=== PATIENT | female | born 1990 | race Caucasian/White ===

== ENCOUNTER → 2016-11-14 | Outpatient (REF) | payer OTHER ==
[2016-11-14 13:16] LABS: BASO % 0.1 % (0.0-1.0); EOS # 0.1 K/mm3 (0.0-0.50); EOS % 1.3 % (0.0-3.0); LARGE UNSTAINED CELL # 0.1 K/mm3 (0.0-0.4); LARGE UNSTAINED CELL % 1.6 % (0.0-4.0); LYMPH # 1.8 K/mm3 (1.5-6.5); LYMPH % 22.4 % (24.0-44.0); MEAN CORPUSCULAR HEMOGLOBIN 28.7 pg (27.0-33.0); MEAN CORPUSCULAR HGB CONC 32.1 g/dl (32.0-36.5); MEAN CORPUSCULAR VOLUME 89.4 fl (80.0-96.0); MONO # 0.5 K/mm3 (0.0-0.8); MONO % 5.8 % (0.0-5.0); NEUTROPHILS # 5.6 K/mm3 (1.8-7.7); NEUTROPHILS % 68.8 % (36.0-66.0); PLATELET COUNT, AUTOMATED 274 k/mm3 (150-450); WHITE BLOOD COUNT 8.2 K/mm3 (4.0-10.0)
[2016-11-14 13:25] LABS: ALBUMIN 3.3 GM/DL (3.2-5.2); ALBUMIN/GLOBULIN RATIO 0.79 (1.00-1.93); BILIRUBIN,TOTAL 0.2 MG/DL (0.2-1.0); CREATININE FOR GFR 1.57 MG/DL (0.55-1.02); GLOMERULAR FILTRATION RATE 42.1 (>60); TOTAL PROTEIN 7.5 GM/DL (6.4-8.2)
[2016-11-14 13:26] LABS: POTASSIUM SERUM 5.5 MEQ/L (3.5-5.1)
== END ==
LOC: M SFHCADAM 09:10
PROVIDERS: ATTEND Family Medicine
DX: E11.9 Type 2 diabetes mellitus without complications (principal); Z86.79 Personal history of other diseases of the circulatory system

== ENCOUNTER → 2016-11-19 | Outpatient (CLI) | payer OTHER ==
--- NOTE | 2016-11-19 12:53 | REP ---
RENAL AND BLADDER ULTRASOUND: Real-time sonographic evaluation of the kidneys performed and demonstrates both kidneys to be normal in size and echotexture, right kidney measuring 11.3 x 4.5 x 4.0 cm and left kidney 11.1 x 3.3 x 4.3 cm. There is no renal mass, hydronephrosis, or nephrolithiasis. Urinary bladder measures 6.7 x 7.0 x 5.0 cm for a volume of 153 mL. No mass or calculus is seen. Left ureteral jet is seen with Doppler color evaluation. Right ureteral jet could not be visualized. IMPRESSION: Essentially negative renal and bladder ultrasound. Signed by Timi Ceballos MD 11/20/2016 09:45 A
== END ==
LOC: M RAD 11:54
PROVIDERS: ATTEND Family Medicine
DX: N18.9 Chronic kidney disease, unspecified (principal)

== ENCOUNTER → 2016-12-01 | Outpatient (REF) | payer OTHER | LOC: M LAB REF 20:13 → M SFHCADAM 20:13 | PROVIDERS: ATTEND Family Medicine | DX: E11.9 Type 2 diabetes mellitus without complications (principal) ==

== ENCOUNTER → 2016-12-02 | Outpatient (CLI) | payer OTHER ==
--- NOTE | 2016-12-02 19:39 | ECHO ---
DATE OF PROCEDURE: 12/02/2016 REFERRING PHYSICIAN: Janelle Hoover DO INDICATION: Coarctation of the aorta. HEIGHT: 150 cm WEIGHT: 43 kg. DIMENSIONS: IVS: 1.0 LV: 3.3 LVPW: 1.1 LA: 2.6 Aorta 2.6 FINDINGS: The study is of acceptable technical quality. Left ventricle is of normal size and systolic function with estimated ejection fraction (EF) around 60-65%. Right ventricle also appears normal. Both atria appear normal. All four cardiac valves appear normal. No pericardial effusion is noted. Aortic root is normal. Aortic arch appears normal. The segment of descending aorta where normally coarctation is present was poorly seen but there appears to be some narrowing of the aortic lumen. Abdominal aorta was not seen. Doppler interrogation reveals no significant aortic mitral tricuspid or pulmonic disease. Evaluation of diastolic function reveals probably normal diastolic function even though velocity of the septal tissue Doppler is reduced at 6.34 cm/sec but lateralized 16 cm/sec. There is gradient across segment of descending thoracic aorta that reaches approximately 25 mmHg which would correspond to very mild coarctation. CONCLUSIONS: 1. Study is of acceptable technical quality. 2. Normal left ventricle (LV) size with normal LV systolic function and probably normal diastolic function. 3. No significant valvular disease. 4. Normal aortic root. 5. Mild gradient across coarctation segment of descending thoracic aorta with gradient measured approximately 20-25 mmHg. COMMENTS: Subacute bacterial endocarditis (SBE) prophylaxis is not recommended. MTDD
== END ==
LOC: M CARPUL 10:39
PROVIDERS: ATTEND Family Medicine
DX: Q25.1 Coarctation of aorta (principal)

== ENCOUNTER → 2017-01-20 | Outpatient (REF) | payer OTHER ==
[2017-01-20 19:39] LABS: ALBUMIN 3.4 GM/DL (3.2-5.2); ALBUMIN/GLOBULIN RATIO 0.79 (1.00-1.93); BILIRUBIN,TOTAL 0.2 MG/DL (0.2-1.0); CALCIUM LEVEL 8.5 MG/DL (8.5-10.1); CREATININE FOR GFR 1.61 MG/DL (0.55-1.02); GLOMERULAR FILTRATION RATE 40.9 (>60); POTASSIUM SERUM 4.6 MEQ/L (3.5-5.1); TOTAL PROTEIN 7.7 GM/DL (6.4-8.2)
== END ==
LOC: M SFHCADAM 15:55
PROVIDERS: ATTEND Family Medicine
DX: Z01.810 Encounter for preprocedural cardiovascular examination (principal)

== ENCOUNTER → 2018-02-10 | Outpatient (REF) | payer OTHER, SELFPAY ==
[2018-02-10 19:12] LABS: ESTIMATED AVERAGE GLUCOSE 226 MG/DL (60-110); HEMOGLOBIN A1c 9.5 %
[2018-02-10 19:25] LABS: ALBUMIN 2.8 GM/DL (3.2-5.2); ALBUMIN/GLOBULIN RATIO 0.65 (1.00-1.93); ALKALINE PHOSPHATASE 94 U/L (45-117); ALT/SGPT 16 U/L (12-78); ANION GAP 6 MEQ/L (8-16); AST/SGOT 9 U/L (7-37); BILIRUBIN,TOTAL 0.2 MG/DL (0.2-1.0); BLOOD UREA NITROGEN 48 MG/DL (7-18); CALCIUM LEVEL 8.1 MG/DL (8.5-10.1); CARBON DIOXIDE LEVEL 26 MEQ/L (21-32); CHLORIDE LEVEL 109 MEQ/L (98-107); CREATININE FOR GFR 3.71 MG/DL (0.55-1.30); GLOMERULAR FILTRATION RATE 15.5 (>60); GLUCOSE, FASTING 169 MG/DL (70-100); SODIUM LEVEL 141 MEQ/L (136-145); TOTAL PROTEIN 7.1 GM/DL (6.4-8.2)
[2018-02-10 19:28] LABS: BASO % 0.1 % (0.0-1.0); EOS # 0.1 10^3/uL (0.0-0.50); EOS % 1.5 % (0.0-3.0); HEMATOCRIT 30.9 % (36.0-47.0); HEMOGLOBIN 10.4 g/dl (12.0-15.5); IMMATURE GRANULOCYTE % 0.2 % (0-3.0); LYMPH # 2.2 10^3/uL (1.5-6.5); LYMPH % 23.4 % (24.0-44.0); MEAN CORPUSCULAR HEMOGLOBIN 29.7 pg (27.0-33.0); MEAN CORPUSCULAR HGB CONC 33.7 g/dl (32.0-36.5); MEAN CORPUSCULAR VOLUME 88.3 fl (80.0-96.0); MONO # 0.7 10^3/uL (0.0-0.8); MONO % 6.9 % (0.0-5.0); NEUTROPHILS # 6.5 10^3/uL (1.8-7.7); NEUTROPHILS % 67.9 % (36.0-66.0); PLATELET COUNT, AUTOMATED 256 10^3/uL (150-450); WHITE BLOOD COUNT 9.6 10^3/uL (4.0-10.0)
[2018-02-10 19:29] LABS: POTASSIUM SERUM 5.5 MEQ/L (3.5-5.1)
[2018-02-10 19:59] LABS: CREATININE, URINE 57.9 MG/DL; MAU/CREAT RATIO 4922.2 MCG/MG (0.0-30.0)
== END ==
LOC: M SFHCADAM 16:40
DX: Z86.2 Personal history of diseases of the blood and blood-forming organs and certain disorders involving the immune mechanism (principal); E11.9 Type 2 diabetes mellitus without complications
CPT/HCPCS: 83036

== ENCOUNTER → 2018-07-15 | Outpatient (CLI) | payer OTHER ==
[2018-07-15 15:34] LABS: ESTIMATED AVERAGE GLUCOSE 212 MG/DL (60-110)
[2018-07-15 15:43] LABS: ALBUMIN/GLOBULIN RATIO 0.73 (1.00-1.93); ALKALINE PHOSPHATASE 83 U/L (45-117); ALT/SGPT 12 U/L (12-78); ANION GAP 11 MEQ/L (8-16); AST/SGOT 12 U/L (7-37); BASO % 0.3 % (0.0-1.0); BILIRUBIN,TOTAL 0.2 MG/DL (0.2-1.0); BLOOD UREA NITROGEN 58 MG/DL (7-18); CALCIUM LEVEL 8.4 MG/DL (8.5-10.1); CARBON DIOXIDE LEVEL 21 MEQ/L (21-32); CHLORIDE LEVEL 109 MEQ/L (98-107); CHOLESTEROL LEVEL 202 MG/DL (<200); CHOLESTEROL RISK RATIO 7.769 (<5); CREATININE FOR GFR 6.49 MG/DL (0.55-1.30); EOS # 0.2 10^3/uL (0.0-0.50); EOS % 1.8 % (0.0-3.0); GLOMERULAR FILTRATION RATE 8.1 (>60); GLUCOSE, FASTING 119 MG/DL (70-100); HDL CHOLESTEROL 26 MG/DL (>40); HEMATOCRIT 27.6 % (36.0-47.0); IMMATURE GRANULOCYTE % 0.3 % (0-3.0); LDL CHOLESTEROL 126 MG/DL (<100); LYMPH # 2.3 10^3/uL (1.5-6.5); MEAN CORPUSCULAR HEMOGLOBIN 29.6 pg (27.0-33.0); MEAN CORPUSCULAR HGB CONC 32.6 g/dl (32.0-36.5); MEAN CORPUSCULAR VOLUME 90.8 fl (80.0-96.0); MONO # 0.6 10^3/uL (0.0-0.8); MONO % 6.3 % (0.0-5.0); NEUTROPHILS # 6.2 10^3/uL (1.8-7.7); NEUTROPHILS % 66.3 % (36.0-66.0); NON-HDL-C 176 MG/DL; PLATELET COUNT, AUTOMATED 274 10^3/uL (150-450); POTASSIUM SERUM 5.1 MEQ/L (3.5-5.1); RED BLOOD COUNT 3.04 10^6/uL (4.00-5.40); RED CELL DISTRIBUTION WIDTH 12.5 % (11.5-14.5); SODIUM LEVEL 141 MEQ/L (136-145); TOTAL PROTEIN 7.1 GM/DL (6.4-8.2); TRIGLYCERIDES LEVEL 249 MG/DL (<150); WHITE BLOOD COUNT 9.4 10^3/uL (4.0-10.0)
== END ==
LOC: M LAB 13:43
DX: R53.83 Other fatigue (principal); I10 Essential (primary) hypertension; E78.2 Mixed hyperlipidemia
CPT/HCPCS: 84443

== ENCOUNTER 2018-07-16 18:54 | Inpatient (IN) | payer OTHER ==
[2018-07-16 19:57] LABS: BEDSIDE GLUCOSE 201 MG/DL (70-105)
[2018-07-16 20:02] LABS: VENOUS BASE EXCESS -4.9 (-2.0-2.0); VENOUS HCO3 20.3 MEQ/L (23.0-27.0); VENOUS O2 SATURATION 98.3 % (60.0-80.0); VENOUS PARTIAL PRESSURE CO2 38.4 mmHg (38.0-50.0); VENOUS PH 7.342 UNITS (7.330-7.430); VENOUS STANDARD HCO3 20.4 MEQ/L; VENOUS TOTAL CO2 21.5 MEQ/L (24.0-28.0)
[2018-07-16 20:16] LABS: BASO % 0.2 % (0.0-1.0); EOS # 0.2 10^3/uL (0.0-0.50); HEMATOCRIT 27.4 % (36.0-47.0); HEMOGLOBIN 9.1 g/dl (12.0-15.5); IMMATURE GRANULOCYTE % 0.3 % (0-3.0); LYMPH # 2.2 10^3/uL (1.5-6.5); MEAN CORPUSCULAR HEMOGLOBIN 29.8 pg (27.0-33.0); MEAN CORPUSCULAR HGB CONC 33.2 g/dl (32.0-36.5); MEAN CORPUSCULAR VOLUME 89.8 fl (80.0-96.0); MONO # 0.7 10^3/uL (0.0-0.8); MONO % 6.6 % (0.0-5.0); NEUTROPHILS % 68.9 % (36.0-66.0); PLATELET COUNT, AUTOMATED 269 10^3/uL (150-450); RED BLOOD COUNT 3.05 10^6/uL (4.00-5.40); RED CELL DISTRIBUTION WIDTH 12.4 % (11.5-14.5); WHITE BLOOD COUNT 10.1 10^3/uL (4.0-10.0)
[2018-07-16 20:18] LABS: ALBUMIN 2.9 GM/DL (3.2-5.2); ALBUMIN/GLOBULIN RATIO 0.69 (1.00-1.93); ALKALINE PHOSPHATASE 85 U/L (45-117); ALT/SGPT 17 U/L (12-78); ANION GAP 10 MEQ/L (8-16); AST/SGOT 9 U/L (7-37); BILIRUBIN,DIRECT < 0.1 MG/DL (0.0-0.2); BILIRUBIN,TOTAL 0.2 MG/DL (0.2-1.0); BLOOD UREA NITROGEN 65 MG/DL (7-18); CALCIUM LEVEL 8.1 MG/DL (8.5-10.1); CARBON DIOXIDE LEVEL 23 MEQ/L (21-32); CHLORIDE LEVEL 108 MEQ/L (98-107); CREATININE FOR GFR 6.38 MG/DL (0.55-1.30); GLOMERULAR FILTRATION RATE 8.2 (>60); GLUCOSE, FASTING 203 MG/DL (70-100); LIPASE 432 U/L (73-393); POTASSIUM SERUM 4.9 MEQ/L (3.5-5.1); SODIUM LEVEL 141 MEQ/L (136-145); TOTAL PROTEIN 7.1 GM/DL (6.4-8.2)
[2018-07-16 20:27] LABS: CONTROL LINE HCG INT CTR LINE PRESENT; HCG, SERUM QUALITATIVE NEGATIVE (NEGATIVE)
[2018-07-16] MEDS: HumaLOG INSULIN (NovoLOG) PER UNIT SC (21:00)
[2018-07-16] MEDS: NS 1,000 ML IV (21:15)
[2018-07-16] MEDS: hydrALAZINE INJ 20 MG/ML VIAL IV (22:13)
[2018-07-16] MEDS ORDERED: GLUCAGON FOR INJ 1 MG VIAL (J1610) SC (22:15)
[2018-07-16] MEDS ORDERED: DEXTROSE 50% 50 ML SYRINGE IV (22:15)
[2018-07-16] MEDS ORDERED: GLUCOSE 4 GM CHEW TABLET PO (22:15)
[2018-07-16] MEDS: amLODIPine 10 MG TAB PO (22:24)
[2018-07-16 23:18] LABS: BEDSIDE GLUCOSE 180 MG/DL (70-105)
[2018-07-16 23:36] LABS: BEDSIDE GLUCOSE 223 MG/DL (70-105)
[2018-07-17 00:59] LABS: APPEARANCE, URINE CLEAR (CLEAR); BACTERIA, URINE AUTO NEGATIVE (NEGATIVE); BILIRUBIN, URINE AUTO NEGATIVE (NEGATIVE); BLOOD, URINE BLOOD 1+ (NEGATIVE); COLOR, URINE STRAW (YELLOW); GLUCOSE, URINE (UA) AUTO 3+ mg/dL (NEGATIVE); KETONE, URINE AUTO NEGATIVE (NEGATIVE); LEUKOCYTE ESTERASE, URINE AUTO NEGATIVE (NEGATIVE); MUCUS, URINE SMALL (NEGATIVE); NITRITE, URINE AUTO NEGATIVE (NEGATIVE); PROTEIN, URINE AUTO 3+ mg/dL (NEGATIVE); RBC, URINE AUTO 15 /HPF (0-3); SPECIFIC GRAVITY URINE AUTO 1.007 (1.002-1.035); SQUAMOUS EPITHELIAL CELL UR AU 0 /HPF (0-6); UROBILINOGEN, URINE AUTO 0.2 mg/dL (0.0-2.0); WBC, URINE AUTO 1 /HPF (0-3)
[2018-07-17 01:14] LABS: CREATININE,RANDOM URINE 30.6 MG/DL
[2018-07-17] MEDS: METOPROLOL 5 MG/5 ML VIAL IV (01:39)
[2018-07-17 05:51] LABS: HEMATOCRIT 26.5 % (36.0-47.0); HEMOGLOBIN 8.7 g/dl (12.0-15.5); MEAN CORPUSCULAR HEMOGLOBIN 29.4 pg (27.0-33.0); MEAN CORPUSCULAR HGB CONC 32.8 g/dl (32.0-36.5); MEAN CORPUSCULAR VOLUME 89.5 fl (80.0-96.0); PLATELET COUNT, AUTOMATED 254 10^3/uL (150-450); RED BLOOD COUNT 2.96 10^6/uL (4.00-5.40); RED CELL DISTRIBUTION WIDTH 12.3 % (11.5-14.5); WHITE BLOOD COUNT 13.5 10^3/uL (4.0-10.0)
[2018-07-17 06:14] LABS: ANION GAP 10 MEQ/L (8-16); BLOOD UREA NITROGEN 63 MG/DL (7-18); CALCIUM LEVEL 7.8 MG/DL (8.5-10.1); CARBON DIOXIDE LEVEL 21 MEQ/L (21-32); CHLORIDE LEVEL 111 MEQ/L (98-107); CREATININE FOR GFR 6.34 MG/DL (0.55-1.30); GLOMERULAR FILTRATION RATE 8.3 (>60); GLUCOSE, FASTING 224 MG/DL (70-100); SODIUM LEVEL 142 MEQ/L (136-145)
[2018-07-17 06:27] LABS: PROTEIN, URINE AUTO 3+ mg/dL (NEGATIVE)
[2018-07-17 08:59] LABS: BEDSIDE GLUCOSE 166 MG/DL (70-105)
[2018-07-17] MEDS: amLODIPine 10 MG TAB PO (10:06)
[2018-07-17] MEDS: HumaLOG INSULIN (NovoLOG) PER UNIT SC ×4 (10:07→21:00)
[2018-07-17 11:31] LABS: ESTIMATED AVERAGE GLUCOSE 209 MG/DL (60-110); HEMOGLOBIN A1c 8.9 %
[2018-07-17 11:52] LABS: FERRITIN 109 NG/ML (8-252); IRON (FE) 58 UG/DL (50-170); PERCENT SATURATION 28.3 % (13.2-45.0); TOTAL IRON BINDING CAPACITY 205 UG/DL (250-450)
[2018-07-17 11:53] LABS: BEDSIDE GLUCOSE 272 MG/DL (70-105)
[2018-07-17] MEDS: CLOTRIMAZOLE 1% TOPICAL CREAM 30GM TOP ×2 (11:55→21:36)
[2018-07-17 13:53] LABS: BEDSIDE GLUCOSE 242 MG/DL (70-105)
[2018-07-17 17:41] LABS: BEDSIDE GLUCOSE 194 MG/DL (70-105)
[2018-07-17 21:39] LABS: BEDSIDE GLUCOSE 216 MG/DL (70-105)
[2018-07-17] MEDS: HEPARIN SOD (PORCINE) 5000 UNITS/ML VIAL SQ (23:19)
[2018-07-18 05:51] LABS: HEMATOCRIT 27.1 % (36.0-47.0); HEMOGLOBIN 8.9 g/dl (12.0-15.5); MEAN CORPUSCULAR HEMOGLOBIN 29.5 pg (27.0-33.0); MEAN CORPUSCULAR HGB CONC 32.8 g/dl (32.0-36.5); MEAN CORPUSCULAR VOLUME 89.7 fl (80.0-96.0); PLATELET COUNT, AUTOMATED 251 10^3/uL (150-450); RED BLOOD COUNT 3.02 10^6/uL (4.00-5.40); RED CELL DISTRIBUTION WIDTH 12.2 % (11.5-14.5); WHITE BLOOD COUNT 8.9 10^3/uL (4.0-10.0)
[2018-07-18] MEDS: HEPARIN SOD (PORCINE) 5000 UNITS/ML VIAL SQ ×2 (06:21→13:34)
[2018-07-18 06:31] LABS: ALBUMIN 2.7 GM/DL (3.2-5.2); ANION GAP 12 MEQ/L (8-16); BLOOD UREA NITROGEN 68 MG/DL (7-18); CALCIUM LEVEL 8.1 MG/DL (8.5-10.1); CARBON DIOXIDE LEVEL 19 MEQ/L (21-32); CHLORIDE LEVEL 110 MEQ/L (98-107); COMPLEMENT C3 105 MG/DL (90-180); CREATININE FOR GFR 6.44 MG/DL (0.55-1.30); GLOMERULAR FILTRATION RATE 8.1 (>60); GLUCOSE, FASTING 161 MG/DL (70-100); MAGNESIUM LEVEL 2.4 MG/DL (1.8-2.4); PHOSPHORUS LEVEL 6.7 MG/DL (2.5-4.9); POTASSIUM SERUM 4.4 MEQ/L (3.5-5.1); SODIUM LEVEL 141 MEQ/L (136-145)
[2018-07-18] MEDS: amLODIPine 10 MG TAB PO (08:48)
[2018-07-18 08:49] LABS: BEDSIDE GLUCOSE 172 MG/DL (70-105)
[2018-07-18] MEDS: LEVEMIR (INSULIN DETEMIR) 1 UNITS/0.01ML SC (08:49)
[2018-07-18] MEDS: HumaLOG INSULIN (NovoLOG) PER UNIT SC ×3 (08:49→17:30)
[2018-07-18] MEDS: CLOTRIMAZOLE 1% TOPICAL CREAM 30GM TOP (08:50)
[2018-07-18] MEDS: hydroCHLOROthiazide 12.5 MG CAPSULE PO (09:11)
[2018-07-18] MEDS: **hydrALAZINE** 10 MG TAB PO (11:55)
[2018-07-18 13:00] LABS: BEDSIDE GLUCOSE 252 MG/DL (70-105)
[2018-07-18] MEDS ORDERED: DARBEPOETIN 100 MCG/0.5 ML *DIALYSIS* SYRINGE (J0882) IV (14:00)
[2018-07-18 16:31] LABS: BEDSIDE GLUCOSE 147 MG/DL (70-105)
[2018-07-19 10:02] LABS: HEPATITIS B SURFACE ANTIBODY POSITIVE (POSITIVE)
[2018-07-19 10:13] LABS: HEPATITIS B SURFACE ANTIGEN NEGATIVE (NEGATIVE)
[2018-07-19 10:41] LABS: HEPATITIS C VIRUS ABY INDEX < 0.0 INDEX (<0.8)
[2018-07-19] MEDS ORDERED: DARBEPOETIN 40 MCG/0.4 ML *NON-DIALYSIS* SYRINGE (J0881) SQ (17:30)
== END 2018-07-18 19:15 | disposition left against medical advice (07) | DRG 460 ==
LOC: M ED 18:54 → M MSPAV 07-18 14:50 → M ED INP 21:58 → M PCU 23:15
DX: N17.9 Acute kidney failure, unspecified (principal); E11.22 Type 2 diabetes mellitus with diabetic chronic kidney disease; E11.319 Type 2 diabetes mellitus with unspecified diabetic retinopathy without macular edema; I12.0 Hypertensive chronic kidney disease with stage 5 chronic kidney disease or end stage renal disease; H54.7 Unspecified visual loss; I16.0 Hypertensive urgency; B35.4 Tinea corporis; E11.21 Type 2 diabetes mellitus with diabetic nephropathy; L21.9 Seborrheic dermatitis, unspecified; E11.65 Type 2 diabetes mellitus with hyperglycemia; N18.5 Chronic kidney disease, stage 5; N25.81 Secondary hyperparathyroidism of renal origin; Q96.8 Other variants of Turner's syndrome; D63.1 Anemia in chronic kidney disease; Z91.14 Patient's other noncompliance with medication regimen; Z91.120 Patient's intentional underdosing of medication regimen due to financial hardship

== ENCOUNTER 2018-08-11 14:01 | Inpatient (IN) | payer OTHER ==
[2018-08-11] MEDS: LABETALOL HCL 100 MG/20 ML VIAL IV (15:33)
[2018-08-11] MEDS: NS 1,000 ML IV (15:33)
[2018-08-11 15:41] LABS: BASO % 0.2 % (0.0-1.0); EOS # 0.1 10^3/uL (0.0-0.50); EOS % 1.3 % (0.0-3.0); HEMATOCRIT 27.9 % (36.0-47.0); HEMOGLOBIN 9.3 g/dl (12.0-15.5); IMMATURE GRANULOCYTE % 0.5 % (0-3.0); MEAN CORPUSCULAR HEMOGLOBIN 30.1 pg (27.0-33.0); MEAN CORPUSCULAR HGB CONC 33.3 g/dl (32.0-36.5); MEAN CORPUSCULAR VOLUME 90.3 fl (80.0-96.0); MONO # 0.6 10^3/uL (0.0-0.8); MONO % 5.6 % (0.0-5.0); NEUTROPHILS # 7.8 10^3/uL (1.8-7.7); NEUTROPHILS % 73.4 % (36.0-66.0); PLATELET COUNT, AUTOMATED 277 10^3/uL (150-450); RED BLOOD COUNT 3.09 10^6/uL (4.00-5.40); RED CELL DISTRIBUTION WIDTH 12.3 % (11.5-14.5); WHITE BLOOD COUNT 10.7 10^3/uL (4.0-10.0)
[2018-08-11 15:49] LABS: CONTROL LINE HCG INT CTR LINE PRESENT; HCG, SERUM QUALITATIVE NEGATIVE (NEGATIVE)
[2018-08-11 15:58] LABS: INR 0.96; PROTHROMBIN TIME 12.8 SECONDS (12.1-14.4)
[2018-08-11 15:59] LABS: ACETAMINOPHEN LEVEL < 2.0 UG/ML (10.0-30.0); ALBUMIN 2.9 GM/DL (3.2-5.2); ALBUMIN/GLOBULIN RATIO 0.63 (1.00-1.93); ALKALINE PHOSPHATASE 91 U/L (45-117); ALT/SGPT 12 U/L (12-78); ANION GAP 9 MEQ/L (8-16); AST/SGOT 10 U/L (7-37); BILIRUBIN,DIRECT < 0.1 MG/DL (0.0-0.2); BILIRUBIN,TOTAL 0.2 MG/DL (0.2-1.0); BLOOD UREA NITROGEN 50 MG/DL (7-18); CALCIUM LEVEL 8.8 MG/DL (8.5-10.1); CARBON DIOXIDE LEVEL 20 MEQ/L (21-32); CHLORIDE LEVEL 108 MEQ/L (98-107); CPK CREATINE PHOSPHOKINASE 39 U/L (26-192); CREATININE FOR GFR 6.29 MG/DL (0.55-1.30); GLOMERULAR FILTRATION RATE 8.4 (>60); GLUCOSE, FASTING 170 MG/DL (70-100); POTASSIUM SERUM 4.6 MEQ/L (3.5-5.1); SALICYLATE LEVEL < 1.7 MG/DL (5.0-30.0); SODIUM LEVEL 137 MEQ/L (136-145); TOTAL PROTEIN 7.5 GM/DL (6.4-8.2); TROPONIN I < 0.02 NG/ML (< 0.10)
[2018-08-11 16:46] LABS: ERYTHROCYTE SEDIMENTATION RATE 107 mm/hr (0-20)
[2018-08-12 03:45] LABS: REASON FOR REVIEW RBC MORPHOLOGY; SLIDE REVIEW Report; SOURCE PERIPHERAL SMEAR
[2018-08-12] MEDS: HEPARIN SOD (PORCINE) 5000 UNITS/ML VIAL SQ ×3 (06:47→21:42)
[2018-08-12] MEDS: ASPIRIN 81 MG CHEW TABLET PO (06:47)
[2018-08-12] MEDS: LABETALOL HCL 100 MG/20 ML VIAL IV (06:49)
[2018-08-12] MEDS: NS 1,000 ML IV (06:54)
[2018-08-12] MEDS: ATORVASTATIN 20 MG TAB PO (06:54)
[2018-08-12 08:39] LABS: BASO % 0.2 % (0.0-1.0); EOS # 0.1 10^3/uL (0.0-0.50); EOS % 1.6 % (0.0-3.0); HEMATOCRIT 24.3 % (36.0-47.0); HEMOGLOBIN 8.1 g/dl (12.0-15.5); IMMATURE GRANULOCYTE % 0.2 % (0-3.0); LYMPH # 1.8 10^3/uL (1.5-6.5); LYMPH % 20.4 % (24.0-44.0); MEAN CORPUSCULAR HEMOGLOBIN 30.1 pg (27.0-33.0); MEAN CORPUSCULAR HGB CONC 33.3 g/dl (32.0-36.5); MEAN CORPUSCULAR VOLUME 90.3 fl (80.0-96.0); MONO # 0.4 10^3/uL (0.0-0.8); MONO % 4.8 % (0.0-5.0); NEUTROPHILS # 6.5 10^3/uL (1.8-7.7); NEUTROPHILS % 72.8 % (36.0-66.0); PLATELET COUNT, AUTOMATED 243 10^3/uL (150-450); RED BLOOD COUNT 2.69 10^6/uL (4.00-5.40); RED CELL DISTRIBUTION WIDTH 12.5 % (11.5-14.5); WHITE BLOOD COUNT 8.9 10^3/uL (4.0-10.0)
[2018-08-12 08:51] LABS: ANION GAP 9 MEQ/L (8-16); BLOOD UREA NITROGEN 49 MG/DL (7-18); CALCIUM LEVEL 8.1 MG/DL (8.5-10.1); CARBON DIOXIDE LEVEL 19 MEQ/L (21-32); CHLORIDE LEVEL 112 MEQ/L (98-107); CREATININE FOR GFR 6.06 MG/DL (0.55-1.30); GLOMERULAR FILTRATION RATE 8.7 (>60); GLUCOSE, FASTING 129 MG/DL (70-100); SODIUM LEVEL 140 MEQ/L (136-145)
[2018-08-12] MEDS ORDERED: ENOXAPARIN 40 MG/0.4 ML SYRINGE (J1650) SC (09:00)
[2018-08-12] MEDS: KETOCONAZOLE 2% CREAM TOP ×2 (09:03→21:42)
[2018-08-12] MEDS: PANTOPRAZOLE 40MG TAB (PROTONIX) PO (09:03)
[2018-08-12 11:49] LABS: VITAMIN B12 LEVEL 439 PG/ML (247-911)
[2018-08-12] MEDS: amLODIPine 5 MG TAB PO (13:08)
[2018-08-12 14:55] LABS: C REACTIVE PROTEIN QUANTITATIV < 0.30 MG/DL (0.00-0.30)
[2018-08-12] MEDS: COAL TAR 1% SHAMPOO 180 ML BTL TOP (15:24)
[2018-08-12] MEDS: cloNIDine 0.1 MG TAB PO ×2 (16:00→21:00)
[2018-08-12 23:03] LABS: CONTROL LINE UCG INT CTR LINE PRESENT; URINE PREG TEST NEGATIVE (NEGATIVE)
[2018-08-12 23:12] LABS: KETONE, URINE AUTO RFX NEGATIVE (NEGATIVE); NITRITE, URINE AUTO RFX NEGATIVE (NEGATIVE); RBC, URINE AUTO RFX 23 /HPF (0-3); SPECIFIC GRAVITY UR AUTO RFX 1.006 (1.002-1.035); SQUAM EPITHELIAL CELL UR AURFX 1 /HPF (0-6); TRANSITIONAL EPITHELIAL AU RFX <1 /HPF
[2018-08-12 23:13] LABS: LEUKOCYTE ESTERASE UR AUTO RFX 2+ (NEGATIVE); WBC, URINE AUTO RFX 56 /HPF (0-3)
[2018-08-13] MEDS: HEPARIN SOD (PORCINE) 5000 UNITS/ML VIAL SQ ×3 (05:53→21:18)
[2018-08-13 06:50] LABS: BASO % 0.3 % (0.0-1.0); EOS # 0.2 10^3/uL (0.0-0.50); EOS % 2.4 % (0.0-3.0); HEMOGLOBIN 8.1 g/dl (12.0-15.5); IMMATURE GRANULOCYTE % 0.3 % (0-3.0); LYMPH % 25.4 % (24.0-44.0); MEAN CORPUSCULAR HEMOGLOBIN 30.1 pg (27.0-33.0); MEAN CORPUSCULAR HGB CONC 32.4 g/dl (32.0-36.5); MEAN CORPUSCULAR VOLUME 92.9 fl (80.0-96.0); MONO # 0.6 10^3/uL (0.0-0.8); MONO % 7.4 % (0.0-5.0); NEUTROPHILS # 5.1 10^3/uL (1.8-7.7); NEUTROPHILS % 64.2 % (36.0-66.0); PLATELET COUNT, AUTOMATED 230 10^3/uL (150-450); RED BLOOD COUNT 2.69 10^6/uL (4.00-5.40); RED CELL DISTRIBUTION WIDTH 12.5 % (11.5-14.5); WHITE BLOOD COUNT 7.9 10^3/uL (4.0-10.0)
[2018-08-13 07:01] LABS: ANION GAP 7 MEQ/L (8-16); BLOOD UREA NITROGEN 51 MG/DL (7-18); CALCIUM LEVEL 8.3 MG/DL (8.5-10.1); CARBON DIOXIDE LEVEL 19 MEQ/L (21-32); CHLORIDE LEVEL 114 MEQ/L (98-107); CREATININE FOR GFR 6.16 MG/DL (0.55-1.30); GLOMERULAR FILTRATION RATE 8.6 (>60); GLUCOSE, FASTING 180 MG/DL (70-100); LIPASE 330 U/L (73-393); POTASSIUM SERUM 5.1 MEQ/L (3.5-5.1); SODIUM LEVEL 140 MEQ/L (136-145)
[2018-08-13] MEDS: ATORVASTATIN 20 MG TAB PO (08:10)
[2018-08-13] MEDS: KETOCONAZOLE 2% CREAM TOP ×2 (08:10→21:23)
[2018-08-13] MEDS: COAL TAR 1% SHAMPOO 180 ML BTL TOP (08:10)
[2018-08-13] MEDS: PANTOPRAZOLE 40MG TAB (PROTONIX) PO (08:11)
[2018-08-13] MEDS: ASPIRIN 81 MG ENTERIC TAB PO (08:11)
[2018-08-13] MEDS: amLODIPine 5 MG TAB PO (08:15)
[2018-08-13] MEDS: cloNIDine 0.1 MG TAB PO ×3 (08:15→21:17)
[2018-08-13] MEDS ORDERED: SLF 3 ML SYR IV (16:30)
[2018-08-13] MEDS: SLF 3 ML SYR IV (21:25)
[2018-08-14 00:06] LABS: Lyme Disease IgG/IgM Antibodie <0.91 ISR (0.00-0.90); Lyme Disease IgM Ab Quantitati <0.80 index (0.00-0.79)
[2018-08-14 05:21] LABS: BASO % 0.1 % (0.0-1.0); EOS # 0.2 10^3/uL (0.0-0.50); EOS % 2.8 % (0.0-3.0); HEMATOCRIT 23.2 % (36.0-47.0); HEMOGLOBIN 7.4 g/dl (12.0-15.5); IMMATURE GRANULOCYTE % 0.4 % (0-3.0); LYMPH # 2.7 10^3/uL (1.5-6.5); LYMPH % 31.9 % (24.0-44.0); MEAN CORPUSCULAR HEMOGLOBIN 29.6 pg (27.0-33.0); MEAN CORPUSCULAR HGB CONC 31.9 g/dl (32.0-36.5); MEAN CORPUSCULAR VOLUME 92.8 fl (80.0-96.0); MONO # 0.6 10^3/uL (0.0-0.8); MONO % 6.6 % (0.0-5.0); NEUTROPHILS % 58.2 % (36.0-66.0); PLATELET COUNT, AUTOMATED 227 10^3/uL (150-450); RED CELL DISTRIBUTION WIDTH 12.5 % (11.5-14.5); WHITE BLOOD COUNT 8.5 10^3/uL (4.0-10.0)
[2018-08-14] MEDS: HEPARIN SOD (PORCINE) 5000 UNITS/ML VIAL SQ ×3 (05:23→22:12)
[2018-08-14] MEDS: SLF 3 ML SYR IV ×3 (05:24→22:14)
[2018-08-14 05:26] LABS: ANION GAP 7 MEQ/L (8-16); BLOOD UREA NITROGEN 50 MG/DL (7-18); CALCIUM LEVEL 8.3 MG/DL (8.5-10.1); CARBON DIOXIDE LEVEL 21 MEQ/L (21-32); CHLORIDE LEVEL 112 MEQ/L (98-107); GLOMERULAR FILTRATION RATE 8.3 (>60); GLUCOSE, FASTING 223 MG/DL (70-100); POTASSIUM SERUM 5.1 MEQ/L (3.5-5.1); SODIUM LEVEL 140 MEQ/L (136-145)
[2018-08-14 08:41] LABS: FERRITIN 85 NG/ML (8-252); IRON (FE) 41 UG/DL (50-170); PERCENT SATURATION 25.9 % (13.2-45.0); TOTAL IRON BINDING CAPACITY 158 UG/DL (250-450)
[2018-08-14] MEDS: COAL TAR 1% SHAMPOO 180 ML BTL TOP (09:00)
[2018-08-14] MEDS: cloNIDine 0.1 MG TAB PO ×3 (09:00→20:44)
[2018-08-14] MEDS: ATORVASTATIN 20 MG TAB PO (09:54)
[2018-08-14] MEDS: ASPIRIN 81 MG ENTERIC TAB PO (09:56)
[2018-08-14] MEDS: KETOCONAZOLE 2% CREAM TOP ×2 (09:56→22:14)
[2018-08-14] MEDS: PANTOPRAZOLE 40MG TAB (PROTONIX) PO (09:56)
[2018-08-14] MEDS: amLODIPine 5 MG TAB PO (09:57)
[2018-08-15 05:16] LABS: BASO % 0.1 % (0.0-1.0); EOS # 0.2 10^3/uL (0.0-0.50); EOS % 2.3 % (0.0-3.0); HEMATOCRIT 22.8 % (36.0-47.0); HEMOGLOBIN 7.4 g/dl (12.0-15.5); IMMATURE GRANULOCYTE % 0.4 % (0-3.0); LYMPH # 2.5 10^3/uL (1.5-6.5); LYMPH % 30.1 % (24.0-44.0); MEAN CORPUSCULAR HGB CONC 32.5 g/dl (32.0-36.5); MEAN CORPUSCULAR VOLUME 92.3 fl (80.0-96.0); MONO # 0.5 10^3/uL (0.0-0.8); MONO % 5.9 % (0.0-5.0); NEUTROPHILS # 5.1 10^3/uL (1.8-7.7); NEUTROPHILS % 61.2 % (36.0-66.0); PLATELET COUNT, AUTOMATED 233 10^3/uL (150-450); RED BLOOD COUNT 2.47 10^6/uL (4.00-5.40); RED CELL DISTRIBUTION WIDTH 12.5 % (11.5-14.5); WHITE BLOOD COUNT 8.4 10^3/uL (4.0-10.0)
[2018-08-15 05:37] LABS: ANION GAP 8 MEQ/L (8-16); BLOOD UREA NITROGEN 51 MG/DL (7-18); CALCIUM LEVEL 8.2 MG/DL (8.5-10.1); CARBON DIOXIDE LEVEL 20 MEQ/L (21-32); CHLORIDE LEVEL 110 MEQ/L (98-107); CREATININE FOR GFR 6.46 MG/DL (0.55-1.30); GLOMERULAR FILTRATION RATE 8.1 (>60); GLUCOSE, FASTING 254 MG/DL (70-100); POTASSIUM SERUM 5.6 MEQ/L (3.5-5.1); SODIUM LEVEL 138 MEQ/L (136-145)
[2018-08-15] MEDS: HEPARIN SOD (PORCINE) 5000 UNITS/ML VIAL SQ (05:47)
[2018-08-15] MEDS: SLF 3 ML SYR IV ×3 (05:48→21:19)
[2018-08-15] MEDS ORDERED: DEXTROSE 50% 50 ML SYRINGE IV (07:00)
[2018-08-15] MEDS ORDERED: GLUCAGON FOR INJ 1 MG VIAL (J1610) SC (07:00)
[2018-08-15] MEDS ORDERED: GLUCOSE 4 GM CHEW TABLET PO (07:00)
[2018-08-15 07:55] LABS: ESTIMATED AVERAGE GLUCOSE 194 MG/DL (60-110); HEMOGLOBIN A1c 8.4 %
[2018-08-15] MEDS: COAL TAR 1% SHAMPOO 180 ML BTL TOP (09:00)
[2018-08-15] MEDS: KETOCONAZOLE 2% CREAM TOP ×2 (09:00→21:15)
[2018-08-15] MEDS: ATORVASTATIN 20 MG TAB PO (09:01)
[2018-08-15 09:02] LABS: CHOLESTEROL LEVEL 174 MG/DL (<200); CHOLESTEROL RISK RATIO 6.692 (<5); HDL CHOLESTEROL 26 MG/DL (>40); LDL CHOLESTEROL 84 MG/DL (<100); NON-HDL-C 148 MG/DL; TRIGLYCERIDES LEVEL 318 MG/DL (<150)
[2018-08-15] MEDS: FUROSEMIDE 100 MG/10 ML VIAL (J1940) IV (09:02)
[2018-08-15] MEDS: PANTOPRAZOLE 40MG TAB (PROTONIX) PO (09:02)
[2018-08-15] MEDS: ASPIRIN 81 MG ENTERIC TAB PO (09:03)
[2018-08-15] MEDS: LEVEMIR (INSULIN DETEMIR) 1 UNITS/0.01ML SC (09:04)
[2018-08-15] MEDS: HumaLOG INSULIN (NovoLOG) PER UNIT SC ×4 (09:04→21:00)
[2018-08-15 11:06] LABS: PHOSPHORUS LEVEL 6.4 MG/DL (2.5-4.9)
[2018-08-15 11:30] LABS: BEDSIDE GLUCOSE 158 MG/DL (70-105)
[2018-08-15] MEDS: amLODIPine 5 MG TAB PO ×2 (12:52→21:13)
[2018-08-15 17:00] LABS: BEDSIDE GLUCOSE 70 MG/DL (70-105)
[2018-08-15 21:27] LABS: BEDSIDE GLUCOSE 191 MG/DL (70-105)
[2018-08-16] MEDS: HEPARIN SOD (PORCINE) 5000 UNITS/ML VIAL SQ ×2 (02:15→14:32)
[2018-08-16 05:50] LABS: IONIZED CALCIUM 4.4 MG/DL (4.5-5.3)
[2018-08-16 05:50] LABS: BASO % 0.2 % (0.0-1.0); EOS # 0.2 10^3/uL (0.0-0.50); EOS % 2.1 % (0.0-3.0); HEMATOCRIT 24.1 % (36.0-47.0); IMMATURE GRANULOCYTE % 0.2 % (0-3.0); LYMPH # 2.5 10^3/uL (1.5-6.5); LYMPH % 24.4 % (24.0-44.0); MEAN CORPUSCULAR HEMOGLOBIN 29.9 pg (27.0-33.0); MEAN CORPUSCULAR HGB CONC 33.2 g/dl (32.0-36.5); MEAN CORPUSCULAR VOLUME 89.9 fl (80.0-96.0); MONO # 0.6 10^3/uL (0.0-0.8); MONO % 6.1 % (0.0-5.0); PLATELET COUNT, AUTOMATED 280 10^3/uL (150-450); RED BLOOD COUNT 2.68 10^6/uL (4.00-5.40); RED CELL DISTRIBUTION WIDTH 12.4 % (11.5-14.5); WHITE BLOOD COUNT 10.4 10^3/uL (4.0-10.0)
[2018-08-16] MEDS: SLF 3 ML SYR IV ×3 (05:51→21:06)
[2018-08-16 06:25] LABS: ANION GAP 10 MEQ/L (8-16); BLOOD UREA NITROGEN 66 MG/DL (7-18); CALCIUM LEVEL 8.1 MG/DL (8.5-10.1); CARBON DIOXIDE LEVEL 19 MEQ/L (21-32); CHLORIDE LEVEL 110 MEQ/L (98-107); CREATININE FOR GFR 6.84 MG/DL (0.55-1.30); GLOMERULAR FILTRATION RATE 7.6 (>60); GLUCOSE, FASTING 132 MG/DL (70-100); POTASSIUM SERUM 5.8 MEQ/L (3.5-5.1); SODIUM LEVEL 139 MEQ/L (136-145)
[2018-08-16] MEDS ORDERED: ONDANSETRON 4 MG TAB (S0181) PO (07:15)
[2018-08-16] MEDS ORDERED: DARBEPOETIN 100 MCG/0.5 ML *DIALYSIS* SYRINGE (J0882) IV (08:00)
[2018-08-16] MEDS ORDERED: IRON SUCROSE 100MG 5ML VIAL (J1756 PER 1MG) IV (08:00)
[2018-08-16] MEDS: amLODIPine 5 MG TAB PO ×3 (09:00→21:04)
[2018-08-16] MEDS: COAL TAR 1% SHAMPOO 180 ML BTL TOP (09:00)
[2018-08-16] MEDS: LEVEMIR (INSULIN DETEMIR) 1 UNITS/0.01ML SC (09:27)
[2018-08-16] MEDS: PANTOPRAZOLE 40MG TAB (PROTONIX) PO (09:28)
[2018-08-16] MEDS: HumaLOG INSULIN (NovoLOG) PER UNIT SC ×4 (09:28→20:57)
[2018-08-16] MEDS: ASPIRIN 81 MG ENTERIC TAB PO (09:28)
[2018-08-16] MEDS: ATORVASTATIN 20 MG TAB PO (09:29)
[2018-08-16] MEDS: KETOCONAZOLE 2% CREAM TOP ×2 (09:32→21:05)
[2018-08-16 11:11] LABS: HEPATITIS B CORE ANTIBODY IGM NEGATIVE (NEGATIVE); HEPATITIS B SURFACE ANTIBODY POSITIVE (POSITIVE); HEPATITIS B SURFACE ANTIGEN NEGATIVE (NEGATIVE); HEPATITIS C VIRUS ABY INDEX 0.1 INDEX (<0.8); PTH INTACT 246.8 PG/ML (18.5-88.0)
[2018-08-16 11:53] LABS: BEDSIDE GLUCOSE 240 MG/DL (70-105)
[2018-08-16] MEDS: CALCIUM ACETATE 667 MG GELCAP PO ×2 (12:18→17:45)
[2018-08-16] MEDS: PATIROMER SORBITEX CALCIUM 8.4 GM POWDER PACKET (VELTASSA) PO (12:19)
[2018-08-16 14:30] LABS: TOTAL 25(OH) VITAMIN D 12.6 NG/ML (30.0-100.0)
[2018-08-16 17:26] LABS: BEDSIDE GLUCOSE 152 MG/DL (70-105)
[2018-08-16 20:38] LABS: BEDSIDE GLUCOSE 144 MG/DL (70-105)
[2018-08-17 00:10] LABS: Antimyeloperxidase(MPO) Abs <9.0 U/mL (0.0-9.0); Antiproteinase 3 (PR-3) Abs <3.5 U/mL (0.0-3.5); Cytoplasmic (C-ANCA) <1:20 titer (Neg:<1:20); Perinuclear (P-ANCA) <1:20 titer (Neg:<1:20)
[2018-08-17] MEDS: HEPARIN SOD (PORCINE) 5000 UNITS/ML VIAL SQ ×2 (01:59→14:56)
[2018-08-17] MEDS: SLF 3 ML SYR IV ×3 (05:34→22:04)
[2018-08-17 06:22] LABS: BASO % 0.2 % (0.0-1.0); EOS # 0.3 10^3/uL (0.0-0.50); EOS % 2.9 % (0.0-3.0); HEMATOCRIT 24.4 % (36.0-47.0); IMMATURE GRANULOCYTE % 0.4 % (0-3.0); LYMPH # 2.9 10^3/uL (1.5-6.5); MEAN CORPUSCULAR HEMOGLOBIN 29.6 pg (27.0-33.0); MEAN CORPUSCULAR HGB CONC 32.8 g/dl (32.0-36.5); MEAN CORPUSCULAR VOLUME 90.4 fl (80.0-96.0); MONO # 0.8 10^3/uL (0.0-0.8); MONO % 6.9 % (0.0-5.0); NEUTROPHILS # 6.8 10^3/uL (1.8-7.7); NEUTROPHILS % 62.6 % (36.0-66.0); PLATELET COUNT, AUTOMATED 291 10^3/uL (150-450); RED CELL DISTRIBUTION WIDTH 12.6 % (11.5-14.5); WHITE BLOOD COUNT 10.8 10^3/uL (4.0-10.0)
[2018-08-17 06:47] LABS: ANION GAP 11 MEQ/L (8-16); BLOOD UREA NITROGEN 66 MG/DL (7-18); CALCIUM LEVEL 8.6 MG/DL (8.5-10.1); CARBON DIOXIDE LEVEL 17 MEQ/L (21-32); CHLORIDE LEVEL 110 MEQ/L (98-107); CREATININE FOR GFR 7.25 MG/DL (0.55-1.30); GLOMERULAR FILTRATION RATE 7.1 (>60); GLUCOSE, FASTING 112 MG/DL (70-100); POTASSIUM SERUM 5.3 MEQ/L (3.5-5.1); SODIUM LEVEL 138 MEQ/L (136-145)
[2018-08-17] MEDS ORDERED: LIDOCAINE 2% MDV 20 ML VIAL As Ordered ×2 (07:28→08:15)
[2018-08-17] MEDS ORDERED: HEPARIN 1,000 UNITS/ML 10ML VIAL (FOR RADIOLOGY& DIALYSIS ONLY) As Ordered (07:28)
[2018-08-17] MEDS: HumaLOG INSULIN (NovoLOG) PER UNIT SC ×4 (07:30→21:00)
[2018-08-17] MEDS: CALCIUM ACETATE 667 MG GELCAP PO ×3 (08:00→16:41)
[2018-08-17 08:08] LABS: HEPATITIS B CORE ANTIBODY IGG Negative (Negative)
[2018-08-17] MEDS ORDERED: ONDANSETRON 4MG/2ML VIAL (J2405) As Ordered (08:12)
[2018-08-17] MEDS: ONDANSETRON 4MG/2ML VIAL (J2405) IV (08:15)
[2018-08-17 09:12] LABS: DRVV SCREEN 52.2 SEC
[2018-08-17 09:15] LABS: PTT LUPUS TYPE ANTICOAG SCREEN 1.3 (0-1.2)
[2018-08-17 09:23] LABS: DRVV CONFIRM 44.1 SEC; LUPUS CONFIRM RATIO 1.1
[2018-08-17 09:24] LABS: NORMALIZED RATIO 1.18 (0.00-1.20)
[2018-08-17] MEDS: HEPARIN 1,000 UNITS/ML 10ML VIAL (FOR RADIOLOGY& DIALYSIS ONLY) XX (11:00)
[2018-08-17] MEDS: HEPARIN 1,000 UNITS/ML 10ML VIAL (FOR RADIOLOGY& DIALYSIS ONLY) IV (11:00)
[2018-08-17] MEDS: LEVEMIR (INSULIN DETEMIR) 1 UNITS/0.01ML SC (11:03)
[2018-08-17] MEDS: ASPIRIN 81 MG ENTERIC TAB PO (11:04)
[2018-08-17] MEDS: PANTOPRAZOLE 40MG TAB (PROTONIX) PO (11:04)
[2018-08-17] MEDS: amLODIPine 5 MG TAB PO ×2 (11:04→22:03)
[2018-08-17] MEDS: ATORVASTATIN 20 MG TAB PO (11:05)
[2018-08-17 12:13] LABS: IMMEDIATE SPIN CROSSMATCH 1 1
[2018-08-17 13:17] LABS: VITAMIN B12 LEVEL 611 PG/ML (247-911)
[2018-08-17 14:47] LABS: BEDSIDE GLUCOSE 112 MG/DL (70-105)
[2018-08-17] MEDS: KETOCONAZOLE 2% CREAM TOP ×2 (14:56→22:03)
[2018-08-17] MEDS: COAL TAR 1% SHAMPOO 180 ML BTL TOP (14:57)
[2018-08-17 16:34] LABS: BEDSIDE GLUCOSE 182 MG/DL (70-105)
[2018-08-17] MEDS: **hydrALAZINE HCL** 25 MG TAB PO ×2 (16:40→22:03)
[2018-08-17 21:13] LABS: BEDSIDE GLUCOSE 192 MG/DL (70-105)
[2018-08-18 01:42] LABS: BEDSIDE GLUCOSE 144 MG/DL (70-105)
[2018-08-18] MEDS: HEPARIN SOD (PORCINE) 5000 UNITS/ML VIAL SQ ×2 (02:29→14:00)
[2018-08-18] MEDS: ACETAMINOPHEN TAB 650MG DOSE (2X325MG) PO (02:39)
[2018-08-18] MEDS: SLF 3 ML SYR IV ×3 (05:10→20:54)
[2018-08-18 05:43] LABS: BASO % 0.1 % (0.0-1.0); EOS # 0.1 10^3/uL (0.0-0.50); IMMATURE GRANULOCYTE % 0.4 % (0-3.0); LYMPH # 2.7 10^3/uL (1.5-6.5); LYMPH % 19.5 % (24.0-44.0); MEAN CORPUSCULAR HEMOGLOBIN 30.2 pg (27.0-33.0); MEAN CORPUSCULAR HGB CONC 33.5 g/dl (32.0-36.5); MEAN CORPUSCULAR VOLUME 90.1 fl (80.0-96.0); MONO % 7.4 % (0.0-5.0); NEUTROPHILS # 9.8 10^3/uL (1.8-7.7); NEUTROPHILS % 71.6 % (36.0-66.0); PLATELET COUNT, AUTOMATED 238 10^3/uL (150-450); RED BLOOD COUNT 3.44 10^6/uL (4.00-5.40); RED CELL DISTRIBUTION WIDTH 12.6 % (11.5-14.5); WHITE BLOOD COUNT 13.7 10^3/uL (4.0-10.0)
[2018-08-18 05:56] LABS: HEMOGLOBIN 10.4 g/dl (12.0-15.5)
[2018-08-18 06:05] LABS: ANION GAP 10 MEQ/L (8-16); BLOOD UREA NITROGEN 37 MG/DL (7-18); CALCIUM LEVEL 8.6 MG/DL (8.5-10.1); CARBON DIOXIDE LEVEL 24 MEQ/L (21-32); CHLORIDE LEVEL 103 MEQ/L (98-107); CREATININE FOR GFR 5.21 MG/DL (0.55-1.30); GLOMERULAR FILTRATION RATE 10.4 (>60); GLUCOSE, FASTING 159 MG/DL (70-100); POTASSIUM SERUM 4.3 MEQ/L (3.5-5.1); SODIUM LEVEL 137 MEQ/L (136-145)
[2018-08-18] MEDS: HumaLOG INSULIN (NovoLOG) PER UNIT SC ×4 (08:03→20:53)
[2018-08-18] MEDS: LEVEMIR (INSULIN DETEMIR) 1 UNITS/0.01ML SC (08:05)
[2018-08-18] MEDS: amLODIPine 5 MG TAB PO (08:05)
[2018-08-18] MEDS: PANTOPRAZOLE 40MG TAB (PROTONIX) PO (08:06)
[2018-08-18] MEDS: CALCIUM ACETATE 667 MG GELCAP PO ×3 (08:06→17:32)
[2018-08-18] MEDS: ASPIRIN 81 MG ENTERIC TAB PO (08:06)
[2018-08-18] MEDS: **hydrALAZINE HCL** 25 MG TAB PO (08:06)
[2018-08-18] MEDS: ATORVASTATIN 20 MG TAB PO (08:06)
[2018-08-18] MEDS: COAL TAR 1% SHAMPOO 180 ML BTL TOP (08:07)
[2018-08-18] MEDS: KETOCONAZOLE 2% CREAM TOP ×2 (08:07→20:54)
[2018-08-18] MEDS: HEPARIN 1,000 UNITS/ML 10ML VIAL (FOR RADIOLOGY& DIALYSIS ONLY) IV (11:00)
[2018-08-18] MEDS: HEPARIN 1,000 UNITS/ML 10ML VIAL (FOR RADIOLOGY& DIALYSIS ONLY) XX (11:00)
[2018-08-18 11:55] LABS: BEDSIDE GLUCOSE 298 MG/DL (70-105)
[2018-08-18 17:14] LABS: BEDSIDE GLUCOSE 87 MG/DL (70-105)
[2018-08-18 20:31] LABS: BEDSIDE GLUCOSE 220 MG/DL (70-105)
[2018-08-19] MEDS: HEPARIN SOD (PORCINE) 5000 UNITS/ML VIAL SQ ×2 (02:06→14:00)
[2018-08-19] MEDS: SLF 3 ML SYR IV ×3 (06:00→21:34)
[2018-08-19 07:17] LABS: BASO % 0.3 % (0.0-1.0); EOS # 0.2 10^3/uL (0.0-0.50); EOS % 1.9 % (0.0-3.0); HEMATOCRIT 32.6 % (36.0-47.0); HEMOGLOBIN 10.7 g/dl (12.0-15.5); IMMATURE GRANULOCYTE % 0.5 % (0-3.0); LYMPH % 19.4 % (24.0-44.0); MEAN CORPUSCULAR HEMOGLOBIN 30.5 pg (27.0-33.0); MEAN CORPUSCULAR HGB CONC 32.8 g/dl (32.0-36.5); MEAN CORPUSCULAR VOLUME 92.9 fl (80.0-96.0); MONO % 9.5 % (0.0-5.0); NEUTROPHILS # 7.1 10^3/uL (1.8-7.7); NEUTROPHILS % 68.4 % (36.0-66.0); PLATELET COUNT, AUTOMATED 236 10^3/uL (150-450); RED BLOOD COUNT 3.51 10^6/uL (4.00-5.40); RED CELL DISTRIBUTION WIDTH 12.9 % (11.5-14.5); WHITE BLOOD COUNT 10.4 10^3/uL (4.0-10.0)
[2018-08-19 09:20] LABS: ANION GAP 10 MEQ/L (8-16); BLOOD UREA NITROGEN 18 MG/DL (7-18); CALCIUM LEVEL 8.8 MG/DL (8.5-10.1); CARBON DIOXIDE LEVEL 26 MEQ/L (21-32); CHLORIDE LEVEL 99 MEQ/L (98-107); CREATININE FOR GFR 4.28 MG/DL (0.55-1.30); GLUCOSE, FASTING 304 MG/DL (70-100); SODIUM LEVEL 135 MEQ/L (136-145)
[2018-08-19] MEDS: HumaLOG INSULIN (NovoLOG) PER UNIT SC ×4 (10:24→21:00)
[2018-08-19] MEDS: LEVEMIR (INSULIN DETEMIR) 1 UNITS/0.01ML SC (10:25)
[2018-08-19] MEDS: ATORVASTATIN 20 MG TAB PO (10:26)
[2018-08-19] MEDS: PANTOPRAZOLE 40MG TAB (PROTONIX) PO (10:33)
[2018-08-19] MEDS: CALCIUM ACETATE 667 MG GELCAP PO ×3 (10:33→19:00)
[2018-08-19] MEDS: amLODIPine 5 MG TAB PO (10:34)
[2018-08-19] MEDS: ASPIRIN 81 MG ENTERIC TAB PO (10:35)
[2018-08-19] MEDS: KETOCONAZOLE 2% CREAM TOP ×2 (10:38→21:34)
[2018-08-19] MEDS: COAL TAR 1% SHAMPOO 180 ML BTL TOP (10:38)
[2018-08-19 12:18] LABS: BEDSIDE GLUCOSE 192 MG/DL (70-105)
[2018-08-19 16:54] LABS: BEDSIDE GLUCOSE 126 MG/DL (70-105)
[2018-08-19 21:33] LABS: BEDSIDE GLUCOSE 102 MG/DL (70-105)
[2018-08-20 00:56] LABS: ANTI THROMBIN 3 ANTIGEN IMMUNO 119 % (72-124); ANTI THROMBIN 3 FUNCT ACTIVITY 108 % (75-135); CARDIOLIPIN IGA ANTIBODY <9 APL U/mL (0-11); CARDIOLIPIN IGG ANTIBODY <9 GPL U/mL (0-14); CARDIOLIPIN IGM ANTIBODY <9 MPL U/mL (0-12); HOMOCYST(E)INE SERUM 13.1 umol/L (0.0-15.0); PROTEIN C ANTIGEN 108 % (60-150); PROTEIN S ANTIGEN FREE 102 % (57-157); PROTEIN S ANTIGEN TOTAL 90 % (60-150); SSA SJOGRENS A <0.2 AI (0.0-0.9); SSB SJOGRENS B 0.6 AI (0.0-0.9)
[2018-08-20] MEDS: HEPARIN SOD (PORCINE) 5000 UNITS/ML VIAL SQ ×3 (02:21→21:56)
[2018-08-20] MEDS: ASPIRIN 81 MG ENTERIC TAB PO (06:45)
[2018-08-20] MEDS: PANTOPRAZOLE 40MG TAB (PROTONIX) PO (06:45)
[2018-08-20] MEDS: CALCIUM ACETATE 667 MG GELCAP PO (06:46)
[2018-08-20] MEDS: SLF 3 ML SYR IV ×3 (06:46→21:58)
[2018-08-20] MEDS: amLODIPine 5 MG TAB PO (06:48)
[2018-08-20] MEDS: ATORVASTATIN 20 MG TAB PO (06:55)
[2018-08-20 07:06] LABS: BEDSIDE GLUCOSE 133 MG/DL (70-105)
[2018-08-20 08:19] LABS: BASO % 0.2 % (0.0-1.0); EOS # 0.3 10^3/uL (0.0-0.50); EOS % 2.1 % (0.0-3.0); HEMATOCRIT 35.7 % (36.0-47.0); HEMOGLOBIN 11.8 g/dl (12.0-15.5); IMMATURE GRANULOCYTE % 0.5 % (0-3.0); LYMPH % 23.1 % (24.0-44.0); MEAN CORPUSCULAR HEMOGLOBIN 30.3 pg (27.0-33.0); MEAN CORPUSCULAR HGB CONC 33.1 g/dl (32.0-36.5); MEAN CORPUSCULAR VOLUME 91.8 fl (80.0-96.0); MONO # 1.3 10^3/uL (0.0-0.8); NEUTROPHILS # 8.2 10^3/uL (1.8-7.7); NEUTROPHILS % 64.1 % (36.0-66.0); PLATELET COUNT, AUTOMATED 242 10^3/uL (150-450); RED BLOOD COUNT 3.89 10^6/uL (4.00-5.40); RED CELL DISTRIBUTION WIDTH 12.6 % (11.5-14.5); WHITE BLOOD COUNT 12.8 10^3/uL (4.0-10.0)
[2018-08-20 08:57] LABS: ANION GAP 9 MEQ/L (8-16); BLOOD UREA NITROGEN 30 MG/DL (7-18); CALCIUM LEVEL 9.3 MG/DL (8.5-10.1); CARBON DIOXIDE LEVEL 27 MEQ/L (21-32); CHLORIDE LEVEL 101 MEQ/L (98-107); CREATININE FOR GFR 5.38 MG/DL (0.55-1.30); GLUCOSE, FASTING 147 MG/DL (70-100); PHOSPHORUS LEVEL 3.4 MG/DL (2.5-4.9); POTASSIUM SERUM 4.1 MEQ/L (3.5-5.1); SODIUM LEVEL 137 MEQ/L (136-145)
[2018-08-20] MEDS: COAL TAR 1% SHAMPOO 180 ML BTL TOP (09:00)
[2018-08-20] MEDS: KETOCONAZOLE 2% CREAM TOP ×2 (09:00→21:56)
[2018-08-20] MEDS: LEVEMIR (INSULIN DETEMIR) 1 UNITS/0.01ML SC (09:40)
[2018-08-20] MEDS: HumaLOG INSULIN (NovoLOG) PER UNIT SC ×4 (09:40→21:00)
[2018-08-20 11:33] LABS: BEDSIDE GLUCOSE 256 MG/DL (70-105)
[2018-08-20 16:36] LABS: BEDSIDE GLUCOSE 125 MG/DL (70-105)
[2018-08-20 20:38] LABS: BEDSIDE GLUCOSE 99 MG/DL (70-105)
[2018-08-21 05:37] LABS: BEDSIDE GLUCOSE 151 MG/DL (70-105)
[2018-08-21] MEDS: ASPIRIN 81 MG ENTERIC TAB PO (06:23)
[2018-08-21] MEDS: SLF 3 ML SYR IV ×3 (06:23→21:49)
[2018-08-21] MEDS: ATORVASTATIN 20 MG TAB PO (06:24)
[2018-08-21] MEDS: amLODIPine 5 MG TAB PO (06:25)
[2018-08-21] MEDS: PANTOPRAZOLE 40MG TAB (PROTONIX) PO (06:26)
[2018-08-21] MEDS: COAL TAR 1% SHAMPOO 180 ML BTL TOP (09:00)
[2018-08-21] MEDS: KETOCONAZOLE 2% CREAM TOP ×2 (09:00→21:50)
[2018-08-21] MEDS: HEPARIN SOD (PORCINE) 5000 UNITS/ML VIAL SQ ×2 (09:13→21:49)
[2018-08-21] MEDS: HumaLOG INSULIN (NovoLOG) PER UNIT SC ×3 (09:13→19:00)
[2018-08-21] MEDS: LEVEMIR (INSULIN DETEMIR) 1 UNITS/0.01ML SC (09:14)
[2018-08-21 09:19] LABS: HEMATOCRIT 33.1 % (36.0-47.0); HEMOGLOBIN 10.9 g/dl (12.0-15.5); MEAN CORPUSCULAR HEMOGLOBIN 30.8 pg (27.0-33.0); MEAN CORPUSCULAR HGB CONC 32.9 g/dl (32.0-36.5); MEAN CORPUSCULAR VOLUME 93.5 fl (80.0-96.0); PLATELET COUNT, AUTOMATED 252 10^3/uL (150-450); RED BLOOD COUNT 3.54 10^6/uL (4.00-5.40); RED CELL DISTRIBUTION WIDTH 12.6 % (11.5-14.5); WHITE BLOOD COUNT 13.3 10^3/uL (4.0-10.0)
[2018-08-21 09:34] LABS: ANION GAP 13 MEQ/L (8-16); BLOOD UREA NITROGEN 42 MG/DL (7-18); CALCIUM LEVEL 8.5 MG/DL (8.5-10.1); CARBON DIOXIDE LEVEL 22 MEQ/L (21-32); CHLORIDE LEVEL 101 MEQ/L (98-107); CREATININE FOR GFR 6.39 MG/DL (0.55-1.30); GLOMERULAR FILTRATION RATE 8.2 (>60); GLUCOSE, FASTING 275 MG/DL (70-100); POTASSIUM SERUM 4.4 MEQ/L (3.5-5.1); SODIUM LEVEL 136 MEQ/L (136-145)
[2018-08-21 11:31] LABS: BEDSIDE GLUCOSE 259 MG/DL (70-105)
[2018-08-21] MEDS: HEPARIN 1,000 UNITS/ML 10ML VIAL (FOR RADIOLOGY& DIALYSIS ONLY) XX (12:30)
[2018-08-21] MEDS: HEPARIN 1,000 UNITS/ML 10ML VIAL (FOR RADIOLOGY& DIALYSIS ONLY) IV (12:30)
[2018-08-21 19:04] LABS: BEDSIDE GLUCOSE 125 MG/DL (70-105)
[2018-08-21 21:54] LABS: BEDSIDE GLUCOSE 319 MG/DL (70-105)
[2018-08-21 23:57] LABS: BEDSIDE GLUCOSE 300 MG/DL (70-105)
[2018-08-22 00:06] LABS: ALDOS/RENIN RATIO 9.5 (0.0-30.0); ALDOSTERONE 13.4 ng/dL (0.0-30.0); RENIN ACTIVITY 1.406 ng/mL/hr (0.167-5.380)
[2018-08-22] MEDS: HumaLOG INSULIN (NovoLOG) PER UNIT SC ×5 (00:16→21:00)
[2018-08-22 02:48] LABS: BEDSIDE GLUCOSE 174 MG/DL (70-105)
[2018-08-22 06:11] LABS: BEDSIDE GLUCOSE 117 MG/DL (70-105)
[2018-08-22] MEDS ORDERED: MIRALAX *UNIT DOSE* 17GM PACKET PO (08:30)
[2018-08-22] MEDS: KETOCONAZOLE 2% CREAM TOP ×2 (09:00→21:23)
[2018-08-22] MEDS: COAL TAR 1% SHAMPOO 180 ML BTL TOP (09:00)
[2018-08-22] MEDS: DOCUSATE SODIUM 100 MG CAP PO ×3 (09:31→21:22)
[2018-08-22] MEDS: HEPARIN SOD (PORCINE) 5000 UNITS/ML VIAL SQ ×2 (09:32→21:21)
[2018-08-22] MEDS: PANTOPRAZOLE 40MG TAB (PROTONIX) PO (09:32)
[2018-08-22] MEDS: ASPIRIN 81 MG ENTERIC TAB PO (09:32)
[2018-08-22] MEDS: amLODIPine 5 MG TAB PO (09:32)
[2018-08-22] MEDS: ATORVASTATIN 20 MG TAB PO (09:32)
[2018-08-22] MEDS: LEVEMIR (INSULIN DETEMIR) 1 UNITS/0.01ML SC (09:33)
[2018-08-22] MEDS: SLF 3 ML SYR IV ×3 (09:34→21:24)
[2018-08-22 09:36] LABS: HEMATOCRIT 33.8 % (36.0-47.0); HEMOGLOBIN 11.1 g/dl (12.0-15.5); MEAN CORPUSCULAR HEMOGLOBIN 30.7 pg (27.0-33.0); MEAN CORPUSCULAR HGB CONC 32.8 g/dl (32.0-36.5); MEAN CORPUSCULAR VOLUME 93.6 fl (80.0-96.0); PLATELET COUNT, AUTOMATED 217 10^3/uL (150-450); RED BLOOD COUNT 3.61 10^6/uL (4.00-5.40); RED CELL DISTRIBUTION WIDTH 12.6 % (11.5-14.5); WHITE BLOOD COUNT 11.2 10^3/uL (4.0-10.0)
[2018-08-22 10:05] LABS: ANION GAP 6 MEQ/L (8-16); BLOOD UREA NITROGEN 20 MG/DL (7-18); C REACTIVE PROTEIN QUANTITATIV < 0.30 MG/DL (0.00-0.30); CALCIUM LEVEL 8.8 MG/DL (8.5-10.1); CARBON DIOXIDE LEVEL 29 MEQ/L (21-32); CHLORIDE LEVEL 101 MEQ/L (98-107); CREATININE FOR GFR 4.33 MG/DL (0.55-1.30); GLOMERULAR FILTRATION RATE 12.9 (>60); GLUCOSE, FASTING 276 MG/DL (70-100); POTASSIUM SERUM 5.1 MEQ/L (3.5-5.1); SODIUM LEVEL 136 MEQ/L (136-145)
[2018-08-22 11:28] LABS: BEDSIDE GLUCOSE 220 MG/DL (70-105)
[2018-08-22 13:37] LABS: BEDSIDE GLUCOSE 264 MG/DL (70-105)
[2018-08-22 16:27] LABS: BEDSIDE GLUCOSE 203 MG/DL (70-105)
[2018-08-22 18:11] LABS: BEDSIDE GLUCOSE 143 MG/DL (70-105)
[2018-08-22] MEDS: CARVedilol 3.125 MG TAB PO (21:23)
[2018-08-22 22:44] LABS: BEDSIDE GLUCOSE 201 MG/DL (70-105)
[2018-08-23 06:40] LABS: HEMATOCRIT 32.6 % (36.0-47.0); HEMOGLOBIN 10.7 g/dl (12.0-15.5); MEAN CORPUSCULAR HEMOGLOBIN 31.1 pg (27.0-33.0); MEAN CORPUSCULAR HGB CONC 32.8 g/dl (32.0-36.5); MEAN CORPUSCULAR VOLUME 94.8 fl (80.0-96.0); PLATELET COUNT, AUTOMATED 217 10^3/uL (150-450); RED BLOOD COUNT 3.44 10^6/uL (4.00-5.40); RED CELL DISTRIBUTION WIDTH 13.3 % (11.5-14.5); WHITE BLOOD COUNT 11.7 10^3/uL (4.0-10.0)
[2018-08-23] MEDS: ATORVASTATIN 20 MG TAB PO (06:57)
[2018-08-23] MEDS: PANTOPRAZOLE 40MG TAB (PROTONIX) PO (06:57)
[2018-08-23] MEDS: ASPIRIN 81 MG ENTERIC TAB PO (06:57)
[2018-08-23] MEDS: SLF 3 ML SYR IV ×3 (06:59→22:21)
[2018-08-23 07:01] LABS: ANION GAP 9 MEQ/L (8-16); BLOOD UREA NITROGEN 33 MG/DL (7-18); CARBON DIOXIDE LEVEL 24 MEQ/L (21-32); CHLORIDE LEVEL 103 MEQ/L (98-107); CREATININE FOR GFR 5.45 MG/DL (0.55-1.30); GLOMERULAR FILTRATION RATE 9.9 (>60); GLUCOSE, FASTING 153 MG/DL (70-100); POTASSIUM SERUM 4.9 MEQ/L (3.5-5.1); SODIUM LEVEL 136 MEQ/L (136-145)
[2018-08-23] MEDS: DOCUSATE SODIUM 100 MG CAP PO ×2 (07:24→22:21)
[2018-08-23] MEDS: HumaLOG INSULIN (NovoLOG) PER UNIT SC ×4 (07:30→21:58)
[2018-08-23] MEDS: amLODIPine 5 MG TAB PO (08:45)
[2018-08-23] MEDS: CARVedilol 3.125 MG TAB PO ×2 (08:45→22:21)
[2018-08-23] MEDS: KETOCONAZOLE 2% CREAM TOP ×2 (08:52→23:00)
[2018-08-23] MEDS: LEVEMIR (INSULIN DETEMIR) 1 UNITS/0.01ML SC ×2 (08:52→12:00)
[2018-08-23] MEDS: COAL TAR 1% SHAMPOO 180 ML BTL TOP (08:52)
[2018-08-23] MEDS: HEPARIN SOD (PORCINE) 5000 UNITS/ML VIAL SQ ×2 (10:00→22:21)
[2018-08-23 11:44] LABS: BEDSIDE GLUCOSE 249 MG/DL (70-105)
[2018-08-23] MEDS: HEPARIN 1,000 UNITS/ML 10ML VIAL (FOR RADIOLOGY& DIALYSIS ONLY) IV (14:00)
[2018-08-23] MEDS: HEPARIN 1,000 UNITS/ML 10ML VIAL (FOR RADIOLOGY& DIALYSIS ONLY) XX (14:00)
[2018-08-23 20:57] LABS: BEDSIDE GLUCOSE 103 MG/DL (70-105)
[2018-08-24 06:09] LABS: HEMATOCRIT 30.9 % (36.0-47.0); HEMOGLOBIN 10.1 g/dl (12.0-15.5); MEAN CORPUSCULAR HEMOGLOBIN 30.8 pg (27.0-33.0); MEAN CORPUSCULAR HGB CONC 32.7 g/dl (32.0-36.5); MEAN CORPUSCULAR VOLUME 94.2 fl (80.0-96.0); PLATELET COUNT, AUTOMATED 220 10^3/uL (150-450); RED BLOOD COUNT 3.28 10^6/uL (4.00-5.40); RED CELL DISTRIBUTION WIDTH 13.3 % (11.5-14.5); WHITE BLOOD COUNT 11.1 10^3/uL (4.0-10.0)
[2018-08-24] MEDS: SLF 3 ML SYR IV ×3 (06:15→21:53)
[2018-08-24 06:27] LABS: ANION GAP 7 MEQ/L (8-16); BLOOD UREA NITROGEN 14 MG/DL (7-18); CALCIUM LEVEL 8.4 MG/DL (8.5-10.1); CARBON DIOXIDE LEVEL 28 MEQ/L (21-32); CHLORIDE LEVEL 102 MEQ/L (98-107); CREATININE FOR GFR 3.06 MG/DL (0.55-1.30); GLOMERULAR FILTRATION RATE 19.2 (>60); GLUCOSE, FASTING 250 MG/DL (70-100); POTASSIUM SERUM 3.9 MEQ/L (3.5-5.1); SODIUM LEVEL 137 MEQ/L (136-145)
[2018-08-24] MEDS: amLODIPine 5 MG TAB PO (08:19)
[2018-08-24] MEDS: PANTOPRAZOLE 40MG TAB (PROTONIX) PO (08:20)
[2018-08-24] MEDS: CARVedilol 3.125 MG TAB PO ×2 (08:20→21:53)
[2018-08-24] MEDS: ASPIRIN 81 MG ENTERIC TAB PO (08:20)
[2018-08-24] MEDS: ATORVASTATIN 20 MG TAB PO (08:21)
[2018-08-24] MEDS: HumaLOG INSULIN (NovoLOG) PER UNIT SC ×4 (08:22→21:45)
[2018-08-24] MEDS: LEVEMIR (INSULIN DETEMIR) 1 UNITS/0.01ML SC (08:22)
[2018-08-24] MEDS: KETOCONAZOLE 2% CREAM TOP ×2 (08:23→21:53)
[2018-08-24] MEDS: DOCUSATE SODIUM 100 MG CAP PO ×2 (08:25→21:47)
[2018-08-24] MEDS: COAL TAR 1% SHAMPOO 180 ML BTL TOP (09:00)
[2018-08-24] MEDS: HEPARIN SOD (PORCINE) 5000 UNITS/ML VIAL SQ ×2 (10:00→21:53)
[2018-08-24 11:28] LABS: BEDSIDE GLUCOSE 227 MG/DL (70-105)
[2018-08-24] MEDS: D5W/0.9% SODIUM CHLORIDE 1,000 ML IV (14:20)
[2018-08-24] MEDS ORDERED: PROPOFOL 200 MG/20 ML VIAL As Ordered (17:21)
[2018-08-24] MEDS ORDERED: fentaNYL 100 MCG/2 ML INJECTION (J3010) As Ordered (17:21)
[2018-08-24] MEDS ORDERED: MIDAZOLAM INJ 2 MG/2 ML VIAL (J2250) As Ordered (17:21)
[2018-08-24] MEDS: HEPARIN SOD (PORCINE) 5000 UNITS/ML VIAL As Ordered (17:40)
[2018-08-24] MEDS: LIDOCAINE 1% SDV INJ 30 ML VIAL As Ordered (18:10)
[2018-08-24] MEDS: BUPIVACAINE HCL 0.5% 30 ML VIAL As Ordered (18:11)
[2018-08-24] MEDS ORDERED: ONDANSETRON 4MG/2ML VIAL (J2405) IV (18:30)
[2018-08-24 18:31] LABS: BEDSIDE GLUCOSE 169 MG/DL (70-105)
[2018-08-24 20:23] LABS: BEDSIDE GLUCOSE 117 MG/DL (70-105)
[2018-08-25 06:13] LABS: HEMATOCRIT 31.4 % (36.0-47.0); HEMOGLOBIN 9.9 g/dl (12.0-15.5); MEAN CORPUSCULAR HEMOGLOBIN 30.3 pg (27.0-33.0); MEAN CORPUSCULAR HGB CONC 31.5 g/dl (32.0-36.5); PLATELET COUNT, AUTOMATED 218 10^3/uL (150-450); RED BLOOD COUNT 3.27 10^6/uL (4.00-5.40); WHITE BLOOD COUNT 9.8 10^3/uL (4.0-10.0)
[2018-08-25 06:45] LABS: ANION GAP 7 MEQ/L (8-16); BLOOD UREA NITROGEN 26 MG/DL (7-18); CALCIUM LEVEL 8.5 MG/DL (8.5-10.1); CARBON DIOXIDE LEVEL 24 MEQ/L (21-32); CHLORIDE LEVEL 108 MEQ/L (98-107); CREATININE FOR GFR 4.63 MG/DL (0.55-1.30); GLOMERULAR FILTRATION RATE 11.9 (>60); GLUCOSE, FASTING 151 MG/DL (70-100); POTASSIUM SERUM 4.3 MEQ/L (3.5-5.1); SODIUM LEVEL 139 MEQ/L (136-145)
[2018-08-25] MEDS: ATORVASTATIN 20 MG TAB PO (06:51)
[2018-08-25] MEDS: ASPIRIN 81 MG ENTERIC TAB PO (06:52)
[2018-08-25] MEDS: COAL TAR 1% SHAMPOO 180 ML BTL TOP (06:52)
[2018-08-25] MEDS: KETOCONAZOLE 2% CREAM TOP ×2 (06:52→21:40)
[2018-08-25] MEDS: PANTOPRAZOLE 40MG TAB (PROTONIX) PO (06:52)
[2018-08-25] MEDS: amLODIPine 5 MG TAB PO (06:53)
[2018-08-25] MEDS: CARVedilol 3.125 MG TAB PO ×2 (06:53→21:41)
[2018-08-25] MEDS: DOCUSATE SODIUM 100 MG CAP PO ×2 (06:53→21:36)
[2018-08-25] MEDS: SLF 3 ML SYR IV ×3 (06:54→21:41)
[2018-08-25] MEDS: ACETAMINOPHEN TAB 650MG DOSE (2X325MG) PO ×2 (06:55→17:52)
[2018-08-25] MEDS: HumaLOG INSULIN (NovoLOG) PER UNIT SC ×4 (07:42→21:40)
[2018-08-25] MEDS: HEPARIN SOD (PORCINE) 5000 UNITS/ML VIAL SQ ×2 (09:12→21:40)
[2018-08-25] MEDS: LEVEMIR (INSULIN DETEMIR) 1 UNITS/0.01ML SC (09:13)
[2018-08-25] MEDS: LIDOCAINE 1% SDV 5 ML VIAL SQ (11:45)
[2018-08-25] MEDS: HEPARIN 1,000 UNITS/ML 10ML VIAL (FOR RADIOLOGY& DIALYSIS ONLY) XX (11:45)
[2018-08-25] MEDS: HEPARIN 1,000 UNITS/ML 10ML VIAL (FOR RADIOLOGY& DIALYSIS ONLY) IV (11:45)
[2018-08-25 11:57] LABS: BEDSIDE GLUCOSE 335 MG/DL (70-105)
[2018-08-25 16:48] LABS: BEDSIDE GLUCOSE 63 MG/DL (70-105)
[2018-08-25 18:00] LABS: BEDSIDE GLUCOSE 185 MG/DL (70-105)
[2018-08-25 20:15] LABS: BEDSIDE GLUCOSE 267 MG/DL (70-105)
[2018-08-26] MEDS: SLF 3 ML SYR IV (05:57)
[2018-08-26 06:36] LABS: HEMATOCRIT 32.4 % (36.0-47.0); HEMOGLOBIN 10.2 g/dl (12.0-15.5); MEAN CORPUSCULAR HEMOGLOBIN 30.4 pg (27.0-33.0); MEAN CORPUSCULAR HGB CONC 31.5 g/dl (32.0-36.5); MEAN CORPUSCULAR VOLUME 96.7 fl (80.0-96.0); PLATELET COUNT, AUTOMATED 214 10^3/uL (150-450); RED BLOOD COUNT 3.35 10^6/uL (4.00-5.40); RED CELL DISTRIBUTION WIDTH 14.1 % (11.5-14.5); WHITE BLOOD COUNT 10.2 10^3/uL (4.0-10.0)
[2018-08-26 06:42] LABS: ANION GAP 7 MEQ/L (8-16); BLOOD UREA NITROGEN 16 MG/DL (7-18); CARBON DIOXIDE LEVEL 28 MEQ/L (21-32); CHLORIDE LEVEL 105 MEQ/L (98-107); CREATININE FOR GFR 3.28 MG/DL (0.55-1.30); GLOMERULAR FILTRATION RATE 17.7 (>60); GLUCOSE, FASTING 160 MG/DL (70-100); POTASSIUM SERUM 4.3 MEQ/L (3.5-5.1); SODIUM LEVEL 140 MEQ/L (136-145)
[2018-08-26] MEDS: COAL TAR 1% SHAMPOO 180 ML BTL TOP (09:00)
[2018-08-26] MEDS: HumaLOG INSULIN (NovoLOG) PER UNIT SC (09:07)
[2018-08-26] MEDS: ATORVASTATIN 20 MG TAB PO (09:08)
[2018-08-26] MEDS: DOCUSATE SODIUM 100 MG CAP PO (09:08)
[2018-08-26] MEDS: HEPARIN SOD (PORCINE) 5000 UNITS/ML VIAL SQ (09:08)
[2018-08-26] MEDS: LEVEMIR (INSULIN DETEMIR) 1 UNITS/0.01ML SC (09:08)
[2018-08-26] MEDS: PANTOPRAZOLE 40MG TAB (PROTONIX) PO (09:09)
[2018-08-26] MEDS: ASPIRIN 81 MG ENTERIC TAB PO (09:09)
[2018-08-26] MEDS: amLODIPine 5 MG TAB PO (09:09)
[2018-08-26] MEDS: CARVedilol 3.125 MG TAB PO (09:10)
[2018-08-26] MEDS: KETOCONAZOLE 2% CREAM TOP (09:10)
== END 2018-08-26 12:20 | disposition home or self-care (01) | DRG 951 ==
LOC: M ED INP 08-12 03:02 → M MS4PR 08-19 22:54 → M MSPAV 08-23 16:02 → M ED 14:01 → M PCU 08-12 06:07
PROC: 031C09F Bypass Left Radial Artery to Lower Arm Vein with Autologous Venous Tissue, Open Approach (ICD-10-PCS; 2018-08-24 14:45)
PROC: 02HV33Z Insertion of Infusion Device into Superior Vena Cava, Percutaneous Approach (ICD-10-PCS; principal; 2018-08-24 16:58)
PROC: 5A1D70Z Performance of Urinary Filtration, Intermittent, Less than 6 Hours Per Day (ICD-10-PCS; 2018-08-24 16:58)
PROC: 30233N1 Transfusion of Nonautologous Red Blood Cells into Peripheral Vein, Percutaneous Approach (ICD-10-PCS; 2018-08-24 16:58)
PROC: B5131ZA Fluoroscopy of Right Jugular Veins using Low Osmolar Contrast, Guidance (ICD-10-PCS; 2018-08-24 16:58)
PROC: B548ZZA Ultrasonography of Superior Vena Cava, Guidance (ICD-10-PCS; 2018-08-24 16:58)
DX: I63.59 Cerebral infarction due to unspecified occlusion or stenosis of other cerebral artery (principal); N18.6 End stage renal disease; E87.2 Acidosis; N25.81 Secondary hyperparathyroidism of renal origin; E10.21 Type 1 diabetes mellitus with diabetic nephropathy; G81.92 Hemiplegia, unspecified affecting left dominant side; E10.22 Type 1 diabetes mellitus with diabetic chronic kidney disease; E10.65 Type 1 diabetes mellitus with hyperglycemia; E10.319 Type 1 diabetes mellitus with unspecified diabetic retinopathy without macular edema; D63.1 Anemia in chronic kidney disease; E87.5 Hyperkalemia; E55.9 Vitamin D deficiency, unspecified; I15.0 Renovascular hypertension; K59.00 Constipation, unspecified; Q96.9 Turner's syndrome, unspecified; H54.8 Legal blindness, as defined in USA; Z79.4 Long term (current) use of insulin; Z79.899 Other long term (current) drug therapy; Z91.19 Patient's noncompliance with other medical treatment and regimen; Z99.2 Dependence on renal dialysis

== ENCOUNTER 2018-09-25 17:05 | Observation (INO) | payer OTHER ==
[2018-09-25] MEDS: CARVedilol 6.25 MG TAB PO (18:06)
[2018-09-25 18:42] LABS: BASO % 0.2 % (0.0-1.0); EOS # 0.3 10^3/uL (0.0-0.50); EOS % 2.5 % (0.0-3.0); HEMATOCRIT 35.4 % (36.0-47.0); IMMATURE GRANULOCYTE % 0.2 % (0-3.0); LYMPH # 2.4 10^3/uL (1.5-6.5); LYMPH % 24.5 % (24.0-44.0); MEAN CORPUSCULAR HEMOGLOBIN 31.6 pg (27.0-33.0); MEAN CORPUSCULAR HGB CONC 33.9 g/dl (32.0-36.5); MEAN CORPUSCULAR VOLUME 93.2 fl (80.0-96.0); MONO # 0.6 10^3/uL (0.0-0.8); MONO % 5.6 % (0.0-5.0); NEUTROPHILS # 6.6 10^3/uL (1.8-7.7); PLATELET COUNT, AUTOMATED 290 10^3/uL (150-450); RED CELL DISTRIBUTION WIDTH 14.1 % (11.5-14.5); WHITE BLOOD COUNT 9.9 10^3/uL (4.0-10.0)
[2018-09-25 18:51] LABS: INR 0.95; PROTHROMBIN TIME 12.8 SECONDS (12.1-14.4)
[2018-09-25 18:52] LABS: PARTIAL THROMBOPLASTIN TIME 29.4 SECONDS (25.4-37.6)
[2018-09-25 19:06] LABS: LACTIC ACID SEPSIS PROTOCOL 0.9 MMOL/L (0.4-2.0)
[2018-09-25 19:12] LABS: ALBUMIN 3.6 GM/DL (3.2-5.2); ALBUMIN/GLOBULIN RATIO 0.78 (1.00-1.93); ALKALINE PHOSPHATASE 111 U/L (45-117); ALT/SGPT 16 U/L (12-78); ANION GAP 13 MEQ/L (8-16); AST/SGOT 12 U/L (7-37); BILIRUBIN,DIRECT < 0.1 MG/DL (0.0-0.2); BILIRUBIN,TOTAL 0.3 MG/DL (0.2-1.0); BLOOD UREA NITROGEN 69 MG/DL (7-18); CALCIUM LEVEL 8.2 MG/DL (8.5-10.1); CARBON DIOXIDE LEVEL 20 MEQ/L (21-32); CHLORIDE LEVEL 105 MEQ/L (98-107); CPK CREATINE PHOSPHOKINASE 35 U/L (26-192); CREATININE FOR GFR 7.77 MG/DL (0.55-1.30); FREE T4 0.97 NG/DL (0.76-1.46); GLOMERULAR FILTRATION RATE 6.5 (>60); GLUCOSE, FASTING 263 MG/DL (70-100); LIPASE 555 U/L (73-393); MB/CK RELATIVE INDEX 3.43 (< OR =4); NT-PRO BNP 2717 PG/ML (<125); POTASSIUM SERUM 4.5 MEQ/L (3.5-5.1); SODIUM LEVEL 138 MEQ/L (136-145); TOTAL PROTEIN 8.2 GM/DL (6.4-8.2); TROPONIN I < 0.02 NG/ML (< 0.10)
[2018-09-25] MEDS ORDERED: GLUCAGON FOR INJ 1 MG VIAL (J1610) SC (20:00)
[2018-09-25] MEDS ORDERED: DEXTROSE 50% 50 ML SYRINGE IV (20:00)
[2018-09-25] MEDS ORDERED: BISACODYL 10 MG SUPP PR (20:00)
[2018-09-25] MEDS ORDERED: BISACODYL 5 MG TAB PO (20:00)
[2018-09-25] MEDS ORDERED: GLUCOSE 4 GM CHEW TABLET PO (20:00)
[2018-09-25] MEDS: LEVEMIR (INSULIN DETEMIR) 1 UNITS/0.01ML SC (20:18)
[2018-09-25 21:00] LABS: BEDSIDE GLUCOSE 185 MG/DL (70-105)
[2018-09-25] MEDS: HumaLOG INSULIN (NovoLOG) PER UNIT SC (21:00)
[2018-09-25] MEDS: HEPARIN SOD (PORCINE) 5000 UNITS/ML VIAL SC (22:00)
[2018-09-26 05:37] LABS: HEMATOCRIT 28.8 % (36.0-47.0); MEAN CORPUSCULAR HEMOGLOBIN 31.3 pg (27.0-33.0); MEAN CORPUSCULAR HGB CONC 33.3 g/dl (32.0-36.5); MEAN CORPUSCULAR VOLUME 93.8 fl (80.0-96.0); PLATELET COUNT, AUTOMATED 249 10^3/uL (150-450); RED BLOOD COUNT 3.07 10^6/uL (4.00-5.40); WHITE BLOOD COUNT 9.2 10^3/uL (4.0-10.0)
[2018-09-26 05:47] LABS: HEMOGLOBIN 9.6 g/dl (12.0-15.5)
[2018-09-26 06:04] LABS: ANION GAP 10 MEQ/L (8-16); BLOOD UREA NITROGEN 68 MG/DL (7-18); CALCIUM LEVEL 7.7 MG/DL (8.5-10.1); CARBON DIOXIDE LEVEL 21 MEQ/L (21-32); CHLORIDE LEVEL 110 MEQ/L (98-107); CREATININE FOR GFR 7.57 MG/DL (0.55-1.30); GLOMERULAR FILTRATION RATE 6.7 (>60); GLUCOSE, FASTING 208 MG/DL (70-100); POTASSIUM SERUM 4.3 MEQ/L (3.5-5.1); SODIUM LEVEL 141 MEQ/L (136-145)
[2018-09-26] MEDS: HEPARIN SOD (PORCINE) 5000 UNITS/ML VIAL SC ×3 (06:27→21:23)
[2018-09-26] MEDS: HumaLOG INSULIN (NovoLOG) PER UNIT SC ×4 (07:44→21:00)
[2018-09-26] MEDS: ASPIRIN 81 MG ENTERIC TAB PO (08:46)
[2018-09-26] MEDS: ATORVASTATIN 20 MG TAB PO (08:46)
[2018-09-26 08:50] LABS: BEDSIDE GLUCOSE 100 MG/DL (70-105)
[2018-09-26] MEDS ORDERED: DARBEPOETIN 100 MCG/0.5 ML *DIALYSIS* SYRINGE (J0882) IV (09:00)
[2018-09-26] MEDS: LEVEMIR (INSULIN DETEMIR) 1 UNITS/0.01ML SC (09:00)
[2018-09-26 09:26] LABS: FERRITIN 702 NG/ML (8-252); IRON (FE) 80 UG/DL (50-170); MAGNESIUM LEVEL 2.3 MG/DL (1.8-2.4); PERCENT SATURATION 42.3 % (13.2-45.0); PHOSPHORUS LEVEL 4.5 MG/DL (2.5-4.9); TOTAL IRON BINDING CAPACITY 189 UG/DL (250-450)
[2018-09-26] MEDS: hydrALAZINE INJ 20 MG/ML VIAL IV ×2 (12:47→13:35)
[2018-09-26] MEDS: ONDANSETRON 4MG/2ML VIAL (J2405) IV (12:47)
[2018-09-26] MEDS: ACETAMINOPHEN TAB 650MG DOSE (2X325MG) PO (12:55)
[2018-09-26 13:04] LABS: BEDSIDE GLUCOSE 82 MG/DL (70-105)
[2018-09-26 13:04] LABS: BEDSIDE GLUCOSE 57 MG/DL (70-105)
[2018-09-26 13:42] LABS: BEDSIDE GLUCOSE 74 MG/DL (70-105)
[2018-09-26] MEDS: HEPARIN 1,000 UNITS/ML 10ML VIAL (FOR RADIOLOGY& DIALYSIS ONLY) IV (14:00)
[2018-09-26 14:13] LABS: BEDSIDE GLUCOSE 96 MG/DL (70-105)
[2018-09-26] MEDS: amLODIPine 5 MG TAB PO (14:49)
[2018-09-26] MEDS: CARVedilol 6.25 MG TAB PO ×2 (14:49→21:22)
[2018-09-26 17:15] LABS: BEDSIDE GLUCOSE 294 MG/DL (70-105)
[2018-09-26 18:38] LABS: BEDSIDE GLUCOSE 286 MG/DL (70-105)
[2018-09-26 21:37] LABS: BEDSIDE GLUCOSE 248 MG/DL (70-105)
[2018-09-27] MEDS: HEPARIN SOD (PORCINE) 5000 UNITS/ML VIAL SC (05:04)
[2018-09-27 05:43] LABS: HEMATOCRIT 31.4 % (36.0-47.0); HEMOGLOBIN 10.4 g/dl (12.0-15.5); MEAN CORPUSCULAR HEMOGLOBIN 31.3 pg (27.0-33.0); MEAN CORPUSCULAR HGB CONC 33.1 g/dl (32.0-36.5); MEAN CORPUSCULAR VOLUME 94.6 fl (80.0-96.0); PLATELET COUNT, AUTOMATED 270 10^3/uL (150-450); RED BLOOD COUNT 3.32 10^6/uL (4.00-5.40); RED CELL DISTRIBUTION WIDTH 14.4 % (11.5-14.5); WHITE BLOOD COUNT 13.3 10^3/uL (4.0-10.0)
[2018-09-27 06:11] LABS: ANION GAP 9 MEQ/L (8-16); BLOOD UREA NITROGEN 28 MG/DL (7-18); CALCIUM LEVEL 8.5 MG/DL (8.5-10.1); CARBON DIOXIDE LEVEL 25 MEQ/L (21-32); CHLORIDE LEVEL 104 MEQ/L (98-107); CREATININE FOR GFR 4.71 MG/DL (0.55-1.30); GLOMERULAR FILTRATION RATE 11.7 (>60); GLUCOSE, FASTING 111 MG/DL (70-100); POTASSIUM SERUM 4.5 MEQ/L (3.5-5.1); SODIUM LEVEL 138 MEQ/L (136-145)
[2018-09-27] MEDS: HumaLOG INSULIN (NovoLOG) PER UNIT SC (07:30)
[2018-09-27] MEDS: CARVedilol 6.25 MG TAB PO (08:31)
[2018-09-27] MEDS: ATORVASTATIN 20 MG TAB PO (08:31)
[2018-09-27] MEDS: amLODIPine 5 MG TAB PO (08:32)
[2018-09-27] MEDS: ASPIRIN 81 MG ENTERIC TAB PO (08:32)
== END 2018-09-27 09:09 | disposition home or self-care (01) ==
LOC: M ED 17:05 → M ED INP 19:46 → M PCU 23:16
DX: I16.0 Hypertensive urgency (principal); N18.6 End stage renal disease; Z79.899 Other long term (current) drug therapy; Z91.19 Patient's noncompliance with other medical treatment and regimen; Z86.73 Personal history of transient ischemic attack (TIA), and cerebral infarction without residual deficits; Q96.9 Turner's syndrome, unspecified; E11.9 Type 2 diabetes mellitus without complications; Z79.82 Long term (current) use of aspirin; Z79.4 Long term (current) use of insulin; D63.1 Anemia in chronic kidney disease
CPT/HCPCS: J0882

== ENCOUNTER 2019-01-19 08:13 | Emergency (ER) | payer OTHER ==
[~2019-01-19] VITALS: Ht 144.8 cm; Wt 44.1 kg
[~2019-01-19 08:13] MED LIST changes: -LIDOCAINE 2% MDV 20 ML VIAL As Ordered ONE
[2019-01-19 09:01] LABS: BASO % 0.2 % (0.0-1.0); EOS # 0.2 10^3/uL (0.0-0.50); EOS % 1.6 % (0.0-3.0); HEMATOCRIT 25.3 % (36.0-47.0); HEMOGLOBIN 8.3 g/dl (12.0-15.5); LYMPH % 17.1 % (24.0-44.0); MEAN CORPUSCULAR HEMOGLOBIN 30.5 pg (27.0-33.0); MEAN CORPUSCULAR HGB CONC 32.8 g/dl (32.0-36.5); MONO # 0.7 10^3/uL (0.0-0.8); MONO % 6.2 % (0.0-5.0); NEUTROPHILS # 8.9 10^3/uL (1.8-7.7); NEUTROPHILS % 74.5 % (36.0-66.0); PLATELET COUNT, AUTOMATED 271 10^3/uL (150-450); RED BLOOD COUNT 2.72 10^6/uL (4.00-5.40); WHITE BLOOD COUNT 11.9 10^3/uL (4.0-10.0)
[2019-01-19] MEDS ORDERED: LABETALOL HCL 100 MG/20 ML VIAL IV STA (09:19)
[2019-01-19 09:56] LABS: CALCIUM LEVEL 7.4 MG/DL (8.5-10.1); CREATININE FOR GFR 12.6 MG/DL (0.55-1.30); GLOMERULAR FILTRATION RATE 3.7 (>60); POTASSIUM SERUM 4.8 MEQ/L (3.5-5.1)
[2019-01-19 11:54] VITALS: BP 174/105
== END 2019-01-19 12:28 | disposition left against medical advice (07) ==
LOC: M ED 08:13
DX: Z53.21 Procedure and treatment not carried out due to patient leaving prior to being seen by health care provider (principal); I10 Essential (primary) hypertension; N18.6 End stage renal disease; Q96.9 Turner's syndrome, unspecified; Z79.82 Long term (current) use of aspirin; Z79.4 Long term (current) use of insulin; Z79.899 Other long term (current) drug therapy

== ENCOUNTER → 2019-01-19 | Outpatient (CLI) | payer OTHER ==
[~2019-01-19] MED LIST: ALCOPAD17 TOP; AMLO10TA5 PO; AMLO5TAB6 PO; ASPI81TAEC PO; ATOR1TAB21 PO; BLOOKIT21 XX; CARV3.12 PO; CARV6.25 PO; GLUC1TES2 XX; HUMA50IN SQ; HYDR1CRE TOP; INSUDET SC; INSUHUMDS SC; LANC30MI XX; LIDOCAINE 2% MDV 20 ML VIAL As Ordered ONE; LIPI20TA PO; PANT40TA3 PO; [UNRECOGNIZED DRUG - CODE] SC
== END ==
LOC: M IRPRO 07:21
PROVIDERS: ATTEND Surgery Vascular Surgery
DX: N18.6 End stage renal disease (principal); Z53.8 Procedure and treatment not carried out for other reasons

== ENCOUNTER → 2019-01-25 | Outpatient (CLI) | payer OTHER ==
[~2019-01-25] MED LIST changes: +LIDOCAINE 2% MDV 20 ML VIAL As Ordered ONE
== END ==
LOC: M IRPRO 11:29
PROVIDERS: ATTEND Surgery Vascular Surgery
DX: N18.6 End stage renal disease (principal); Z53.9 Procedure and treatment not carried out, unspecified reason

== ENCOUNTER → 2019-02-14 | Outpatient (CLI) | payer OTHER ==
[~2019-02-14] MED LIST changes: -LIDOCAINE 2% MDV 20 ML VIAL As Ordered ONE
== END ==
LOC: M IRPRO 09:29
PROVIDERS: ATTEND Surgery Vascular Surgery
DX: N18.6 End stage renal disease (principal); Z53.8 Procedure and treatment not carried out for other reasons

== ENCOUNTER 2019-05-08 22:41 | Emergency (ER) | payer OTHER ==
[~2019-05-08] VITALS: Ht 144.8 cm; Wt 36.4 kg
[~2019-05-08 22:41] MED LIST changes: +[UNRECOGNIZED DRUG - CODE] SC; -[UNRECOGNIZED DRUG - CODE] SC
[2019-05-08 22:43] VITALS: BP 179/102
[2019-05-08] MEDS ORDERED: TGTSUS2 PO (22:51)
[2019-05-08] MEDS ORDERED: CLIN1SOL24 PO (23:46)
== END 2019-05-09 00:01 | disposition home or self-care (01) ==
LOC: M ED 22:41
DX: K04.7 Periapical abscess without sinus (principal); I12.9 Hypertensive chronic kidney disease with stage 1 through stage 4 chronic kidney disease, or unspecified chronic kidney disease; N18.4 Chronic kidney disease, stage 4 (severe); Q96.9 Turner's syndrome, unspecified; Z79.899 Other long term (current) drug therapy

== ENCOUNTER 2019-05-11 09:07 | Inpatient (IN) | payer OTHER ==
[~2019-05-11] VITALS: Ht 144.8 cm; Wt 32.9 kg
[~2019-05-11 09:07] MED LIST changes: +CLIN1SOL24 PO; +TGTSUS2 PO; +[UNRECOGNIZED DRUG - CODE] SC; -[UNRECOGNIZED DRUG - CODE] SC
[2019-05-11 13:33] LABS: LYMPH # 0.6 10^3/uL (1.5-4.5); LYMPH % 2.5 % (24.0-44.0); MEAN CORPUSCULAR HEMOGLOBIN 27.7 pg (27.0-33.0); MEAN CORPUSCULAR HGB CONC 31.7 g/dl (32.0-36.5); MEAN CORPUSCULAR VOLUME 87.4 fl (80.0-96.0); MONO # 1.2 10^3/uL (0.0-0.8); MONO % 5.1 % (0.0-5.0); NEUTROPHILS # 20.9 10^3/uL (1.8-7.7); NEUTROPHILS % 91.4 % (36.0-66.0); PLATELET COUNT, AUTOMATED 395 10^3/uL (150-450); RED BLOOD COUNT 2.06 10^6/uL (4.00-5.40); VENOUS BASE EXCESS -14.1 (-2.0-2.0); VENOUS HCO3 12.1 MEQ/L (23.0-27.0); VENOUS O2 SATURATION 97.6 % (60.0-80.0); VENOUS PARTIAL PRESSURE CO2 29.3 mmHg (38.0-50.0); VENOUS PARTIAL PRESSURE O2 116.3 mmHg (30.0-50.0); VENOUS PH 7.233 UNITS (7.330-7.430); VENOUS STANDARD HCO3 13.1 MEQ/L; WHITE BLOOD COUNT 22.9 10^3/uL (4.0-10.0)
[2019-05-11 13:40] LABS: HEMOGLOBIN 5.8 g/dl (12.0-15.5)
[2019-05-11 13:43] LABS: INR 1.45; PROTHROMBIN TIME 17.4 SECONDS (11.8-14.0)
[2019-05-11 13:44] LABS: PARTIAL THROMBOPLASTIN TIME 33.2 SECONDS (25.0-38.4)
[2019-05-11 14:02] LABS: CALCIUM LEVEL 8.4 MG/DL (8.5-10.1); GLOMERULAR FILTRATION RATE 2.2 (>60); POTASSIUM SERUM 5.2 MEQ/L (3.5-5.1)
[2019-05-11 14:04] LABS: CREATININE FOR GFR 20.2 MG/DL (0.55-1.30)
--- NOTE | 2019-05-11 15:02 | REP ---
REASON: Cough and renal disease. COMPARISON: Multiple, the latest 09/25/2018. There is a new opacity in the left lower lobe. This is seen on the limited fashion on this portable chest. The technique utilized in obtaining the radiograph has magnified the cardiac silhouette and accentuated the interstitial markings. There is cardiomegaly accentuated by technique. The right lung is clear and unchanged. Chronic change is seen involving the imaged osseous structures. IMPRESSION: New abnormal left lower lobe opacity. Pneumonia/atelectasis, loculated effusion. Correlate clinically. Electronically Signed by Paul Serrano DO 05/11/2019 05:15 P
[2019-05-11] MEDS ORDERED: cefTRIAXone SOD 1 GM in D5W MINI-BAG PLUS 50 ML IV ONE (16:30)
[2019-05-11] MEDS ORDERED: AZITHROMYCIN 250 MG TAB PO ONE (16:45)
--- NOTE | 2019-05-11 17:56 | REPVR ---
EXAM: CT Chest Without Contrast EXAM DATE/TIME: 05/11/2019 5:32 PM CLINICAL HISTORY: 29 years old, female; Chest pain; Additional info: Loculated effusion TECHNIQUE: Imaging protocol: Axial computed tomography images of the chest without intravenous contrast. Coronal and sagittal reformatted images were created and reviewed. 3D rendering: MIP reconstructed images were created and reviewed. Radiation optimization: All CT scans at this facility use at least one of these dose optimization techniques: automated exposure control; mA and/or kV adjustment per patient size (includes targeted exams where dose is matched to clinical indication); or iterative reconstruction. COMPARISON: CR Chest, 1 view 05/11/2019 1:26 PM FINDINGS: Lungs: Unremarkable. No consolidation. No masses. Pleural space: Small right pleural effusion. Small loculated left pleural effusion. Heart: Moderate pericardial effusion. Aorta: Mild dilatation of the ascending thoracic aorta and anterior aortic arch measuring up to 3.3 cm maximally. Great vessels off aortic arch: Air noted in the right axillary region adjacent to width of the subclavian vein and in the anterior aspect of the left upper arm which may be postprocedural. Clinical correlation to exclude infection suggested. Lymph nodes: Mediastinal lymphadenopathy measures up to 9 mm in the retrocaval pretracheal area, 9 mm in the left para-aortic region, 7 mm in the AP window, 10 mm in the right paratracheal region, and 12 mm in the subcarinal region. Findings likely postinflammatory/infectious. Bones/joints: Unremarkable. No acute fracture. Soft tissues: There is soft tissue edema demonstrated in the chest wall consistent with anasarca. Intraperitoneal space: There is a small amount of free intraperitoneal fluid present. IMPRESSION: 1. Small right pleural effusion. 2. Small loculated left pleural effusion. 3. Air noted in the right axillary region adjacent to width of the subclavian vein and in the anterior aspect of the left upper arm which may be postprocedural. Clinical correlation to exclude infection suggested. 4. Moderate pericardial effusion. 5. Small mediastinal lymph nodes likely postinflammatory or infectious. 6. Mild dilatation of the ascending thoracic aorta and anterior aortic arch measuring up to 3.3 cm maximally. 7. Anasarca. Electronically signed by: Gerardo Turner On 05/11/2019 17:56:31 PM
[2019-05-11] MEDS: **hydrALAZINE** 10 MG TAB PO SCH (18:00)
[2019-05-11] MEDS: METOPROLOL TART 25 MG TABLET PO SCH (18:00)
[2019-05-11 18:10] VITALS: BP 176/84
[2019-05-11] MEDS ORDERED: GLUCAGON FOR INJ 1 MG VIAL (J1610) SC PRN (19:15)
[2019-05-11] MEDS ORDERED: GLUCOSE 4 GM CHEW TABLET PO PRN (19:15)
[2019-05-11 19:38] LABS: PERCENT SATURATION 21.2 % (13.2-45.0)
[2019-05-11] MEDS ORDERED: IRON SUCROSE 100MG 5ML VIAL (J1756 PER 1MG) IV SCH (20:15)
[2019-05-11] MEDS ORDERED: DARBEPOETIN 100 MCG/0.5 ML *DIALYSIS* SYRINGE (J0882) IV SCH (20:15)
[2019-05-11 20:45] LABS: PHOSPHORUS LEVEL 11.8 MG/DL (2.5-4.9)
--- NOTE | 2019-05-11 20:50 | HPE ---
DATE OF ADMISSION: 05/11/2019 PRIMARY CARE PROVIDER: None The patient has been fired from many primary care doctors and [facility] due to noncompliance and refusal to do outpt dialysis. Previous PCP: Dr. Janelle Hovoer plans to see Destini Alexander at [facility], but no appt yet. CHIEF COMPLAINT: Shortness of breath and congestion. 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 She has had a turbulent relationship with many nephrologists due to medical noncompliance and refusing dialysis and was previously evaluated by psychiatrist for mental capacity and was found to be competent to make medical decisions for herself. She has therefore not followed with a medical transcription supervisor since 2017. She now presents with congestion and shortness of breath at rest and with exertion that started about 2 months ago, which was first noticed when she was being helped by the mother to get into the car. The mother felt that she heard a crack and thought that it was a rib fracture. Since then the patient has had on and off cough, heaviness in the chest. Mother has been putting Vicks on her chest. She has had worsening distress and presented to the emergency room on Thursday because she thought that she may have had pneumonia. At that time, she was unable to urinate and has noticed increasing suprapubic pain without any hematuria, dysuria or urgency. She was found to have uncontrolled hypertension last Thursday but left against medical advice. She then returned today due to progressive pain and inability to urinate at home. In the emergency room, she was found to have a blood pressure of 180/126. The patient did not want to receive dialysis chronically and had not followed with anyone. In the emergency room, she was found to have a left basilar opacity, which is new. She had a white count of 22,000, but was afebrile with a temperature of 98.3. Creatinine was found to be 20 with bicarbonate of 13. CT of the chest shows a small loculated left pleural effusion, air noted in the subclavian, which may be postprocedural, and moderate pericardial effusion and anasarca. The patient was admitted for pneumonia, significant uremia due to medical noncompliance with hemodialysis, metabolic acidosis, hyperkalemia, sepsis, severe anemia most likely due to chronic renal failure and an incidental finding of a moderate pericardial effusion, looks like uremic. According to the patient, she has had some tooth pain in the right mandible. She was seen in the emergency room and was started on clindamycin, which she completed. No fever or chills at home. She has been having difficulty eating, but denied taking any nonsteroidal antiinflammatory medications, ibuprofen, Aleve or Naprosyn. She has been taking liquid Tylenol due to difficulty eating. PAST MEDICAL HISTORY: 1. End stage renal disease requiring hemodialysis, noncompliance. 2. Hypertension. 3. 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 4. Bilateral blindness. 5. Mason's syndrome. 6. Significant anemia of chronic disease. PAST SURGICAL HISTORY: 1. Left AV fistula in August 2018, which had not matured. 2. Coarctation of the aorta, status post repair. ALLERGIES: No known drug allergies. SOCIAL HISTORY: The patient denies any tobacco, alcohol or recreational drug use. The patient is disabled and on chronic disability. She lives with her mother, who is her primary caregiver. FAMILY HISTORY: Mother age 48, no medical problems. Father with hypertension, age 52. One brother and one sister, both are in their 20s, alive and well with no medical problems. Maternal uncle was on dialysis. HOME MEDICATIONS: None. REVIEW OF SYSTEMS: As per history of present illness. 12-point system otherwise negative. PHYSICAL EXAMINATION: VITAL SIGNS: Temperature is 98.3, pulse 99, respiratory rate 18, blood pressure on admission was 180/126, 100% on room air. GENERAL: The patient is cachectic, disheveled, smells of urine. She has opacification of her bilateral sclerae, legally blind. She has multiple excoriations on bilateral upper and lower extremities. Very dry mucous membranes. Poor dentition with missing teeth. Some erythema along the gingiva on the right mandible. Positive lymphadenopathy. She follows commands. She has involuntary movements of her arms and body with akathisia. She is awake, alert, and oriented to her name. She is following commands. Her speech is fluent. She has mild respiratory distress but not conversational dyspnea or use of respiratory accessory muscles or tracheal deviation. LUNGS: Diminished with fine crackles at the right base. HEART: Distant heart sounds. Sinus rhythm. ABDOMEN: Soft, positive bowel sounds, scaphoid. No rebound or guarding. No hepatosplenomegaly. EXTREMITIES: No pitting edema. LABORATORY DATA: White count 22.9, hemoglobin 5.8, hematocrit 18, platelet count of 395. Sodium 133, potassium 5.2, chloride 99, bicarbonate 13, BUN 148, creatinine 20, glucose of 118. Microbiology: Two sets of blood cultures are negative. Chest CT on 05/11/2019 showed small right pleural effusion, small loculated left pleural effusion, air noted in the right axillary region adjacent to the width of the subclavian vein in the anterior aspect of the left upper arm, which may be postprocedural. Moderate pericardial effusion. Small lymph nodes in the mediastinum. Mild dilatation of the ascending thoracic aorta and anterior aortic arch measuring up to 3.3 cm maximally, anasarca. ASSESSMENT AND PLAN: This is a 29-year-old female being admitted for end stage renal disease requiring emergent hemodialysis due to metabolic acidosis, hyperkalemia, hyponatremia, community-acquired pneumonia, severe anemia requiring blood transfusion, most likely secondary to chronic renal failure, found to have an incidental moderate pericardial effusion, most likely secondary to uremia. 1. End stage renal disease requiring hemodialysis. The patient has been noncompliant with hemodialysis and has previously been evaluated by psychiatrist for mental competency. She was found to be mentally competent to refuse dialysis despite it being lifesaving for her. The patient has signed out against medical advice during dialysis sessions, refuses to followup with a medical transcription supervisor, and has not seen a medical transcription supervisor in over 8 months. She currently has severe metabolic acidosis, hyperkalemia, a bit of a fluid overload with bilateral pleural effusions, moderate pericardial effusion to be evaluated with an echo to rule out pericardial tamponade. She complains of some cough and congestion at home and currently being treated for pneumonia as well. We have consulted medical transcription supervisor, Dr. Zavala, who will assist in emergency dialysis. The patient is adamant that she will not follow with nephrology after this session. She has told her mother that dialysis makes her feel bad and therefore she does not care to follow a medical transcription supervisor after she is released from the hospital. 2. Community-acquired pneumonia. She has been given ceftriaxone, azithromycin, sputum culture, urine Legionella, urine Streptococcal antigen, respiratory panel, methicillin resistant Staphylococcus aureus (MRSA) screen have all been sent. 3. Small left loculated pleural effusion. We will continue to monitor clinically and repeat imaging studies as needed. May need to have this drained with a chest tube should it increase in size. 4. Moderate pericardial effusion, without cardiac tamponade .Thoracic Surgery Dr. Guzman -no window indicated. 5. Ascending aorta dilation of 3.3 cm. The patient does have a history of coarctation of the aorta with repair as a child. 6. Diabetic retinopathy and nephropathy. The patient is legally blind in bilateral eyes. She is continued on consistent carbohydrate diet. We will check A1/c. Insulin sliding scale with coverage. Once she is restored on a regular diet, we will titrate the insulin accordingly. 7. Uncontrolled hypertension due to noncompliance with medications, medical doctor appointments, and renal failure. The patient will be given labetalol and hydralazine. We will avoid ARBs and SIOBHAN inhibitors for now. 8. Anemia requiring blood transfusion secondary to chronic renal disease. We will check stool for hemoccult blood, iron studies, transfuse and monitor hemoglobin and hematocrit. 9. Secondary hyperparathyroidism due to chronic kidney disease. We will check PTH level. May need calcitriol. The patient is noncompliant with her dialysis, medical appointments, and nephrology followup despite being encouraged to do so. 10. Proteinuria due to diabetic nephropathy. Had been previously been worked up by nephrology. 11. Deep vein thrombosis (DVT) prophylaxis with compression stockings. 12. Medical Noncompliance with dialysis, medications, and physician visits. patient was previously evaluated by psych and found to be medically competent. psych dr. alvarado reconsulted. 13. Hyperkalemia and metabolic acidosis secondary to renal failure and noncompliance with dialysis. We will correct with dialysis. Nephrology has been consulted. 14. Hyponatremia secondary to end stage renal disease. 15. Protein Calorie Malnutrition complicating care. [facility]
[2019-05-11] MEDS: HumaLOG INSULIN (NovoLOG) PER UNIT SC SCH (21:00)
[2019-05-11 22:53] VITALS: BP 180/90
[2019-05-12] VITALS (8 sets, daily range): BP systolic 120–210; BP diastolic 64–100
[2019-05-12] MEDS: METOPROLOL TART 25 MG TABLET PO SCH ×2 (03:18→06:00)
[2019-05-12 03:28] LABS: HEMATOCRIT 22.3 % (36.0-47.0)
[2019-05-12 03:48] LABS: CHOLESTEROL RISK RATIO 5.857 (<5)
[2019-05-12] MEDS: **hydrALAZINE** 10 MG TAB PO SCH ×2 (06:00)
[2019-05-12] MEDS: HumaLOG INSULIN (NovoLOG) PER UNIT SC SCH ×4 (07:30→20:56)
--- NOTE | 2019-05-12 07:57 | ECHO ---
DATE OF STUDY: 05/11/2019 DATE OF : 1990 AGE: 29 REFERRING PROVIDER: Dr. Pema Oconnor PATIENT LOCATION: Room 4213 REASON FOR THE STUDY: Pericardial effusion. 2-D MEASUREMENTS: IVS: 1.0 cm LV: 3.4 cm LVPW: 1.2 cm LA: 2.5 cm Aorta: 2.3 cm IVS: 1.7 cm DOPPLER MEASUREMENTS: Peak velocity across the aortic valve: 2.0 m/s Peak velocity across the LVOT: 1.4 m/s Peak gradient across the aortic valve: 16 mmHg Mean gradient across the aortic valve: 8 mmHg Mitral E: 1.4 Mitral A: 1.5 Ratio: 0.9 Peak velocity across the coarctation: 2.7 m/s 2-D COMMENTS: 1. Normal left ventricular size, wall thickness, and normal global left ventricular systolic function with an estimated global left ventricular systolic ejection fraction of 70-75%. 2. Normal left atrium. Normal right atrium and right ventricle. 3. The atrial septum appeared to be normal without evidence of defect or shunt. 4. Normal aortic root. 5. Moderate to large pericardial effusion noted, but no evidence of cardiac tamponade. 6. Mildly calcified aortic valve, leaflet excursion appeared to be normal. Normal mitral valve, tricuspid valve and pulmonic valve. The proximal pulmonary artery branches were not well visualized. 7. The inferior vena cava was normal in size, central venous pressure is probably normal. DOPPLER: No significant valvular abnormalities detected. Abnormal relaxation pattern was noted across the mitral valve leaflets as well as mitral valve annulus consistent with delayed relaxation. IMPRESSION: 1. Normal global left ventricular systolic function with a hyperdynamic left ventricle. There are some features of left ventricular diastolic dysfunction manifested by abnormal relaxation. 2. Possible trivial to mild aortic stenosis. No mitral regurgitation. 3. Moderate to large pericardial effusion, no evidence of cardiac tamponade. 4. There was a velocity of 2.7 m/s in the aorta across the coarctation. The patient had prior surgery for her coarctation of the aorta. 5. Mild tachycardia was noted during the test with a heart rate that varied at that time between 100 and 110 beats per minute. 6. The case was discussed with the nursing hotel or motel room service supervisor as well as the hospitalist covering. I do not see any need to do an urgent pericardiocentesis tonight, but the patient might benefit during this hospitalization. Upon reviewing her echocardiogram done on 08/22/2018, only trace pericardial effusion was noted. I have discussed with the nursing hotel or motel room service supervisor, the patient is on dialysis and has been refusing hemodialysis. She might benefit from pericardial window. [place]
[2019-05-12] MEDS: AZITHROMYCIN 250 MG TAB PO SCH (08:57)
[2019-05-12] MEDS: cefTRIAXone SOD 2 GM in D5W MINI-BAG PLUS 50 ML IV SCH (08:57)
[2019-05-12] MEDS ORDERED: LIDOCAINE 2% MDV 20 ML VIAL As Ordered ONE (09:28)
[2019-05-12] MEDS ORDERED: BUPIVACAINE HCL 0.5% 10 ML VIAL As Ordered ONE (09:28)
[2019-05-12] MEDS ORDERED: HEPARIN 1,000 UNITS/ML 10ML VIAL (FOR RADIOLOGY& DIALYSIS ONLY) As Ordered ONE (09:29)
[2019-05-12 11:23] LABS: EOS % 0.1 % (0.0-3.0); HEMATOCRIT 15.4 % (36.0-47.0); LYMPH # 0.5 10^3/uL (1.5-4.5); LYMPH % 3.7 % (24.0-44.0); MEAN CORPUSCULAR HEMOGLOBIN 27.9 pg (27.0-33.0); MEAN CORPUSCULAR HGB CONC 32.5 g/dl (32.0-36.5); MONO # 0.5 10^3/uL (0.0-0.8); MONO % 4.3 % (0.0-5.0); NEUTROPHILS # 11.2 10^3/uL (1.8-7.7); PLATELET COUNT, AUTOMATED 304 10^3/uL (150-450); RED BLOOD COUNT 1.79 10^6/uL (4.00-5.40); WHITE BLOOD COUNT 12.3 10^3/uL (4.0-10.0)
--- NOTE | 2019-05-12 11:30 | CR.PDOC ---
General Date of Consultation: May 12, [address] Sauer HPI: 29year oldF with with fluid overload, SOB, congestion and plan for HD. Nephrology consulting vascular surgery for Permcath placement. PAST MEDICAL HISTORY: Chronic kidney disease stage IV, h/o noncompliance with dialysis hypertension, diabetic retinopathy with complete blindness of the left eye and partial in the right. A nucleated left eye. Mason syndrome. PAST SURGICAL HISTORY: Coarctation of aorta and status post repair. Status post left chest hemodialysis catheter, left wrist vascular surgery for fistula formation permcath removal 03/23 SOCHX: Tobacco use: denies ETOH: denies Illicit Drugs: Denies FAMHX: non contributory ROS: As noted in HPI, otherwise 11pt ROS of systems reviewed and unremarkable PE: GEN: 29yoF, appears older than stated age. HEENT: Normocephalic, atraumatic. Moist mucous membranes. SKIN: [place], dry, warm. Capillary refill <2sec. No rashes. NEURO: Alert and oriented x 3. No focal deficits appreciated. A&P: 1. ESRD. Permcath placement as per Dr Sauer 05/12/19. Will need AVF creation. Will request vein mapping. Vital Signs/I&O Vital Signs Date Time Temp Pulse Resp B/P (MAP) Pulse Ox O2 Delivery O2 Flow Rate FiO2 05/12/19 09:40 72 16 100 2 05/12/19 09:21 98.1 05/12/19 08:00 123/82 (96) 05/11/19 15:47 Room Air I&O- Last 24 Hours up to 6 AM 05/12/19 06:00 Intake Total 50 ml Output Total 400 ml Balance -350 ml Laboratory Data Labs 24H Laboratory Tests 2 05/11/19 11:38: POC Glucose (Misc Panel) 120H, POC Sodium (Misc Panel) 130L, POC Potassium (Misc Panel) 4.9, POC Chloride (Misc Panel) 102, POC Total CO2 (Misc Panel) 13.0L, POC Blood Urea Nitrogen (Misc Panel > 140H, POC Ionized Calcium (Misc Panel) 3.9L, POC Creatinine (Misc Panel) > 20.0H, POC Hematocrit (Misc Panel) 19.0L 05/11/19 13:07: Immature Granulocyte % (Auto) 1.0, White Blood Count 22.9H, Red Blood Count 2.06L, Hemoglobin 5.8*L, Hematocrit 18.0L, Mean Corpuscular Volume 87.4, Mean Corpuscular Hemoglobin 27.7, Mean Corpuscular Hemoglobin Concent 31.7L, Red Cell Distribution Width 14.2, Platelet Count 395, Neutrophils (%) (Auto) 91.4H, Lymphocytes (%) (Auto) 2.5L, Monocytes (%) (Auto) 5.1H, Eosinophils (%) (Auto) 0.0, Basophils (%) (Auto) 0.0, Neutrophils # (Auto) 20.9H, Lymphocytes # (Auto) 0.6L, Monocytes # (Auto) 1.2H, Eosinophils # (Auto) 0.0, Basophils # (Auto) 0.0, Nucleated Red Blood Cells % (auto) 0.2H, Prothrombin Time 17.4H, Prothromb Time International Ratio 1.45, Activated Partial Thromboplast Time 33.2, Blood Gas Bicarbonate Standard 13.1, Venous Blood pH 7.233L, Venous Blood Partial Pressure CO2 29.3L, Venous Blood Partial Pressure O2 116.3H, Venous Blood Total Carbon Dioxide 13.0L, Venous Blood HCO3 12.1L, Venous Blood Oxygen Saturation 97.6H, Venous Blood Base Excess -14.1L, Anion Gap 21H, Glomerular Filtration Rate 2.2L, Blood Urea Nitrogen 148H, Creatinine 20.20*H, Sodium Level 133L, Potassium Level 5.2H, Chloride Level 99, Carbon Dioxide Level 13L, Calcium Level 8.4L, Phosphorus Level 11.8H, Iron Level 21L, Total Iron Binding Capacity 99L, Transferrin % Saturation 21.2, Ferritin 1031H, Parathyroid Hormone (Intact) 404.0H 05/11/19 19:01: 05/11/19 22:05: Bedside Glucose (Misc Panel) 179H 05/12/19 03:19: Triglycerides Level 171H, LDL Cholesterol 68, Total Cholesterol 123, Non-HDL Cholesterol (LDL + VLDL) 102, Total HDL Cholesterol 21L, Cholesterol/HDL Ratio 5.857H 05/12/19 08:08: Bedside Glucose (Misc Panel) 148H CBC/BMP Laboratory Tests 05/11/19 13:07 Red Blood Count 2.06 L, Mean Corpuscular Volume 87.4, Mean Corpuscular Hemoglobin 27.7, Mean Corpuscular Hemoglobin Concent 31.7 L, Red Cell Distribu tion Width 14.2, Neutrophils (%) (Auto) 91.4 H, Lymphocytes (%) (Auto) 2.5 L, Monocytes (%) (Auto) 5.1 H, Eosinophils (%) (Auto) 0.0, Basophils (%) (Auto) 0.0, Neutrophils # (Auto) 20.9 H, Lymphocytes # (Auto) 0.6 L, Monocytes # (Auto) 1.2 H, Eosinophils # (Auto) 0.0, Basophils # (Auto) 0.0, Calcium Level 8.4 L 05/12/19 03:19 Microbiology Microbiology 05/11/19 Blood Culture, Received Pending 05/11/19 Blood Culture, Received Pending Allergies Coded Allergies: No Known Allergies (Unverified , 01/19/19) Home Medications No Active Prescriptions or Reported Meds Patty Leal May 12, 2019 09:52
[2019-05-12 11:58] LABS: ALBUMIN 1.9 GM/DL (3.2-5.2); BILIRUBIN,TOTAL 0.2 MG/DL (0.2-1.0); CALCIUM LEVEL 7.8 MG/DL (8.5-10.1); CREATININE FOR GFR 14.1 MG/DL (0.55-1.30); GLOMERULAR FILTRATION RATE 3.3 (>60); POTASSIUM SERUM 3.9 MEQ/L (3.5-5.1); TOTAL PROTEIN 5.2 GM/DL (6.4-8.2)
[2019-05-12] MEDS ORDERED: HEPARIN 1,000 UNITS/ML 10ML VIAL (FOR RADIOLOGY& DIALYSIS ONLY) XX ONE (12:00)
[2019-05-12] MEDS: LANTHANUM CARBONATE 500 MG CHEW TABLET PO SCH ×2 (14:00→17:46)
[2019-05-12 15:13] LABS: HEMATOCRIT 31.4 % (36.0-47.0); HEMOGLOBIN 10.2 g/dl (12.0-15.5)
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
[2019-05-12] MEDS ORDERED: amLODIPine 5 MG TAB PO ONE (21:00)
[2019-05-12] MEDS ORDERED: CARVedilol 6.25 MG TAB PO ONE (23:00)
[2019-05-12] MEDS: ONDANSETRON 4MG/2ML VIAL (J2405) IV PRN (23:28)
[2019-05-13] VITALS (10 sets, daily range): BP systolic 106–188; BP diastolic 60–97
[2019-05-13 00:43] LABS: HEMATOCRIT 28.3 % (36.0-47.0); HEMOGLOBIN 9.5 g/dl (12.0-15.5)
[2019-05-13] MEDS ORDERED: METOPROLOL 5 MG/5 ML VIAL IV PRN (00:45)
--- NOTE | 2019-05-13 01:06 | CR ---
DATE OF CONSULTATION: 05/12/2019 REQUESTING PHYSICIAN: Dr. Pema Oconnor CONSULTING PHYSICIAN: Dr. Zavala REASON FOR CONSULTATION: Management of end-stage renal disease, uremia and associated complications with renal failure. CHIEF COMPLAINT: Weakness, shortness of breath and difficulty to breathe. HISTORY OF PRESENT ILLNESS: Ihsan Adamson is a 29-year-old female with a past medical history of end-stage renal disease requiring hemodialysis, hypertension secondary to end-stage renal disease, diabetes mellitus type 2 with associated complications including diabetic retinopathy and diabetic nephropathy, legally blind, history of Mason syndrome, well known to nephrology service from previous hospitalizations and from outpatient hemodialysis center. She was on dialysis, but she herself along with her mother were very noncompliant. Despite multiple attempts, they never showed up in the nephrology clinic as outpatient for followup. The patient only came for dialysis a few times a week initially and then a few times a month, and later on they refused to come and they did not pay attention to any medical advice from [facility]. Finally, the patient, along with her mother, decided to stop hemodialysis themselves. They went to vascular surgery and requested multiple times to have the tunneled dialysis catheter removed. She refused to have the arteriovenous (AV) fistula placed. Unfortunately, the patient is legally blind and she is influenced by her mother who takes care of her, which she is dependent on the mother to make all the decisions, even though psychiatry previously has deemed the patient to be competent to make her own decisions. The patient had a catheter removed as outpatient by vascular surgery. She has not been dialyzed in many months. She presented to the hospital yesterday with shortness of breath and weakness and congestion. Her mother repeatedly requested the emergency room physician to put a Regalado catheter in, thinking that placement of Regalado catheter would improve her shortness of breath and renal function. However, further evaluation in the emergency room showed that the patient was uremic with a BUN of 148, with hyperkalemia, potassium of 5.2, metabolic acidosis with a bicarbonate of 13. She was severely anemic with a hemoglobin of 5.8. Multiple physicians were involved, including the emergency room (ER) physician, hospital administration and hospitalist, and they advised the patient and her mother to get admitted for further care of her renal failure. Nephrology service was consulted yesterday. Since the patient and her mother had already fired [facility], and they refused to have further care, and they did not listen to the medical advice of the cellophane casting machine repairer, we had signed off from the case. The patient has never followed up with us in the nephrology clinic. However, nephrology service was requested to see the patient on a humanitarian basis because of urgent nature of her disease. The patient was admitted under the hospitalist service yesterday. Nephrology service saw the patient in the morning. I had already requested vascular surgery to place a tunneled dialysis catheter. The patient was seen and examined at the bedside in the morning and dialysis through the right internal jugular (IJ) tunneled hemodialysis catheter was initiated. PAST MEDICAL HISTORY: 1. End-stage renal disease requiring hemodialysis but noncompliant with dialysis, and she stopped dialysis herself after listening to her mother's advice. 2. Hypertension with a history of hypertensive emergency in the past. 3. History of CVA in the past. 4. Diabetes mellitus, type 2 with diabetic retinopathy and nephropathy, noncompliant with insulin therapy. 5. Bilateral legal blindness. 6. History of Mason's syndrome 7. Anemia of chronic kidney disease. PAST SURGICAL HISTORY: 1. Status post AV fistula in August 2018, which clotted. The patient never followed up with vascular surgery again. 2. History of coarctation of aorta surgery many years ago. 3. status post right IJ tunneled hemodialysis catheter placement in the past, which was subsequently removed by vascular surgery on request of the patient. ALLERGIES: No known drug allergies. FAMILY HISTORY: No history of end-stage renal disease requiring hemodialysis in the immediate relatives. Her maternal uncle was a dialysis patient in [facility] [place]. SOCIAL HISTORY: There is no history of smoking, illicit drug abuse or alcohol abuse. Patient is legally blind. She lives with her mother in a trailer home where there is no restroom, and there is no running water at home. REVIEW OF SYSTEMS: Constitutional: Patient reports feeling very weak and tired. Eyes: She reports bilateral legal blindness. Ears, Nose and Throat (ENT): She denies any dysphagia or odynophagia. Cardiovascular: She reports chest pain and shortness of breath. Respiratory: She reports shortness of breath on moderate exertion. She denies any cough. Gastrointestinal (GI): She reports decreased appetite and nausea. Genitourinary: She reports decreased urine output. Musculoskeletal: She reports muscle weakness. Skin: She denies any rashes or ulcers. Central nervous system (FIRE INVESTIGATION MANAGER): She reports history of stroke, and she reports legal blindness. Hematology/Oncology: She denies any easy bleeding or bruising. Endocrine: She reports a history of diabetes mellitus, type 2, insulin dependent. All other review of systems is negative. PHYSICAL EXAMINATION: General: The patient is awake, alert, oriented times three, laying in bed getting hemodialysis done. Vital signs: Temperature is 97.9 degrees Fahrenheit, blood pressure 180/70, pulse is 91, respiratory rate of 20, saturating 97% on room air. Head and neck exam: The patient has bilateral legal blindness. Mucous membranes are moist. The patient has very poor dentition. Neck is supple. Mildly elevated jugular venous distention (JVD). She has a right IJ tunneled hemodialysis catheter. Cardiovascular: S1, S2, very loud pericardial friction rub is noted. Trace edema of the bilateral lower extremities. Respiratory: Decreased breath sounds at the bases, otherwise no active rales or rhonchi. Abdomen: Soft. Positive bowel sounds. Nontender. No organomegaly. Musculoskeletal: No clubbing or cyanosis. Pulses are 2+. FIRE INVESTIGATION MANAGER: The patient has legal blindness, otherwise she moves extremities and follows commands. Skin: No active rashes were noted site. Psychiatric: The patient has a depressed mood. LAB REVIEW: CBC showed a WBC of 22.9, hemoglobin 5.8, platelets 395. INR was 1.45. VBG showed a pH of 7.23. BMP on arrival showed sodium 133, potassium 5.2, chloride 99, bicarbonate 13, BUN 148, creatinine of 20.2 and glucose 118, calcium 8.4, phosphorus 11.8, iron 21, TIBC is 99, transferrin saturation 21, ferritin 1031, albumin 1.9, PTH 404. Microbiology: Blood cultures are pending so far. IMAGING STUDIES: A CT scan of the chest was done yesterday, which showed that the patient has small right pleural effusion, small loculated left pleural effusion, moderate pericardial effusion. Mild dilatation of the ascending aorta and anterior aortic arch. There was anasarca 2D echocardiogram was done yesterday emergently, which showed normal global left ventricular systolic function with a hyperdynamic left ventricle. There were features of left ventricular diastolic dysfunction, moderate to large pericardial effusion with no evidence of cardiac tamponade, mild tachycardia. Pericardial window was recommended by cardiology. HOME MEDICATIONS: The patient is not taking any home medications. CURRENT INPATIENT MEDICATIONS: The patient has been started on ceftriaxone 2 grams IV daily, amlodipine 5 mg by mouth one dose. She is on azithromycin 250 mg by mouth daily. She has been started on Aranesp 100 mcg IV with dialysis once a week. She is on insulin sliding scale. She has been started on Venofer 100 mg IV with dialysis. She has been started on Fosrenol 500 mg by mouth with meals. She was on metoprolol 25 mg by mouth every 6 hours, which has been stopped now. ASSESSMENT/PLAN: 1. End-stage renal disease. The patient is noncompliant with hemodialysis, primarily because of her mother's influence. They do not listen to recommendations by cellophane casting machine repairer. They have fired us as their cellophane casting machine repairer. Because of the emergency situation, the patient is being seen by us. She got the tunneled dialysis catheter placed. She is being emergently dialyzed. She will need another dialysis tomorrow. 2 Hyperkalemia. It is secondary to renal failure and noncompliance with dialysis. The patient is being dialyzed with a 2K bath. Potassium is expected to improve after that. 3. High anion gap metabolic acidosis. It is secondary to end-stage renal disease. The patient's metabolic acidosis will be optimized with dialysis. No need of oral bicarbonate administration. 4. Uremic pericardial effusion. The patient is being dialyzed today without heparin for 3 hours. She will need [id number] hemodialysis at least for 1 week, and if needed if her pericardial effusion does not improve, she might need pericardial window. I am not sure whether the patient or her mother would agree for a pericardial window procedure. 5. Chronic kidney disease mineral bone disease. The patient has hyperphosphatemia with the phosphorus level of 11.8. I have started the patient on lanthanum 500 mg by mouth three times a day 6. Secondary hyperparathyroidism. It is secondary to high phosphorus levels. I would avoid using the calcitriol at this time until the phosphorus level gets better. 7. Severe anemia secondary to end-stage renal disease. The patient was given 2 units of packed red blood cell (PRBC) transfusion with dialysis today. I have also started her on Aranesp 100 mcg IV with dialysis and Venofer 100 mg IV with each dialysis for a total of five doses. 8. Hypertension with hypertensive heart disease and end-stage renal disease. I have started the patient on amlodipine 5 mg by mouth daily and Coreg 6.25 mg by mouth twice a day. The patient is noncompliant with medications as outpatient. 9. Bilateral pleural effusions. The patient most likely has uremic pleural effusions. She has been empirically started on IV antibiotics by the primary team. Okay to continue antibiotics at this time. Cultures are still pending. However, I believe that the effusions are secondary to noncompliance with dialysis and uremia. 10. Insulin dependent diabetes. The patient is noncompliant with insulin regimen as outpatient. Glucose level is 121, which is acceptable for now. Sugar levels are optimal because of renal failure. 11. Disposition. The patient had fired [facility]; she had refused to do dialysis. She did not listen to our advice. She had the dialysis catheter removed. She came emergently; I saw the patient on humanitarian grounds to save her life in the urgent and emergent situation because of severe uremia and pericardial effusion along with metabolic abnormalities associated with renal failure. I would see the patient on dialysis days only. This was a courtesy visit. The patient will not be charged for this visit. Once the patient is medically stable, she needs to be transferred out of [place] into a dialysis center which is ready to accept the patient. [facility] will not accept the patient as outpatient as their dialysis patient. Total critical care time spent in the management of this patient today, morning, at the bedside in dialysis center was 1 hour excluding all the procedures.
[2019-05-13] MEDS ORDERED: LIDOCAINE 5% (LIDODERM) PATCH TD ONE (04:00)
[2019-05-13] MEDS ORDERED: METOCLOPRAMIDE INJ 10MG/2ML VIAL (J2765) IV PRN (04:00)
[2019-05-13] MEDS ORDERED: METOCLOPRAMIDE INJ 10MG/2ML VIAL (J2765) IV SCH (04:00)
[2019-05-13] MEDS: HumaLOG INSULIN (NovoLOG) PER UNIT SC SCH ×4 (07:30→21:00)
[2019-05-13] MEDS: LANTHANUM CARBONATE 500 MG CHEW TABLET PO SCH ×3 (08:00→17:20)
[2019-05-13] MEDS ORDERED: LIDOCAINE 5% (LIDODERM) PATCH TD SCH (09:00)
[2019-05-13 10:22] LABS: BASO % 0.1 % (0.0-1.0); HEMATOCRIT 25.6 % (36.0-47.0); HEMOGLOBIN 8.5 g/dl (12.0-15.5); LYMPH # 0.7 10^3/uL (1.5-4.5); LYMPH % 3.9 % (24.0-44.0); MEAN CORPUSCULAR HEMOGLOBIN 28.3 pg (27.0-33.0); MEAN CORPUSCULAR HGB CONC 33.2 g/dl (32.0-36.5); MEAN CORPUSCULAR VOLUME 85.3 fl (80.0-96.0); MONO # 1.4 10^3/uL (0.0-0.8); NEUTROPHILS # 14.9 10^3/uL (1.8-7.7); NEUTROPHILS % 87.3 % (36.0-66.0); PLATELET COUNT, AUTOMATED 265 10^3/uL (150-450)
--- NOTE | 2019-05-13 10:46 | MHCR ---
DATE OF CONSULTATION: 05/13/2019 HISTORY OF PRESENT ILLNESS: This is a 29 year old patient with end stage renal disease stage V, requiring hemodialysis, diabetes retinopathy with legal blindness, Turners syndrome, who has been non compliant with dialysis for 8 months now. She was admitted with a number of medical problems to include pneumonia, pleural effusion, some pericardial effusion, uncontrolled hypertension and anemia requiring blood transfusion secondary to her chronic renal disease. She was also in need of emergency dialysis due to hyperkalemia and metabolic acidosis due to her renal failure and noncompliance with dialysis. I was consulted to see this patient to see if she has the capacity to refuse dialysis. According to Dr. Oconnor who consulted me, the patient apparently told her that she did want dialysis and that she does want to live, but then she was told by her mom statements like that she should remember what they have discussed previously. When I went to see the patient today, she was sleeping and with much encouragement we actually lifted the head of the bed to help her become more alert and finally she did start talking to me. She told me that she did go to have her hemodialysis fistular set up today and that she was supposed to be going to dialysis tomorrow and that she did plan to go on dialysis. She was able to tell me that she knew what would happen if she refused dialysis. She told me that she knew that she could and that toxins would accumulate in her body. I also asked her what was her understanding of and she said, "You just stop existing". Again, the patient stated that she had plans on going to dialysis, however, I then asked her about her intentions to pursue dialysis upon discharge and at that point she became very vague. She told me that she stopped going to dialysis because she was having fainting spells at the dialysis unit. One of the concerns with this patient is that because of her multiple disabilities and being legally blind she has been always completely dependent on her mother. Apparently, adult protective services have been involved in the past, as they have ended up homeless and even have lived in the car in the winter at some point. Of note is that I asked mom to please be quiet during my evaluation of the patient and multiple times mom tried to answer for the patient and I had to advise her or remind her that I had asked her to please not be part of my interviewing of her daughter because I needed to evaluate her since she is an adult. The mother did volunteer the following information. She said that, "We decided that she didn't need dialysis. We decided that we would pursue alternative treatments". She is referring to the eight months that the patient was not compliant with outpatient dialysis. She states that during this time the patient was using alternative methods such as drinking sutton soda with water three times a day and sometimes it was lemon water or some teas made out of roots. I then asked mom if these treatments were working why did the patient ended up needing emergency dialysis. Mom advised me that the patient did not need dialysis, but instead she needed treatment for her pneumonia and that they would not treat the patient's pneumonia if the patient did not agree to have emergency dialysis too. Clearly, the patient's mother has no understanding of the seriousness of her daughter's end stage renal disease and the fact that continued refusal of doing her outpatient dialysis in addition to any future possible refusal of inpatient dialysis during this hospital, that these refusals could cost the patient her life. The patient is completely dependent on mom taking her to her dialysis and my concern is that mom has no understanding of the seriousness of the patient's condition and that she tries to influence the patient by telling her that she does not need treatment such as she told me today that the patient did not really need emergency dialysis upon admission, but they had to agree to it, otherwise the patient would not have had treatment for her pneumonia. PAST PSYCHIATRIC HISTORY: The patient has never actually had any prior psychiatric history. SUBSTANCE ABUSE HISTORY: There is no history of any substance abuse. MEDICAL HISTORY: This is as noted above. FAMILY HISTORY: There is no history of psychiatric illness in the family. ABUSE HISTORY: There is no history of any physical or sexual abuse. SOCIAL HISTORY: The patient has been home schooled all of her life. The patient's mother does not have actual custody of the patient and the mother in the past has stated that the patient is able to make her own decisions. MENTAL STATUS EXAMINATION: The patient was alert and oriented times three. As I said at first she was resistive, but then she did become alert and she did cooperate with the evaluation. There was a lot of paucity of thought however and she answered questions very briefly, although the answers did appear to be appropriate. There is no formal thought disorder noted. She says her mood is okay, affect is flat. She is not psychotic, suicidal or homicidal. Concentration is fair. Memory is grossly intact. Insight and judgment is poor. DIAGNOSIS: Noncompliance with medical treatment. TREATMENT PLAN: At this point, the patient has stated that she is willing to have dialysis tomorrow and she is able to say she does not want to and she seems to understand the consequences of refusing dialysis. She is able to tell me that she is going to if she does not do the dialysis. I do have concerns about this patient's prognosis because when I asked her about why she did not continue her dialysis as for the past 8 months, she basically says that she did not like the dialysis because she says she was fainting and she was feeling worse during it but is not able to verbalize that she was at risk of because she stopped her dialysis. My concern is that it is her mother that is negatively influencing her by telling her she does not need dialysis. The patient's mother has clarified that neither one of them believed that she really needed to continue the dialysis and that it was the patient who started to look on line for alternative treatments for renal failure. As I stated earlier, I am very concerned about how much influence the patient's mother who is the sole bottle packer 27/04 of this patient has and how much she can influence the patient's decisions since clearly the patient's mother does not seem to understand the seriousness of the patient's end stage renal disease and the consequences of if she does not continue the dialysis and actually the great risk that the patient will end up if she continues not to have dialysis. [place]
[2019-05-13 10:55] LABS: ALBUMIN 1.9 GM/DL (3.2-5.2); CALCIUM LEVEL 8.1 MG/DL (8.5-10.1); CREATININE FOR GFR 9.32 MG/DL (0.55-1.30); GLOMERULAR FILTRATION RATE 5.3 (>60); POTASSIUM SERUM 3.5 MEQ/L (3.5-5.1)
[2019-05-13] MEDS ORDERED: HEPARIN 1,000 UNITS/ML 10ML VIAL (FOR RADIOLOGY& DIALYSIS ONLY) XX ONE (11:30)
[2019-05-13] MEDS: cefTRIAXone SOD 2 GM in D5W MINI-BAG PLUS 50 ML IV SCH (12:48)
[2019-05-13] MEDS: AZITHROMYCIN 250 MG TAB PO SCH (12:48)
[2019-05-13] MEDS: amLODIPine 5 MG TAB PO SCH (12:50)
[2019-05-13] MEDS: CARVedilol 6.25 MG TAB PO SCH ×2 (12:50→21:00)
[2019-05-13 12:59] LABS: HEPATITIS B CORE ANTIBODY IGM NEGATIVE (NEGATIVE); HEPATITIS B SURFACE ANTIBODY POSITIVE (POSITIVE); HEPATITIS B SURFACE ANTIGEN NEGATIVE (NEGATIVE); HEPATITIS C VIRUS ABY INDEX 0.1 INDEX (<0.8)
[2019-05-13] MEDS: ONDANSETRON 4MG/2ML VIAL (J2405) IV PRN (15:34)
[2019-05-13] MEDS ORDERED: **NOTE PATIENT COMMENT** MISC XX ONE (16:00)
[2019-05-13] MEDS: DEXTROSE 50% 50 ML SYRINGE IV PRN (21:37)
[2019-05-14] MEDS ORDERED: ACETAMINOPHEN 500 MG TAB PO ONE (02:30)
[2019-05-14 04:00] VITALS: BP 163/79
[2019-05-14 08:00] VITALS: BP 140/67
[2019-05-14] MEDS: ANALGESIC BALM CRM 120 GM TOP SCH ×2 (08:00→21:31)
[2019-05-14] MEDS: AZITHROMYCIN 250 MG TAB PO SCH (08:31)
[2019-05-14] MEDS: CARVedilol 6.25 MG TAB PO SCH ×4 (08:31→21:30)
[2019-05-14] MEDS: LANTHANUM CARBONATE 500 MG CHEW TABLET PO SCH ×4 (08:31→17:58)
[2019-05-14] MEDS: HumaLOG INSULIN (NovoLOG) PER UNIT SC SCH ×4 (08:31→21:00)
[2019-05-14] MEDS: amLODIPine 5 MG TAB PO SCH ×3 (08:31→13:03)
[2019-05-14] MEDS: LIDOCAINE 5% OINT 30 GM TOP SCH (10:36)
[2019-05-14 11:39] LABS: HEMATOCRIT 27.5 % (36.0-47.0); HEMOGLOBIN 8.8 g/dl (12.0-15.5); MEAN CORPUSCULAR HEMOGLOBIN 28.1 pg (27.0-33.0); MEAN CORPUSCULAR VOLUME 87.9 fl (80.0-96.0); PLATELET COUNT, AUTOMATED 246 10^3/uL (150-450); RED BLOOD COUNT 3.13 10^6/uL (4.00-5.40); WHITE BLOOD COUNT 14.6 10^3/uL (4.0-10.0)
[2019-05-14 11:49] LABS: ALBUMIN 1.9 GM/DL (3.2-5.2); CALCIUM LEVEL 8.1 MG/DL (8.5-10.1); CREATININE FOR GFR 5.19 MG/DL (0.55-1.30); GLOMERULAR FILTRATION RATE 10.4 (>60); PHOSPHORUS LEVEL 2.5 MG/DL (2.5-4.9)
--- NOTE | 2019-05-14 11:59 | IPN ---
DATE: 05/13/2019 The patient is seen and examined at the bedside. Chart has been reviewed. The patient is status post hemodialysis with stabilization of her acid base and balance with bicarbonate improving from 13 to 18. Electrolyte osmolalities are improved from potassium of 5.2 to 3.5. The patient continues to feel generalized weakness and pain everywhere but improved with her breathing. Her cough is diminished. Temperature is 96.6, pulse 75, respiratory rate 18, blood pressure is 106/64, 96% on room air. In general, the patient is disheveled. She is awake, alert, oriented to person, place. She is irritable and moans at the bedside. She appears much younger than her stated age. Cachectic appearing with body mass index (BMI) of 18 and muscle atrophy. The patient is legally blind with opacification of her sclera. No jugular venous distention. No thyromegaly. Poor dentition with missing teeth and dental caries. Dry mucous membranes. She has several skin excoriations and scabs throughout her upper and lower extremities, chest and back. Chapped lips. Lungs are diminished with fine crackles at the bases. Heart: S1, S2 with distant heart sounds, regular rate and rhythm. Abdomen is tender. No rebound, guarding, or hepatosplenomegaly. Extremities of cyanosis, clubbing. She has healed scabs and excoriations, which are well healed. Laboratory data, microbiology, and imaging studies have been reviewed. ASSESSMENT AND PLAN: 29-year-old, legally blind female due to diabetic retinopathy, nephropathy with end-stage renal disease requiring hemodialysis, neuropathy secondary to diabetes, noncompliance with dialysis, physician visits and has not had dialysis for several months. Known history of hypertension, Mason syndrome, anemia, and left arm fistula which did not mature. Lives with her mother. Monitored by adult protective services. Was previously admitted but signed out against medical advice (AMA). Refused dialysis in the past. Patient presents complaints of congestion, feeling like she has "pneumonia" and wanted to continue with medical treatment. She was found to end-stage renal disease requiring emergent dialysis due to hyperkalemia, metabolic acidosis, hyponatremia, and found also to have severe anemia with hemoglobin of 5.8 most likely chronic related to chronic renal disease requiring emergent 2 units of red blood cell transfusion. Chest x-ray shows possible community-acquired pneumonia and incidental finding of a moderate pericardial effusion and loculated effusion on CT. Echo was showing negative tamponade. Active issues are as follows: 1. End-stage renal disease requiring hemodialysis. The patient has been noncompliant with her dialysis in the past and has refused to followup with airport representative and refused hemodialysis many times in the past despite being life-saving. Patient is currently admitted and requiring emergency dialysis managed by [facility]. Patient has indicated that she would not dialysis in the future. Psychiatrist has evaluated her and found her mentally incapacitated to make these life-saving decisions. 2. Community-acquired pneumonia with small loculated effusion. The patient is given ceftriaxone/azithromycin. Slight increase in the white count with no fevers overnight. Blood cultures are negative. Will continue present antibiotics for now. 3. Moderate pericardial effusion with no signs of cardiac tamponade ready by Dr. Torsten Jovel on the echocardiogram. No need to do any urgent pericardial window or pericardiocentesis. Will need to repeat echocardiogram at a later time. 4. Type 2 diabetes with diabetic retinopathy, nephropathy, and nephropathy. Currently on consistent carbohydrate diet. [facility] has been consulted for severe protein calorie protein calorie malnutrition with body mass index (BMI) of 18.7 and albumin of 1.9. 5. Metabolic acidosis due to renal failure. This has resolved with hemodialysis. 6. Hyperkalemia. Resolved with hemodialysis. 7. Severe anemia due to chronic renal failure. Received 2 units of red blood cell (RBC) transfusion during hemodialysis with improvement of 10.2. 8. Medical noncompliance with life-saving medical therapy. Psychiatrist has found the patient to be mentally incapacitated to make life-saving decisions and refusing hemodialysis. Mother is the primary caregiver as the patient is legally blind and has been making decisions for her which are inappropriate and refusing dialysis and refusing blood transfusion despite the patient wanting to have these interventions. 9. Deep venous thrombosis (DVT) prophylaxis. On compression stockings. 10. Hyponatremia. Resolved with end-stage renal disease.
[2019-05-14] MEDS ORDERED: HEPARIN 1,000 UNITS/ML 10ML VIAL (FOR RADIOLOGY& DIALYSIS ONLY) XX ONE (12:15)
[2019-05-14] MEDS ORDERED: POTASSIUM CHLORIDE 10 MEQ SR TABLET PO ONE (13:00)
[2019-05-14] MEDS: POTASSIUM CHLORIDE 10% LIQ 20 MEQ/15 ML UDC PO ONE ×2 (13:02→13:24)
[2019-05-14] MEDS: BACITRACIN OINT 30GM TOP SCH ×2 (13:03→21:31)
[2019-05-14] MEDS: cefTRIAXone SOD 2 GM in D5W MINI-BAG PLUS 50 ML IV SCH (13:04)
[2019-05-14 13:35] VITALS: BP 170/77
--- NOTE | 2019-05-14 13:59 | IPN ---
DATE OF SERVICE: 05/13/2019 SUBJECTIVE: Patient was seen and examined at the bedside today morning during hemodialysis procedure. She is tolerating the hemodialysis procedure well. She was dialyzed yesterday as well as 2 units of packed red blood cells (PRBC) transfusion was given during dialysis. Patient is getting daily dialysis because of chronic noncompliance with dialysis and uremic pericardial effusion. OBJECTIVE: Vital signs: Temperature is 96.6 degrees Fahrenheit, blood pressure 106/64, pulse is 75, respiratory rate of 18, saturating 96% on room air. Intake and output: There is no urine output recorded today. Weight in the bed scale is 38.7 kg. PHYSICAL EXAM: General: Patient is awake and alert, laying in bed, getting hemodialysis done. Head and neck exam: Patient is legally blind in both eyes. Mucous membranes are moist. She has very poor oral hygiene. Neck is supple. She has a right internal jugular (IJ) tunneled hemodialysis catheter. Cardiovascular: S1, S2, regular rate. Trace edema of the bilateral lower extremities. She has grade 2/6 pericardial rub noted. Respiratory: Mildly decreased breath sounds at the bases. Otherwise, no active rales or rhonchi. Abdomen is soft. Positive bowel sounds. Nontender. No organomegaly. Musculoskeletal: No clubbing or cyanosis. Pulses are 2+. Central nervous system (MENTAL HYGIENIST): Patient follows commands and moves all extremities. LAB REVIEW: CBC showed WBC of 17, hemoglobin 8.5, platelets of 265. BMP showed sodium 140, potassium 3.5, chloride 110, bicarbonate 18, BUN 57, creatinine is 9.3, calcium is 8.1. Phosphorus is 6, albumin 1.9. CURRENT INPATIENT MEDICATIONS: Patient's medications were all reviewed by me. She continues to be on IV Rocephin and azithromycin. She was started on Coreg and amlodipine today morning. No other change in the medications today as compared with yesterday. ASSESSMENT AND PLAN: 1. End-stage renal disease. Patient was restarted on dialysis yesterday after a long noncompliance for many months. She is being dialyzed again. She will need every day dialysis for at least 1 week because of uremia and uremic pericardial effusion. 2. Hyperkalemia. Potassium has improved after dialysis. Today, she is being dialyzed with 3 K bath. 3. High anion gap metabolic acidosis. It is secondary to renal failure. Anion gap is normalized. Metabolic acidosis is improving. Bicarb level will be within the normal range by tomorrow. 4. Uremic pericardial effusion. Continue daily dialysis without heparin for 1 week. Repeat echocardiogram after the weekend. 5. Chronic kidney disease, mineral bone disease. Hyperphosphatemia is improving. Continue lanthanum with meals. 6. Secondary hyperparathyroidism. No need of calcitriol at this time. Monitor and stabilize the phosphorus level. PTH level is within the acceptable range for renal failure. 7. Severe anemia secondary to end-stage renal disease. Patient was given 2 units of PRBC transfusion yesterday. She has also been started on Aranesp and IV Venofer with dialysis. 8. Hypertension with hypertensive heart disease in end-stage renal disease. Continue Coreg and amlodipine with holding parameters. Blood pressure level is improving with improvement in the volume status. DISPOSITION: Continue current hemodialysis every day. Patient is pending placement as outpatient for dialysis outside of [facility]. Patient will not be charged for today's visit. I will not accept the patient as outpatient for dialysis.
[2019-05-14 16:00] VITALS: BP 153/90
[2019-05-14] MEDS ORDERED: SLF 3 ML SYR IV PRN (17:00)
[2019-05-14] MEDS: ACETAMINOPHEN TAB 650MG DOSE (2X325MG) PO SCH ×2 (18:00→23:46)
[2019-05-14 20:00] VITALS: BP 161/84
[2019-05-14] MEDS: SLF 3 ML SYR IV SCH (21:37)
[2019-05-14 23:59] VITALS: BP 135/75
[2019-05-15] VITALS (8 sets, daily range): BP systolic 120–177; BP diastolic 62–114
[2019-05-15 02:18] LABS: BLOOD UREA NITROGEN 9 MG/DL (7-18); CALCIUM LEVEL 8.2 MG/DL (8.5-10.1); CARBON DIOXIDE LEVEL 31 MEQ/L (21-32); CHLORIDE LEVEL 105 MEQ/L (98-107); CREATININE FOR GFR 3.18 MG/DL (0.55-1.30); GLOMERULAR FILTRATION RATE 18.2 (>60); GLUCOSE, FASTING 205 MG/DL (70-100); POTASSIUM SERUM 3.3 MEQ/L (3.5-5.1); SODIUM LEVEL 141 MEQ/L (136-145); TROPONIN I < 0.02 NG/ML (< 0.10)
[2019-05-15] MEDS ORDERED: POTASSIUM CHLORIDE 10% LIQ 20 MEQ/15 ML UDC PO ONE (02:30)
[2019-05-15] MEDS: SLF 3 ML SYR IV SCH ×3 (05:50→21:20)
[2019-05-15] MEDS: ACETAMINOPHEN TAB 650MG DOSE (2X325MG) PO SCH ×3 (05:50→18:00)
[2019-05-15 07:02] LABS: BASO % 0.1 % (0.0-1.0); EOS # 0.1 10^3/uL (0.0-0.50); EOS % 0.5 % (0.0-3.0); HEMATOCRIT 29.6 % (36.0-47.0); HEMOGLOBIN 9.2 g/dl (12.0-15.5); LYMPH # 1.1 10^3/uL (1.5-4.5); LYMPH % 7.7 % (24.0-44.0); MEAN CORPUSCULAR HEMOGLOBIN 28.1 pg (27.0-33.0); MEAN CORPUSCULAR HGB CONC 31.1 g/dl (32.0-36.5); MEAN CORPUSCULAR VOLUME 90.5 fl (80.0-96.0); MONO # 1.1 10^3/uL (0.0-0.8); MONO % 7.5 % (0.0-5.0); NEUTROPHILS % 83.8 % (36.0-66.0); PLATELET COUNT, AUTOMATED 234 10^3/uL (150-450); RED BLOOD COUNT 3.27 10^6/uL (4.00-5.40); WHITE BLOOD COUNT 14.3 10^3/uL (4.0-10.0)
[2019-05-15 07:19] LABS: CREATININE FOR GFR 3.41 MG/DL (0.55-1.30); GLOMERULAR FILTRATION RATE 16.8 (>60); POTASSIUM SERUM 3.8 MEQ/L (3.5-5.1)
[2019-05-15] MEDS: HumaLOG INSULIN (NovoLOG) PER UNIT SC SCH ×4 (07:30→20:49)
[2019-05-15] MEDS: LANTHANUM CARBONATE 500 MG CHEW TABLET PO SCH ×3 (08:00→18:00)
--- NOTE | 2019-05-15 08:34 | ECGEPIP ---
[facility] Test Date: 2019-05-15 Pat Name: FLAVIA MERRILL Department: Room: [place] [address] Gender: Female Reading Coach: KRISTEN : 1990 Requested By: RAFITA SANCHEZ Order Number: [id number] Reading MD: Scottie Walters Measurements Intervals [place] Rate: 84 P: 29 SC: 106 QRS: 26 QRSD: 92 T: 30 QT: 378 QTc: 447 Interpretive Statements Normal sinus rhythm Short SC interval Nonspecific ST-T wave abnormality, increased in lead V2 since prior tracing of 1 09/25/2018 Electronically Signed on 05-15-2019 8:34:20 EDT by Scottie Walters
--- NOTE | 2019-05-15 08:40 | REP ---
REASON: Dyspnea and chest pain. COMPARISON: 05/11/2019. Subclavian right sided double lumen central venous catheter has been placed since the last exam. The tip of which is in the right atrial/inferior vena cava junction. The left sided opacity is unchanged. The right lung is clear and stable. There are no new abnormal opacities. There is no pneumothorax. The osseous structures are stable and intact. The technique utilized in obtaining the radiograph has magnified the cardiac silhouette and accentuated the interstitial markings. IMPRESSION: Status post central venous catheter placement as described above. Electronically Signed by Paul Serrano DO 05/15/2019 10:02 A
[2019-05-15] MEDS: amLODIPine 5 MG TAB PO SCH (09:34)
[2019-05-15] MEDS: CARVedilol 6.25 MG TAB PO SCH ×2 (09:34→21:23)
[2019-05-15] MEDS: AZITHROMYCIN 250 MG TAB PO SCH (09:35)
[2019-05-15] MEDS: ANALGESIC BALM CRM 120 GM TOP SCH ×2 (09:35→21:17)
[2019-05-15] MEDS: cefTRIAXone SOD 2 GM in D5W MINI-BAG PLUS 50 ML IV SCH (09:35)
[2019-05-15] MEDS: BACITRACIN OINT 30GM TOP SCH ×2 (09:35→21:18)
[2019-05-15] MEDS: LIDOCAINE 5% OINT 30 GM TOP SCH ×3 (09:36→21:19)
--- NOTE | 2019-05-15 10:08 | IPN ---
DATE OF SERVICE: 05/14/2019 Patient has been dialyzed with improvement in her metabolic acidosis, hyperkalemia, which have resolved, and hyponatremia. Patient at bedside complains of pain in her bilateral lower extremities due to cramping. She is also requesting ice cream with every meal. Nutrition has seen her. Recommended a regular diet due to albumin of 1.9 and body mass index (BMI) of 15. Patient otherwise denies any chest pain, pressure, or tightness. She still has occasional cough productive of white sputum. No fever or chills overnight. Temperature 97.9, pulse 78, respiratory 14, blood pressure 140/67, 97% on room air. Generally, patient is disheveled appearing with matted hair, multiple scabs on bilateral upper and lower extremities, chest, back, and abdomen. She appears cachectic with some muscle wasting. Very poor dentition with missing teeth, dental caries, mal odorous halitosis. She has opacification of her eyes with legal blindness. Skin excoriations and scabs throughout her upper and lower extremities. Very dry mucous membranes. Chapped lips. Child-like appearing despite being the age of 29, younger than her stated age. HEENT: Neck is supple. No cervical lymphadenopathy. No thyromegaly. No jugular venous distention. Lungs are clear with fine crackles at the bases. Heart: S1, S2 with distant heart sounds. Abdomen is soft, nontender, nondistended. Positive bowel sounds. No hepatosplenomegaly, rebound, or guarding. Extremities: There is no pitting edema. Multiple excoriations and healed scabs. No cyanosis or clubbing. Laboratory data, microbiology, and imaging studies have been reviewed. ASSESSMENT AND PLAN: 29-year-old, blind female due to diabetic retinopathy, diabetic nephropathy, end-stage renal disease requiring hemodialysis with noncompliance and has not had dialysis for several months, Mason syndrome, anemia of chronic disease requiring blood transfusion, hypertension, and left arm fistula. Patient lives with her mother with adult protective services monitoring their progress. Patient does not follow with her medical physicians, senior product designer and has refused life-saving treatments before most often encouraged by her mother to not receive medical therapy. She presented to the emergency room (ER) with complaints of congestion, feeling like she had "pneumonia" and was found to have end-stage renal disease requiring emergent dialysis due to metabolic acidosis, hyperkalemia, hyponatremia, and also severe anemia from end-stage renal disease requiring blood transfusion. Chest x-ray showed pneumonia, was treated for antibiotics. incidental finding on CT chest showed moderate pericardial effusion most likely secondary to uremia requiring hemodialysis. Echocardiogram showed negative tamponade. ACTIVE ISSUES: 1. End-stage renal disease requiring hemodialysis. Patient had been noncompliant with physician visits, nephrology followup and hemodialysis for several months. This was often encouraged by her mother to not follow through with medical treatment. She has been receiving hemodialysis in the hospital with improvement of her metabolic acidosis, hyperkalemia, hyponatremia, and azotemia. 2. Community-acquired pneumonia with small loculated effusion. Patient is on ceftriaxone/azithromycin. Negative blood cultures. Will complete a 7 day course of ceftriaxone and 5 days of azithromycin. 3. Moderate pericardial effusion most likely secondary to uremia. Echocardiogram read by Dr. Torsten Jovel showed no cardiac tamponade. Dr. Guzman did not feel any urgent need for pericardial window or pericardiocentesis. Repeat echocardiogram in a few days. 4. Type 2 diabetes with diabetic retinopathy and nephropathy due to severe protein malnutrition. Patient is kept on a regular diet for now. 5. Protein calorie malnutrition. Body mass index of 15.7 with severe hypoalbuminemia. Per shared services representative, allow regular diet. 6. Metabolic acidosis secondary to renal failure. 7. Hyperkalemia due to renal failure, resolved. 8. Hyponatremia secondary to renal failure, resolved after dialysis. 9. Medically mentally incapacitated. Patient has refused life-saving treatment before and often encouraged by her mother to resist the recommendations and refuse dialysis from physicians. Mother is the primary caregiver and patient is legally blind in both eyes and entirely dependent on her mother who on interview for blood transfusion was contradicting the patient's wishes and encouraging the patient not to receive blood transfusion. She continued to interrupt the interview and kept on telling Ihsan "remember last time you did not want any blood transfusion." Due to this disturbing conversation, we had asked the psychiatrist to evaluate Ihsan. Both the mother and the patient have no understanding of the need for emergent hemodialysis as life-saving treatment. 10. Deep venous thrombosis (DVT) prophylaxis with compression stockings. [facility]
--- NOTE | 2019-05-15 11:54 | IPN ---
DATE OF VISIT: 05/14/2019 Ihsan is a 29-year-old, very unfortunate girl who has been mistreated by her mother all life. She has type 1 diabetes complicated with end-stage renal disease and started dialysis several months ago. However, her mother had a thinking that she does not need dialysis and doctors are putting her through unnecessary dialysis. She called police in the hospital once and wanted her daughter to be taken off dialysis. She was counseled multiple times and advised to continue with dialysis as patient had proven end-stage renal disease and she did go to outpatient dialysis clinic a few times. However, then she stopped bringing her. She was called multiple times and she did not answer phones or refused to follow instructions. She was now brought to the emergency room in terrible condition, and her hemoglobin was 8.0 on 05/12/2019. Her BUN was 148 and creatinine 20.20 on 05/11/2019. Her CO2 was 13, phosphorus 11.8, and calcium 8.4. She was once again advised about dialysis. Patient was deemed competent for making her own decisions and she expressed her wish that she does not wish to and she would want to have dialysis. However, her mother was still refusing. In any event, patient was admitted and had a new catheter placed while her mother had got her previous catheter removed. She is on dialysis now for last few days and has received two dialysis treatments so far. She is noticed to have a pericardial effusion and bilateral pleural effusions. She is being dialyzed again today without any heparin due to her pericardial effusion. Patient reports feeling better and denies any nausea, vomiting, dyspnea, or chest pain. She did eat her breakfast this morning. She has no fever or chills. She is being treated with antibiotics by hospitalist service for possible pneumonia as she did have leukocytosis. Currently she is afebrile. Her temperature is 97.6 degrees Fahrenheit, heart rate 80 per minute, and respiratory rate 18 per minute. Blood pressure is 140/67 mmHg and oxygen saturation 97% on room air. Her left eye is blind. Her head is atraumatic. Neck is supple and jugular venous distention (JVD) is not elevated. Dialysis catheter is intact without any signs of infection or bleeding. Heart sounds are regular and there is no pericardial friction rub audible. Lungs have no wheezing or rales. Abdomen soft and nontender, and bowel sounds are present. Extremities have no cyanosis or clubbing. Neurologically, she is awake and able to answer questions. She is moving constantly in the bed. Today's labs show sodium level 142, potassium 3.0, chloride 106, CO2 28, BUN 20, and creatinine 5.19. Calcium level 8.1 and phosphorus 2.5. Albumin is 1.9. WBC count 14.6, hemoglobin 8.8, and hematocrit 27.5. Platelets 246. PROBLEMS: 1. End-stage renal disease. Patient has started dialysis once again. It remains to be seen if she will continue. At present in the hospital, she is by being dialyzed on daily basis due to pericardial effusion. No heparin is being used. 2. Anemia. She did have 2 units of packed red blood cells (RBC) transfused and anemia has improved. Her hemoglobin was 5 on admission. Today, her hemoglobin is 8.8. She is being given intravenous iron and Aranesp during dialysis. 3. Pericardial effusion related to chronic uremia and lack of dialysis. Patient will be dialyzed frequently and it is likely to resolve her pericardial effusion over period of time. I do not feel that a surgical intervention is indicated. 4. Hypokalemia. Her potassium level is 3.0, related to last two dialysis treatments and poor oral intake. We will give her a dose of potassium supplement today with 20 mEq potassium chloride by mouth. She is being dialyzed with 3.0 mEq potassium bath. Her electrolytes should be checked again a couple of days. She is eating well now and it is likely to improve her hypokalemia. 5. Hypertension. Blood pressure seems much better controlled on current medications. I do not feel that patient was getting any medications at home as she was not receiving any medical care through any doctor's office. I strongly feel that her mother should be excluded from her decision-making and care. She has unfortunately caused so much harm to her daughter.
[2019-05-15] MEDS: DEXTROSE 50% 50 ML SYRINGE IV PRN (12:31)
[2019-05-16] MEDS: ACETAMINOPHEN TAB 650MG DOSE (2X325MG) PO SCH ×4 (05:04→17:38)
[2019-05-16] MEDS: SLF 3 ML SYR IV SCH ×3 (05:04→22:03)
[2019-05-16 06:00] VITALS: BP 130/79
[2019-05-16 06:36] LABS: BASO % 0.1 % (0.0-1.0); EOS # 0.1 10^3/uL (0.0-0.50); EOS % 0.6 % (0.0-3.0); HEMATOCRIT 27.4 % (36.0-47.0); HEMOGLOBIN 8.3 g/dl (12.0-15.5); LYMPH # 1.4 10^3/uL (1.5-4.5); MEAN CORPUSCULAR HEMOGLOBIN 27.6 pg (27.0-33.0); MEAN CORPUSCULAR HGB CONC 30.3 g/dl (32.0-36.5); NEUTROPHILS # 11.5 10^3/uL (1.8-7.7); NEUTROPHILS % 81.6 % (36.0-66.0); PLATELET COUNT, AUTOMATED 203 10^3/uL (150-450); RED BLOOD COUNT 3.01 10^6/uL (4.00-5.40); WHITE BLOOD COUNT 14.1 10^3/uL (4.0-10.0)
--- NOTE | 2019-05-16 06:55 | ECHO ---
DATE OF STUDY: 05/15/2019 DATE OF : 1990 AGE: 29 GENDER: Female. HEIGHT: 57 inches WEIGHT: 72 pounds BODY SURFACE AREA: 1.17 meters squared INPATIENT: PCU - Room 3224 REFERRING PHYSICIAN: Dr. Pema Oconnor INDICATION: Pericardial effusion (followup study from 05/11/2019, reported moderate to large pericardial effusion). COMMENTS: Normal sinus rhythm at 75 beats per minute (BPM). No intraventricular conduction disturbance. M-mode and two-dimensional echocardiography was performed with selective pulsed and continuous wave examination. Normal cardiac chamber sizes and wall thickness with hyperkinetic left ventricular wall motion. Slightly thickened mitral annulus, but normal leaflet motion without mitral insufficiency. Normal-appearing aortic valve and function. Normal aortic root size. Normal Doppler assessment of left ventricle (LV) inflow and LV diastolic function. Elevated LV outflow tract and aortic valve velocities related to hyperkinetic wall motion. Estimated pulmonary arterial pressure upper limits of normal. Normal inferior vena cava (IVC) size against an elevated central venous pressure. Small pericardial effusion measuring 0.4 mm posteriorly and 0.4 mm anteriorly. No sign of cardiac chamber compression or respiratory variation to Doppler flow signals. Features against cardiac tamponade.
[2019-05-16 07:12] LABS: CALCIUM LEVEL 7.6 MG/DL (8.5-10.1); CREATININE FOR GFR 4.62 MG/DL (0.55-1.30); GLOMERULAR FILTRATION RATE 11.9 (>60); POTASSIUM SERUM 3.7 MEQ/L (3.5-5.1)
[2019-05-16] MEDS: HumaLOG INSULIN (NovoLOG) PER UNIT SC SCH ×4 (07:30→20:22)
[2019-05-16] MEDS: CARVedilol 6.25 MG TAB PO SCH ×3 (09:00→20:25)
[2019-05-16] MEDS: amLODIPine 5 MG TAB PO SCH ×2 (09:00→09:35)
[2019-05-16] MEDS: LANTHANUM CARBONATE 500 MG CHEW TABLET PO SCH ×3 (09:34→17:38)
[2019-05-16] MEDS: cefTRIAXone SOD 2 GM in D5W MINI-BAG PLUS 50 ML IV SCH (09:35)
[2019-05-16] MEDS: LIDOCAINE 5% OINT 30 GM TOP SCH ×3 (09:35→20:40)
[2019-05-16] MEDS: ANALGESIC BALM CRM 120 GM TOP SCH ×2 (09:35→20:26)
[2019-05-16] MEDS: BACITRACIN OINT 30GM TOP SCH ×2 (09:36→20:27)
[2019-05-16 11:45] LABS: HEMOGLOBIN A1c 5.7 %
--- NOTE | 2019-05-16 11:56 | REP ---
REASON: Followup pleural effusion. COMPARISON: 05/11/2019 which showed bilateral pleural effusions both small, but loculated on the left. A moderate pericardial effusion was also noted on that prior exam. Today's examination shows the size of the pericardial effusion to have decreased. The bilateral pleural effusions appear unchanged. There are bilateral hilar lymph nodes and mediastinal lymph nodes status quo and somewhat difficult to evaluate without intravenous contrast administration. There is no change in the imaged upper abdomen or imaged osseous structures. Evaluation of the lung arredondo again show a wedge shaped area of consolidation in the left lower lobe with a few air bronchograms essentially unchanged to possibly slightly smaller. No new abnormal lung opacities have developed. IMPRESSION: 1. Improved pericardial effusion. 2. Unchanged bilateral pleural effusions. 3. Slightly improved appearing wedge shaped left lower lobe opacity likely subsegmental atelectasis, however, pneumonia cannot be ruled out. 4. Other findings and limitations as described above. Electronically Signed by Paul Serrano DO 05/16/2019 12:48 P
[2019-05-16] MEDS ORDERED: HEPARIN 1,000 UNITS/ML 10ML VIAL (FOR RADIOLOGY& DIALYSIS ONLY) XX ONE (12:45)
[2019-05-16 15:31] VITALS: BP 162/91
--- NOTE | 2019-05-16 18:55 | IPN ---
DATE: 05/15/2019 Patient is seen and examined at the bedside. Chart has been reviewed. She complains of cramping in bilateral lower extremities, chest pain yesterday prompting telemetry monitoring. Blood pressure was 177/86 and given her home dose of carvedilol and 5 mg IV metoprolol with improvement. Repeat echocardiogram showed improvement in the pericardial effusion with no tamponade, very small amount of fluid. She does not complain of any shortness of breath this morning. No chest pain or hemoptysis. No fever or chills. Temperature 97.4, pulse 84, respiratory rate 18, blood pressure 177/86, 96% on room air. GENERAL: Patient is awake, alert and oriented to herself, answers questions appropriately. She appears disheveled with matted hair. Irritable, cachectic appearing, muscle atrophy. Both eyes are legally blind, left eye ptosis. No jugular venous distention (JVD) or thyromegaly. Poor dentition, missing teeth and dental caries. Very dry mucous membranes with chapped lips. No cervical lymphadenopathy. LUNGS: Diminished with right basilar crackles. HEART: S1, S2, sinus rhythm. No murmurs, rubs, or gallops. ABDOMEN: Soft, nontender, nondistended. Positive bowel sounds. No hepatosplenomegaly. EXTREMITIES: No clubbing, cyanosis, or any pitting edema. Multiple healed scabs and excoriations. Laboratory data, microbiology, and imaging studies have been reviewed. ASSESSMENT AND PLAN: A 29-year-old legally blind female due to diabetic retinopathy, nephropathy with end-stage renal disease requiring hemodialysis, peripheral neuropathy, noncompliant with her dialysis, physician visits, did not have dialysis for several months, presents to the emergency room with pulmonary congestion, feeling like "I have pneumonia," and wanted to pursue hemodialysis. She was found to be anemic and did receive red blood cell (RBC) transfusion. ACUTE ISSUES: 1. End-stage renal disease, requiring hemodialysis. Patient had been noncompliant with dialysis in the past, refused to followup with jet blade polisher, refused lifesaving treatment. She is admitted and managed by [facility] for emergent dialysis but will need a jet blade polisher either in [place] or [place] to pursue outpatient needs. Psychiatrist has evaluated her and found her to be mentally incapacitated to make lifesaving decisions. 2. Community-acquired pneumonia with small loculated pleural effusion. Currently on ceftriaxone and azithromycin with decreasing white count and no fevers. Blood cultures are negative. Due to complaints of chest pain and shortness of breath, we will obtain repeat chest x-ray. 3. Anemia, secondary to renal failure, status post two units red blood cell transfusion during hemodialysis with significant improvement from admission of 5.8 to 10.2. 4. Medical noncompliance with lifesaving medical therapy. Psychiatrist has found the patient to be mentally incapacitated to make lifesaving decisions. Refusing dialysis. Mother is the primary caregiver as the patient is legally blind. Mother has been making decisions for her which are inappropriate such as encouraging her to refuse blood transfusion despite the patient wanting to have these interventions. 5. Deep vein thrombosis (DVT) prophylaxis, on compression stockings. DISPOSITION: Patient might be transferred to medical/surgical floor. Telemetry has been discontinued. MTDD
--- NOTE | 2019-05-16 20:27 | IPN ---
DATE: 05/15/2019 Ms. Adamson is seen this morning on her bedside. She is sitting in the chair at the time of my visit. She reports frequent leg cramps through the night. She has no dyspnea, chest pain, nausea or vomiting. She was admitted with advanced uremia due to noncompliance with dialysis over last several months. Unfortunately her mother had thinking that she does not need dialysis and had refused despite multiple phone calls and reminders. In any event, she is very frail and weak. She has been uremic for months and has developed uremic pericardial effusion and pleural effusions. She has received dialysis every day for the last 3 days. PHYSICAL EXAMINATION: Temperature 96.7 degrees Fahrenheit, heart rate 80 per minute and respiratory rate 18 per minute. Blood pressure 140/62 mmHg and oxygen saturation 99% on room air. She is blind due to diabetic retinopathy. Her left eye bulb is missing. She has a dialysis catheter present on upper chest, right side without any signs of infection. Heart sounds are regular and there is no pericardial friction rub. Lungs with diminished breath sounds at bases. Abdomen soft and nontender. Bowel sounds are present. Extremities have no cyanosis or clubbing. She has no peripheral edema. Neurologically she is awake and without focal deficit. Today's labs show WBC count 14.3, hemoglobin 9.2 and hematocrit 29.6. Platelets 234. Sodium 141, potassium 3.8, CO2 29, BUN 10 and creatinine 3.41. Calcium level is 8.0. PROBLEMS: 1. End-stage renal disease with advanced uremia. The patient has been kept at home by her mother without dialysis for months and has been uremic for a long time. She has been dialyzed 3 days in a row and we will plan to give her a day off today. We will plan on dialyzing her again tomorrow. Her volume status is very well compensated and electrolytes are within normal range. 2. Uremic pericarditis. The patient denies any chest pain and does have pericardial effusion which will likely resolve over next few weeks of frequent dialysis. No heparin has been used during dialysis treatments so far 3. Hypokalemia. Nutritional and has improved with potassium supplement. At this point she is being allowed to eat regular diet. 4. Protein calorie malnutrition. Unfortunately this poor girl has been poorly treated by her mother over her life span. She has developed blindness with diabetic retinopathy and has end-stage renal disease without any dialysis for months. Her mother had refused to bring her to dialysis. The patient now begged to have dialysis and she does not wish to . Her nutrition will improve over several weeks. 5. Anemia. Anemia is gradually improving. On admission her hemoglobin was only 5.8 and required transfusions. Now we are treating her with Aranesp and we will continue to monitor. She will still need to continue with iron. 6. Hypertension. Blood pressure control is much better now and we will continue to monitor and make adjustments in her antihypertensives.
[2019-05-16] MEDS ORDERED: ACETAMINOPHEN TAB 650MG DOSE (2X325MG) PO ONE (21:00)
--- NOTE | 2019-05-16 21:16 | IPN ---
DATE: 05/16/2019 Patient continues to complain of lower extremity pain. She has been given lidocaine ointment with some improvement. She is requesting ice cream to eat and sherbet. Her diet has been adjusted due to severe protein calorie malnutrition. She says that she feels well but she still complains of pain everywhere. Repeat echocardiogram done yesterday showed improvement in the pericardial effusion and resolution without any evidence of tamponade. There is a persistent left loculated pleural effusion and leukocytosis but has remained afebrile. She denies any cough. Congestion is still present. VITAL SIGNS: Temperature 97.8, pulse 74, respiratory rate 16, blood pressure 130/79, 96% on room air. GENERALLY: Patient is disheveled, left eye ptsosis, blind. NECK: No jugular venous distention, supple, no cervical lymphadenopathy or thyromegaly. LUNGS: Clear to auscultation. No wheezing, rales, or rhonchi. HEART: S1, S2, sinus rhythm. ABDOMEN: Soft, nontender, nondistended. Positive bowel sounds. EXTREMITIES: No cyanosis, clubbing, or pitting edema. SKIN: Multiple excoriations, healed scabs bilateral upper and lower extremities. Laboratory data, microbiology, and imaging studies have been reviewed. ASSESSMENT AND PLAN: 29-year-old, blind female due to diabetic retinopathy, nephropathy, end-stage renal disease requiring hemodialysis with noncompliance and has not had dialysis for several months, Mason's syndrome, anemia of chronic disease requiring blood transfusion, hypertension, left against medical advice during dialysis sessions and has not followed up with a physician in several months. She lives with her mother with adult [facility] monitoring their progress. Patient does not followup with her physician appointments, does not follow her medical physicians, electrical troubleshooter, and has refused lifesaving treatment such as hemodialysis before, most often encouraged by her mother to not receive medical therapy. She presented to the emergency room with complaints of chest congestion, feeling like she had "pneumonia," was found to have end-stage renal disease requiring emergent dialysis due to metabolic acidosis, hyperkalemia, hyponatremia, severe anemia, and pericardial effusion not requiring a pericardial window as there were no signs of tamponade. Chest x-ray showed loculated left-sided pleural effusion, was treated with antibiotics. Patient has been deemed mentally incapacitated. ACTIVE ISSUES: 1. End-stage renal disease requiring hemodialysis. Patient has been noncompliant with physicians, nephrology followup, and hemodialysis for several months. The patient's mother has been supportive of the patient's decision not to undergo hemodialysis despite this being life threatening to the patient. Both the patient and the mother do not seem to understand that dialysis is not an option, it is a need and without it she can . Patient has been deemed incapacitated by psychiatrist. She is currently under the care of electrical troubleshooter while she is an inpatient but will need a new electrical troubleshooter and outpatient dialysis center at hospital discharge either in [place] or [place]. Dr. Vázquez has been consulted for inpatient dialysis needs. 2. Loculated left pleural effusion currently being treated for presumed community-acquired pneumonia with ceftriaxone and azithromycin. Negative blood cultures. Will repeat CT chest today to see if we need to do a thoracentesis to obtain fluid from this loculated effusion to rule out empyema or lung abscess. At this time, patient has remained afebrile but white count remains elevated at 14. She is currently on room air and not clinically decompensating. 3. Pericardial effusion secondary to uremia and refusal to undergo hemodialysis prior to hospital admission. Patient did receive dialysis with complete resolution of the pericardial effusion. No signs of tamponade. No further monitoring is required so long as the patient continues with hemodialysis. 4. 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 Due to severe protein calorie malnutrition patient is kept on a regular diet for now. Organic Chemistry Professor has been consulted. 5. Protein calorie malnutrition with body mass index (BMI) of 15.7 with severe hypoalbuminemia. Per program consultant, allow regular diet. 6. Metabolic acidosis secondary to renal failure with refusal to do outpatient hemodialysis. Resolved with inpatient dialysis. 7. Hyperkalemia due to medical noncompliance with hemodialysis secondary to end-stage renal disease. Resolved with hemodialysis. 8. Hyponatremia secondary to refusal to do outpatient hemodialysis. Resolved with inpatient dialysis. 9. Anemia secondary to end-stage renal disease status post 2 units red blood cell (RBC) transfusion. Currently at goal. 10. Medically mentally incapacitated. Patient has refused lifesaving treatment with dialysis in the past, often encouraged by her mother. Even during this admission while obtaining a blood transfusion the patient changed her mind and wanted to "feel better" and agreed to both blood transfusion and hemodialysis. Mother is the primary caregiver and patient is legally blind in both eyes, entirely dependent on her mother who intervened during that consent interview to tell the patient "remember last time you didn't want any blood transfusion." Upon further inquiry, the mother told me that "the doctors killed my mother and my brother and I don't want anything to happen to Ihsan." After reassuring her that Ihsan will be treated for her medical illness and she is expected to improve and recover, the patient's mother was then instructed to allow the patient to receive treatment. At that point, Ihsan said she wanted to have a blood transfusion and we instructed the mother that she needed to sign for her as she is blind. Psychiatrist has been consulted. 11. Deep venous thrombosis (DVT) prophylaxis with compression stockings. MTDD
[2019-05-16 22:00] VITALS: BP 119/65
--- NOTE | 2019-05-16 22:57 | IPN ---
DATE: 05/16/2019 Ms. Adamson is seen this morning on her bedside. She reports swelling on her legs and difficulty walking. She also had muscle cramps for the last couple of days. She was last dialyzed on Thursday and did not have dialysis yesterday. The patient denies any nausea or vomiting. She has no dyspnea or chest pain. She had a large pericardial effusion without any tamponade on admission and has been dialyzed frequently. Unfortunately, she had advanced uremia for several months as her mother had declined to bring her for dialysis. PHYSICAL EXAMINATION: Temperature 97.8 degrees Fahrenheit, heart rate 74 per minute and respiratory rate 16 per minute. The patient is blind with loss of left eye. She has a dialysis catheter on right upper chest. Her heart sounds are regular, and there is no pericardial friction rub audible. Lungs have diminished breath sounds at bases. Abdomen: Soft and nontender and bowel sounds are normal. Extremities have no cyanosis or clubbing. She has 2+ edema on both legs. Neurologically she is awake and able to answer questions. Today's labs show WBC count 14.1, hemoglobin 8.3 and hematocrit 27.4. Platelets are 203. Sodium 140, potassium 3.7, CO2 of 28, BUN 17 and creatinine 4.62. Glucose 142 and calcium 7.6. PROBLEM #1: Uremia with end-stage renal disease. Unfortunately, the patient has been uremic for several months and mother had declined to bring her to dialysis. She was not even answering phone calls. The patient has been poorly managed by her mother who has been making her decisions. The patient has been deemed competent for making decisions and she requested dialysis. She will be dialyzed again today. We have not used heparin because of pericarditis and no heparin will be used again today. PROBLEM #2: Hypertension. Blood pressure has been very well controlled, but it was very high on admission. Mother has not been giving her medications appropriately or maybe even at all. In any event, her blood pressure is much better controlled now, and we will continue to monitor and adjust her medications. PROBLEM #3: Leg edema. This is new and developed over the last couple of days. She was having leg cramps end of last week due to which no fluid was removed on Thursday. Today we will try to remove 1 liter of fluid. I will even consider to stop her amlodipine, which may be contributing to her leg edema. Will consider other antihypertensive medications if needed, and at present, she will continue with carvedilol 6.25 mg twice a day. PROBLEM #4: Anemia. Her anemia is gradually improving and stable. She will continue with Aranesp once a week and Venofer with every dialysis. PROBLEM #5: Hypokalemia. Her potassium level improved. However, she remains at risk for recurrent hypokalemia due to decreased oral intake. She will be given one dose of potassium chloride 20 mEq today. PROBLEM #6: Disposition. The patient and her mother have requested me to accept her for long-term care in outpatient dialysis clinic. I have told her that we she will be accepted with conditions as her mother has been the biggest emperatriz in her care. Her mother has previously prevented her from getting care, and I am concerned about her involvement once again. We will be willing to provide care to Ihsan if her mother does not get involved in the decision making as unfortunately her thought process goes always against the medical advice. I have also discussed with patient and family services and have requested to get adult protective services involved and make sure that the patient arrives to dialysis clinic in clean and hygienic condition. Her mother will not be allowed to come into dialysis unit due to her personal hygiene issues.
[2019-05-17] MEDS: ACETAMINOPHEN TAB 650MG DOSE (2X325MG) PO SCH ×5 (01:27→18:11)
[2019-05-17] MEDS: SLF 3 ML SYR IV SCH ×3 (05:49→22:25)
[2019-05-17 06:00] VITALS: BP 155/86
[2019-05-17 08:04] LABS: BASO % 0.1 % (0.0-1.0); EOS # 0.1 10^3/uL (0.0-0.50); EOS % 0.6 % (0.0-3.0); HEMATOCRIT 29.8 % (36.0-47.0); HEMOGLOBIN 9.1 g/dl (12.0-15.5); LYMPH # 1.5 10^3/uL (1.5-4.5); LYMPH % 8.5 % (24.0-44.0); MEAN CORPUSCULAR HEMOGLOBIN 27.4 pg (27.0-33.0); MEAN CORPUSCULAR HGB CONC 30.5 g/dl (32.0-36.5); MEAN CORPUSCULAR VOLUME 89.8 fl (80.0-96.0); MONO # 0.9 10^3/uL (0.0-0.8); MONO % 5.3 % (0.0-5.0); NEUTROPHILS # 14.6 10^3/uL (1.8-7.7); PLATELET COUNT, AUTOMATED 210 10^3/uL (150-450); RED BLOOD COUNT 3.32 10^6/uL (4.00-5.40); WHITE BLOOD COUNT 17.2 10^3/uL (4.0-10.0)
[2019-05-17 08:34] LABS: CALCIUM LEVEL 7.6 MG/DL (8.5-10.1); CREATININE FOR GFR 3.56 MG/DL (0.55-1.30); POTASSIUM SERUM 3.7 MEQ/L (3.5-5.1)
[2019-05-17] MEDS: HumaLOG INSULIN (NovoLOG) PER UNIT SC SCH ×4 (09:08→21:00)
[2019-05-17] MEDS: cefTRIAXone SOD 2 GM in D5W MINI-BAG PLUS 50 ML IV SCH (09:09)
[2019-05-17] MEDS: LANTHANUM CARBONATE 500 MG CHEW TABLET PO SCH ×3 (09:09→18:11)
[2019-05-17] MEDS: CARVedilol 6.25 MG TAB PO SCH ×2 (09:09→21:52)
[2019-05-17] MEDS: ANALGESIC BALM CRM 120 GM TOP SCH ×2 (09:10→21:55)
[2019-05-17] MEDS: BACITRACIN OINT 30GM TOP SCH ×2 (09:10→21:56)
[2019-05-17] MEDS: LIDOCAINE 5% OINT 30 GM TOP SCH ×3 (09:10→21:55)
[2019-05-17] MEDS ORDERED: HEPARIN 1,000 UNITS/ML 10ML VIAL (FOR RADIOLOGY& DIALYSIS ONLY) XX ONE (11:45)
--- NOTE | 2019-05-17 16:05 | IPNPDOC ---
Subjective Date Seen The patient was seen on 05/17/19. Subjective Chief Complaint/HPI does not offer any complaints today. Seen at HD. Comfortable. legally blind. No fever or chills, no chest pain or sob , no abdominal pain , nausea or vomiting or diarrhea. Objective Physical Examination General Exam: Positive: Alert, Cooperative, No Acute Distress Eye Exam: Positive: Ptosis, Other Eye Symptoms (legally blind) ENT Exam: Positive: Atraumatic, Mucous membr. 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 She lives with her mother with adult protect services monitoring their progress. 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 She presented to the emergency room with complaints of chest congestion, feeling like she had "pneumonia," was found to have end-stage renal disease requiring emergent dialysis due to metabolic acidosis, hyperkalemia, hyponatremia, severe anemia, and pericardial effusion not requiring a pericardial window as there were no signs of tamponade. Chest x-ray showed loculated left-sided pleural effusion, was treated with antibiotics. Patient has been deemed mentally incapacitated. End-stage renal disease requiring hemodialysis. Non complaint with treatments Patient has been deemed incapacitated in making medical decisions by psychiatrist. Bilateral pleural effusion with left loculated effusion treated for presumed community-acquired pneumonia with ceftriaxone and azithromy judah. Negative blood cultures. repeat CT chest on 05/16 unchanged effusions due to anasarca from maln utrition, fluid overload from HD non compliance. 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 regular diet due to malnutrition as per dietary Severe protein calorie malnutrition with BMI of 15.7 and bitemporal wasting. and hypoalbuminemia. Metabolic acidosis secondary to renal failure with refusal to do outpatient hemodialysis. Resolved with HD> Hyperkalemia due to medical noncompliance with hemodialysis secondary to end-stage renal disease. Resolved with hemodialysis. Hyponatremia secondary to refusal to do outpatient hemodialysis. Resolved with inpatient dialysis. Anemia secondary to end-stage renal disease status post 2 units red blood cell (RBC) transfusion. Currently at goal. Medically mentally incapacitated. As per psychiatry. Adult protective services involved. Plan/VTE VTE Prophylaxis Ordered?: Yes VS, I&O, 24H, Fishbone Vital Signs/I&O Vital Signs Date Time Temp Pulse Resp B/P (MAP) Pulse Ox O2 Delivery O2 Flow Rate FiO2 05/17/19 09:09 79 155/86 05/17/19 06:00 98.8 20 94 05/12/19 10:15 2 05/11/19 15:47 Room Air I&O- Last 24 Hours up to 6 AM 05/17/19 05:59 Intake Total 1080 ml Output Total 1000 ml Balance 80 ml Laboratory Data 24H LABS Laboratory Tests 2 05/16/19 20:20: Bedside Glucose (Misc Panel) 99 05/17/19 07:52: Immature Granulocyte % (Auto) 0.5, White Blood Count 17.2H, Red Blood Count 3.32L, Hemoglobin 9.1L, Hematocrit 29.8L, Mean Corpuscular Volume 89.8, Mean Corpuscular Hemoglobin 27.4, Mean Corpuscular Hemoglobin Concent 30.5L, Red Cell Distribution Width 15.4H, Platelet Count 210, Neutrophils (%) (Auto) 85.0H, Lymphocytes (%) (Auto) 8.5L, Monocytes (%) (Auto) 5.3H, Eosinophils (%) (Auto) 0.6, Basophils (%) (Auto) 0.1, Neutrophils # (Auto) 14.6H, Lymphocytes # (Auto) 1.5, Monocytes # (Auto) 0.9H, Eosinophils # (Auto) 0.1, Basophils # (Auto) 0.0, Nucleated Red Blood Cells % (auto) 0.9H, Anion Gap 7L, Glomerular Filtration Rate 16.0L, Blood Urea Nitrogen 11, Creatinine 3.56H, Sodium Level 140, Potassium Level 3.7, Chloride Level 104, Carbon Dioxide Level 29, Calcium Level 7.6L 05/17/19 12:06: Bedside Glucose (Misc Panel) 52L 05/17/19 12:53: Bedside Glucose (Misc Panel) 66L 05/17/19 13:12: Bedside Glucose (Misc Panel) 88 CBC/BMP Laboratory Tests 05/17/19 07:52 Red Blood Count 3.32 L, Mean Corpuscular Volume 89.8, Mean Corpuscular Hemoglobin 27.4, Mean Corpuscular Hemoglobin Concent 30.5 L, Red Cell Distribution Width 15.4 H, Neutrophils (%) (Auto) 85.0 H, Lymphocytes (%) (Auto) 8.5 L, Monocytes (%) (Auto) 5.3 H, Eosinophils (%) (Auto) 0.6, Basophils (%) (Auto) 0.1, Neutrophils # (Auto) 14.6 H, Lymphocytes # (Auto) 1.5, Monocytes # (Auto) 0.9 H, Eosinophils # (Auto) 0.1, Basophils # (Auto) 0.0, Calcium Level 7.6 L Microbiology Microbiology 05/11/19 Blood Culture - Final, Complete NO GROWTH AFTER 5 DAYS 05/11/19 Blood Culture - Final, Complete NO GROWTH AFTER 5 DAYS 05/13/19 Stool Occult Blood ([facility]) - Final, Complete 05/14/19 Urine Culture - Final, Complete CORRY BULLOCK MD May 17, 2019 16:05
--- NOTE | 2019-05-17 18:06 | IPN ---
DATE: 05/17/2019 Ms. Adamson is seen this morning on her bedside. She is laying in the bed with feet elevated because of swelling on her feet and legs. She has complained of leg cramps. She denies any nausea or vomiting. She has no dyspnea or chest pain. She was dialyzed yesterday and one liter if fluid was removed. Her amlodipine has already been stopped because of leg edema. She had a repeat echocardiogram done on 05/15/2019 which showed improved pericardial effusion which is now down to only 4 mm. There was no evidence of cardiac tamponade. PHYSICAL EXAMINATION: Temperature 98.8 degrees Fahrenheit, heart rate 79 per minute and respiratory rate 20 per minute. Blood pressure 155/86 mmHg and oxygen saturation 94% on room air. She is blind from both eyes. Head is atraumatic. Neck is supple and dialysis catheter is present in right internal jugular vein. She has no jugular venous distention (JVD). Heart sounds are regular and there is no pericardial friction rub. Lungs sound clear to auscultation. Abdomen is soft and nontender. Bowel sounds are normal. Extremities are without any cyanosis or clubbing. Lower extremity edema is 1+. LABORATORY DATA: Today's laboratories show WBC count 17.2, hemoglobin 9.1 and hematocrit 29.8. Platelets 210. Sodium 140, potassium 3.7, CO2 29, BUN 11 and creatinine 3.56. Glucose 138 and calcium 7.6. Urinalysis showed too numerous to count WBCs and 14 RBCs with 3+ leukocyte esterase on 05/14/2019. Urine culture showed no growth. PROBLEMS: 1. End-stage renal disease. The patient has been on maintenance hemodialysis and she has been dialyzed frequently due to pericardial effusion. No heparin is being used. Her pericardial effusion has improved significantly since admission. We will dialyze her once again today and then she will go to three times a week dialysis. 2. Leg edema. This is probably multifactorial. She was on amlodipine which was stopped yesterday. She is also with end-stage renal disease and we are trying to now remove fluid gradually. We will remove another liter of fluid today as tolerated. 3. Hypokalemia. Her potassium level has improved with supplement and she will be dialyzed with 4.0 mEq potassium bath today. 4. Anemia. Her anemia is gradually improving and stable. She is receiving Venofer and Aranesp during dialysis. 5. Leukocytosis, probably related to infection. Her mother reports that she has teeth infections and also had a urinary tract infection (UTI). The urine culture did not grow anything. She is currently afebrile and antibiotic being managed by the hospitalist service. 6. Hypertension. Blood pressure is reasonable and I stopped her amlodipine yesterday because of leg edema. If needed, we can increase her Carvedilol dose. She can also be put on low-dose angiotensin receptor desi if needed.
[2019-05-18 05:58] LABS: BASO % 0.1 % (0.0-1.0); EOS # 0.1 10^3/uL (0.0-0.50); EOS % 0.7 % (0.0-3.0); HEMATOCRIT 27.3 % (36.0-47.0); HEMOGLOBIN 8.3 g/dl (12.0-15.5); LYMPH # 1.9 10^3/uL (1.5-4.5); LYMPH % 12.2 % (24.0-44.0); MEAN CORPUSCULAR HGB CONC 30.4 g/dl (32.0-36.5); MEAN CORPUSCULAR VOLUME 92.2 fl (80.0-96.0); MONO # 1.2 10^3/uL (0.0-0.8); MONO % 8.1 % (0.0-5.0); NEUTROPHILS % 78.3 % (36.0-66.0); PLATELET COUNT, AUTOMATED 152 10^3/uL (150-450); RED BLOOD COUNT 2.96 10^6/uL (4.00-5.40); WHITE BLOOD COUNT 15.3 10^3/uL (4.0-10.0)
[2019-05-18 06:00] VITALS: BP 151/80
[2019-05-18] MEDS: SLF 3 ML SYR IV SCH ×3 (06:00→22:56)
[2019-05-18] MEDS: ACETAMINOPHEN TAB 650MG DOSE (2X325MG) PO SCH ×4 (06:00→17:27)
[2019-05-18 06:13] LABS: CALCIUM LEVEL 7.6 MG/DL (8.5-10.1); CREATININE FOR GFR 2.71 MG/DL (0.55-1.30); GLOMERULAR FILTRATION RATE 21.9 (>60); POTASSIUM SERUM 4.3 MEQ/L (3.5-5.1)
[2019-05-18] MEDS: HumaLOG INSULIN (NovoLOG) PER UNIT SC SCH ×5 (07:30→21:00)
[2019-05-18] MEDS: BACITRACIN OINT 30GM TOP SCH ×2 (09:00→21:00)
[2019-05-18] MEDS: ANALGESIC BALM CRM 120 GM TOP SCH ×2 (09:00→21:00)
[2019-05-18] MEDS: CARVedilol 6.25 MG TAB PO SCH ×2 (09:13→22:55)
[2019-05-18] MEDS: LANTHANUM CARBONATE 500 MG CHEW TABLET PO SCH ×3 (09:13→17:27)
[2019-05-18] MEDS: LIDOCAINE 5% OINT 30 GM TOP SCH ×3 (09:13→21:00)
--- NOTE | 2019-05-18 09:31 | IPNPDOC ---
Subjective Date Seen The patient was seen on 05/18/19. Subjective Chief Complaint/HPI Complains of leg cramps otherwise says that she is ok. No fever or chills, no dysuria, says not making any more urine at present. No chest pain or SOB , no abdominal pain, nausea or vomiting. Objective Physical Examination General Exam: Positive: Alert, Cooperative, No Acute Distress Eye Exam: Positive: Ptosis, Other Eye Symptoms (legally blind) ENT Exam: Positive: Atraumatic, Mucous membr. 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 She lives with her mother with adult protect services monitoring their progress. 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 She presented to the emergency room with complaints of chest congestion, feeling like she had "pneumonia," was found to have end-stage renal disease requiring emergent dialysis due to metabolic acidosis, hyperkalemia, hyponatremia, severe anemia, and pericardial effusion not requiring a pericardial window as there were no signs of tamponade. Chest x-ray showed loculated left-sided pleural effusion, was treated with antibiotics. Patient has been deemed mentally incapacitated. End-stage renal disease requiring hemodialysis. Non complaint with treatments Patient has been deemed incapacitated in making medical decisions by psychiatrist. Bilateral pleural effusion with left loculated effusion treated for presumed community-acquired pneumonia with ceftriaxone and azithromycin. Negative blood cultures. repeat CT chest on 05/16 unchanged effusions due to anasarca from malnutrition, fluid overload from HD non compliance. 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 regular diet due to malnutrition as per dietary Severe protein calorie malnutrition with BMI of 15.7 and bitemporal wasting. and hypoalbuminemia. Metabolic acidosis secondary to renal failure with refusal to do outpatient hemodialysis. Resolved with HD> Hyperkalemia due to medical noncompliance with hemodialysis secondary to end-stage renal disease. Resolved with hemodialysis. Hyponatremia secondary to refusal to do outpatient hemodialysis. Resolved with inpatient dialysis. Anemia secondary to end-stage renal disease status post 2 units red blood cell (RBC) transfusion. Currently at goal. Medically mentally incapacitated. As per psychiatry. Adult protective services involved. Disposition: Home when cleared by PT an OT and PFS Plan/VTE VTE Prophylaxis Ordered?: Yes VS, I&O, 24H, Fishbone Vital Signs/I&O Vital Signs Date Time Temp Pulse Resp B/P (MAP) Pulse Ox O2 Delivery O2 Flow Rate FiO2 05/18/19 09:13 75 151/80 05/18/19 06:00 99.1 18 96 05/12/19 10:15 2 I&O- Last 24 Hours up to 6 AM 05/18/19 05:59 Intake Total 240 ml Output Total 1000 ml Balance -760 ml Laboratory Data 24H LABS Laboratory Tests 2 05/17/19 12:06: Bedside Glucose (Misc Panel) 52L 05/17/19 12:53: Bedside Glucose (Misc Panel) 66L 05/17/19 13:12: Bedside Glucose (Misc Panel) 88 05/17/19 21:43: Bedside Glucose (Misc Panel) 151H 05/18/19 05:36: Immature Granulocyte % (Auto) 0.6, White Blood Count 15.3H, Red Blood Count 2.96L, Hemoglobin 8.3L, Hematocrit 27.3L, Mean Corpuscular Volume 92.2, Mean Corpuscular Hemoglobin 28.0, Mean Corpuscular Hemoglobin Concent 30.4L, Red Cell Distribution Width 15.7H, Platelet Count 152, Neutrophils (%) (Auto) 78.3H, Lymphocytes (%) (Auto) 12.2L, Monocytes (%) (Auto) 8.1H, Eosinophils (%) (Auto) 0.7, Basophils (%) (Auto) 0.1, Neutrophils # (Auto) 12.0H, Lymphocytes # (Auto) 1.9, Monocytes # (Auto) 1.2H, Eosinophils # (Auto) 0.1, Basophils # (Auto) 0.0, Nucleated Red Blood Cells % (auto) 0.5H, Anion Gap 5L, Glomerular Filtration Rate 21.9L, Blood Urea Nitrogen 10, Creatinine 2.71H, Sodium Level 139, Potassium Level 4.3, Chloride Level 105, Carbon Dioxide Level 29, Calcium Level 7.6L CBC/BMP Laboratory Tests 05/18/19 05:36 Red Blood Count 2.96 L, Mean Corpuscular Volume 92.2, Mean Corpuscular Hemoglobin 28.0, Mean Corpuscular Hemoglobin Concent 30.4 L, Red Cell Distribution Width 15.7 H, Neutrophils (%) (Auto) 78.3 H, Lymphocytes (%) (Auto) 12.2 L, Monocytes (%) (Auto) 8.1 H, Eosinophils (%) (Auto) 0.7, Basophils (%) (Auto) 0.1, Neutrophils # (Auto) 12.0 H, Lymphocytes # (Auto) 1.9, Monocytes # (Auto) 1.2 H, Eosinophils # (Auto) 0.1, Basophils # (Auto) 0.0, Calcium Level 7.6 L Microbiology Microbiology 05/11/19 Blood Culture - Final, Complete NO GROWTH AFTER 5 DAYS 05/11/19 Blood Culture - Final, Complete NO GROWTH AFTER 5 DAYS 05/13/19 Stool Occult Blood ([facility]) - Final, Complete 05/14/19 Urine Culture - Final, Complete CORRY BULLOCK MD May 18, 2019 09:31
[2019-05-18 10:18] VITALS: BP 175/94
[2019-05-18 22:00] VITALS: BP 158/78
[2019-05-19 06:00] VITALS: BP 156/80
[2019-05-19] MEDS: ACETAMINOPHEN TAB 650MG DOSE (2X325MG) PO SCH ×4 (06:13→18:27)
[2019-05-19] MEDS: SLF 3 ML SYR IV SCH ×3 (06:13→21:25)
[2019-05-19] MEDS: HumaLOG INSULIN (NovoLOG) PER UNIT SC SCH ×4 (07:30→21:00)
[2019-05-19 07:58] LABS: CALCIUM LEVEL 7.3 MG/DL (8.5-10.1); CREATININE FOR GFR 4.45 MG/DL (0.55-1.30); GLOMERULAR FILTRATION RATE 12.4 (>60); POTASSIUM SERUM 4.2 MEQ/L (3.5-5.1)
[2019-05-19] MEDS: LANTHANUM CARBONATE 500 MG CHEW TABLET PO SCH ×3 (08:00→18:26)
[2019-05-19 08:12] LABS: BASO % 0.1 % (0.0-1.0); EOS # 0.1 10^3/uL (0.0-0.50); EOS % 0.9 % (0.0-3.0); HEMOGLOBIN 7.7 g/dl (12.0-15.5); LYMPH % 13.3 % (24.0-44.0); MEAN CORPUSCULAR HEMOGLOBIN 28.9 pg (27.0-33.0); MEAN CORPUSCULAR HGB CONC 30.8 g/dl (32.0-36.5); MONO # 1.3 10^3/uL (0.0-0.8); MONO % 8.8 % (0.0-5.0); NEUTROPHILS # 11.4 10^3/uL (1.8-7.7); NEUTROPHILS % 76.2 % (36.0-66.0); PLATELET COUNT, AUTOMATED 188 10^3/uL (150-450); RED BLOOD COUNT 2.66 10^6/uL (4.00-5.40)
--- NOTE | 2019-05-19 08:16 | IPNPDOC ---
Subjective Date Seen The patient was seen on 05/19/19. Subjective Chief Complaint/HPI Does not offer any complaints today . For HD today, no fever or chills, no chest pain or sob , has intermittent leg cramps Objective Physical Examination General Exam: Positive: Alert, Cooperative, No Acute Distress Eye Exam: Positive: Ptosis, Other Eye Symptoms (legally blind) ENT Exam: Positive: Atraumatic, Mucous membr. 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 She lives with her mother with adult protect services monitoring their progress. 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 She presented to the emergency room with complaints of chest congestion, feeling like she had "pneumonia," was found to have end-stage renal disease requiring emergent dialysis due to metabolic acidosis, hyperkalemia, hyponatremia, severe anemia, and pericardial effusion not requiring a pericardial window as there were no signs of tamponade. Chest x-ray showed loculated left-sided pleural effusion, was treated with antibiotics. Patient has been deemed mentally incapacitated. End-stage renal disease requiring hemodialysis. Non complaint with treatments Patient has been deemed incapacitated in making medical decisions by psychiatrist. Bilateral pleural effusion with left loculated effusion treated for presumed community-acquired pneumonia with ceftriaxone and azithromycin. Negative blood cultures. repeat CT chest on 05/16 unchanged effusions due to anasarca from malnutrition, fluid overload from HD non compliance. 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 regular diet due to malnutrition as per dietary Severe protein calorie malnutrition with BMI of 15.7 and bitemporal wasting. and hypoalbuminemia. Metabolic acidosis secondary to renal failure with refusal to do outpatient hemodialysis. Resolved with HD> Hyperkalemia due to medical noncompliance with hemodialysis secondary to end-stage renal disease. Resolved with hemodialysis. Hyponatremia secondary to refusal to do outpatient hemodialysis. Resolved with inpatient dialysis. Anemia secondary to end-stage renal disease status post 2 units red blood cell (RBC) transfusion. Currently at goal. Medically mentally incapacitated. Patient is legally blind and mother is the primary caregiver and it is felt that she does not always take decisions that are not always in the best interest of the patient. She is often disruptive during rounds and discussions with the patient regarding treatment. Mother had refused HD which is life saving for the patient in the last few months and had in fact had gotten her perm cath removed as an outpatient against the advice of the commissioning manager and stopped her dialysis treatments as an outpateint. The patient is influenced by mothers counselling and instructions. On 05/12/19 patient had refused blood transfusion at the insistence of her mother which was needed as a life saving treatment and psychiatrist was consulted and it was deemed that patient was not medically incompetent to taking medical decisions and the mother was not felt to be acting in her best interest. Later on she agreed to blood transfusion and she agreed to restart dialysis Adult protective services are involved. At present outpatient HD unit will not accept the patient unless patient and mother sign an agreement stating that the mother will not be in the dialysis unit during her dialysis sessions and she wont be on the fascility premises during her treatment. Pateint's mother is very disruptive to her treatment sessions and to the other patient's int eh HD unit. Adult protective services involved. Disposition: Home when cleared by PT an OT and PFS Plan/VTE VTE Prophylaxis Ordered?: Yes VS, I&O, 24H, Fishbone Vital Signs/I&O Vital Signs Date Time Temp Pulse Resp B/P (MAP) Pulse Ox O2 Delivery O2 Flow Rate FiO2 05/19/19 06:00 100.0 78 16 98 05/19/19 06:00 156/80 (105) I&O- Last 24 Hours up to 6 AM 05/19/19 06:00 Intake Total 300 ml Balance 300 ml Laboratory Data 24H LABS Laboratory Tests 2 05/18/19 10:16: Bedside Glucose (Misc Panel) 112H 05/18/19 12:09: Bedside Glucose (Misc Panel) 121H 05/18/19 14:20: Bedside Glucose (Misc Panel) 126H 05/18/19 17:54: Bedside Glucose (Misc Panel) 121H 05/18/19 22:40: Bedside Glucose (Misc Panel) 129H 05/19/19 06:05: Bedside Glucose (Misc Panel) 84 CBC/BMP Microbiology Microbiology 05/11/19 Blood Culture - Final, Complete NO GROWTH AFTER 5 DAYS 05/11/19 Blood Culture - Final, Complete NO GROWTH AFTER 5 DAYS 05/13/19 Stool Occult Blood ([facility]) - Final, Complete 05/14/19 Urine Culture - Final, Complete CORRY BULLOCK MD May 19, 2019 08:16
[2019-05-19] MEDS: ANALGESIC BALM CRM 120 GM TOP SCH ×2 (09:00→21:24)
[2019-05-19] MEDS: BACITRACIN OINT 30GM TOP SCH ×2 (09:00→21:22)
[2019-05-19 09:44] LABS: HEMATOCRIT 24.8 % (36.0-47.0); HEMOGLOBIN 7.6 g/dl (12.0-15.5)
[2019-05-19] MEDS ORDERED: PANTOPRAZOLE 40MG TAB (PROTONIX) PO ONE (10:30)
[2019-05-19] MEDS: CARVedilol 6.25 MG TAB PO SCH ×2 (12:00→21:18)
[2019-05-19] MEDS: LIDOCAINE 5% OINT 30 GM TOP SCH ×3 (12:00→21:00)
[2019-05-19] MEDS: ONDANSETRON 4MG/2ML VIAL (J2405) IV PRN (13:12)
[2019-05-19 13:51] VITALS: BP 175/98
[2019-05-19 15:14] LABS: CLOSTRIDIUM DIFFICILE PCR NEGATIVE (NEGATIVE)
[2019-05-19] MEDS ORDERED: amLODIPine 5 MG TAB PO ONE (18:45)
--- NOTE | 2019-05-19 20:58 | IPN ---
DATE: 05/19/2019 Ms. Adamson is seen this morning during dialysis on her bedside. She is feeling better today but her mother reports that she had several bowel movements through the night. It was not watery, but semisolid. The patient denies any nausea or vomiting. She has no dyspnea or chest pain. She does have discomfort in her legs, but leg edema has improved. PHYSICAL EXAMINATION: Temperature 100 degrees Fahrenheit, heart rate 78 per minute and respiratory rate 16 per minute. Blood pressure earlier 156/80 mmHg and now during dialysis is almost 200/110 mmHg. Oxygen saturation is 98% on room air. Head is atraumatic. She is blind from both eyes. Dialysis catheter in right internal jugular vein is intact and currently being used for dialysis. Heart sounds are regular and lungs clear to auscultation. Abdomen soft and nontender and bowel sounds are present. Extremities without any cyanosis or clubbing. Lower extremity edema is almost completely resolved. Neurologically, she is at her baseline mentation. Today's labs show white blood count (WBC) 15.0, hemoglobin 7.7 and hematocrit 25.0. We repeated her hemoglobin and hematocrit and they are 7.6 and 24.8. Her sodium is 142, potassium 4.2, CO2 26, BUN 21 and creatinine 4.45. Glucose 95 and calcium 7.3. PROBLEMS: 1. End-stage renal disease. The patient is being dialyzed and she is tolerating her dialysis reasonably well. We do not use heparin for her dialysis. 2. Anemia. She has worsening anemia with probably gastrointestinal (GI) bleed as there is no other obvious source of blood loss. Stool for occult blood is being ordered and 2 units of packed red blood cells are being ordered to be transfused today. This can be done during or after dialysis. Her volume status is very well compensated so given her blood even after dialysis will have no problem. 3. Hypertension. Blood pressure is unusually high during dialysis today while it was much better earlier. We will watch her and continue with current antihypertensive meds for now. 4. Hypervolemia and leg edema. Her volume status is not very well compensated and 1 liter of fluid is being removed during dialysis today. 5. Leukocytosis and fever. She has low grade fever again and white cell count is still elevated. She did have some infected teeth for which she has received antibiotic. Currently, she is not on any antibiotic. 6. Loose stools. The patient does not have diarrhea, but mother reports that she did have some loose stools. She also has drop in her hemoglobin and hematocrit. I am going to start her on Protonix 40 mg daily with first dose today due to possibility of gastritis. Her stool will be tested for occult blood. I will defer to hospitalist service if they wish to consider a gastrointestinal (GI) panel.
[2019-05-19 22:00] VITALS: BP 156/91
[2019-05-20] MEDS: ACETAMINOPHEN TAB 650MG DOSE (2X325MG) PO SCH ×3 (06:22→12:00)
[2019-05-20] MEDS: SLF 3 ML SYR IV SCH ×2 (06:22→14:00)
[2019-05-20 07:04] VITALS: BP 174/104
[2019-05-20 07:15] VITALS: BP 165/90
[2019-05-20] MEDS: HumaLOG INSULIN (NovoLOG) PER UNIT SC SCH ×2 (07:30→12:00)
[2019-05-20] MEDS: LANTHANUM CARBONATE 500 MG CHEW TABLET PO SCH ×2 (08:28→12:30)
[2019-05-20 08:29] VITALS: BP 156/91
[2019-05-20] MEDS: CARVedilol 6.25 MG TAB PO SCH (08:29)
[2019-05-20 08:30] LABS: ALBUMIN 2.3 GM/DL (3.2-5.2); BILIRUBIN,DIRECT 0.1 MG/DL (0.0-0.2); BILIRUBIN,TOTAL 0.3 MG/DL (0.2-1.0); CALCIUM LEVEL 7.5 MG/DL (8.5-10.1); CREATININE FOR GFR 3.48 MG/DL (0.55-1.30); GLOMERULAR FILTRATION RATE 16.4 (>60); PHOSPHORUS LEVEL 1.5 MG/DL (2.5-4.9); POTASSIUM SERUM 4.6 MEQ/L (3.5-5.1)
[2019-05-20 08:42] LABS: HEMATOCRIT 41.3 % (36.0-47.0); MEAN CORPUSCULAR HEMOGLOBIN 28.8 pg (27.0-33.0); MEAN CORPUSCULAR VOLUME 90.2 fl (80.0-96.0); PLATELET COUNT, AUTOMATED 178 10^3/uL (150-450); RED BLOOD COUNT 4.58 10^6/uL (4.00-5.40); WHITE BLOOD COUNT 14.2 10^3/uL (4.0-10.0)
[2019-05-20 08:47] LABS: HEMOGLOBIN 13.2 g/dl (12.0-15.5)
[2019-05-20] MEDS: ANALGESIC BALM CRM 120 GM TOP SCH (09:00)
[2019-05-20] MEDS: BACITRACIN OINT 30GM TOP SCH (09:00)
[2019-05-20] MEDS: LIDOCAINE 5% OINT 30 GM TOP SCH ×2 (09:00→16:00)
[2019-05-20] MEDS ORDERED: PANTOPRAZOLE 40MG TAB (PROTONIX) PO SCH (09:00)
--- NOTE | 2019-05-20 10:51 | IPNPDOC ---
Subjective Date Seen The patient was seen on 05/20/19. Subjective Chief Complaint/HPI No complaints this morning. slept well. has been cleared by PT and OT. No fevr or chills, no chest pain or sob , no abdominal pain , nausea or vomiting or diarrhea. Objective Physical Examination General Exam: Positive: Alert, Cooperative, No Acute Distress Eye Exam: Positive: Ptosis, Other Eye Symptoms (legally blind) ENT Exam: Positive: Atraumatic, Mucous membr. 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 She lives with her mother with adult protect services monitoring their progress. 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 She presented to the emergency room with complaints of chest congestion, feeling like she had "pneumonia," was found to have end-stage renal disease requiring emergent dialysis due to metabolic acidosis, hyperkalemia, hyponatremia, severe anemia, and pericardial effusion not requiring a pericardial window as there were no signs of tamponade. Chest x-ray showed loculated left-sided pleural effusion, was treated with antibiotics. Patient has been deemed mentally incapacitated. End-stage renal disease requiring hemodialysis. Non complaint with treatments Patient has been deemed incapacitated in making medical decisions by psychiatrist. Bilateral pleural effusion with left loculated effusion treated for presumed community-acquired pneumonia with ceftriaxone and azithromycin. Negative blood cultures. repeat CT chest on 05/16 unchanged effusions due to anasarca from malnutrition, fluid overload from HD non compliance. Pericardial effusion secondary to uremia improved as seen in CT chest from 05/16 and repeat ECHO on 05/15/19 Anemia No hemolysis. received 4 units of prbc this admission stool occult blood negative x 2 Now HH above goal. Anemia is secondary to end-stage renal disease status No iron deficiency. 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 regular diet due to malnutrition as per dietary Severe protein calorie malnutrition with BMI of 15.7 and bitemporal wasting. and hypoalbuminemia. Metabolic acidosis secondary to renal failure with refusal to do outpatient hemodialysis. Resolved with HD> Hyperkalemia due to medical noncompliance with hemodialysis secondary to end-stage renal disease. Resolved with hemodialysis. Hyponatremia secondary to refusal to do outpatient hemodialysis. Resolved with inpatient dialysis. Medically mentally incapacitated. Patient is legally blind and mother is the primary caregiver and it is felt that she does not always take decisions that are in the best interest of the patient. Adult protective services involved. please see my previous documentation for further details and also by colleague Dr Marion's documentation Disposition: Home when cleared by PT an OT and PFS Plan/VTE VTE Prophylaxis Ordered?: Yes VS, I&O, 24H, Fishbone Vital Signs/I&O Vital Signs Date Time Temp Pulse Resp B/P (MAP) Pulse Ox O2 Delivery O2 Flow Rate FiO2 05/20/19 08:29 101 156/91 05/20/19 07:04 98.5 18 96 I&O- Last 24 Hours up to 6 AM 05/20/19 06:00 Intake Total 720 ml Output Total 1030 ml Balance -310 ml Laboratory Data 24H LABS Laboratory Tests 2 05/19/19 11:34: Bedside Glucose (Misc Panel) 94 05/19/19 12:48: Bedside Glucose (Misc Panel) 109H 05/19/19 13:49: Clostridium difficile [id number] PRESUMPTIVE NEGATIVE, Clostridium difficile Toxin (PCR) NEGATIVE 05/19/19 16:36: Bedside Glucose (Misc Panel) 146H 05/19/19 21:05: Bedside Glucose (Misc Panel) 141H 05/20/19 07:02: Bedside Glucose (Misc Panel) 85 05/20/19 07:54: Reticulocyte # (auto) 117.9H, Nucleated Red Blood Cells % (auto) 0.2H, Percent Reticulocyte Count 2.6H, Reticulocyte Hemoglobin Equivalent 32.6, Blood Urea Nitrogen 17, Creatinine 3.48H, Sodium Level 141, Potassium Level 4.6, Chloride Level 107, Carbon Dioxide Level 28, Anion Gap 6L, Glomerular Filtration Rate 16.4L, Calcium Level 7.5L, Phosphorus Level 1.5L, Total Bilirubin 0.3, Direct Bilirubin 0.1, Lactate Dehydrogenase 138, Albumin 2.3L CBC/BMP Laboratory Tests 05/20/19 07:54 Red Blood Count 4.58, Mean Corpuscular Volume 90.2, Mean Corpuscular Hemoglobin 28.8, Mean Corpuscular Hemoglobin Concent 32.0, Red Cell Distribution Width 17.8 H, Anion Gap 6 L Microbiology Microbiology 05/11/19 Blood Culture - Final, Complete NO GROWTH AFTER 5 DAYS 05/11/19 Blood Culture - Final, Complete NO GROWTH AFTER 5 DAYS 05/19/19 Stool Occult Blood ([facility]) - Final, Complete 05/13/19 Stool Occult Blood ([facility]) - Final, Complete 05/14/19 Urine Culture - Final, Complete CORRY BULLOCK MD May 20, 2019 10:49
[2019-05-20] MEDS ORDERED: MUSCCRE9 TOP (12:39)
[2019-05-20] MEDS ORDERED: CARV6.25 PO (12:39)
[2019-05-20] MEDS ORDERED: BACI50OI TOP (12:39)
[2019-05-20] MEDS ORDERED: LIDO5OIN19 TOP (12:39)
[2019-05-20] MEDS ORDERED: FOSR500C2 PO (12:39)
[2019-05-20] MEDS ORDERED: ACET1TAB55 PO (12:39)
[2019-05-20] MEDS ORDERED: ONDA4TAB6 SL (12:39)
[2019-05-20] MEDS ORDERED: PANT40TA3 PO (12:39)
--- NOTE | 2019-05-20 17:16 | DS.PDOC ---
Discharge Summary General Date of Admission May 11, 2019 at 16:36 Date of Discharge 05/20/19 Discharge Summary PROCEDURES PERFORMED DURING STAY: Per cath insertion DISCHARGE DIAGNOSES: ESRD with non complainant with HD Diabetes with retinopathy, nephropathy and neuropathy Anemia of Chronic disease Mason's syndrome Coarctation of aorta and status post repair. Hypertension Uremic pericardial effusion resolved Severe protein calorie malnutrition Severe metabolic acidosis on admission with hyperkalemia and hyponatremia resolved with reinitiation of HD. COMPLICATIONS/CHIEF COMPLAINT: ESRD. 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 She lives with her mother with adult [facility] services monitoring their progress. 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 She presented to the emergency room with complaints of chest congestion, feeling like she had "pneumonia," was found to have end-stage renal disease requiring emergent dialysis due to metabolic acidosis, hyperkalemia, hy ponatremia, severe anemia, and pericardial effusion not requiring a pericardial window as there were no signs of tamponade. Chest x-ray showed loculated left- sided pleural effusion, was treated with antibiotics. Patient has been deemed mentally incapacitated. End-stage renal disease requiring hemodialysis. Non complaint with treatments Patient has been deemed incapacitated in making medical decisions by psychiatrist. Bilateral pleural effusion with left loculated effusion treated for presumed community-acquired pneumonia with ceftriaxone and azithromycin. Negative blood cultures. repeat CT chest on 05/16 unchanged effusions due to anasarca from malnutrition, fluid overload from HD non compliance. Pericardial effusion secondary to uremia improved as seen in CT chest from 05/16 and repeat ECHO on 05/15/19 Anemia No hemolysis. received 4 units of prbc this admission stool occult blood negative x 2 Now HH above goal. Anemia is secondary to end-stage renal disease status No iron deficiency. 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 regular diet due to malnutrition as per dietary Severe protein calorie malnutrition with BMI of 15.7 and bitemporal wasting. and hypoalbuminemia. Metabolic acidosis secondary to renal failure with refusal to do outpatient hemodialysis. Resolved with HD Hyperkalemia due to medical noncompliance with hemodialysis secondary to end-stage renal disease. Resolved with hemodialysis. Hyponatremia secondary to refusal to do outpatient hemodialysis. Resolved with inpatient dialysis. Medically mentally incapacitated. Patient is legally blind and mother is the primary caregiver and it is felt that she does not always take decisions that are in the best interest of the patient. Adult protective services involved. please see my previous documentation for further details and also by colleague Dr Marion's documentation Disposition: Home when cleared by PT an OT and PFS DISCHARGE MEDICATIONS: Please see below. ALLERGIES: Please see below. PHYSICAL EXAMINATION ON DISCHARGE: VITAL SIGNS: Please see below. General Exam: Positive: Alert, Cooperative, No Acute Distress Eye Exam: Positive: Ptosis, Other Eye Symptoms (legally blind) ENT Exam: Positive: Atraumatic, Mucous membr. moist/pink, Pharynx Normal Neck Exam: Positive: Supple; Negative: JVD, thyromegaly Chest Exam: Positive: Clear to auscultation, Normal air movement Heart Exam: Positive: Rate Normal, Regular Rhythm, Normal S1, Normal S2; Negative: Murmurs, Rubs Abdomen Exam: Positive: Normal bowel sounds, Soft; Negative: Tenderness, Hepatosplenomegaly Extremity Exam: Negative: Clubbing, Cyanosis, Edema Skin Exam: Positive: Lesion ( Multiple excoriations, healed scabs bilateral upper and lower) LABORATORY DATA: Please see below. ACTIVITY: [As tolerated]. DIET: Regular DISPOSITION: 01 Home, Self-Care. DISCHARGE INSTRUCTIONS: Follow up in HD unit on 05/23/19 Follow up new PMD in 1 week DISCHARGE CONDITION: [Stable]. TIME SPENT ON DISCHARGE: 35 minutes. Vital Signs/I&Os Vital Signs Date Time Temp Pulse Resp B/P (MAP) Pulse Ox O2 Delivery O2 Flow Rate FiO2 05/20/19 08:29 101 156/91 05/20/19 07:04 98.5 18 96 I&O- Last 24 Hours up to 6 AM 05/20/19 06:00 Intake Total 720 ml Output Total 1030 ml Balance -310 ml Laboratory Data Labs 24H Laboratory Tests 2 05/19/19 21:05: Bedside Glucose (Misc Panel) 141H 05/20/19 07:02: Bedside Glucose (Misc Panel) 85 05/20/19 07:54: Reticulocyte # (auto) 117.9H, Nucleated Red Blood Cells % (auto) 0.2H, Percent Reticulocyte Count 2.6H, Reticulocyte Hemoglobin Equivalent 32.6, Blood Urea Nitrogen 17, Creatinine 3.48H, Sodium Level 141, Potassium Level 4.6, Chloride Level 107, Carbon Dioxide Level 28, Anion Gap 6L, Glomerular Filtration Rate 16.4L, Calcium Level 7.5L, Phosphorus Level 1.5L, Total Bilirubin 0.3, Direct Bilirubin 0.1, Lactate Dehydrogenase 138, Albumin 2.3L 05/20/19 11:43: Bedside Glucose (Misc Panel) 137H CBC/BMP Laboratory Tests 05/20/19 07:54 Red Blood Count 4.58, Mean Corpuscular Volume 90.2, Mean Corpuscular Hemoglobin 28.8, Mean Corpuscular Hemoglobin Concent 32.0, Red Cell Distribution Width 17.8 H, Anion Gap 6 L FSBS Laboratory Tests Test 05/19/19 21:05 05/20/19 07:02 05/20/19 11:43 Range/Units Bedside Glucose (Misc Panel) 141 85 137 70-105 MG/DL Microbiology Microbiology 05/11/19 Blood Culture - Final, Complete NO GROWTH AFTER 5 DAYS 05/11/19 Blood Culture - Final, Complete NO GROWTH AFTER 5 DAYS 05/19/19 Stool Occult Blood ([facility]NA[facility]) - Final, Complete 05/13/19 Stool Occult Blood ([facility]) - Final, Complete 05/14/19 Urine Culture - Final, Complete Discharge Medications Scheduled Acetaminophen (Acetaminophen) 325 Mg Tablet, 650 MG PO Q6H Bacitracin (Bacitracin) 28.4 Gm Oint...g., 1 DOSE TOP BID Carvedilol (Carvedilol) 6.25 Mg Tablet, 12.5 MG PO BID Lanthanum Carbonate (Fosrenol) 500 Mg Tab.chew, 500 MG PO WM Lidocaine (Lidocaine) 120 Gm Oint...g., 1 DOSE TOP TID Methyl Salicylate/Menthol (Muscle Rub Cream) 85 Gm Cream..g., 1 DOSE TOP BID Pantoprazole Sodium (Pantoprazole Sodium) 40 Mg Tablet.dr, 40 MG PO DAILY Scheduled PRN Ondansetron (Ondansetron Odt) 4 Mg Tab.rapdis, 4 MG SL Q6H PRN for NAUSEA OR VOMITING Allergies Coded Allergies: No Known Allergies (Unverified , 01/19/19) CORRY BULLOCK MD May 20, 2019 16:39
[2019-05-20] MEDS ORDERED: CARVedilol 6.25 MG TAB PO SCH (21:00)
--- NOTE | 2019-05-20 23:19 | IPN ---
DATE: 05/20/2019 Ms Adamson is seen this morning on her bedside. She is lying in the bed without any acute distress. She was dialyzed yesterday. She denies any nausea, vomiting, fever or chills. The patient was transfused 2 units of blood yesterday due to drop in her hemoglobin and hematocrit. Her stool has been tested negative for occult blood. PHYSICAL EXAMINATION Temperature 98.5 degrees Fahrenheit, heart rate 100 per minute and respiratory rate 18 per minute. Blood pressure 156/90 mmHg and oxygen saturation 96%. She is blind from both eyes. Head is atraumatic. Neck is supple and without JVD. Perma-Cath in right internal jugular vein is present. Heart: Sounds are tachycardiac but without a pericardial friction rub. Lungs: Clear to auscultation. Abdomen: Soft and nontender. Bowel sounds normal. Extremities: Without any cyanosis or clubbing. Her peripheral edema has improved. Neurologically she is at her baseline mentation. Today's labs show WBC count 14.2, hemoglobin 13.2 and hematocrit 41. Sodium 141, potassium 4.6, CO2 28, BUN 17 and creatinine 3.48. Glucose 144 and calcium 7.5. Phosphorus is 1.5. PROBLEMS: 1. End-stage renal disease. The patient has been dialyzed and her last dialysis was yesterday. As an outpatient, she will be dialyzed on Thursday, Thursday and Thursday schedule. She is scheduled for next dialysis on Thursday as outpatient. There is no emergent need for dialysis today. 2. Anemia related to end-stage renal disease. Her stool has tested negative. She was transfused 2 units of packed RBCs and her anemia has improved. We will monitor it as an outpatient. 3. Hypertension. Blood pressure is slightly high and we will adjust her medications in the outpatient clinic. She is currently on low-dose Carvedilol of 6.25 mg twice a day. I am going to change it to 12.5 mg twice a day and she will continue with amlodipine once a day. 4. Leg edema and hypervolemia. Her volume is well-compensated and leg edema has completely resolved. 5. Pericardial effusion. Her pericardial effusion has also improved significantly on the repeat echocardiogram. She will continue with maintenance hemodialysis. No other intervention is indicated. 6. DISPOSITION: The patient is likely to be discharged today. The patient and her mother understands clearly that she will need to be compliant with medications and dialysis treatment. Her mother will not be allowed to come and sit with the patient in dialysis unit due to her personal hygiene condition. I have discussed with the patient's mother at length that she needs to have clean clothes and take a bath. Unfortunately, her hygienic condition has been very poor. The patient has signed the contract for good behavior and compliance.
--- NOTE | 2019-06-10 16:27 | REPIR ---
DATE OF PROCEDURE: 05/12/2019 ATTENDING SURGEON: Dr. Aimee Sauer CIVIL RIGHTS REPRESENTATIVE: Shannan Nicole and Bong Pratt PREOPERATIVE DIAGNOSIS: End-stage renal disease requiring access for renal replacement therapy and hemodialysis. POSTOPERATIVE DIAGNOSIS: End-stage renal disease requiring access for renal replacement therapy and hemodialysis. PROCEDURE: Ultrasound and fluoroscopic guided right internal jugular vein 19-cm tipped cuff tunneled central venous catheter placement with an [place] catheter. INDICATION: The patient is a 29-year-old female with end-stage renal disease and acute renal failure that requires dialysis. The patient will undergo placement of a tunneled central venous catheter for access. ANESTHESIA: Local with 20 mL of 2% lidocaine mixed with 0.5% Marcaine. FLUOROSCOPY TIME: 0.1 minutes. CONTRAST: None. COMPLICATIONS: None. DRAINS: None. SPECIMENS: None. PROCEDURE: The patient was taken to the angiography suite, placed supine on the angiography room table, and then prepped and draped in a standard surgical fashion. The right internal jugular vein was cannulated using ultrasound guidance with a micropuncture needle. The micropuncture wire was advanced through the micropuncture needle, which was upsized to a micropuncture sheath. A catheter was tunneled through the anterior chest wall on the right and then advanced through the introducer sheath in position with the tip in the superior vena cava right atrial junction. Both ports were aspirated and noted to aspirate easily, and then flushed with heparinized saline. The catheter was secured to the anterior chest wall using #2-0 Prolene suture. The puncture wound in the right neck was closed using #4-0 Monocryl inverted interrupted fashion. Steri-Strips and dressings were applied. The patient tolerated procedure well. All instrument, sponge and needle counts were correct at the end the case. There were no complications. Dr. Sauer was present for and directed the entire case. The patient was transferred to the holding area and subsequently to the floor in stable condition. The right internal jugular vein tunneled central venous catheter is stable for use for dialysis access.
== END 2019-05-20 16:20 | disposition home or self-care (01) | DRG 470 ==
LOC: M ED 09:07 → M ED INP 13:33 → UNDOADMIN 13:33 → M ED INP 16:36 → M MSPAV 18:49 → M PCU 22:53 → M MS5PR 05-15 13:00
PROVIDERS: ADMIT General Practice; ATTEND Internal Medicine Nephrology
PROC: 30233N1 Transfusion of Nonautologous Red Blood Cells into Peripheral Vein, Percutaneous Approach (ICD-10-PCS; principal; 2019-05-11)
PROC: 02HV33Z Insertion of Infusion Device into Superior Vena Cava, Percutaneous Approach (ICD-10-PCS; 2019-05-12)
DX: N18.6 End stage renal disease (principal); E43 Unspecified severe protein-calorie malnutrition; J90 Pleural effusion, not elsewhere classified; J18.9 Pneumonia, unspecified organism; E87.2 Acidosis; I13.11 Hypertensive heart and chronic kidney disease without heart failure, with stage 5 chronic kidney disease, or end stage renal disease; I31.3 Pericardial effusion (noninflammatory); E11.21 Type 2 diabetes mellitus with diabetic nephropathy; E11.22 Type 2 diabetes mellitus with diabetic chronic kidney disease; E11.40 Type 2 diabetes mellitus with diabetic neuropathy, unspecified; E87.1 Hypo-osmolality and hyponatremia; E11.319 Type 2 diabetes mellitus with unspecified diabetic retinopathy without macular edema; E87.5 Hyperkalemia; N25.81 Secondary hyperparathyroidism of renal origin; H54.8 Legal blindness, as defined in USA; Q96.9 Turner's syndrome, unspecified; D63.1 Anemia in chronic kidney disease; Z91.15 Patient's noncompliance with renal dialysis; Z91.14 Patient's other noncompliance with medication regimen; Z91.19 Patient's noncompliance with other medical treatment and regimen; Z68.1 Body mass index [BMI] 19.9 or less, adult; Z99.2 Dependence on renal dialysis

== ENCOUNTER 2019-06-02 04:41 | Inpatient (IN) | payer OTHER ==
[2019-06-02] VITALS (21 sets, daily range): BP systolic 144–219; BP diastolic 82–130
[~2019-06-02] VITALS: Ht 144.8 cm; Wt 40.1 kg
[~2019-06-02 04:41] MED LIST changes: +ACET1TAB55 PO; +BACI50OI TOP; +FOSR500C2 PO; +LIDO5OIN19 TOP; +MUSCCRE9 TOP; +ONDA4TAB6 SL
[2019-06-02 05:53] LABS: HEMATOCRIT 24.5 % (36.0-47.0); HEMOGLOBIN 7.7 g/dl (12.0-15.5); MEAN CORPUSCULAR HEMOGLOBIN 28.8 pg (27.0-33.0); MEAN CORPUSCULAR HGB CONC 31.4 g/dl (32.0-36.5); MEAN CORPUSCULAR VOLUME 91.8 fl (80.0-96.0); PLATELET COUNT, AUTOMATED 297 10^3/uL (150-450); RED BLOOD COUNT 2.67 10^6/uL (4.00-5.40); WHITE BLOOD COUNT 8.9 10^3/uL (4.0-10.0)
[2019-06-02 05:54] LABS: INR 1.18; PROTHROMBIN TIME 14.7 SECONDS (11.8-14.0)
[2019-06-02 05:55] LABS: PARTIAL THROMBOPLASTIN TIME 27.9 SECONDS (25.0-38.4)
[2019-06-02 05:56] LABS: HCG, SERUM QUALITATIVE NEGATIVE (NEGATIVE)
[2019-06-02] MEDS ORDERED: LANT500C PO (06:01)
[2019-06-02 06:04] LABS: ALBUMIN 2.1 GM/DL (3.2-5.2); ALT/SGPT 9 U/L (12-78); BILIRUBIN,DIRECT < 0.1 MG/DL (0.0-0.2); BILIRUBIN,TOTAL 0.2 MG/DL (0.2-1.0); BLOOD UREA NITROGEN 21 MG/DL (7-18); CARBON DIOXIDE LEVEL 34 MEQ/L (21-32); CHLORIDE LEVEL 107 MEQ/L (98-107); CREATININE FOR GFR 2.88 MG/DL (0.55-1.30); GLOMERULAR FILTRATION RATE 20.4 (>60); GLUCOSE, FASTING 189 MG/DL (70-100); LIPASE 174 U/L (73-393); POTASSIUM SERUM 4.1 MEQ/L (3.5-5.1); SODIUM LEVEL 144 MEQ/L (136-145); TOTAL PROTEIN 4.7 GM/DL (6.4-8.2)
[2019-06-02] MEDS ORDERED: CARV6.25 PO (06:14)
[2019-06-02 06:17] LABS: ANISOCYTOSIS 1+; ATYPICAL LYMPH 2 % (0-5); BASOPHILS 1 % (0-1); EOSINOPHILS 1 % (0-3); LYMPHOCYTES 18 % (16-44); MONOCYTES 7 % (0-5); NEUTROPHILS 71 % (28-66); POIKILOCYTOSIS 1+; POLYCHROMASIA 1+
[2019-06-02 06:18] LABS: HYPOCHROMASIA 1+; PLATELET ESTIMATE NORMAL (NORMAL)
[2019-06-02] MEDS ORDERED: ISOVUE-370 76% 100ML VIAL (Q9967) As Ordered ONE (06:19)
--- NOTE | 2019-06-02 07:26 | REPVR ---
EXAM: CT Abdomen and Pelvis With Contrast EXAM DATE/TIME: 06/02/2019 5:31 AM CLINICAL HISTORY: 29 years old, female; Other: Gi bleed; Additional info: Lower gi bleed, dialysis dependent TECHNIQUE: Imaging protocol: Computed tomography of the abdomen and pelvis with intravenous contrast. Radiation optimization: All CT scans at this facility use at least one of these dose optimization techniques: automated exposure control; mA and/or kV adjustment per patient size (includes targeted exams where dose is matched to clinical indication); or iterative reconstruction. Contrast material: ISO; Contrast volume: 80 ml; Contrast route: AC; COMPARISON: US RENAL DOPPLER FLOW 08/17/2018 9:03 AM FINDINGS: Lungs: There is a small amount of compressive atelectasis in both lung bases. Pleural space: There are small, bilateral pleural effusions, left larger than right. Heart: There is a small pericardial effusion. Liver: There are no focal liver lesions present. Gallbladder and bile ducts: The gallbladder is contracted, limiting its assessment. No definite stones identified. There is no biliary ductal dilation. Pancreas: The pancreas is normal with no ductal dilation. Spleen: Spleen is relatively small, measuring 6.5 x 6.0 cm. Adrenals: The adrenal glands are normal. The adrenal glands are normal. Kidneys and ureters: Mild diffuse thinning of the renal parenchyma is seen, indicating atrophy. There are no ureteral stones or hydronephrosis. Stomach and bowel: No significant dilation or thickening of the colon is seen however there is fluid in the colon which is abnormal. Fluid levels are seen as far distally as the rectum. The small bowel appears unremarkable. Appendix: The appendix is not specifically identified. Intraperitoneal space: There is a small amount of free fluid in the pelvis. There is no free intraperitoneal air. Vasculature: The aorta demonstrates mild atherosclerotic calcification. There is no abdominal aortic aneurysm or evidence of dissection. Lymph nodes: No lymphadenopathy is seen. Bladder: The bladder is unremarkable. No stones identified. Reproductive: The uterus is unremarkable. Bones/joints: The bones are osteopenic. Soft tissues: Unremarkable. IMPRESSION: 1. Fluid levels throughout the colon which is abnormal but nonspecific. No dilation or thickening of the colon identified. 2. Mild parenchymal thinning in the kidneys, consistent with the given history of renal disease. 3. Bilateral pleural effusions, left larger than right. Electronically signed by: Jazz Bowen On 06/02/2019 07:26:02 AM
[2019-06-02] MEDS ORDERED: NS 1,000 ML IV SCH ×2 (09:00→09:23)
--- NOTE | 2019-06-02 10:55 | HPEPDOC ---
General Date of Admission Jun 02, 2019 at 09:23 Date of Service: Jun 02, 2019 Attending Physician: RISSA MCCRACKEN DO Chief Complaint The patient is a 29-year-old female admitted with a reason for visit of Clostridium Difficule Infection Diabetes Mellitus. Source: Patient, Family Exam Limitations: No limitations Timing/Duration: 24 hours Severity: Severe History of Present Illness Patient is 29 years old female with past medical history of end-stage renal diseases on dialysis, hypertension, diabetes mellitus type 2, Mason syndrome, diabetic neuropathy and nephropathy, legally blind presented hospital with GI bleed. Her mother who was present in the room provided most of the history, she stated that Ihsan has been having diarrhea for a few weeks and yesterday she had a nausea and vomiting a few times. Yesterday evening patient noticed that her stool covered with red blood. Today patient became dizzy, she has lightheadedness and increased bowel movements with BRBPR. . In Emergency room patient was found to have hemoglobin of 7.7, she received 1 unit of blood transfusion. Patient was found to have elevated blood pressure of 185/95 with heart rate 120s. Abdominal CAT scan was done and showed no perforation in the abdominal cavity. Test for C.diff came back positive. During my conversation with family, her mother and patient were very reluctant about any invasive procedures including emergent colonoscopy. I multiple times explained the necessity of possible colonoscopy or upper endoscopy if GI bleeding does not stop. Of note, patient has a long history of noncompliance to medical regimen including dialysis. Home Medications Scheduled Carvedilol (Carvedilol) 6.25 Mg Tablet, 12.5 MG PO DAILY, (Reported) TAKES AROUND NOON Allergies Coded Allergies: No Known Allergies (Unverified , 01/19/19) Family History Father has hypertension, mother healthy Social History * Smoker: Denies Alcohol: Denies Drugs: denies Psychosocial History: No pertinent psych hx, Personality disorder NOS A-FIB/CHADSVASC A-FIB History Current/History of A-Fib/PAF?: No Current PO Anticoag Therapy: No Review of Systems Constitutional: Reports: Weakness, Fatigue; Denies: Chills, Fever Eyes: Denies: Vision change, Conjunctivae inflammation ENT: Denies: Dysphagia Skin: Denies: Rash, Jaundice Pulmonary: Denies: Dyspnea Cardiovascular: Denies: Chest Pain, Palpitations Gastrointestinal: Reports: Nausea, Vomiting, Diarrhea, Hematochezia, Other Symptoms (stool with red blood) Genitourinary: Denies: Dysuria Hematologic: Denies: Bruising, Bleeding Excessively Endocrine: Denies: Polydipsia Musculoskeletal: Denies: Neck Pain, Back Pain Neurological: Denies: Weakness, Numbness Psych: Reports: Mood Normal Physical Examination General Exam: Positive: Alert, Cooperative, Moderate Distress Eye Exam: Positive: PERRLA, Conjunctiva & lids normal, EOMI ENT Exam: Positive: Atraumatic, Mucous membr. moist/pink Neck Exam: Positive: Supple; Negative: JVD Chest Exam: Positive: Diminished Heart Exam: Positive: Tachycardic Telemetry: Positive: No significant arrhythmia Abdomen Exam: Positive: BS Hyperactive Extremity Exam: Negative: Clubbing, Cyanosis Skin Exam: Negative: Lesion Neuro Exam: Positive: Cranial Nerves 3-12 NL Psych Exam: Positive: Mental status NL Vital Signs Vital Signs Date Time Temp Pulse Resp B/P (MAP) Pulse Ox O2 Delivery O2 Flow Rate FiO2 06/02/19 09:15 99.2 117 175/94 (121) 100 Room Air 06/02/19 05:15 20 Laboratory Data Labs 24H Laboratory Tests 2 06/02/19 05:09: Nucleated Red Blood Cells % (auto) 0.0, Neutrophils 71H, Lymphocytes (Manual) 18, Monocytes (Manual) 7H, Eosinophils (Manual) 1, Basophils (Manual) 1, Atypical Lymphocytes 2, Platelet Estimate NORMAL, Polychromasia 1+, Hypoch romasia 1+, Poikilocytosis 1+, Anisocytosis 1+ 06/02/19 05:28: Prothrombin Time 14.7H, Prothromb Time International Ratio 1.18, Activated Partial Thromboplast Time 27.9, Anion Gap 3L, Glomerular Filtration Rate 20.4L, Lactic Acid Level 1.1, Calcium Level 7.0L, Aspartate Amino Transf (AST/SGOT) 10, Alanine Aminotransferase (ALT/SGPT) 9L, Alkaline Phosphatase 76, Total Bilirubin 0.2, Direct Bilirubin < 0.1, Total Protein 4.7L, Albumin 2.1L, Albumin/Globulin Ratio 0.81L, Lipase 174, Human Chorionic Gonadotropin, Qual NEGATIVE CBC/BMP Laboratory Tests 06/02/19 05:09 Red Blood Count 2.67 L, Mean Corpuscular Volume 91.8, Mean Corpuscular Hemoglobin 28.8, Mean Corpuscular Hemoglobin Concent 31.4 L, Red Cell Distribution Width 18.0 H 06/02/19 05:28 Microbiology Microbiology 06/02/19 Blood Culture, Received Pending 06/02/19 Blood Culture, Received Pending 06/02/19 Gastrointestinal Tract Panel (PCR) - Final, Complete Clostridium Difficile A/B Assessment/Plan Patient is 29 years old female with past medical history of end-stage renal diseases on dialysis, hypertension, diabetes mellitus type 2, Mason syndrome, diabetic neuropathy and nephropathy, legally blind presented hospital with GI bleed BRBPR. In Emergency room patient was found to have hemoglobin of 7.7, she received 1 unit of blood transfusion. Patient was found to have elevated blood pressure of 185/95 with heart rate 120s. Abdominal CAT scan was done and showed no perforation in the abdominal cavity. Test for C.diff came back positive. Problems (1) GI bleeding Status: Acute Problem Text: Most likely lower GI bleed there is possibility for upper GI bleed as well IV fluid, blood transfusion 1 unit given IV Protonix Will transfuse if hemoglobin less than 7 Appreciate/agree with surgical consult for possible colonoscopy and endoscopy (2) Clostridium difficile infection Status: Acute Problem Text: Vancomycin by mouth No history of recent antibiotic exposure Appreciate/agree with ID recommendation (3) Diabetes mellitus Status: Chronic Problem Text: Patient has a long history of noncompliance, she did not take any diabetes medications in the outpatient settings Insulin sliding scale (4) ESRD (end stage renal disease) on dialysis Status: Chronic Problem Text: Patient had dialysis yesterday She has/agree with adjunct professor recommendation, continue dialysis in the hospital settings (5) Anemia in chronic kidney disease Status: Acute Problem Text: Secondary to end-stage renal diseases Patient received blood transfusion in emergency room Continue to monitor H&H every 6 hours (6) Hypertensive urgency Status: Acute Problem Text: Hydralazine IV when necessary with parameters Continue Carvedilol Plan / VTE VTE Prophylaxis Ordered?: No VTE Exclusion Pharmacological: Active Bleeding RISSA MCCRACKEN DO Jun 02, 2019 10:55
[2019-06-02] MEDS ORDERED: hydrALAZINE INJ 20 MG/ML VIAL IV PRN (11:00)
[2019-06-02] MEDS ORDERED: hydrALAZINE INJ 20 MG/ML VIAL As Ordered ONE (11:12)
[2019-06-02] MEDS ORDERED: GLUCOSE 4 GM CHEW TABLET PO PRN (11:15)
[2019-06-02] MEDS ORDERED: DEXTROSE 50% 50 ML SYRINGE IV PRN (11:15)
[2019-06-02] MEDS ORDERED: GLUCAGON FOR INJ 1 MG VIAL (J1610) SC PRN (11:15)
[2019-06-02] MEDS: VANCOMYCIN ORAL SOL 250MG/5ML ORAL SYRINGE PO SCH ×3 (11:24→23:56)
[2019-06-02] MEDS ORDERED: LABETALOL HCL 100 MG/20 ML VIAL IV PRN (11:45)
[2019-06-02] MEDS: HumaLOG INSULIN (NovoLOG) PER UNIT SC SCH ×2 (12:00→18:00)
[2019-06-02] MEDS: SUCRALFATE SUSP 1GM/10ML UD NG SCH ×3 (12:00→23:56)
[2019-06-02] MEDS: OCTREOTIDE ACETATE 100 MCG/ML VIAL (J2354) IV SCH ×2 (12:15→20:49)
[2019-06-02] MEDS: PANTOPRAZOLE 40MG INJ (PROTONIX) (C9113) IV SCH ×2 (12:35→20:49)
[2019-06-02] MEDS: NS 1,000 ML IV SCH ×2 (12:44→17:59)
[2019-06-02] MEDS: CARVedilol 12.5 MG TAB PO SCH (14:06)
[2019-06-02] MEDS ORDERED: LABETALOL HCL 100 MG/20 ML VIAL IV STA ×2 (14:07→16:07)
[2019-06-02 15:04] LABS: HEMATOCRIT 28.8 % (36.0-47.0); HEMOGLOBIN 9.5 g/dl (12.0-15.5)
[2019-06-02 15:16] LABS: INR 1.22; PROTHROMBIN TIME 15.1 SECONDS (11.8-14.0)
--- NOTE | 2019-06-02 17:28 | REP ---
All chest, 05:01 p.m., single AP view with the patient sitting, post NG tube placement: Comparison is a 08/24/2019. There is a nasogastric tube terminating satisfactorily in the gastric fundus. The right lung is clear. The dome of the left hemidiaphragm is partially obscured. This could represent a left pleural effusion or left lower lobe infiltrate. The remainder of the left lung is clear. There is a right IJ dual lumen central venous catheter with the tips in the right atrium in satisfactory position, unchanged. Cardiac size is normal. The justen, mediastinum, skeletal structures are unremarkable. Impression: The NG tube tip is in satisfactory position in the gastric fundus. Question left lower lobe effusion/infiltrate. Electronically Signed by Timi Dupree MD 06/02/2019 05:19 P
--- NOTE | 2019-06-02 17:43 | CR ---
DATE OF CONSULTATION: 06/02/2019 BRIEF HISTORY OF PRESENT ILLNESS: The patient is a 29-year-old with Mason syndrome who has renal failure, is on hemodialysis, went to dialysis last night and then after dialysis developed severe diarrhea and blood per rectum when she was discharged to home after dialysis. She has had some diarrhea that has been going on for quite awhile but noticed that over the last few weeks it has been a little bit worse than it had been previously. She had developed some nausea and vomiting as well. She has become it sounds as though orthostatic with some lightheadedness with increasing activity. She presents with a hemoglobin of 7.7 and her Clostridium (C) difficile was positive. While she was in the emergency room, she had some hematemesis. This was after multiple episodes of nausea and vomiting. PAST MEDICAL HISTORY: Significant for a history of end-stage renal disease on dialysis, hypertension, diabetes mellitus, Mason syndrome, diabetic neuropathy, nephropathy, legally blind with poor medication compliance. MEDICATIONS: Include carvedilol. PHYSICAL EXAMINATION: Reveals a disheveled 29-year-old covered in her stool and appears in distress from current issues. Her physical exam reveals lungs which are clear anteriorly, although diminished significantly on the left side more than the right. Heart is regular and tachycardiac. Abdomen is soft, nondistended, nontender. IMPRESSION AND PLAN: The patient had hematemesis. I placed a nasogastric (NG) tube in and there was some minimal blood but I did not get a significant amount and I anticipate this is from the vomiting, probably developed the equivalent of a Arpita Posada tear and it seems like it is under control at this time, so an NG tube overnight is reasonable to monitor her. If she has ongoing upper GI bleed, proceeding with an upper endoscopy is warranted, but we will keep her on some octreotide, keep her nothing by mouth, IV fluids, Carafate, Prilosec, and I recommend aggressive treatment of the Clostridium (C) difficile colitis. Unfortunately, I anticipate the bright red blood per rectum is most likely secondary to the ongoing C. difficile colitis and I anticipate as that gets under control and the infection is treated then the bleeding issues should improve as well. I would recommend avoided endoscopic intervention with an active C. difficile infection unless absolutely necessary at this time and giving it some time to work with the antibiotics given that she has a benign abdomen otherwise and while I was seeing her in the emergency room and then again up in the intensive care unit she did no longer have any bloody stools.
[2019-06-02 19:09] LABS: HEMATOCRIT 26.3 % (36.0-47.0); HEMOGLOBIN 8.6 g/dl (12.0-15.5)
[2019-06-02] MEDS ORDERED: ONDANSETRON 4MG/2ML VIAL (J2405) As Ordered ONE (20:55)
[2019-06-02] MEDS: LABETALOL HCL 100 MG/20 ML VIAL IV PRN (21:26)
[2019-06-02 23:06] LABS: HEMATOCRIT 23.1 % (36.0-47.0); HEMOGLOBIN 7.5 g/dl (12.0-15.5)
[2019-06-03] VITALS (26 sets, daily range): BP systolic 132–220; BP diastolic 87–129
[2019-06-03 03:07] LABS: HEMATOCRIT 21.9 % (36.0-47.0); HEMOGLOBIN 7.2 g/dl (12.0-15.5)
[2019-06-03 03:10] LABS: HEMATOCRIT 22.9 % (36.0-47.0); HEMOGLOBIN 7.4 g/dl (12.0-15.5); MEAN CORPUSCULAR HEMOGLOBIN 28.8 pg (27.0-33.0); MEAN CORPUSCULAR HGB CONC 32.3 g/dl (32.0-36.5); MEAN CORPUSCULAR VOLUME 89.1 fl (80.0-96.0); RED BLOOD COUNT 2.57 10^6/uL (4.00-5.40); WHITE BLOOD COUNT 11.7 10^3/uL (4.0-10.0)
[2019-06-03 03:11] LABS: PLATELET COUNT, AUTOMATED 196 10^3/uL (150-450)
[2019-06-03 03:33] LABS: CALCIUM LEVEL 7.1 MG/DL (8.5-10.1); CREATININE FOR GFR 4.01 MG/DL (0.55-1.30); MAGNESIUM LEVEL 2.1 MG/DL (1.8-2.4); POTASSIUM SERUM 4.3 MEQ/L (3.5-5.1)
[2019-06-03] MEDS: OCTREOTIDE ACETATE 100 MCG/ML VIAL (J2354) IV SCH ×3 (05:53→20:06)
[2019-06-03] MEDS: SUCRALFATE SUSP 1GM/10ML UD NG SCH ×4 (05:53→23:06)
[2019-06-03] MEDS: LABETALOL HCL 100 MG/20 ML VIAL IV PRN ×3 (05:54→20:48)
[2019-06-03] MEDS: VANCOMYCIN ORAL SOL 250MG/5ML ORAL SYRINGE PO SCH ×4 (05:54→23:06)
[2019-06-03] MEDS: HumaLOG INSULIN (NovoLOG) PER UNIT SC SCH ×5 (06:00→23:06)
[2019-06-03] MEDS ORDERED: LABETALOL HCL 100 MG/20 ML VIAL IV STA ×2 (06:57→17:14)
[2019-06-03 07:23] LABS: HEMATOCRIT 22.7 % (36.0-47.0); HEMOGLOBIN 7.4 g/dl (12.0-15.5)
[2019-06-03] MEDS: PANTOPRAZOLE 40MG INJ (PROTONIX) (C9113) IV SCH ×2 (08:21→20:06)
[2019-06-03] MEDS: D5W/0.9% SODIUM CHLORIDE 1,000 ML IV SCH ×2 (08:22→20:06)
[2019-06-03] MEDS ORDERED: LISINOPRIL 5 MG TAB PO SCH (09:00)
--- NOTE | 2019-06-03 10:12 | IPNPDOC ---
Text Note Date of Service The patient was seen on 06/03/19. NOTE Subjective: Patient continues to have diarrhea with BRBPR. Overnight she had 2 bowel movements Patient states that she wanted to eat. She denies fever, chills, shortness of breath, chest pain. Objective: General: in moderate distress, disheveled female with poor oral hygiene Eye Exam: Positive: PERRLA, Conjunctiva & lids normal, EOMI ENT Exam: Positive: Atraumatic, Mucous membr. moist/pink Neck Exam: Positive: Supple; Negative: JVD Chest Exam: Positive: Diminished bilaterally Heart Exam: Positive: Tachycardic Telemetry: Positive: No significant arrhythmia Abdomen Exam: Positive: BS Hyperactive Extremity Exam: Negative: Clubbing, Cyanosis Skin Exam: Negative: Lesion Neuro Exam: Positive: Cranial Nerves 3-12 NL Psych Exam: Positive: Mental status NL Assessment and plan: Patient is 29 years old female with past medical history of end-stage renal diseases on dialysis, hypertension, diabetes mellitus type 2, Mason syndrome, diabetic neuropathy and nephropathy, legally blind presented hospital with GI bleed BRBPR. In Emergency room patient was found to have hemoglobin of 7.7, she received 1 unit of blood transfusion. Patient was found to have elevated blood pressure of 185/95 with heart rate 120s. Abdominal CAT scan was done and showed no perforation in the abdominal cavity. Test for C.diff came back positive. Treatment with by mouth vancomycin initiated. Treatment with Protonix IV, blood transfusion, IV fluid initiated. Also patient was found to have hypertensive urgency, she received treatment with labetalol IV when necessary. (1) GI bleeding Status: Acute Problem Text: Most likely lower GI bleed there is possibility for upper GI bleed as well, differential diagnosis includes Arpita-Posada tears, peptic ulcer, AVM IV fluid, blood transfusion 1 unit given on admission. Today hemoglobin is 7.4. We'll give blood transfusion during dialysis IV Protonix Will transfuse if hemoglobin less than 7 surgical team follows her. Dr. Macario recommended to postpone colonoscopy due to C. difficile colitis. If she continues to bleed he recommend EGD. Continues nothing by mouth (2) Clostridium difficile infection Status: Acute Problem Text: Vancomycin by mouth day 1 For past 4 weeks patient received treatment with multiple antibiotics including clindamycin due to pneumonia and tooth abscess. Follows ID recommendation (3) Diabetes mellitus Status: Chronic Problem Text: Patient has a long history of noncompliance, she did not take any diabetes medications in the outpatient settings Insulin sliding scale Glucose levels under control Social service (4) ESRD (end stage renal disease) on dialysis Status: Chronic Problem Text: Dialysis today Blood transfusion during dialysis today (5) Anemia in chronic kidney disease Status: Chronic Problem Text: Secondary to end-stage renal diseases Patient received blood transfusion in emergency room Continue to monitor H&H every 6 hours (6) Hypertensive urgency Status: Acute Problem Text: Hydralazine has been changed by family request to labetalol IV when necessary Lisinopril 20 mg Continue Carvedilol VS,Fishbone, I+O VS, Fishbone, I+O Laboratory Tests 06/02/19 14:50 06/02/19 19:00 06/02/19 22:59 06/03/19 02:56 Red Blood Count 2.57 L, Mean Corpuscular Volume 89.1, Mean Corpuscular Hemoglobin 28.8, Mean Corpuscular Hemoglobin Concent 32.3, Red Cell Distribution Width 18.8 H, Calcium Level 7.1 L 06/03/19 07:14 Vital Signs Date Time Temp Pulse Resp B/P (MAP) Pulse Ox O2 Delivery O2 Flow Rate FiO2 06/03/19 08:22 175/91 06/03/19 08:00 99.5 103 20 98 06/02/19 09:15 Room Air I&O- Last 24 Hours up to 6 AM 06/03/19 06:00 Intake Total 1506 ml Balance 1506 ml RISSA MCCRACKEN DO Jun 03, 2019 10:12
[2019-06-03] MEDS ORDERED: HEPARIN 1,000 UNITS/ML 10ML VIAL (FOR RADIOLOGY& DIALYSIS ONLY) XX ONE (10:30)
[2019-06-03] MEDS ORDERED: HEPARIN 1,000 UNITS/ML 10ML VIAL (FOR RADIOLOGY& DIALYSIS ONLY) IV ONE (10:30)
[2019-06-03 11:21] LABS: HEMATOCRIT 22.5 % (36.0-47.0); HEMOGLOBIN 7.4 g/dl (12.0-15.5)
[2019-06-03] MEDS: CARVedilol 12.5 MG TAB PO SCH (11:21)
--- NOTE | 2019-06-03 11:56 | CR ---
DATE OF CONSULTATION: 06/02/2019 REASON FOR CONSULTATION: Clostridium (C) difficile colitis. HISTORY OF PRESENT ILLNESS: Ihsan is a 29-year-old female with a history of diabetes, end-stage renal disease and Mason syndrome. The patient was admitted with diarrhea, which she had for weeks. The patient states she always has diarrhea, but now it was associated with nausea, vomiting and rectal bleeding. The patient was anemic with a hemoglobin of 7.7. She received transfusion. She was transferred to the ICU due to systolic blood pressure of over 200 and diastolic over 120. The patient had a CT of the abdomen and pelvis which showed nonspecific bowel gas pattern with fluid levels throughout the colon, medical renal disease and bilateral pleural effusions. The patient has been in the ICU since this morning. She has a low grade temperature of 99.2. She has had no bowel movement since in the ICU. She states she is hungry and wants to eat. She has had an NG tube placed. PAST MEDICAL HISTORY IS SIGNIFICANT FOR: End-stage renal disease on dialysis. She states she has been compliant with her dialysis in the past month. Hypertension, type 2 diabetes. Most recent HbA1c was 5.7. The patient has had some 15-pound weight loss. 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 The patient has refused colonoscopy. ALLERGIES: No known drug allergies. FAMILY HISTORY: Hypertension. Mother is healthy. SOCIAL HISTORY: She denies alcohol, use of drugs or smoking. She lives with her mother. REVIEW OF SYSTEMS: She does complain of some dizziness. She had some nausea and vomiting which was projectile this morning, but now it has resolved. She feels better since the NG tube was placed. She does have some urinary output and denies dysuria or hematuria. No bruising. No neck pain or back pain. PHYSICAL EXAMINATION: She is a frail, sick looking female in no acute distress. Vital signs: Temperature is 99.1, pulse 106, respirations 20, blood pressure 198/120, oxygen saturation 98% on room air. Heart: Normal S1-S2 tachycardiac. No murmurs appreciated. Abdomen is soft, nontender. No hepatosplenomegaly. Back: No CVA tenderness. Extremities: No clubbing or cyanosis. Oropharynx dry mucosa. NG tube in place. Neurologic exam: Cranial nerves normal. Motor strength normal. Blindness. Chest wall: Left thoracotomy from previous history of cardiac surgery. PAST SURGICAL HISTORY: Coarctation of aorta, AV fistula, right IJ tunneled central venous catheter was placed for hemodialysis on 08/24/[address] Sauer and February 14, 2019 IJ catheter was removed by Dr. Sauer. LABORATORY: White count 8.9, hemoglobin 7.7, hematocrit 24.5, platelets 297. Repeat hemoglobin was 9.5, hematocrit 28.8, 71% neutrophils, 18% lymphocytes, 7% monocytes. Sodium 144, potassium 4.1, chloride 107, bicarbonate 34, BUN 21, creatinine 2.8, glucose 189, lactic acid 1.1, calcium 7, bilirubin 0.2, AST 10, ALT 9, alkaline phosphatase 76, total protein 4.7, albumin 2.1, lipase 174. HCG negative. C diff was negative on 05/19/2019, was positive by GI panel on 06/02/2019. Blood cultures are pending. IMPRESSION: This is a 29-year-old female admitted with C difficile colitis and rectal bleeding. This is her first episode of C difficile. She has been started on vancomycin 125 mg every 6 hours. The patient also has severe hypertension and therefore has been placed in the ICU for monitoring. PLAN: Continue with vancomycin 125 mg by mouth every 6 hours. The use of broad-spectrum antibiotics for the next two months to prevent recurrence of episodes. Encourage using probiotics or Kefir and yogurt. Discussed with the patient if gastrointestinal (GI) bleeding continues, then she will need a colonoscopy as her previous episode of severe anemia in early May was not associated with Clostridium difficile. MEDICATIONS: Labetalol 10 mg IV every 4 hours as needed, Sandostatin 100 mg IV every 8 hours, vancomycin 125 mg by mouth every 6 hours, Coreg 12.5 mg by mouth daily, Carafate 1 gram per NG every 6 hours, pantoprazole 40 mg IV twice a day.
--- NOTE | 2019-06-03 13:37 | IPN ---
DATE: 06/03/2019 The patient overnight has been stable. Hematocrit has been stable overnight. She continues to have diarrhea with some minimal flecks of blood within it but not a significant "bloody stool" per se. Her nasogastric (NG) tube was in and has some bilious output, but no bloody drainage at this time either. She has been afebrile yesterday with a slight temperature this morning of 99.5. Otherwise, had has six bowel movements yesterday, three this morning. She does have slight leukocytosis this morning. IMPRESSION/PLAN: The patient's NG tube is putting out bilious fluid and with minimal blood from the rectum suggest that this is not an upper gastrointestinal (GI) source. Thus, the upper GI etiology is most likely as I mentioned earlier from her vomiting with nausea and vomiting that occurred prior to admission and since this is resolved, I do not feel further urgent or emergent intervention is necessary for this. I would still continue with her treatment for her upper GI tract i.e. proton pump inhibitors and Carafate, but otherwise no further intervention is necessary at this point. However, if she does end up getting a colonoscopy at some point in the future it is not unreasonable to proceed with an upper endoscopy as well at that time. Second issue is dietary. We can start her on a clear liquid and from my standpoint can be progressed as tolerated. Next issue infectious disease. Her colitis/Clostridium (C) difficile colitis is the most likely etiology for her rectal bleeding, and I anticipate once that has resolved/diarrhea has resolve, C difficile has resolved I anticipate the bleeding will resolve. If however, this is an ongoing issue she may need followup colonoscopy. Please contact us if you have any desire to pursue that avenue when she is stabilized from a medical standpoint.
--- NOTE | 2019-06-03 14:27 | CR ---
DATE OF CONSULTATION: 06/02/2019 REASON FOR CONSULTATION: To assist in the management of end-stage renal disease. HISTORY OF PRESENT ILLNESS: Ms. Adamson is a 29-year-old female with known history of type 1 diabetes complicated with end-stage renal disease, history of Mason syndrome, history of hypertension, legally blind, who presented to the emergency room with gastrointestinal (GI) bleed. She is regularly dialyzed on Thursday, Thursday and Thursday schedule and did have her last dialysis on Thursday evening. The patient was found to have hemoglobin down in the 7s. She also had history of diarrhea prior to this admission and was found to have Clostridium difficile positive in the emergency room. She is now admitted to the intensive care unit. She has received 2 units of packed red blood cells (RBCs). The patient has a nasogastric tube in place as she also vomited coffee-ground material. A nephrology consultation was requested and the patient is seen in the intensive care unit this evening. The patient has a long history of renal failure and uremia; however, her mother had declined dialysis for almost 6 months. She was recently admitted with uremia complicated with uremic pericarditis and had started dialysis just couple of weeks ago. PAST MEDICAL HISTORY (Significant for): 1. History of longstanding diabetes. 2. Hypertension. 3. End-stage renal disease secondary to most likely diabetic nephropathy. 4. Diabetic retinopathy, legally blind. 5. Mason syndrome. 6. Anemia of chronic kidney disease. 7. 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 PAST SURGICAL HISTORY (Significant for): Perma-Cath placement and removal and another Perma-Cath placement recently. ALLERGIES: She has NO KNOWN DRUG ALLERGIES. MEDICATIONS: She is supposed to take carvedilol 25 mg twice a day, but probably is not taking it as prescribed. FAMILY HISTORY: Negative for end-stage renal disease. Father reportedly has hypertension. PERSONAL AND SOCIAL HISTORY: The patient has no history of smoking or alcohol use. She has been under the care of her mother who has been mostly making all her decisions. Unfortunately, her mother does not have much understanding and has been declining care and she has done many decisions against medical advice. REVIEW OF SYSTEMS: The patient denies any fever or chills. She had diarrhea for several days which she felt was caused by carvedilol. The rectal bleeding started yesterday. She is legally blind from both eyes. Currently, she has a nasogastric tube in place and she complains of dry mouth. Cardiovascular system is significant for hypertension and recent history of pericardial effusion due to uremic pericarditis. Respiratory system is negative for cough or hemoptysis. She does have history of bilateral pleural effusions. Hematological system is significant for anemia due to uremia and advanced renal failure. She was transfused during her recent hospitalization. Now she presented with rectal bleeding and also had coffee-ground vomiting. She has a nasogastric tube in place. Genitourinary () system is significant for end-stage renal disease. Psychosocial system is significant for noncompliance, basically due to her mother's denial about her condition. PHYSICAL EXAMINATION: Young lady who looks much smaller than her stated age. She is blind from both eyes. Nasogastric tube is in place. Temperature 99 degrees Fahrenheit, heart rate 104 per minute and respiratory rate 20 per minute. Blood pressure 153/112 mmHg and oxygen saturation 94% on room air. Head is atraumatic. Neck veins are not abnormally distended. Perma-Cath is in place in right internal jugular vein. Heart sounds are tachycardiac and without a pericardial friction rub. Lungs sound clear to auscultation. Abdomen is soft with mild tenderness in the right lower quadrant. Bowel sounds are present. Extremities without any cyanosis or clubbing. Neurologically, she is awake and moving all her limbs. LABORATORY DATA: On admission, hemoglobin 7.7 and hematocrit 24.5. WBC count 8.9 and platelets 297. Repeat hemoglobin was 9.5 and the most recent one is down to 8.6 again and hematocrit is 26.3. Sodium 144, potassium 4.1, CO2 34, BUN 21 and creatinine 2.88. Glucose 189, lactic acid 1.1, calcium 7.0, total protein 4.7 and albumin 2.1. PROBLEMS: 1. End-stage renal disease. The patient was dialyzed yesterday and her regular dialysis days are Thursday, Thursday and Thursday schedule. At this point, there is no emergent need for dialysis and we will reevaluate her tomorrow for need for dialysis if she is stable. 2. Acute blood loss anemia. She has history of anemia due to advanced renal failure and lack of treatment for more than 6 months. Now, she has GI bleed with acute blood loss and has been transfused 2 units of packed RBCs already. She is likely to require further transfusion. She is currently receiving IV fluid at 125 mL per hour and I would recommend to cut it down to about 75 mL per hour as she weighs only about 38 kg. 3. Hypertension. Blood pressure is still not well controlled. I would recommend increasing carvedilol dose to 25 mg twice a day. 4. Diarrhea with C. diff colitis. She has been started on oral vancomycin 125 mg every 6 hours. She still has some loose stools and is nothing by mouth (n.p.o.) currently with IV fluid going. 5. GI bleed, etiology remains uncertain. She has been very well dialyzed for the last couple of weeks and I would not expect her to have uremic GI bleed now. She should have upper and lower endoscopies. Thank you for involving me in the care of Ms. Adamson. I will follow her along with you.
[2019-06-03 15:02] LABS: HEMATOCRIT 27.8 % (36.0-47.0); HEMOGLOBIN 9.1 g/dl (12.0-15.5)
[2019-06-03] MEDS ORDERED: LISINOPRIL 40 MG TAB PO ONE (17:15)
[2019-06-03 19:37] LABS: HEMATOCRIT 30.1 % (36.0-47.0); HEMOGLOBIN 10.1 g/dl (12.0-15.5)
--- NOTE | 2019-06-03 20:57 | IPN ---
DATE: 06/03/2019 Ms. Adamson was admitted yesterday with a gastrointestinal (GI) bleed. She had a nasogastric (NG) tube placed, which did have some coffee-ground material. She also has tested positive for Clostridium difficile (C diff) and had frequent diarrhea. She was seen by surgery and Dr. Macario has recommended to treat her conservatively due to risk for perforation as she has C diff colitis. In the meantime, she was transfused two units of packed red blood cells (RBCs) yesterday and hemoglobin initially improved to 9.5. However, this morning it has come down to 7.4. Her blood pressure has been high, and she has been receiving intravenous (IV) fluid rate 75 mL per hour. Hospitalist service is adjusting her medications. Temperature 98 degrees Fahrenheit, heart rate 96 per minute, respiratory rate 20 per minute. Blood pressure has been as low as 171/95 and as high as 220/107 mmHg. She is blind from both eyes. Head is atraumatic. Neck veins are not abnormally distended. Dialysis catheter and right internal jugular vein is intact. Heart sounds regular and lungs clear to auscultation. Abdomen: Soft and nontender. Bowel sounds are normal. Extremities: Without any cyanosis or clubbing. Today's labs show sodium 146, potassium 4.3, BUN 33 and creatinine 4.0. Calcium 7.1 and magnesium 2.1. Hemoglobin down to 7.4 and hematocrit 22.7. PROBLEMS: 1. Acute GI bleed with blood loss anemia. At present, she will get two more units of blood transfused during dialysis. She is being treated with Protonix for possible gastritis and will probably require an endoscopy at least at a later time. We will not use any heparin during dialysis. 2. End-stage renal disease. The patient is due for dialysis today, and we will dialyze her on her bedside. We will try to remove only about 1 liter of fluid. 3. Hypertension. Blood pressure is quite high today and antihypertensive is being adjusted by the hospitalist service. We anticipate some improvement in her blood pressure with dialysis and fluid removal. I would suggest to avoid excessive IV fluids due to risk of hypervolemia and further worsening of hypertension. 4. Clostridium difficile colitis with diarrhea. The patient is being treated with oral vancomycin.
[2019-06-03] MEDS ORDERED: ONDANSETRON 4MG/2ML VIAL (J2405) IV PRN (22:00)
[2019-06-03 22:57] LABS: HEMATOCRIT 30.8 % (36.0-47.0); HEMOGLOBIN 10.3 g/dl (12.0-15.5)
[2019-06-04] VITALS (23 sets, daily range): BP systolic 123–221; BP diastolic 66–113
[2019-06-04] MEDS: LABETALOL HCL 100 MG/20 ML VIAL IV PRN ×2 (01:49→05:51)
[2019-06-04 02:51] LABS: HEMATOCRIT 30.5 % (36.0-47.0); HEMOGLOBIN 10.2 g/dl (12.0-15.5)
[2019-06-04] MEDS ORDERED: ONDANSETRON 4MG/2ML VIAL (J2405) IV SCH (04:00)
[2019-06-04] MEDS: OCTREOTIDE ACETATE 100 MCG/ML VIAL (J2354) IV SCH ×3 (04:40→20:06)
[2019-06-04] MEDS: SUCRALFATE SUSP 1GM/10ML UD NG SCH ×4 (05:50→23:46)
[2019-06-04] MEDS: VANCOMYCIN ORAL SOL 250MG/5ML ORAL SYRINGE PO SCH ×4 (05:50→23:46)
[2019-06-04] MEDS: HumaLOG INSULIN (NovoLOG) PER UNIT SC SCH ×4 (06:00→23:46)
[2019-06-04] MEDS ORDERED: LABETALOL HCL 100 MG/20 ML VIAL IV PRN (07:00)
[2019-06-04 07:01] LABS: HEMATOCRIT 31.5 % (36.0-47.0); HEMOGLOBIN 10.6 g/dl (12.0-15.5); MEAN CORPUSCULAR HEMOGLOBIN 30.3 pg (27.0-33.0); MEAN CORPUSCULAR HGB CONC 33.7 g/dl (32.0-36.5); PLATELET COUNT, AUTOMATED 168 10^3/uL (150-450); WHITE BLOOD COUNT 9.9 10^3/uL (4.0-10.0)
[2019-06-04 07:22] LABS: CALCIUM LEVEL 7.5 MG/DL (8.5-10.1); CREATININE FOR GFR 2.95 MG/DL (0.55-1.30); GLOMERULAR FILTRATION RATE 19.9 (>60); POTASSIUM SERUM 3.8 MEQ/L (3.5-5.1)
[2019-06-04] MEDS: CARVedilol 12.5 MG TAB PO SCH ×2 (08:10→20:06)
[2019-06-04] MEDS: LISINOPRIL 20 MG TAB PO SCH (08:10)
[2019-06-04] MEDS: amLODIPine 10 MG TAB PO SCH (08:11)
--- NOTE | 2019-06-04 10:27 | IPNPDOC ---
Text Note Date of Service The patient was seen on 06/04/19. NOTE Subjective: Patient 's BP is very elevated SBP around 200-210s. Patient had 3 bowel movement for past 12 hours. Patient states that she wanted to eat. She denies fever, chills, shortness of breath, chest pain. Objective: General: in moderate distress, disheveled female with poor oral hygiene Eye Exam: Positive: PERRLA, Conjunctiva & lids normal, EOMI ENT Exam: Positive: Atraumatic, Mucous membr. moist/pink Neck Exam: Positive: Supple; Negative: JVD Chest Exam: Positive: Diminished bilaterally Heart Exam: Positive: Tachycardic Telemetry: Positive: No significant arrhythmia Abdomen Exam: Positive: BS Hyperactive Extremity Exam: Negative: Clubbing, Cyanosis Skin Exam: Negative: Lesion Neuro Exam: Positive: Cranial Nerves 3-12 NL Psych Exam: Positive: Mental status NL Assessment and plan: Patient is 29 years old female with past medical history of end-stage renal diseases on dialysis, hypertension, diabetes mellitus type 2, Mason syndrome, diabetic neuropathy and nephropathy, legally blind presented hospital with GI bleed BRBPR. In Emergency room patient was found to have hemoglobin of 7.7, she received 1 unit of blood transfusion. Patient was found to have elevated blood pressure of 185/95 with heart rate 120s. Abdominal CAT scan was done and showed no perforation in the abdominal cavity. Test for C.diff came back positive. Treatment with by mouth vancomycin initiated. Treatment with Protonix IV, blood transfusion, IV fluid initiated. Also patient was found to have hypertensive urgency, she received treatment with labetalol IV when necessary. On 06/04/19 the antihypertensive treatment was intensified, labetalol every hour IV when salvatorees gail, carvedilol dose was increased to 25 mg twice a day, added amlodipine 10 mg, lisinopril 40 mg. On 06/03/19 patient received 2 units of blood (1) GI bleeding Status: Acute Problem Text: Most likely lower GI bleed there is possibility for upper GI bleed as well, differential diagnosis includes Arpita-Posada tears, peptic ulcer, AVM IV fluid, blood transfusion 1 unit given on admission. 2 units on 06/03/19. Today hemoglobin is 10.6. IV Protonix Will transfuse if hemoglobin less than 7 surgical team follows her. Dr. Macario recommended to postpone colonoscopy due to C. difficile colitis. If she continues to bleed he recommend EGD. Clear liquid diet (2) Clostridium difficile infection Status: Acute Problem Text: Vancomycin by mouth day 1 For past 4 weeks patient received treatment with multiple antibiotics including clindamycin due to pneumonia and tooth abscess. Follows ID recommendation (3) Diabetes mellitus Status: Chronic Problem Text: Patient has a long history of noncompliance, she did not take any diabetes medications in the outpatient settings Insulin sliding scale Glucose levels under control Social service (4) ESRD (end stage renal disease) on dialysis Status: Chronic Problem Text: Dialysis tomorrow (5) Anemia in chronic kidney disease Status: Chronic Problem Text: Secondary to end-stage renal diseases Patient received blood transfusion in emergency room, On 06/03/19 patient received 2 units of blood Continue to monitor H&H every 6 hours (6) Hypertensive urgency Status: Acute Problem Text: Hydralazine has been changed by family request to labetalol IV when necessary The antihypertensive treatment was intensified labetalol every hour IV when necessary, carvedilol dose was increased to 25 mg twice a day, added amlodipine 10 mg, lisinopril 40 mg VS,Fishbone, I+O VS, Fishbone, I+O Laboratory Tests 06/03/19 11:06 06/03/19 14:50 06/03/19 19:06 06/03/19 22:44 06/04/19 02:45 06/04/19 06:49 Red Blood Count 3.50 L, Mean Corpuscular Volume 90.0, Mean Corpuscular Hemoglobin 30.3, Mean Corpuscular Hemoglobin Concent 33.7, Red Cell Distribution Width 16.3 H, Calcium Level 7.5 L Vital Signs Date Time Temp Pulse Resp B/P (MAP) Pulse Ox O2 Delivery O2 Flow Rate FiO2 06/04/19 09:00 94 192/105 (134) 96 06/04/19 07:53 98.6 18 06/02/19 09:15 Room Air I&O- Last 24 Hours up to 6 AM 06/04/19 06:00 Intake Total 2000 ml Output Total 1850 ml Balance 150 ml RISSA MCCRACKEN DO Jun 04, 2019 10:27
[2019-06-04 10:51] LABS: HEMATOCRIT 31.3 % (36.0-47.0); HEMOGLOBIN 10.4 g/dl (12.0-15.5)
[2019-06-04] MEDS ORDERED: DARBEPOETIN 100 MCG/0.5 ML *DIALYSIS* SYRINGE (J0882) IV SCH (12:00)
--- NOTE | 2019-06-04 14:18 | IPN ---
DATE OF SERVICE: 06/04/2019 SUBJECTIVE: The patient was seen and examined at the bedside today morning in the intensive care unit (ICU). The patient is awake and alert. She denies any active complaints. She was getting very hypertensive, so intravenous (IV) fluids were stopped today morning. The nurse reported that amount of diarrhea is getting better. Her hemoglobin levels are staying stable, and there is no more active gastrointestinal (GI) bleed going on. She was dialyzed yesterday. She tolerated the hemodialysis procedure well. OBJECTIVE: Vital signs: Temperature is 98.6 degrees Fahrenheit, blood pressure 192/105, pulse is 94, respiratory rate of 18, saturating 96% on room air. Intake and output: Urine output recorded is 535 mL so far since overnight. Ultrafiltration with hemodialysis was 1 liter. Weight in the bed scale is 40.1 kg. PHYSICAL EXAMINATION: General: The patient is awake, alert, oriented times two, laying in bed. She is legally blind. Mucous membranes are moist. Neck is supple. There is no jugular venous distention (JVD). She has a left internal jugular (vein) (IJ) tunneled hemodialysis catheter. Cardiovascular: S1, S2, regular rate. Trace edema of the bilateral lower extremities. Respiratory: Chest is clear to auscultation bilaterally. Bilateral equal air entry. No rales or rhonchi. Abdomen: Soft. Positive bowel sounds. Nontender. No organomegaly. Genitourinary: The patient has an indwelling Regalado catheter at this time. Urine in the bag is clear. Musculoskeletal: No clubbing or cyanosis. Pulses are 2+. Central nervous system (SYSTEMS PROGRAM MANAGER): The patient has legal blindness. Otherwise, she is able to move extremities and follow commands. LABORATORY REVIEW: Complete blood count (CBC) showed a WBC of 9.9, hemoglobin 10.4, platelets at 168. Basic metabolic profile (BMP) showed sodium 144, potassium 3.8, chloride 111, bicarbonate 27, BUN 13, creatinine is 2.9, glucose 132, calcium is 7.5. MICROBIOLOGY: Blood cultures are negative so far. CURRENT INPATIENT MEDICATIONS: The patient's medications were all reviewed by me. The patient was getting IV D5 normal saline at 75 mL a hour, which I have stopped now. Her amlodipine is 10 mg daily. Her Coreg dose was increased to 25 mg by mouth twice a day. She also got a dose of labetalol 10 mg IV yesterday. She has been started on lisinopril 20 mg by mouth daily. No other change in the medications today as compared with yesterday. IV Protonix has been stopped. ASSESSMENT AND PLAN: 1. End-stage renal disease. The patient is dialysis dependent. She was dialyzed yesterday. She tolerated her dialysis procedure well. 1 liter of fluid was removed. 2. Hypertension with end-stage renal disease. The patient's blood pressures were very elevated. She is in renal failure. She does not need much IV fluids. IV fluids have been stopped. I see primary team has already been increasing the dose of Coreg. She is also on amlodipine and lisinopril. I believe her blood pressure is going to get better over the next 24 hours. 3. Clostridium (C) difficile colitis diarrhea. The patient is on oral vancomycin. Diarrhea frequency is improving. 4. Acute blood loss anemia. The patient was given 4 units of packed red blood cells (PRBC) transfusion. Her hemoglobin is staying stable at 10.4. I am also going to start the patient on IV Aranesp with dialysis.
[2019-06-04 15:25] LABS: HEMATOCRIT 32.5 % (36.0-47.0); HEMOGLOBIN 10.9 g/dl (12.0-15.5)
[2019-06-04 19:08] LABS: HEMATOCRIT 33.6 % (36.0-47.0); HEMOGLOBIN 11.1 g/dl (12.0-15.5)
[2019-06-04 23:02] LABS: HEMATOCRIT 32.9 % (36.0-47.0)
[2019-06-05] VITALS (15 sets, daily range): BP systolic 119–191; BP diastolic 69–102
[2019-06-05] MEDS: OCTREOTIDE ACETATE 100 MCG/ML VIAL (J2354) IV SCH (04:59)
[2019-06-05] MEDS: VANCOMYCIN ORAL SOL 250MG/5ML ORAL SYRINGE PO SCH ×3 (05:00→18:23)
[2019-06-05] MEDS: SUCRALFATE SUSP 1GM/10ML UD NG SCH ×2 (05:00→11:53)
[2019-06-05 05:24] LABS: HEMATOCRIT 32.5 % (36.0-47.0); HEMOGLOBIN 10.9 g/dl (12.0-15.5); MEAN CORPUSCULAR HEMOGLOBIN 30.4 pg (27.0-33.0); MEAN CORPUSCULAR HGB CONC 33.5 g/dl (32.0-36.5); MEAN CORPUSCULAR VOLUME 90.8 fl (80.0-96.0); PLATELET COUNT, AUTOMATED 168 10^3/uL (150-450); RED BLOOD COUNT 3.58 10^6/uL (4.00-5.40); WHITE BLOOD COUNT 15.2 10^3/uL (4.0-10.0)
[2019-06-05] MEDS: HumaLOG INSULIN (NovoLOG) PER UNIT SC SCH ×2 (05:28→11:54)
[2019-06-05 05:42] LABS: CALCIUM LEVEL 7.2 MG/DL (8.5-10.1); CREATININE FOR GFR 4.25 MG/DL (0.55-1.30); POTASSIUM SERUM 3.4 MEQ/L (3.5-5.1)
[2019-06-05] MEDS ORDERED: CALCIUM GLUCONATE IV ONE (06:45)
[2019-06-05] MEDS ORDERED: NS MINI IV ONE (06:45)
[2019-06-05] MEDS ORDERED: POTASSIUM CHLORIDE 10 MEQ SR TABLET PO ONE (06:45)
[2019-06-05] MEDS: LISINOPRIL 20 MG TAB PO SCH (08:13)
[2019-06-05] MEDS: CARVedilol 12.5 MG TAB PO SCH (08:13)
[2019-06-05] MEDS: amLODIPine 10 MG TAB PO SCH (08:14)
[2019-06-05 11:49] LABS: PHOSPHORUS LEVEL 2.2 MG/DL (2.5-4.9)
--- NOTE | 2019-06-05 13:51 | IPN ---
DATE OF SERVICE: 06/05/2019 SUBJECTIVE: The patient was seen and examined at the bedside today morning in the intensive care unit (ICU). She is feeling much better. Her diarrhea is improving. She did not have any more episode of bleeding. She is afebrile, hemodynamically stable. The patient is going to be downgraded out of ICU to the progressive care unit. Her blood pressures are better controlled now. OBJECTIVE: Vital signs: Temperature is 98.8 degrees Fahrenheit, blood pressure 142/79, pulse is 85, respiratory rate of 17, saturating 96% on room air. Intake and output: Urine output recorded is 345 mL. Weight in the bed scale is not available. She had four bowel movements so far today since overnight. PHYSICAL EXAMINATION: General: The patient is awake, alert, oriented times two, sitting up in the bed in no apparent distress. Head and neck examination: The patient has legal blindness. Mucous membranes are moist. Neck is supple. She has left internal jugular (vein) (IJ) tunneled hemodialysis catheter. Cardiovascular: S1, S2, regular rate. Trace edema of the bilateral lower extremities. Respiratory: Chest is clear to auscultation bilaterally. Bilateral equal air entry. No rales or rhonchi. Abdomen: Soft. Positive bowel sounds. Nontender. No organomegaly. Genitourinary: She still has an indwelling Regalado catheter. Musculoskeletal: No clubbing or cyanosis. Pulses are 2+. Central nervous system (VIRTUAL REALITY SPECIALIST): The patient has legal blindness. Otherwise, she follows commands and moves all extremities. LABORATORY REVIEW: Complete blood count (CBC) showed a WBC 15.2, hemoglobin 10.9, platelets are 168. Basic metabolic profile (BMP) showed sodium 145, potassium 3.4, chloride 113, bicarbonate 25, BUN 16, creatinine is 4.2, calcium 7.2, phosphorus is 2.2. CURRENT INPATIENT MEDICATIONS: (dictation cut off). ASSESSMENT AND PLAN: 1. End-stage renal disease. The patient is being dialyzed according to Thursday, Thursday, Thursday schedule. Next hemodialysis session will be tomorrow morning. 2. Hypertension with end-stage renal disease. The patient got intravenous (IV) fluid hydration, which increased her blood pressure. She is currently on amlodipine 10 mg daily, Coreg 25 mg by mouth twice a day, lisinopril 20 mg daily. Blood pressure levels are improving. The patient will get further fluid removal tomorrow morning with dialysis. 3. Hypocalcemia. The patient was already given calcium gluconate by the primary team today. 4. Hypokalemia. She was given potassium chloride 40 mEq by mouth times one dose. 5. Acute Clostridium (C) difficile colitis infection. The patient is on oral vancomycin. Frequency of diarrhea is improving. 6. Acute blood loss anemia. Hemoglobin is staying stable now. No more episodes of gastrointestinal (GI) bleeding. I have decreased the sucralfate dose to 1 gram by mouth every 12 hours because in renal failure, there is risk of aluminum toxicity.
--- NOTE | 2019-06-05 15:19 | IPNPDOC ---
Text Note Date of Service The patient was seen on 06/05/19. NOTE Subjective: Patient 's BP is better today, but still elevated in the morning w ith systolic blood pressure around 180. Patient had 3 bowel movements overnight, brownish stool semiformed. She denies fever, chills, shortness of breath, chest pain. Objective: General: NAD, disheveled female with poor oral hygiene Eye Exam: Positive: PERRLA, Conjunctiva & lids normal, EOMI ENT Exam: Positive: Atraumatic, Mucous membr. moist/pink Neck Exam: Positive: Supple; Negative: JVD Chest Exam: Positive: Diminished bilaterally Heart Exam: Positive: Tachycardic Telemetry: Positive: No significant arrhythmia Abdomen Exam: Positive: BS Hyperactive Extremity Exam: Negative: Clubbing, Cyanosis Skin Exam: Negative: Lesion Neuro Exam: Positive: Cranial Nerves 3-12 NL Psych Exam: Positive: Mental status NL Assessment and plan: Patient is 29 years old female with past medical history of end-stage renal diseases on dialysis, hypertension, diabetes mellitus type 2, Mason syndrome, diabetic neuropathy and nephropathy, legally blind presented hospital with GI bleed BRBPR. In Emergency room patient was found to have hemoglobin of 7.7, she received 1 unit of blood transfusion. Patient was found to have elevated blood pressure of 185/95 with heart rate 120s. Abdominal CAT scan was done and showed no perforation in the abdominal cavity. Test for C.diff came back positive. Treatment with by mouth vancomycin initiated. Treatment with Protonix IV, blood transfusion, IV fluid initiated. Also patient was found to have hypertensive urgency, she received treatment with labetalol IV when necessary. On 06/03/19 patient received 2 units of blood. On 06/04/19 the antihypertensive treatment was intensified, labetalol every hour IV when necessary, carvedilol dose was increased to 25 mg twice a day, added amlodipine 10 mg, lisinopril 40 mg. (1) GI bleeding Status: Acute Problem Text: Most likely lower GI bleed there is possibility for upper GI bleed as well, differential diagnosis includes Arpita-Posada tears, peptic ulcer, AVM IV fluid, blood transfusion 1 unit given on admission. 2 units on 06/03/19. Hemoglobin stable. No blood in the stool for past 2 days IV Protonix Will transfuse if hemoglobin less than 7 surgical team follows her. Dr. Macario recommended to postpone colonoscopy due to C. difficile colitis. If she continues to bleed he recommend EGD. Diet was upgraded to soft diet (2) Clostridium difficile infection Status: Acute Problem Text: Vancomycin by mouth day 2 For past 4 weeks patient received treatment with multiple antibiotics including clindamycin due to pneumonia and tooth abscess. Follows ID recommendation (3) Diabetes mellitus Status: Chronic Problem Text: Patient has a long history of noncompliance, she did not take any diabetes medications in the outpatient settings Insulin sliding scale Glucose levels under control Social service (4) ESRD (end stage renal disease) on dialysis Status: Chronic Problem Text: Continue dialysis (5) Anemia in chronic kidney disease Status: Chronic Problem Text: Secondary to end-stage renal diseases Patient received blood transfusion in emergency room, On 06/03/19 patient received 2 units of blood Continue to monitor H&H every 6 hours (6) Hypertensive urgency Status: Acute Problem Text: Hydralazine has been changed by family request to labetalol IV when necessary The antihypertensive treatment was intensified labetalol every hour IV when necessary, carvedilol dose was increased to 25 mg twice a day, added amlodipine 10 mg, lisinopril 40 mg Patient was transferred to PCU VS,[place], I+O VS, [place] I+O Laboratory Tests 06/04/19 18:52 06/04/19 22:44 06/05/19 05:00 Red Blood Count 3.58 L, Mean Corpuscular Volume 90.8, Mean Corpuscular Hemoglobin 30.4, Mean Corpuscular Hemoglobin Concent 33.5, Red Cell Distribution Width 16.5 H, Calcium Level 7.2 L Vital Signs Date Time Temp Pulse Resp B/P (MAP) Pulse Ox O2 Delivery O2 Flow Rate FiO2 06/05/19 13:00 81 139/77 (97) 06/05/19 12:00 98.3 18 96 06/02/19 09:15 Room Air I&O- Last 24 Hours up to 6 AM 06/05/19 06:00 Intake Total 1090 ml Output Total 510 ml Balance 580 ml RISSA MCCRACKEN DO Jun 05, 2019 15:19
[2019-06-05] MEDS ORDERED: HumaLOG INSULIN (NovoLOG) PER UNIT SC SCH (17:30)
[2019-06-05] MEDS ORDERED: LISI-538 PO (20:37)
[2019-06-05] MEDS ORDERED: AMLO10TA5 PO (20:37)
[2019-06-05] MEDS ORDERED: FIRV50SO PO (20:37)
[2019-06-05] MEDS ORDERED: CARV12.5 PO (20:37)
--- NOTE | 2019-06-05 21:41 | DS.PDOC ---
Discharge Summary General Date of Admission Jun 02, 2019 at 09:23 Date of Discharge 06/05/19 Attending Physician: RISSA MCCRACKEN DO Specialist/Consultants Involve: VALENTIN DIAZ MD Specialist/Consultants Involve Mery Vázquez MD, Duah MD Discharge Summary PROCEDURES PERFORMED DURING STAY: 1. Blood transfusion 2. Blood work (lab) 3. UA with Reflex to Culture 4. Urinary Catheter 5. GI panel (C. Diff +) ADMITTING DIAGNOSES: 1. Acute GI Bleed 2. Clostridium Difficile Infection DISCHARGE DIAGNOSES: 1. Clostridium Difficile Infection 2. Diabetes Mellitus type II 3. ESRD on HD 4. Essential Hypertension 5. Turners' Syndrome 6. Diabetic Neuropathy, Retinopathy 7. Diabetic Nephropathy 8. Legal Blindness 9.Acute blood loss anemia 10.Anemia of Chronic disease 11.Coarctation of aorta and status post repair. 12.Severe protein calorie malnutrition 13.Electrolyte imbalance COMPLICATIONS/CHIEF COMPLAINT: Clostridium Difficile Infection Diabetes Mellitus. HISTORY OF PRESENT ILLNESS: 29 year old Caucasion female presented with complaints of bloody diarrhea, nausea, vomiting, and lightheadness that began several weeks ago with the bloody diarrhea and lightheadedness worsening on yesterday. She has a significant medical history of ERSD on HD, Essential Hypertension, Diabetes Mellitus type II, Legal Blind, Diabetic Neuropathy1 years old female with past medical history of end-stage renal diseases on dialysis, hypertension, diabetes mellitus type 2, Mason syndrome, diabetic neuropathy and nephropathy, legally blind presented hospital with GI bleed. Her mother who was present in the room provided most of the history, she stated that Ihsan has been having diarrhea for a few weeks and yesterday she had a nausea and vomiting a few times. Yesterday evening patient noticed that her stool covered with red blood. Today patient became dizzy, she has lightheadedness and increased bowel movements with BRBPR. HOSPITAL COURSE: . DISCHARGE MEDICATIONS: Please see below. ALLERGIES: Please see below. PHYSICAL EXAMINATION ON DISCHARGE: VITAL SIGNS: Please see below. GENERAL: Cooperative, vss HEENT: No nasal discharge, no ear discharge, buccal mucosa pink moist NECK: CARDIOVASCULAR EXAMINATION: RRR S1,S2, no JVD RESPIRATORY EXAMINATION: Clear to Auscultation, no respiratory distress ABDOMINAL EXAMINATION: soft, mild distended abdomen with active bowel sounds, EXTREMITIES: SKIN: warm and dry NEUROLOGICAL EXAMINATION: AA& O x 3 PSYCHIATRIC EXAMINATION: Somber with flat affect LABORATORY DATA: Please see below. IMAGING: PROGNOSIS: Fair ACTIVITY: As tolerated. DIET: Renal with fluid restriction [id number]/ day DISCHARGE PLAN: Follow up with PCP DISPOSITION: Home AMA DISCHARGE INSTRUCTIONS: 1. Follow up with PCP in 1-2 days. 2. Follow up with Nephrologists and Dialysis Center in 1-2 days. 3. airport ramp supervisor prescriptions from pharmacy today and take medications as prescribed. 4. Return to ED at [facility] if symptoms worsens or do not improve in 1-3 days or if develop a temperature 100.5 or higher. ITEMS TO FOLLOWUP ON ON OUTPATIENT: 1. Labs DISCHARGE CONDITION: Improving-needs assistance w transferring from bed to wheelchair. TIME SPENT ON DISCHARGE: 40 minutes. Vital Signs/I&Os Vital Signs Date Time Temp Pulse Resp B/P (MAP) Pulse Ox O2 Delivery O2 Flow Rate FiO2 06/05/19 16:00 98.9 87 20 156/84 (108) 95 06/02/19 09:15 Room Air I&O- Last 24 Hours up to 6 AM 06/05/19 06:00 Intake Total 1090 ml Output Total 510 ml Balance 580 ml Laboratory Data Labs 24H Laboratory Tests 2 06/05/19 05:00: Nucleated Red Blood Cells % (auto) 0.0, Anion Gap 7L, Glomerular Filtration Rate 13.0L, Blood Urea Nitrogen 16, Creatinine 4.25H, Sodium Level 145, Potassium Level 3.4L, Chloride Level 113H, Carbon Dioxide Level 25, Calcium Level 7.2L, Phosphorus Level 2.2L 06/05/19 11:34: Bedside Glucose (Misc Panel) 104 06/05/19 18:25: Bedside Glucose (Misc Panel) 126H CBC/BMP Laboratory Tests 06/04/19 22:44 06/05/19 05:00 Red Blood Count 3.58 L, Mean Corpuscular Volume 90.8, Mean Corpuscular Hemoglobin 30.4, Mean Corpuscular Hemoglobin Concent 33.5, Red Cell Distribution Width 16.5 H, Calcium Level 7.2 L FSBS Laboratory Tests Test 06/05/19 11:34 06/05/19 18:25 Range/Units Bedside Glucose (Misc Panel) 104 126 70-105 MG/DL Microbiology Microbiology 06/02/19 Blood Culture - Preliminary, Resulted No Growth after 72 hours. All specime... 06/02/19 Blood Culture - Preliminary, Resulted No Growth after 72 hours. All specime... 06/02/19 Gastrointestinal Tract Panel (PCR) - Final, Complete Clostridium Difficile A/B Discharge Medications Scheduled Amlodipine Besylate (Amlodipine Besylate) 10 Mg Tablet, 10 MG PO DAILY Carvedilol (Carvedilol) 6.25 Mg Tablet, 12.5 MG PO DAILY, (Reported) TAKES AROUND NOON Carvedilol (Carvedilol) 12.5 Mg Tablet, 25 MG PO BID Lisinopril (Lisinopril) 20 Mg Tablet, 20 MG PO DAILY for Hypertension Vancomycin HCl (Firvanq) 50 Mg/1 Ml Soln.recon, 125 MG PO Q6H Allergies Coded Allergies: No Known Allergies (Unverified , 01/19/19) JULIETA HUITRON Jun 05, 2019 21:13 CORRY BULLOCK MD Jun 06, 2019 19:49
[2019-06-06] MEDS ORDERED: SUCRALFATE SUSP 1GM/10ML UD NG SCH
== END 2019-06-05 21:16 | disposition left against medical advice (07) | DRG 248 ==
LOC: M ED 04:41 → M ED INP 09:23 → M ICU 13:37
PROVIDERS: ADMIT Internal Medicine; ATTEND Internal Medicine
PROC: 30233N1 Transfusion of Nonautologous Red Blood Cells into Peripheral Vein, Percutaneous Approach (ICD-10-PCS; principal; 2019-06-02)
PROC: 5A1D70Z Performance of Urinary Filtration, Intermittent, Less than 6 Hours Per Day (ICD-10-PCS; 2019-06-03)
DX: A04.72 Enterocolitis due to Clostridium difficile, not specified as recurrent (principal); E43 Unspecified severe protein-calorie malnutrition; N18.6 End stage renal disease; E11.40 Type 2 diabetes mellitus with diabetic neuropathy, unspecified; E11.21 Type 2 diabetes mellitus with diabetic nephropathy; D62 Acute posthemorrhagic anemia; E11.319 Type 2 diabetes mellitus with unspecified diabetic retinopathy without macular edema; E83.51 Hypocalcemia; K92.2 Gastrointestinal hemorrhage, unspecified; I12.0 Hypertensive chronic kidney disease with stage 5 chronic kidney disease or end stage renal disease; J21.8 Acute bronchiolitis due to other specified organisms; D63.1 Anemia in chronic kidney disease; Q96.8 Other variants of Turner's syndrome; Z79.899 Other long term (current) drug therapy; I16.0 Hypertensive urgency; Z91.14 Patient's other noncompliance with medication regimen; E87.6 Hypokalemia

== ENCOUNTER 2019-06-26 21:16 | Emergency (ER) | payer OTHER ==
[~2019-06-26 21:16] MED LIST changes: +CARV12.5 PO; +FIRV50SO PO; +LANT500C PO; +LISI-538 PO
[2019-06-26 23:36] LABS: VENOUS BASE EXCESS -2.3 (-2.0-2.0); VENOUS O2 SATURATION 79.6 % (60.0-80.0); VENOUS PARTIAL PRESSURE CO2 47.6 mmHg (38.0-50.0); VENOUS PARTIAL PRESSURE O2 52.1 mmHg (30.0-50.0); VENOUS STANDARD HCO3 22.2 MEQ/L; VENOUS TOTAL CO2 25.4 MEQ/L (24.0-28.0)
[2019-06-27 00:12] LABS: BASO % 0.2 % (0.0-1.0); EOS # 0.1 10^3/uL (0.0-0.5); EOS % 1.3 % (0.0-3.0); HEMATOCRIT 31.5 % (36.0-47.0); HEMOGLOBIN 10.1 g/dl (12.0-15.5); LYMPH % 18.2 % (24.0-44.0); MEAN CORPUSCULAR HEMOGLOBIN 29.6 pg (27.0-33.0); MEAN CORPUSCULAR HGB CONC 32.1 g/dl (32.0-36.5); MEAN CORPUSCULAR VOLUME 92.4 fl (80.0-96.0); MONO # 0.8 10^3/uL (0.0-0.8); MONO % 7.3 % (0.0-5.0); NEUTROPHILS # 7.8 10^3/uL (1.5-8.5); NEUTROPHILS % 72.4 % (36.0-66.0); PLATELET COUNT, AUTOMATED 444 10^3/uL (150-450); RED BLOOD COUNT 3.41 10^6/uL (4.00-5.40); WHITE BLOOD COUNT 10.8 10^3/uL (4.0-10.0)
[2019-06-27 01:17] VITALS: BP 198/80
--- NOTE | 2019-06-27 01:31 | REP ---
Clinical: Cough and dyspnea. Comparison: 06/02/2019. Findings: Small right and small/moderate left pleural effusions are identified along with lower lobe atelectasis/consolidation (left greater than right). Mediastinum and cardiac silhouette are relatively normal. Double-lumen dialysis catheter with tips in the right atrium. Nasogastric tube has been removed. Skeletal structures stable (degenerative/post traumatic changes to the left fourth and fifth ribs again noted). Impression: 1. Bilateral pleural effusions and atelectasis/consolidation (left greater than right) increased from prior examination . Electronically Signed by Russell Roblero MD 06/27/2019 01:23 A
--- NOTE | 2019-06-27 07:53 | ED PDOC ---
Post-Departure Follow-Up dr dubose faxed formal report of cxr for fu Solis Milton MD Jun 27, 2019 07:53
--- NOTE | 2019-06-27 21:21 | ECGEPIP ---
[facility] - ED Test Date: 2019-06-26 Pat Name: FLAVIA MERRILL Department: Room: - Gender: Female Problem Manager: : 1990 Requested By: PAVAN Martinez Order Number: [id number] Reading MD: Pavan Shepherd Measurements Intervals [place] Rate: 93 P: 25 OR: 127 QRS: 8 QRSD: 75 T: 55 QT: 362 QTc: 452 Interpretive Statements SINUS RHYTHM Nonspecific T wave abnormality Electronically Signed on 06-27-2019 21:21:17 EDT by Pavan Shepherd
== END 2019-06-27 01:18 | disposition home or self-care (01) ==
LOC: M ED 21:16
DX: N18.6 End stage renal disease (principal); J90 Pleural effusion, not elsewhere classified; J98.11 Atelectasis; A04.72 Enterocolitis due to Clostridium difficile, not specified as recurrent; E87.70 Fluid overload, unspecified; Z79.2 Long term (current) use of antibiotics; Z79.899 Other long term (current) drug therapy; Z99.2 Dependence on renal dialysis

== ENCOUNTER 2019-07-05 00:17 | Emergency (ER) | payer OTHER ==
[~2019-07-05] VITALS: Ht 144.8 cm; Wt 34.7 kg
[2019-07-05] MEDS ORDERED: LIDOCAINE 2% 5ML JELLY UROJET TOP ONE (02:00)
[2019-07-05 02:27] LABS: APPEARANCE, URINE HAZY (CLEAR); BACTERIA, URINE AUTO NEGATIVE (NEGATIVE); BILIRUBIN, URINE AUTO NEGATIVE (NEGATIVE); BLOOD, URINE BLOOD 1+ (NEGATIVE); COLOR, URINE YELLOW (YELLOW); GLUCOSE, URINE (UA) AUTO 2+ mg/dL (NEGATIVE); KETONE, URINE AUTO NEGATIVE (NEGATIVE); LEUKOCYTE ESTERASE, URINE AUTO 3+ (NEGATIVE); MUCUS, URINE SMALL (NEGATIVE); NITRITE, URINE AUTO NEGATIVE (NEGATIVE); PROTEIN, URINE AUTO 3+ mg/dL (NEGATIVE); RBC, URINE AUTO 11 /HPF (0-3); SPECIFIC GRAVITY URINE AUTO 1.007 (1.002-1.035); SQUAMOUS EPITHELIAL CELL UR AU 0 /HPF (0-6); TRANSITIONAL EPITHELIAL AUTO 1 /HPF; UROBILINOGEN, URINE AUTO 0.2 mg/dL (0.0-2.0); WBC, URINE AUTO 30 /HPF (0-3)
[2019-07-05 03:45] VITALS: BP 204/108
== END 2019-07-05 03:46 | disposition home or self-care (01) ==
LOC: M ED 00:17
DX: R33.9 Retention of urine, unspecified (principal); I10 Essential (primary) hypertension; N19 Unspecified kidney failure; Q96.9 Turner's syndrome, unspecified; D64.9 Anemia, unspecified; Z99.2 Dependence on renal dialysis; Z79.899 Other long term (current) drug therapy

== ENCOUNTER → 2019-07-05 | Outpatient (CLI) | payer OTHER ==
--- NOTE | 2019-07-05 16:41 | REP ---
Chest x-ray: Single view. History: History of pleural effusion. Comparison study: June 26, 2019. Findings: There are old post surgical changes of the left chest. There is slight blunting of the left lateral pleural angle with some pleural thickening at the base. These findings are improved from June 26, 2019. No new infiltrate is seen. Right pleural angle is sharp. There is a right-sided tunnel central venous catheter in place. Heart size is borderline. Impression: Improved pleural changes left base. Electronically Signed by Tobin Stovall MD 07/05/2019 05:09 P
[2019-07-05 18:19] LABS: BASO % 0.3 % (0.0-1.0); EOS # 0.1 10^3/uL (0.0-0.5); EOS % 1.1 % (0.0-3.0); HEMOGLOBIN 9.4 g/dl (12.0-15.5); LYMPH # 1.2 10^3/uL (1.5-5.0); LYMPH % 11.6 % (24.0-44.0); MEAN CORPUSCULAR HEMOGLOBIN 29.5 pg (27.0-33.0); MEAN CORPUSCULAR HGB CONC 31.3 g/dl (32.0-36.5); MONO # 0.8 10^3/uL (0.0-0.8); MONO % 8.2 % (0.0-5.0); NEUTROPHILS % 78.5 % (36.0-66.0); PLATELET COUNT, AUTOMATED 279 10^3/uL (150-450); RED BLOOD COUNT 3.19 10^6/uL (4.00-5.40); WHITE BLOOD COUNT 10.1 10^3/uL (4.0-10.0)
[2019-07-05 18:59] LABS: ALBUMIN 2.5 GM/DL (3.2-5.2); BILIRUBIN,TOTAL 0.2 MG/DL (0.2-1.0); CALCIUM LEVEL 8.1 MG/DL (8.5-10.1); CREATININE FOR GFR 8.31 MG/DL (0.55-1.30); POTASSIUM SERUM 3.5 MEQ/L (3.5-5.1); TOTAL PROTEIN 5.9 GM/DL (6.4-8.2)
== END ==
LOC: M SMT 13:17
PROVIDERS: ATTEND Nurse Practitioner Family
DX: Z87.09 Personal history of other diseases of the respiratory system (principal)

== ENCOUNTER → 2019-07-05 | Outpatient (REF) | payer OTHER | LOC: M SFHCPLAZ 18:51 | PROVIDERS: ATTEND Nurse Practitioner Family | DX: R19.7 Diarrhea, unspecified (principal) ==

== ENCOUNTER 2019-07-06 11:44 | Inpatient (IN) | payer OTHER ==
[~2019-07-06] VITALS: Ht 144.8 cm; Wt 34.2 kg
[2019-07-06 14:15] VITALS: BP 170/111
[2019-07-06 15:37] LABS: HEMATOCRIT 26.3 % (36.0-47.0); HEMOGLOBIN 8.4 g/dl (12.0-15.5); MEAN CORPUSCULAR HEMOGLOBIN 29.4 pg (27.0-33.0); MEAN CORPUSCULAR HGB CONC 31.9 g/dl (32.0-36.5); PLATELET COUNT, AUTOMATED 268 10^3/uL (150-450); RED BLOOD COUNT 2.86 10^6/uL (4.00-5.40); WHITE BLOOD COUNT 10.1 10^3/uL (4.0-10.0)
[2019-07-06 16:05] LABS: ALBUMIN 2.2 GM/DL (3.2-5.2); BILIRUBIN,TOTAL 0.2 MG/DL (0.2-1.0); CALCIUM LEVEL 7.7 MG/DL (8.5-10.1); CREATININE FOR GFR 9.49 MG/DL (0.55-1.30); GLOMERULAR FILTRATION RATE 5.2 (>60); POTASSIUM SERUM 3.3 MEQ/L (3.5-5.1); TOTAL PROTEIN 5.8 GM/DL (6.4-8.2)
[2019-07-06 16:33] LABS: HEMOGLOBIN A1c 4.8 %
[2019-07-06] MEDS ORDERED: HEPARIN 1,000 UNITS/ML 10ML VIAL (FOR RADIOLOGY& DIALYSIS ONLY) XX ONE (17:15)
[2019-07-06] MEDS: ACETAMINOPHEN TAB 650MG DOSE (2X325MG) PO PRN (17:28)
[2019-07-06] MEDS: CIPROFLOXACIN 500 MG TAB PO SCH (18:00)
[2019-07-06] MEDS: VANCOMYCIN ORAL SOL 250MG/5ML ORAL SYRINGE PO SCH ×2 (18:00→23:19)
[2019-07-06] MEDS ORDERED: CIPROFLOXACIN 500 MG TAB PO SCH (18:00)
--- NOTE | 2019-07-06 18:38 | CR ---
DATE OF CONSULTATION: 07/06/2019 CONSULTATION REPORT FOR: Dr. Héctor Pan CONSULTING PHYSICIAN: Dr. Zavala REASON FOR CONSULTATION: Management of end-stage renal disease on hemodialysis and elevated blood pressure. CHIEF COMPLAINT: The patient was sent from Dr. Pan's office because of persistent diarrhea with Clostridium (C) difficile and Salmonella. HISTORY OF PRESENT ILLNESS: Ihsan Adamson is a 29-year-old female with a past medical history of end-stage renal disease on hemodialysis every Thursday, Thursday, Thursday, history of Mason's syndrome, hypertension, legally blind, dependent on the care of her mother, chronically noncompliant with outpatient dialysis. Her last dialysis was on Thursday. She missed her dialysis on Thursday. She reported that she was having persistent diarrhea and decreased appetite. She was seen by primary care and outpatient laboratories showed that the patient had C. difficile and Salmonella diarrhea. She was sent for direct admission from the primary care's office. Nephrology service was called for further help in the management of end-stage renal disease. The patient needed my immediate attention. I saw the patient at the bedside. I had already arranged her hemodialysis. The patient was also found to be hypertensive. She is noncompliant with her antihypertensive medications as outpatient. The patient denies any fevers. She does report chills. PAST MEDICAL HISTORY: 1. Diabetes mellitus, but not needing insulin at this time. 2. Hypertension. 3. End-stage renal disease secondary to diabetic nephropathy on dialysis Thursday, Thursday, Thursday. 4. Diabetic retinopathy and legal blindness. 5. Mason's syndrome. 6. Anemia in end-stage renal disease. 7. 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 PAST SURGICAL HISTORY: 1. Status post tunneled hemodialysis catheter placement. 2. History of surgery for coarctation of aorta in the past. ALLERGIES: No known drug allergies. FAMILY HISTORY: No significant family history of end-stage renal disease on hemodialysis. SOCIAL HISTORY: The patient is legally blind. Her mother is the primary rn urgent care and that complicates her care because her mother does not give her any medications. HOME MEDICATIONS: The patient is supposed to be on: - carvedilol 12.5 mg by mouth twice a day - lisinopril 20 mg daily - amlodipine 10 mg daily, but most likely she is not taking any medications at this time. REVIEW OF SYSTEMS: CONSTITUTIONAL: The patient reports chills. EYES: She reports legal blindness. EARS, NOSE AND THROAT (ENT): She denies any dysphagia or odynophagia. CARDIOVASCULAR: She denies any chest pain or palpitations. RESPIRATORY: She denies any shortness of breath or cough. GASTROINTESTINAL (GI): She reports persistent diarrhea. GENITOURINARY: The patient has an indwelling Regalado catheter that was placed at the hospital yesterday. MUSCULOSKELETAL: She denies any muscle aches and pains. SKIN: She denies any rashes or ulcers. ENDORINE: She reports history of diabetes. CENTRAL NERVOUS SYSTEM (GAMB CUTTER): She denies any strokes or seizures at this time. All other review of systems is negative. PHYSICAL EXAMINATION: GENERAL: The patient is awake, alert, oriented times three, laying in bed, in no apparent distress. VITAL SIGNS: Temperature is 99.4 degrees Fahrenheit, blood pressure 170/111, pulse is 106, respiratory of 16, saturating 100% on room air. HEAD AND NECK: The patient is legally blind. Mucous membranes are moist. Neck is supple. There is no jugular venous distention (JVD). She has a tunneled hemodialysis catheter which is being used for dialysis. CARDIOVASCULAR: S1, S2, regular rate. No edema of the bilateral lower extremities. RESPIRATORY: Chest is clear to auscultation bilaterally. Bilateral equal air entry. No rales or rhonchi. ABDOMEN: Soft, positive bowel sounds, nontender. No organomegaly. GENITOURINARY: She has an indwelling Regalado catheter. MUSCULOSKELETAL: No clubbing or cyanosis. Pulses are 2+. GAMB CUTTER: The patient has legal blindness, otherwise she follows commands and moves all extremities. LABORATORY REVIEW: CBC showed a WBC of 10.1, hemoglobin is 8.4, platelets are 268. BMP showed sodium 140, potassium 3.3, chloride 105, bicarbonate 25, BUN 43, creatinine is 9.4, A1c is 4.8, albumin is 2.2. MICROBIOLOGY: Stool specimen checked yesterday showed Clostridium difficile and Salmonella. IMAGING STUDIES: A chest x-ray was done yesterday which showed no acute pathology. CURRENT INPATIENT MEDICATIONS: The patient's inpatient medications include: - Coreg 6.25 mg by mouth twice a day - ciprofloxacin 500 mg by mouth daily - heparin subcutaneous - vancomycin 250 mg by mouth every six hours ASSESSMENT: A 29-year-old female with history of end-stage renal disease on hemodialysis, hypertension with hypertensive heart disease and end-stage renal disease admitted this time with Salmonella and Clostridium (C) difficile gastroenteritis. PLAN: 1. End-stage renal disease. The patient's regular dialysis days are Thursday, Thursday, Thursday. She missed her Thursday dialysis. She is being urgently dialyzed at this time. Because of diarrhea, minimal ultrafiltration will be done, around 500 mL as tolerated. 2. Accelerated hypertension. It is secondary to the patient's noncompliant with medications. She is supposed to be on Coreg, amlodipine and lisinopril. However, she is not taking any medication. She is being started on carvedilol 6.25 mg by mouth twice a day. If needed, further antihypertensive regimen will be escalated by tomorrow morning. 3. Clostridium difficile infection. The patient has been started on vancomycin 250 mg by mouth every six hours. 4. Salmonella gastroenteritis. The patient has been started on ciprofloxacin 500 mg by mouth daily. 5. Anemia in end-stage renal disease. Hemoglobin is 8.4 which is suboptimal. I am starting the patient on Aranesp with dialysis. 6. Hypokalemia. The patient will be dialyzed with a 4K bath and that will help improve her potassium level. 7. History of diabetes mellitus. The patient is currently not on insulin. Glucose level is 115. No need of insulin supplementation at this time. 8. Protein calorie malnutrition. It is secondary to a combination of diarrhea and poor oral intake. The patient will be started on Nepro once her diarrhea improves. Thank you for involving me in the care of this patient. I shall be happy to follow the patient along with you tomorrow morning. [facility]
[2019-07-06] MEDS: CARVedilol 6.25 MG TAB PO SCH (20:15)
[2019-07-06 22:00] VITALS: BP 168/98
[2019-07-06] MEDS ORDERED: CIPROFLOXACIN 500 MG TAB PO ONE (23:00)
[2019-07-07] VITALS (9 sets, daily range): BP systolic 151–198; BP diastolic 77–119
[2019-07-07] MEDS: VANCOMYCIN ORAL SOL 250MG/5ML ORAL SYRINGE PO SCH ×4 (05:06→23:21)
[2019-07-07 06:13] LABS: HEMATOCRIT 27.4 % (36.0-47.0); HEMOGLOBIN 8.6 g/dl (12.0-15.5); MEAN CORPUSCULAR HEMOGLOBIN 29.6 pg (27.0-33.0); MEAN CORPUSCULAR HGB CONC 31.4 g/dl (32.0-36.5); MEAN CORPUSCULAR VOLUME 94.2 fl (80.0-96.0); PLATELET COUNT, AUTOMATED 233 10^3/uL (150-450); RED BLOOD COUNT 2.91 10^6/uL (4.00-5.40); WHITE BLOOD COUNT 6.4 10^3/uL (4.0-10.0)
[2019-07-07 06:38] LABS: ALBUMIN 2.2 GM/DL (3.2-5.2); CREATININE FOR GFR 4.82 MG/DL (0.55-1.30); GLOMERULAR FILTRATION RATE 11.3 (>60); POTASSIUM SERUM 3.8 MEQ/L (3.5-5.1)
[2019-07-07] MEDS: CARVedilol 6.25 MG TAB PO SCH (08:44)
[2019-07-07] MEDS ORDERED: DARBEPOETIN 100 MCG/0.5 ML *NON-DIALYSIS* SYRINGE (J0881) SC SCH (09:00)
[2019-07-07 09:11] LABS: MAGNESIUM LEVEL 2.1 MG/DL (1.8-2.4); PERCENT SATURATION 84.3 % (13.2-45.0)
[2019-07-07] MEDS: LISINOPRIL 5 MG TAB PO SCH (11:01)
[2019-07-07] MEDS: amLODIPine 5 MG TAB PO SCH (11:02)
--- NOTE | 2019-07-07 11:29 | IPNPDOC ---
Subjective Date Seen The patient was seen on 07/07/19. Subjective Chief Complaint/HPI ESRD, salmonella, C. Diff Events since last encounter Admitted by PCP yesterday for ESRD, salmonella and C. Diff in stool. Mother at bedside. Mother expresses concerns about pnuemonia, due to perceived SOB. patient denies SOB. Admits to coughing episode this morning that induced vomiting. States feels fine now. C/o BLE pain and cramping. Mother states this occurs after every dialysis treatment. Mag and potassium levels are normal. Constitutional: Denies: Chills, Fever, Night Sweats Pulmonary: Reports: Cough; Denies: Dyspnea Cardiovascular: Denies: Chest Pain, Palpitations, Orthopnea, Paroxysmal Noc. Dyspnea, Lt Headedness Gastrointestinal: Reports: Vomiting, Diarrhea; Denies: Nausea, Abdominal Pain, Constipation Genitourinary: Denies: Dysuria, Frequency, Incontinence, Retention Psych: Reports: Mood Normal; Denies: Depression, Memory Issues Objective Physical Examination General Exam: Positive: Alert, No Acute Distress, Other (yuli is matted to head. sih=gnificant amount of dirt under nails. Motehr is at bedside and is in very poor hygiene) Neck Exam: Positive: Supple; Negative: JVD, thyromegaly Chest Exam: Positive: Clear to auscultation, Normal air movement Heart Exam: Positive: Rate Normal, Regular Rhythm, Normal S1, Normal S2; Negative: Murmurs, Rubs Abdomen Exam: Positive: Normal bowel sounds, Soft; Negative: Tenderness, Hepatospenomegaly Psych Exam: Positive: Mental status NL, Oriented x 3 Assessment /Plan Problems (1) Clostridium difficile infection Status: Acute Problem Text: po vancomycin. Mom attempting to decline medications to nursing staff. Re-educated multiple times (2) Noncompliance with renal dialysis Status: Chronic (3) Hypertensive urgency Status: Acute Problem Text: non-compliance suspected on mother's behalf. Will escalate anti- hypertensives alongside Nephrology. Currently on Coreg 6.25mg . Amlodipine just added. (4) Mason syndrome Status: Chronic (5) Diabetes mellitus Status: Chronic Problem Text: last hgba1c 4.8 (6) ESRD (end stage renal disease) on dialysis Status: Chronic Problem Text: Continue with HD per Nephro recommendations. (7) Anemia in chronic kidney disease Status: Acute Plan/VTE VTE Prophylaxis Ordered?: No VS, I&O, 24H, Fishbone Vital Signs/I&O Vital Signs Date Time Temp Pulse Resp B/P (MAP) Pulse Ox O2 Delivery O2 Flow Rate FiO2 07/07/19 11:01 195/100 07/07/19 10:00 98.0 94 16 99 I&O- Last 24 Hours up to 6 AM 07/07/19 06:00 Intake Total 355 ml Output Total 500 ml Balance -145 ml Laboratory Data 24H LABS Laboratory Tests 2 07/06/19 15:20: Nucleated Red Blood Cells % (auto) 0.0, Anion Gap 10, Glomerular Filtration Rate 5.2L, Estimated Mean Plasma Glucose 91, Hemoglobin A1c 4.8, Blood Urea Nitrogen 43H, Creatinine 9.49*H, Sodium Level 140, Potassium Level 3.3L, Chloride Level 105, Carbon Dioxide Level 25, Calcium Level 7.7L, Aspartate Amino Transf (AST/SGOT) 8, Alanine Aminotransferase (ALT/SGPT) 8L, Alkaline Phosphatase 74, Total Bilirubin 0.2, Total Protein 5.8L, Albumin 2.2L, Albumin/Globulin Ratio 0.61L 07/07/19 05:53: Nucleated Red Blood Cells % (auto) 0.0, Anion Gap 7L, Glomerular Filtration Rate 11.3L, Blood Urea Nitrogen 18#, Creatinine 4.82H, Sodium Level 141, Potassium Level 3.8, Chloride Level 107, Carbon Dioxide Level 27, Calcium Level 8.0L, Albumin 2.2L, Phosphorus Level 3.0, Magnesium Level 2.1, Iron Level 86, Total Iron Binding Capacity 102L, Transferrin % Saturation 84.3H, Ferritin 1123H CBC/BMP Laboratory Tests 07/06/19 15:20 Red Blood Count 2.86 L, Mean Corpuscular Volume 92.0, Mean Corpuscular Hemoglobin 29.4, Mean Corpuscular Hemoglobin Concent 31.9 L, Red Cell Distribution Width 15.2 H, Calcium Level 7.7 L, Aspartate Amino Transf (AST/SGOT) 8, Alanine Aminotransferase (ALT/SGPT) 8 L, Alkaline Phosphatase 74, Total Bilirubin 0.2, Total Protein 5.8 L, Albumin 2.2 L 07/07/19 05:53 Red Blood Count 2.91 L, Mean Corpuscular Volume 94.2, Mean Corpuscular Hemoglobin 29.6, Mean Corpuscular Hemoglobin Concent 31.4 L, Red Cell Distribution Width 15.3 H, Anion Gap 7 L Gabrielle Ramos STATION SUPERINTENDENT Jul 07, 2019 11:29
--- NOTE | 2019-07-07 12:38 | IPN ---
DATE: 07/07/2019 SUBJECTIVE: The patient was seen and examined at the bedside this morning. The patient's blood pressure is still elevated. She was started on Carvedilol yesterday. She was dialyzed yesterday, 500 mL of fluid was removed only. She does not tolerate much fluid removal and gets cramps with more ultrafiltration. The patient reports some nausea this morning. Her diarrhea is improving, two bowel movements were recorded yesterday. OBJECTIVE: Vital signs: Temperature is 98 degrees Fahrenheit, blood pressure 185/101, pulse is 94, respiratory of 16, saturating 99% on room air. Intake and output: Ultrafiltration with dialysis was only 300 mL, urine output since overnight is 500 mL, weight on the bed scale was 34.2 kg yesterday. PHYSICAL EXAMINATION: General: The patient is awake, alert, oriented times two, laying in the bed in no apparent distress. Head and neck exam: Patient is legally blind. Mucous membranes are moist. Neck is supple. She has a tunneled hemodialysis catheter. Cardiovascular: S1, S2. Regular rate. No edema of the bilateral lower extremities. Respiratory: Chest is clear to auscultation bilaterally. Bilateral equal air entry. No rales or rhonchi. Abdomen: Soft, positive bowel sounds. Nontender. No organomegaly. Genitourinary: She has an indwelling Regalado catheter. Musculoskeletal: No clubbing or cyanosis. Pulses are 2+. Central nervous system (ANALYSIS EVALUATOR): The patient has decreased range of movement of the left arm and she has legal blindness as well. LABORATORY DATA: CBC showed WBC of 6.4, hemoglobin 8.6, platelets are 233. BMP showed sodium 141, potassium 3.8, chloride 107, bicarbonate 27, BUN 18, creatinine is 4.8, calcium is 8, iron 86, TIBC is 102, transferrin saturation is 84%, ferritin is 1123, albumin is 2.2. CURRENT INPATIENT MEDICATIONS: The patient's medications were all reviewed by me. She is on of Coreg 6.25 mg p.o. twice a day. I have increased the Coreg dose to 12.5 mg p.o. twice a day. I have added amlodipine 5 mg daily and lisinopril 5 mg p.o. daily. She continues to be on ciprofloxacin and vancomycin for diarrhea. ASSESSMENT: 1. End-stage renal disease on hemodialysis. The patient's regular dialysis days are Thursday, Thursday, Thursday. She was dialyzed yesterday according to her schedule. Next hemodialysis will be tomorrow morning. 2. Hypertensive urgency. The patient is noncompliant with home medications. Last time she was discharged from the hospital on Coreg 12.5 mg p.o. twice a day, amlodipine 10 mg daily, lisinopril 20 mg daily. Her mother is not giving any of the medications. She thinks that the patient needs medications only when the blood pressures are high and she believes her blood pressures are normal. The patient has history of stroke in the past because of elevated blood pressures as well. I am slowly adding the home medications again. I have added amlodipine 5 mg and lisinopril 5 mg. These medications will be slowly titrated up based upon the patient's response. She does not have much fluid overload, only 300 mL of fluid was removed yesterday. She actually needed some extra saline because of the cramps in the legs. 2. Clostridium (C.) difficile infection. The patient has history of C diff in the past as well. She does not have much diarrhea. She only had two episodes yesterday. She continues to be on oral vancomycin. 3. Salmonella gastroenteritis. The patient is on oral ciprofloxacin. Symptomatically, she is improving. 4. Anemia in end-stage renal disease. The patient's iron levels are adequate. She will be given a dose of Aranesp today morning. 5. Protein calorie malnutrition. It is secondary to diarrhea and poor oral intake. The patient is being started on Nepro. 6. History of diabetes mellitus. The patient's A1c is within the acceptable range. Because of the renal failure, she is not requiring any more medications now.
--- NOTE | 2019-07-07 17:14 | IPN ---
DATE: 07/06/2019 Spoke with infectious disease informally concerning patient with Clostridium (C) difficile colitis and salmonella due to immunosuppressed state (has dialysis-dependent end-stage renal disease). Recommendation was for Cipro 500 mg twice a day for 3 days and vancomycin 250 mg every 6 hours to begin today but to be continued 14 days past the end of the Cipro dosing.
[2019-07-07] MEDS: CIPROFLOXACIN 500 MG TAB PO SCH (17:36)
[2019-07-07] MEDS: CARVedilol 12.5 MG TAB PO SCH (21:45)
[2019-07-08] VITALS (8 sets, daily range): BP systolic 122–178; BP diastolic 66–98
[2019-07-08 05:58] LABS: HEMATOCRIT 27.1 % (36.0-47.0); HEMOGLOBIN 8.5 g/dl (12.0-15.5); MEAN CORPUSCULAR HEMOGLOBIN 29.5 pg (27.0-33.0); MEAN CORPUSCULAR HGB CONC 31.4 g/dl (32.0-36.5); MEAN CORPUSCULAR VOLUME 94.1 fl (80.0-96.0); PLATELET COUNT, AUTOMATED 248 10^3/uL (150-450); RED BLOOD COUNT 2.88 10^6/uL (4.00-5.40); WHITE BLOOD COUNT 9.3 10^3/uL (4.0-10.0)
[2019-07-08] MEDS: VANCOMYCIN ORAL SOL 250MG/5ML ORAL SYRINGE PO SCH ×4 (06:18→23:33)
[2019-07-08 06:19] LABS: ALBUMIN 2.4 GM/DL (3.2-5.2); CALCIUM LEVEL 7.8 MG/DL (8.5-10.1); CREATININE FOR GFR 6.28 MG/DL (0.55-1.30); GLOMERULAR FILTRATION RATE 8.3 (>60); MAGNESIUM LEVEL 2.1 MG/DL (1.8-2.4); PHOSPHORUS LEVEL 3.2 MG/DL (2.5-4.9); POTASSIUM SERUM 4.6 MEQ/L (3.5-5.1)
[2019-07-08] MEDS: LISINOPRIL 5 MG TAB PO SCH (06:19)
[2019-07-08] MEDS: amLODIPine 5 MG TAB PO SCH (06:19)
[2019-07-08] MEDS: CARVedilol 12.5 MG TAB PO SCH ×2 (06:20→20:52)
[2019-07-08] MEDS ORDERED: HEPARIN 1,000 UNITS/ML 10ML VIAL (FOR RADIOLOGY& DIALYSIS ONLY) IV ONE (11:00)
[2019-07-08] MEDS ORDERED: HEPARIN 1,000 UNITS/ML 10ML VIAL (FOR RADIOLOGY& DIALYSIS ONLY) XX ONE (11:00)
--- NOTE | 2019-07-08 14:10 | IPN ---
DATE: 07/08/2019 SUBJECTIVE: The patient was seen and examined at the bedside this morning. She is afebrile, hemodynamically stable. The patient is due for another dialysis today and she was very hypertensive yesterday. Antihypertensive regimen was escalated. Blood pressures are better controlled today. She still reports some cramps in the legs. Diarrhea is getting better. OBJECTIVE: Vital signs: Temperature is 98 degrees Fahrenheit, blood pressure 140/75, pulse is 90, respiratory of 70, saturating 98% on room air. Intake and output: Urine output recorded is 500 mL yesterday. There is no urine output recorded today. Weight on the bed scale is not available. PHYSICAL EXAMINATION: General: The patient is awake, alert, oriented times two, laying in bed in no apparent distress. Head and neck exam: She is legally blind. Mucous membranes are moist. Neck is supple. She has a tunneled hemodialysis catheter. Cardiovascular: S1, S2 regular rate. No edema of the bilateral lower extremities. Respiratory: Chest is clear to auscultation bilaterally. Bilateral equal air entry. No rales or rhonchi. Abdomen: Soft, positive bowel sounds. Nontender. No organomegaly. Genitourinary: Regalado catheter has been removed now. Musculoskeletal: No clubbing or cyanosis. Pulses are 2+. 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 Otherwise, she follows commands and she can communicate. LABORATORY REVIEW: CBC showed WBC 9.3, hemoglobin 8.5, platelets of 248. BMP showed sodium 139, potassium 4.6, chloride 105, bicarbonate 29, BUN 22, creatinine is 6.2, glucose 118, calcium 7.8, phosphorus 3.2, magnesium 2.1, albumin 2.4. CURRENT INPATIENT MEDICATIONS: The patient was started on amlodipine 5 mg yesterday. Her Coreg dose was increased to 12.5 mg p.o. twice a day, and she was also started on lisinopril 5 mg daily ASSESSMENT/PLAN: 1. End-stage renal disease. The patient's regular dialysis days are Thursday, Thursday, Thursday. She will be dialyzed today. Dialysis will be done for clears, no fluid removal will be done because the patient is having diarrhea and volume status is optimal. 2. Hypertension with end-stage renal disease. The patient has history of stroke in the past as well. Her mother does not give her antihypertensive medications. She is currently on Coreg 12.5 mg p.o. twice a day, lisinopril 5 mg daily and amlodipine 5 mg daily. Continue the current dose. Further escalation will be done over the next 24-48 hours if needed. I believe that if the patient continues on these medications at home, her blood pressure would stay stable. 3. Clostridium (C.) difficile infection. The patient currently is on oral vancomycin, diarrhea is improving. 4. Salmonella gastroenteritis. She is currently being covered with ciprofloxacin. 5. Anemia in end-stage renal disease. The patient is getting Aranesp once a week. 6. Diabetes mellitus type 2. No need of insulin coverage, glucose levels are within the acceptable range.
--- NOTE | 2019-07-08 15:46 | IPN ---
DATE: 07/08/2019 Ihsan is seen on [facility]. She is going down for dialysis again today. Her mother has a series of questions and does a lot of challenging of conventional medical care. One of Ihsan's mother's issues is that she certainly believes that the patient's end stage renal disease will spontaneously remit and she will no longer need dialysis and each visit I have stressed upon her how unlikely it is that this is going to happen. She is being treated for Clostridium (C.) difficile colitis and Salmonella enteritis, as well as now has Enterococcus faecalis in her urine (only 9000 colonies). She is being treated for Salmonella due to end stage renal disease/immunosuppressed state after formal consultation with infectious disease. PHYSICAL EXAMINATION: Afebrile. Vital signs stable. She is alert, conversant. She compulsively grinds her teeth. LUNGS: Clear. HEART: Regular rhythm. ABDOMEN: Soft, nontender. LABORATORIES: Complete blood count (CBC) is stable. Potassium is 4.5. Urine culture from outpatient showed Enterococcus faecalis (9000 units). IMPRESSION: 1. Clostridium (C.) difficile colitis. Continue on oral vancomycin. The plan is for 14 days of vancomycin past discontinuation of her Cipro. 2. Salmonella colitis. They apparently have a chicken that comes in and out of the house and I stressed upon them the importance of keeping Ihsan away from any fowl, this is almost certainly the source of her Salmonella. Mother grudgingly accepts this. We discontinued the Cipro after 3 days of treatment, per discussion with Infectious Disease. 3. End stage renal disease. Continue dialysis. Mother is noncompliant with getting to this as an outpatient. The importance of compliance with this is discussed. 4. Protein calorie malnutrition secondary to diarrhea. She is on Nepro. 5. Anemia from end stage renal disease. She is on Aranesp. I spent a long time explaining anemia to the mother. She does not want to think that it is related to her kidney disease and I spent some time discussing this at length.
[2019-07-08] MEDS: CIPROFLOXACIN 500 MG TAB PO SCH (17:07)
[2019-07-08] MEDS: ACETAMINOPHEN TAB 650MG DOSE (2X325MG) PO PRN (17:30)
[2019-07-09] MEDS: VANCOMYCIN ORAL SOL 250MG/5ML ORAL SYRINGE PO SCH ×4 (05:16→23:36)
[2019-07-09 06:00] VITALS: BP 151/78
[2019-07-09 06:47] LABS: HEMATOCRIT 21.5 % (36.0-47.0); MEAN CORPUSCULAR HEMOGLOBIN 30.2 pg (27.0-33.0); MEAN CORPUSCULAR HGB CONC 31.6 g/dl (32.0-36.5); MEAN CORPUSCULAR VOLUME 95.6 fl (80.0-96.0); PLATELET COUNT, AUTOMATED 196 10^3/uL (150-450); RED BLOOD COUNT 2.25 10^6/uL (4.00-5.40); WHITE BLOOD COUNT 9.9 10^3/uL (4.0-10.0)
[2019-07-09 07:10] LABS: ALBUMIN 2.1 GM/DL (3.2-5.2); CALCIUM LEVEL 7.8 MG/DL (8.5-10.1); CREATININE FOR GFR 4.03 MG/DL (0.55-1.30); GLOMERULAR FILTRATION RATE 13.9 (>60); PHOSPHORUS LEVEL 3.3 MG/DL (2.5-4.9); POTASSIUM SERUM 4.1 MEQ/L (3.5-5.1)
[2019-07-09 07:21] LABS: HEMOGLOBIN 6.8 g/dl (12.0-15.5)
[2019-07-09 10:00] VITALS: BP 179/119
[2019-07-09] MEDS: amLODIPine 5 MG TAB PO SCH (10:20)
[2019-07-09] MEDS: CARVedilol 12.5 MG TAB PO SCH ×2 (10:20→21:13)
[2019-07-09] MEDS: LISINOPRIL 5 MG TAB PO SCH (10:20)
[2019-07-09 12:06] VITALS: BP 136/72
--- NOTE | 2019-07-09 13:40 | IPNPDOC ---
Subjective Date Seen The patient was seen on 07/09/19. Subjective Chief Complaint/HPI Ihsan was laying on her pull-out bed and pretty disengaged today. Her mother did all the talking. Her mother covered a wide range of topics today in the TWO separate visits I had with them (interrupted by an emergent event). 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 that she had done personally and has not shared with her physicians yet, the circumstances of Ihsan's which included a stat C- section and a tight nuchal cord x 2, Ihsan's coarctation of the aorta and the subsequent repair at 3 yo, her elevated BP, her mother's belief about what "normal BP" is for Ihsan, her mother's fears about too many BP meds, her mother's fears about dialysis, her mother's frustrations that she can not be with her daughter during dialysis, her mother's intermittent fears that her kidney's won't recover (which seems the most likely scenario) and her confidence that her renal function will rebound and her daughter will not need to be on dialysis any more, her mother's concerns about the time period when Ihsan lived with her boyfriend who wouldn't let her come home to see her mother or attend dialysis, the house that her boyfriend lives in that doesn't have basic ameniti es like consistent running water or heat, the way that Ihsan's boyfriend and his mother talk to her as if she is lazy because they go out to work and she doesn't, her mother's deep care and personal knowledge of her daughter, and her mother's fears of the medical system and her tendency to apply the rule "if in doubt, throw it out" applied (or misapplied) to suggested medical therapies for Ihsan. General: Reports: Fatigue; Denies: Normal Appetite Constitutional: Denies: Chills, Fever Pulmonary: Reports: Other Symptoms (chest pain near her catheter site); Denies: Cough Gastrointestinal: Reports: Other Symptoms (belching); Denies: Vomiting Hematologic: Denies: Bruising, Bleeding Excessively Psych: Reports: Depression; Denies: Mood Normal (withdrawn today) Objective Physical Examination General Exam: Positive: Alert, Cooperative (when I directly engaged her), No Acute Distress, Other (hair is matted to head. Significant amount of dirt under nails. Mother is in the room and at bedside and is in very poor hygiene) Eye Exam: Negative: Sclera icteric ENT Exam: Positive: Mucous membr. moist/pink, Other ENT Neck Exam: Positive: Supple; Negative: Lymphadenopathy Chest Exam: Positive: Clear to auscultation, Normal air movement Heart Exam: Positive: Rate Normal, Regular Rhythm, Normal S1, Normal S2; Negative: Murmurs, Rubs Abdomen Exam: Positive: Normal bowel sounds, Soft; Negative: Tenderness, Hepatospenomegaly Extremity Exam: Negative: Edema Neuro Exam: Positive: Other (persistent tic of grinding her teeth) Psych Exam: Negative: Mood NL Assessment /Plan Assessment I spent a total of 75 minutes with the patient and her mother today. More than 50% of this time was spent counseling and coordinating her care. Problems (1) ESRD (end stage renal disease) on dialysis Status: Chronic Problem Text: Continue with HD per Nephro recommendations. She seems to be doing pretty well when she is receiving regular dialysis, still she is ESRD and it doesn't appear that she will improve from this (to her mother's disappointment). (2) Anemia in chronic kidney disease Status: Acute Problem Text: She has acute blood loss on chronic inflammatory anemia, though it is not exactly clear where the blood is being lost from. Presumably it is coming from the colitis. She is down to a Hb of 6.8 today. She has a 1 unit transfusion scheduled today. Will monitor. (3) Clostridium difficile infection Status: Acute Problem Text: PO vancomycin. Mom attempting to decline medications to nursing staff. Re-educated multiple times. She will need to be set up with this medication for home IF this is the right environment for her while she completes her course of treatment. There is enough concern with regards to non-compliance with her regimen, and even attempts to decline it while admitted that I think social media executive should carefully consider whether discharge home is in Ihsan's best interests. An incomplete treatment for C. diff may have long lasting negat ketty impacts on Ihsan's health. (4) Salmonella enteritis Status: Acute Problem Text: Today is the last day of her treatment for Salmonella. This is likely related to fecal-oral contamination that she received from a live chicken in the home and the fact that Ihsan is blind and therefore can't see if something she is putting in her mouth is contaminated or not. (5) Hypertensive urgency Status: Acute Problem Text: Her mother is concerned that we will lower her BP too low and Ihsan will feel bad. She is of a firm belief that a SBP in the 140-150 range is "normal" for her daughter and that we should not seek to lower it more than this. The science is pretty clear that for patients with CKD we should be striving for BPs lower than this. She wants lisinopril taken off and requested that the nurses "pump it out of her stomach" after it was given, though she later denied this. I did get her to agree to stop refusing medications for her daughter if I d/c'd the lisinopril, and put hold parameters on the Coreg at SBP of 140 and amlodipine at 120. While I don't think this is ideal, IF she holds up her part of the bargain and doesn't refuse medications when they are offered in these parameters, I think Ihsan will be farther ahead in the long run. We will need to closely monitor and see if she keeps her end of the bargain. (6) Noncompliance with renal dialysis Status: Chronic Problem Text: This seems to be a consistent problem. I think that the situation may be more complicated then just her mother's non-compliance as initially understood. It seems that Ihsan is not always in her mother's care. It seems that at time she doesn't come in for dialysis because she is "working at the [employer]" though it is honestly a little hard for me to see what Ihsan could do and it concerns me that she may be handling other people's food given her lack of personal hygiene. Sometimes she goes to "live with her boyfriend" and it sounds as if he refuses to take her anywhere including dialysis or letting her see her mother when she requests to. The way her mother describes it almost sounds like imprisonment since Ihsan can't leave volitionally because of her blindness. I think that adult protective services should probably look into this situation. 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 Unfortunately, she admits that she has not shared this karyotype with any of Ihsan's medical providers yet; she had it done because she wanted to see what is going on with her daughter but then was too scared or suspicious of the medical community to share this information with us. (8) Diabetes mellitus Status: Chronic Problem Text: last hgba1c 4.8 Plan/VTE VTE Prophylaxis Ordered?: No VS, I&O, 24H, Fishbone Vital Signs/I&O Vital Signs Date Time Temp Pulse Resp B/P (MAP) Pulse Ox O2 Delivery O2 Flow Rate FiO2 07/09/19 12:06 136/72 (93) 07/09/19 10:20 91 07/09/19 10:00 97.2 20 100 I&O- Last 24 Hours up to 6 AM 07/09/19 06:00 Intake Total 120 ml Output Total 830 ml Balance -710 ml Laboratory Data 24H LABS Laboratory Tests 2 07/09/19 06:24: Nucleated Red Blood Cells % (auto) 0.0, Blood Urea Nitrogen 13, Creatinine 4.03H, Sodium Level 143, Potassium Level 4.1, Chloride Level 108H, Carbon Dioxide Level 30, Anion Gap 5L, Glomerular Filtration Rate 13.9L, Calcium Level 7.8L, Phosphorus Level 3.3, Magnesium Level 2.0, Albumin 2.1L CBC/BMP Laboratory Tests 07/09/19 06:24 Red Blood Count 2.25 L, Mean Corpuscular Volume 95.6, Mean Corpuscular Hemoglobin 30.2, Mean Corpuscular Hemoglobin Concent 31.6 L, Red Cell Distribution Width 15.7 H, Anion Gap 5 L Bakari Wu MD Jul 09, 2019 13:40
[2019-07-09 14:00] VITALS: BP 112/79
[2019-07-09] MEDS: ANALGESIC BALM CRM 120 GM TOP SCH ×3 (15:56→20:58)
--- NOTE | 2019-07-09 16:00 | IPN ---
DATE: 07/09/2019 Ms. Adamson seen this morning on her bedside. She is lying on the sofa bed in her room in front of the window. The patient reports discomfort at the dialysis catheter site and chronic pain in her legs. Her mother is present in the room with several questions and concerns. I have explained to the patient's mother that she has been uremic for a long time and most likely has chronic neuropathy, which is causing lower extremity pain. Unfortunately, the patient has been noncompliant, even after starting dialysis. The patient's mother has kept her away from any kind of medical treatment and intervention until she was almost with uremic pericarditis and severe anemia. Now she is admitted with diarrhea and tested positive for Clostridium (C) difficile and Salmonella. Nursing staff reports that last night she had some bleeding from the catheter site, which has now stopped. The patient was dialyzed yesterday, and she tolerated dialysis reasonably well. PHYSICAL EXAMINATION: Temperature 97.2 degrees Fahrenheit, heart rate 92 per minute, respiratory rate 20 per minute, blood pressure 178/90 mm of mercury, and oxygen saturation 100%. She is blind from both eyes. Her hair is unkempt. Perm-A-Cath is present in the right upper chest. There is no active bleeding. Oral hygiene is poor. Overall personal hygiene is also poor. Heart sounds are regular and lungs clear to auscultation. Abdomen soft and bowel sounds present. Extremities without any cyanosis or clubbing. She is quite restless in the bed. Today's labs show WBC count 9.9, hemoglobin 6.8 and hematocrit 21.5. Platelets 196. Sodium 143, potassium 4.1, CO2 of 30, BUN 13, and creatinine 4.03. Albumin is 2.1. PROBLEMS; 1. End-stage renal disease. The patient was dialyzed yesterday, and next dialysis will be scheduled for Thursday. As outpatient, she has quite noncompliant. Her mother had removed her from dialysis for several months altogether, and then she has recently resumed dialysis, however, has been coming very infrequently. In the hospital she is very well dialyzed, and electrolytes are within normal range. 2. Anemia. She has acute blood loss anemia superimposed on anemia of chronic kidney disease. The patient will be transfused 1 unit of packed red blood cell (RBC). The patient's mother has consented for transfusion. 3. Hypertension. Historically, her hypertension has been very poorly controlled, and she comes to dialysis usually with blood pressure about 200 mm of mercury. She has not been taking her medication, and mother admits to not taking medications. Now with medication administered properly on time, her blood pressure is improving. I have advised the patient's mother for compliance with medications and dialysis treatment. 4. Diarrhea with C. difficile and Salmonella. Diarrhea is gradually improving, and she remains on appropriate treatment with oral vancomycin and ciprofloxacin.
[2019-07-09] MEDS: CIPROFLOXACIN 500 MG TAB PO SCH (17:27)
[2019-07-09 18:00] VITALS: BP 152/65
[2019-07-09] MEDS ORDERED: SIMETHICONE 80 MG CHEW TAB PO PRN (21:15)
[2019-07-09 22:00] VITALS: BP 160/90
[2019-07-10] VITALS (7 sets, daily range): BP systolic 142–196; BP diastolic 60–98
[2019-07-10] MEDS: VANCOMYCIN ORAL SOL 250MG/5ML ORAL SYRINGE PO SCH ×3 (05:22→18:16)
[2019-07-10 06:41] LABS: HEMATOCRIT 30.4 % (36.0-47.0); MEAN CORPUSCULAR HEMOGLOBIN 29.6 pg (27.0-33.0); MEAN CORPUSCULAR HGB CONC 32.9 g/dl (32.0-36.5); MEAN CORPUSCULAR VOLUME 89.9 fl (80.0-96.0); PLATELET COUNT, AUTOMATED 224 10^3/uL (150-450); RED BLOOD COUNT 3.38 10^6/uL (4.00-5.40); WHITE BLOOD COUNT 12.5 10^3/uL (4.0-10.0)
[2019-07-10 07:00] LABS: ALBUMIN 2.4 GM/DL (3.2-5.2); CALCIUM LEVEL 7.9 MG/DL (8.5-10.1); CREATININE FOR GFR 5.24 MG/DL (0.55-1.30); GLOMERULAR FILTRATION RATE 10.2 (>60); MAGNESIUM LEVEL 2.1 MG/DL (1.8-2.4); PHOSPHORUS LEVEL 3.5 MG/DL (2.5-4.9); POTASSIUM SERUM 4.1 MEQ/L (3.5-5.1)
[2019-07-10] MEDS: CARVedilol 12.5 MG TAB PO SCH ×2 (10:09→21:09)
[2019-07-10] MEDS: amLODIPine 5 MG TAB PO SCH (10:09)
[2019-07-10] MEDS: ANALGESIC BALM CRM 120 GM TOP SCH ×4 (10:10→21:04)
--- NOTE | 2019-07-10 23:31 | IPNPDOC ---
Subjective Date Seen The patient was seen on 07/10/19. Subjective Chief Complaint/HPI Ihsan was sitting up in a chair and much more engaged today. She states that she feels fine and wants to go home soon. She is proud that she took a shower today. Her mother's topics of discussion today include: Ihsan's infrequent/absence of menstrual periods, Ihsan's mother's lack of menstrual periods, her difficulty conceiving, Ihsan's decreased urination (she reports about one 200ml void daily), her mother's decreased urination (by which she normalizes Ihsan's experience), questions about what a hermaphrodite is and if one can change status over time. General: Reports: Normal Appetite (improved appetite) Constitutional: Denies: Chills, Fever Skin: Reports: Other (a lump on her R neck) Pulmonary: Denies: Dyspnea, Cough Gastrointestinal: Reports: Diarrhea (decreased frequency) Objective Physical Examination General Exam: Positive: Alert, Cooperative (sitting in a chair with the bedside table up to her talking with her mother when I entered the room), No Acute Distress, Other (hygeine is much improved) Eye Exam: Negative: Sclera icteric ENT Exam: Positive: Mucous membr. moist/pink, Other ENT Neck Exam: Positive: Supple, Other (there is a ~2mm subcutanous nodule noted over the R SCM, ? calcinosis cutis vs small epidermoid cyst); Negative: Lymphadenopathy Chest Exam: Positive: Clear to auscultation, Normal air movement Heart Exam: Positive: Rate Normal, Regular Rhythm, Normal S1, Normal S2; Negative: Murmurs, Rubs Abdomen Exam: Positive: Normal bowel sounds, Soft; Negative: Tenderness, Hepatospenomegaly Extremity Exam: Negative: Edema Neuro Exam: Positive: Other (persistent tic of grinding her teeth) Psych Exam: Positive: Mood NL Assessment /Plan Problems (1) ESRD (end stage renal disease) on dialysis Status: Chronic Problem Text: Continue with HD per Nephro recommendations. She seems to be doing pretty well when she is receiving regular dialysis, still she is ESRD. Her GFR was down a little today, but within normal physiologic fluctuations. (2) Anemia in chronic kidney disease Status: Acute Problem Text: Her Hb is up to 10.1 today. Will monitor for stability. (3) Clostridium difficile infection Status: Acute Problem Text: PO vancomycin is needed x 14 more days. Mom attempting to decline medications to nursing staff. Re-educated multiple times. She will need to be set up with this medication for home IF this is the right environment for her while she completes her course of treatment. There is enough concern with regards to non-compliance with her regimen, and even attempts to decline it while admitted that I think social service technician should carefully consider whether discharge home is in Ihsan's best interests. An incomplete treatment for C. diff may have long lasting negative impacts on Ihsan's health. (4) Hypertensive urgency Status: Acute Problem Text: 07/10/19 - Her BP is still sub-optimally controlled, but as the day progressed and she had the needed meds on board the BP did seem to improve. Her mother seems to be sticking with the plan. She asked about LE edema with amlodipine as she read about it online. I reassured her that Nephrology is aware of this side effect and wouldn't overdialyze her because of it. 07/09/19 - Her mother is concerned that we will lower her BP too low and Ihsan will feel bad. She is of a firm belief that a SBP in the 140-150 range is "normal" for her daughter and that we should not seek to lower it more than this. The science is pretty clear that for patients with CKD we should be striving for BPs lower than this. She wants lisinopril taken off and requested that the nurses "pump it out of her stomach" after it was given, though she later denied this. I did get her to agree to stop refusing medications for her daughter if I d/c'd the lisinopril, and put hold parameters on the Coreg at SBP of 140 and amlodipine at 120. While I don't think this is ideal, IF she holds up her part of the bargain and doesn't refuse medications when they are offered in these parameters, I think Ihsan will be farther ahead in the long run. We will need to closely monitor and see if she keeps her end of the bargain. (5) Noncompliance with renal dialysis Status: Chronic Problem Text: This seems to be a consistent problem. I think that the situation may be more complicated then just her mother's non-compliance as initially understood. It seems that Ihsan is not always in her mother's care. 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 Sometimes she goes to "live with her boyfriend" and it sounds as if he refuses to take her anywhere including dialysis or letting her see her mother when she requests to. The way her mother describes it almost sounds like imprisonment since Ihsan can't leave volitionally because of her blindness. I think that adult protective services should probably look into this situation. 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 Unfortunately, she admits that she has not shared this karyotype with any of Ihsan's medical providers yet; she had it done because she wanted to see what is going on with her daughter but then was too scared or suspicious of the medical community to share this information with us. (7) Diabetes mellitus Status: Chronic Problem Text: last hgba1c 4.8 (8) Salmonella enteritis Status: Resolved Problem Text: Treatment with Cipro concluded on 07/09/19. The 14 days of PO Vanco started on 07/10/19, b/c of the Cipro. Plan/VTE VTE Prophylaxis Ordered?: Yes (TEDs ordered) VTE Exclusion Pharmacological: Other (frequent heparin through dialysis) VS, I&O, 24H, Fishbone Vital Signs/I&O Vital Signs Date Time Temp Pulse Resp B/P (MAP) Pulse Ox O2 Delivery O2 Flow Rate FiO2 07/10/19 22:00 98.9 64 18 164/94 (117) 100 I&O- Last 24 Hours up to 6 AM 07/10/19 06:00 Intake Total 958 ml Output Total 100 ml Balance 858 ml Laboratory Data 24H LABS Laboratory Tests 2 07/10/19 06:14: Nucleated Red Blood Cells % (auto) 0.2H, Blood Urea Nitrogen 16, Creatinine 5.24H, Sodium Level 142, Potassium Level 4.1, Chloride Level 107, Carbon Dioxide Level 27, Anion Gap 8, Glomerular Filtration Rate 10.2L, Calcium Level 7.9L, Phosphorus Level 3.5, Magnesium Level 2.1, Albumin 2.4L CBC/BMP Laboratory Tests 07/10/19 06:14 Red Blood Count 3.38 L, Mean Corpuscular Volume 89.9, Mean Corpuscular Hemoglobin 29.6, Mean Corpuscular Hemoglobin Concent 32.9, Red Cell Distribution Width 17.7 H, Anion Gap 8 Bakari Wu MD Jul 10, 2019 11:31 pm
[2019-07-11] MEDS: VANCOMYCIN ORAL SOL 250MG/5ML ORAL SYRINGE PO SCH ×4 (00:23→17:37)
[2019-07-11 06:00] VITALS: BP 186/90
[2019-07-11 06:35] LABS: HEMATOCRIT 27.7 % (36.0-47.0); HEMOGLOBIN 8.9 g/dl (12.0-15.5); MEAN CORPUSCULAR HGB CONC 32.1 g/dl (32.0-36.5); MEAN CORPUSCULAR VOLUME 90.2 fl (80.0-96.0); PLATELET COUNT, AUTOMATED 230 10^3/uL (150-450); RED BLOOD COUNT 3.07 10^6/uL (4.00-5.40); WHITE BLOOD COUNT 14.3 10^3/uL (4.0-10.0)
--- NOTE | 2019-07-11 06:48 | IPN ---
DATE OV VISIT: 07/10/2019 HISTORY: Ms. Adamson was seen this morning on her bedside. She is feeling better today; however, her chronic leg pain is unchanged. She remains somewhat restless and laying on her side in the bed. She denies any nausea, vomiting, dyspnea or chest pain. She has no more bleeding at her catheter site. She was transfused one unit of packed red blood cells (RBCs) yesterday due to worsening anemia. Her diarrhea is improving and stool is now semi-formed. PHYSICAL EXAMINATION: VITAL SIGNS: Temperature 97.5 degrees Fahrenheit, heart rate 94 per minute and respiratory rate 18 per minute. Blood pressure 158/88 mmHg and oxygen saturation 100%. Earlier her blood pressure was as high as 196/98 mmHg. HEENT: Her head is atraumatic. She is blind and personal hygiene is poor. NECK: Neck is supple and jugular venous distention (JVD) not elevated. Perma-Cath is in place in the right upper chest. HEART: Sounds somewhat tachycardiac but regular. LUNGS: Clear to auscultation. ABDOMEN: Soft and nontender. Bowel sounds present. EXTREMITIES: Without any cyanosis or clubbing. NEUROLOGIC: She is awake and at her baseline mentation. LABORATORY DATA: Today's labs show WBC count 12.5, hemoglobin 10.0, hematocrit 30.4. Platelets 224. Sodium 142, potassium 4.1, CO2 27, BUN 16 and creatinine 5.24. Calcium is 7.9 and albumin 2.4. PROBLEMS: 1. End-stage renal disease. The patient is regularly dialyzed on Thursday, Thursday and Thursday schedule. She was last dialyzed on Thursday and her labs are appropriate. There seems to be a plan for discharge on Thursday in which case she will be dialyzed in the outpatient clinic at her usual time in the afternoon. 2. Hypertension. Blood pressure has improved significantly here in the hospital while she is taking her medications. She has been chronically noncompliant with her meds at home. At this point will continue with current antihypertensive meds. Her lisinopril has been stopped and she is currently only on amlodipine and Carvedilol. 3. Diarrhea. She is currently being treated for Clostridium difficile (C. diff). Cipro has been stopped now and she is only on vancomycin. She reports that diarrhea is improving. 4. Anemia. She was transfused one unit of packed red blood cells (RBCs) with significant improvement in her anemia. She is not bleeding anymore and no other intervention is needed.
[2019-07-11 07:02] LABS: ALBUMIN 2.1 GM/DL (3.2-5.2); CALCIUM LEVEL 8.2 MG/DL (8.5-10.1); CREATININE FOR GFR 6.44 MG/DL (0.55-1.30); GLOMERULAR FILTRATION RATE 8.1 (>60); PHOSPHORUS LEVEL 3.4 MG/DL (2.5-4.9); POTASSIUM SERUM 4.9 MEQ/L (3.5-5.1)
[2019-07-11] MEDS: ANALGESIC BALM CRM 120 GM TOP SCH ×4 (08:13→21:50)
[2019-07-11] MEDS: amLODIPine 5 MG TAB PO SCH (08:15)
[2019-07-11] MEDS: CARVedilol 12.5 MG TAB PO SCH ×2 (08:15→21:50)
[2019-07-11 10:00] VITALS: BP 142/79
[2019-07-11] MEDS ORDERED: HEPARIN 1,000 UNITS/ML 10ML VIAL (FOR RADIOLOGY& DIALYSIS ONLY) XX ONE (10:00)
[2019-07-11] MEDS ORDERED: HEPARIN 1,000 UNITS/ML 10ML VIAL (FOR RADIOLOGY& DIALYSIS ONLY) IV ONE (10:00)
[2019-07-11] MEDS ORDERED: FIRV50SO PO (11:33)
--- NOTE | 2019-07-11 11:54 | IPNPDOC ---
Subjective Date Seen The patient was seen on 07/11/19. Subjective Chief Complaint/HPI Pt this morning is without new concerns. Her mom has told nursing that Ihsan is going to sign out AMA if she is not released today. Her mom expressed to the student that she has concerns about knowing when to straight cath the pt. Mom also states that she doesn't wash her hands and it isn't likely if she is to straight cath her that she will wash her hands then. Her mom is insistent that if she is to go home she will make sure she gets her medications. General: Denies: Fatigue Constitutional: Denies: Chills, Fever Pulmonary: Denies: Dyspnea, Cough Cardiovascular: Denies: Chest Pain, Palpitations Gastrointestinal: Denies: Nausea, Vomiting, Diarrhea (soft, formed) Neurological: Reports: Weakness Psych: Reports: Mood Normal Objective Physical Examination General Exam: Positive: Alert, Cooperative (sitting in wheelchair, spontanous movements, restlessness), No Acute Distress, Other (hygeine remains poor) Eye Exam: Negative: Sclera icteric ENT Exam: Positive: Mucous membr. moist/pink, Other ENT Neck Exam: Positive: Supple, Other (there is a ~2mm subcutanous nodule noted over the R SCM, ? calcinosis cutis vs small epidermoid cyst); Negative: Lymphadenopathy Chest Exam: Positive: Clear to auscultation, Normal air movement Heart Exam: Positive: Rate Normal, Regular Rhythm, Normal S1, Normal S2; Negative: Murmurs, Rubs Abdomen Exam: Positive: Normal bowel sounds, Soft; Negative: Tenderness, Hepatospenomegaly Extremity Exam: Negative: Edema Neuro Exam: Positive: Other (persistent tic of grinding her teeth) Psych Exam: Positive: Mood NL Assessment /Plan Problems (1) ESRD (end stage renal disease) on dialysis Status: Chronic Problem Text: 07/11 MWF dialysis, h/o noncompliance with medication at home. 07/10 Continue with HD per Nephro recommendations. She seems to be doing pretty well when she is receiving regular dialysis, still she is ESRD. Her GFR was down a little today, but within normal physiologic fluctuations. (2) Anemia in chronic kidney disease Status: Acute Problem Text: 07/11 Hgb 8.9 07/10 Her Hb is up to 10.1 today. Will monitor for stability. (3) Clostridium difficile infection Status: Acute Problem Text: 07/11 Vanco D 1, since abx has been completed. 07/10 PO vancomycin is needed x 14 more days. Mom attempting to decline medications to nursing staff. Re-educated multiple times. She will need to be set up with this medication for home IF this is the right environment for her while she completes her course of treatment. There is enough concern with regards to non-compliance with her regimen, and even attempts to decline it while admitted that I think social work lecturer should carefully consider whether discharge home is in Ihsan's best interests. An incomplete treatment for C. diff may have long lasting negative impacts on Ihsan's health. (4) Hypertensive urgency Status: Acute Problem Text: 07/11 Mgmt has been per Nephro 07/10/19 - Her BP is still sub-optimally controlled, but as the day progressed and she had the needed meds on board the BP did seem to improve. Her mother seems to be sticking with the plan. She asked about LE edema with amlodipine as she read about it online. I reassured her that Nephrology is aware of this side effect and wouldn't overdialyze her because of it. 07/09/19 - Her mother is concerned that we will lower her BP too low and Ihsan will feel bad. She is of a firm belief that a SBP in the 140-150 range is "normal" for her daughter and that we should not seek to lower it more than this. The science is pretty clear that for patients with CKD we should be striving for BPs lower than this. She wants lisinopril taken off and requested that the nurses "pump it out of her stomach" after it was given, though she later denied this. I did get her to agree to stop refusing medications for her daughter if I d/c'd the lisinopril, and put hold parameters on the Coreg at SBP of 140 and amlodipine at 120. While I don't think this is ideal, IF she holds up her part of the bargain and doesn't refuse medications when they are offered in these parameters, I think Ihsan will be farther ahead in the long run. We will need to closely monitor and see if she keeps her end of the bargain. (5) Noncompliance with renal dialysis Status: Chronic Problem Text: This seems to be a consistent problem. I think that the situation may be more complicated then just her mother's non-compliance as initially understood. It seems that Ihsan is not always in her mother's care. 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 Sometimes she goes to "live with her boyfriend" a nd it sounds as if he refuses to take her anywhere including dialysis or letting her see her mother when she requests to. The way her mother describes it almost sounds like imprisonment since Ihsan can't leave volitionally because of her blindness. I think that adult protective services should probably look into this situation. 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 Unfortunately, she admits that she has not shared this karyotype with any of Ihsan's medical providers yet; she had it done because she wanted to see what is going on with her daughter but then was too scared or suspicious of the medical community to share this information with us. (7) Diabetes mellitus Status: Chronic Problem Text: last hgba1c 4.8 (8) Salmonella enteritis Status: Resolved Problem Text: Treatment with Cipro concluded on 07/09/19. The 14 days of PO Vanco started on 07/10/19, b/c of the Cipro. Plan/VTE VTE Prophylaxis Ordered?: Yes (TEDs ordered) VTE Exclusion Pharmacological: Other (frequent heparin through dialysis) VS, I&O, 24H, Fishbone Vital Signs/I&O Vital Signs Date Time Temp Pulse Resp B/P (MAP) Pulse Ox O2 Delivery O2 Flow Rate FiO2 07/11/19 10:00 98.4 85 19 142/79 (100) 100 I&O- Last 24 Hours up to 6 AM 07/11/19 06:00 Intake Total 600 ml Output Total 150 ml Balance 450 ml Laboratory Data 24H LABS Laboratory Tests 2 07/11/19 06:01: Nucleated Red Blood Cells % (auto) 0.4H, Blood Urea Nitrogen 22H, Creatinine 6.44H, Sodium Level 141, Potassium Level 4.9, Chloride Level 110H, Carbon Dioxide Level 25, Anion Gap 6L, Glomerular Filtration Rate 8.1L, Calcium Level 8.2L, Phosphorus Level 3.4, Magnesium Level 2.0, Albumin 2.1L CBC/BMP Laboratory Tests 07/11/19 06:01 Red Blood Count 3.07 L, Mean Corpuscular Volume 90.2, Mean Corpuscular Hemoglobin 29.0, Mean Corpuscular Hemoglobin Concent 32.1, Red Cell Distribution Width 17.1 H, Anion Gap 6 L LAURO CARREON PA-C Jul 11, 2019 11:54
--- NOTE | 2019-07-11 12:48 | IPN ---
DATE OF VISIT: 07/11/2019 Ms. Adamson is seen this morning on her bedside. She is sitting in the wheelchair today. She remains weak and chronically ill-looking. She reports that her diarrhea has improved. She is blind from both eyes. On physical exam, temperature 98.4 degrees Fahrenheit, heart rate 85 per minute and respiratory rate 18 per minute. Blood pressure 142/79 mmHg while earlier it was up to 190/98. Her oxygen saturation is 100% on room air. She is blind from both eyes. Neck is supple and jugular venous distention (JVD) not abnormally elevated. Her oral mucosa is dry. Heart sounds regular and lungs clear to auscultation. Abdomen soft and nontender, and bowel sounds normal. Extremities without any cyanosis or clubbing. Today's labs show WBC count 14.3, hemoglobin 8.9 and hematocrit 27.7. Platelets 230. Sodium 141, potassium 4.9, CO2 25, BUN 22 and creatinine 6.44. Glucose 102 and calcium 8.2. PROBLEMS: 1. End-stage renal disease. Patient is due for dialysis today and we will plan to dialyze her this afternoon. Her electrolytes are stable and volume status is reasonably well-compensated. Will try only 1/2 liter of fluid removal. 2. Anemia. Her anemia did improve with transfusion. She has slight decrease in her hemoglobin and hematocrit once again, which is probably due to hemodilution and complete blood count (CBC) should be checked again tomorrow. She has no acute blood loss at present. 3. Clostridium (C) difficile colitis. She reports that her diarrhea is improved and her stool was formed this morning. She has been on oral vancomycin and we deferred the duration of oral antibiotic to her primary care team. 4. Hypertension. Blood pressure is still high but better controlled when she takes her medication. Recommend to continue with current antihypertensive meds.
[2019-07-11 16:45] VITALS: BP 164/92
[2019-07-11 22:00] VITALS: BP 170/90
[2019-07-12] MEDS: VANCOMYCIN ORAL SOL 250MG/5ML ORAL SYRINGE PO SCH ×3 (00:16→11:21)
[2019-07-12 02:00] VITALS: BP 158/80
[2019-07-12 05:58] LABS: HEMATOCRIT 27.8 % (36.0-47.0); HEMOGLOBIN 8.9 g/dl (12.0-15.5); MEAN CORPUSCULAR HEMOGLOBIN 29.4 pg (27.0-33.0); MEAN CORPUSCULAR VOLUME 91.7 fl (80.0-96.0); PLATELET COUNT, AUTOMATED 209 10^3/uL (150-450); RED BLOOD COUNT 3.03 10^6/uL (4.00-5.40); WHITE BLOOD COUNT 16.4 10^3/uL (4.0-10.0)
[2019-07-12 06:00] VITALS: BP 186/92
[2019-07-12 06:13] LABS: ALBUMIN 2.2 GM/DL (3.2-5.2); CALCIUM LEVEL 7.9 MG/DL (8.5-10.1); CREATININE FOR GFR 3.93 MG/DL (0.55-1.30); GLOMERULAR FILTRATION RATE 14.3 (>60); MAGNESIUM LEVEL 1.9 MG/DL (1.8-2.4); PHOSPHORUS LEVEL 2.2 MG/DL (2.5-4.9); POTASSIUM SERUM 4.4 MEQ/L (3.5-5.1)
[2019-07-12] MEDS: ANALGESIC BALM CRM 120 GM TOP SCH (09:40)
[2019-07-12] MEDS: amLODIPine 5 MG TAB PO SCH (09:41)
[2019-07-12 09:42] VITALS: BP 164/90
[2019-07-12] MEDS: CARVedilol 12.5 MG TAB PO SCH (09:42)
[2019-07-12] MEDS ORDERED: CARV12.5 PO (09:57)
[2019-07-12] MEDS ORDERED: AMLO5TAB6 PO (09:57)
[2019-07-12 10:00] VITALS: BP 164/90
--- NOTE | 2019-07-12 15:30 | IPN ---
DATE OF VISIT: 07/12/2019 Ms. Adamson is seen this morning on her bedside. Nursing staff met me at the door of her room and reported that patient had refused to take her Norvasc this morning but she did take Carvedilol. Her blood pressure has been quite high and today it is down to 164/90 mmHg and heart rate is about 106 per minute. Temperature is 98 degrees Fahrenheit. The patient underwent hemodialysis yesterday, which she tolerated reasonably well. She is currently being treated for Clostridium (C) difficile colitis and her primary care team has decided to keep her here until she completes her antibiotic therapy due to prior history of noncompliance. Patient and her mother are trying to be noncompliant even in the hospital. I have discussed with the patient's mother at length that she should not refuse any medications or any care that doctors recommend and prescribe for her daughter. Unfortunately this patient has been deprived of proper medical care because of her mother's interference and noncompliance with instructions. Temperature 98.2 degrees Fahrenheit, heart rate 106 per minute and respiratory rate 20 per minute. Blood pressure 164/90 mmHg and oxygen saturation 98% on room air. She is blind from both eyes. Neck is supple and without jugular venous distention (JVD) or thyroid enlargement. Heart sounds are tachycardiac but regular. Lungs clear to auscultation. Abdomen soft and nontender, and bowel sounds normal. Extremities without any cyanosis or clubbing. Today's labs show WBC count 16.4, hemoglobin 8.9 and hematocrit 27.8. Sodium 142, potassium 4.4, CO2 31, BUN 14 and creatinine 3.93. Calcium is 7.9 and phosphorus 2.2. PROBLEMS: 1. End-stage renal disease. Patient is currently dialysis dependent and will continue with three times a week dialysis. We plan to dialyze her again tomorrow. 2. Anemia. She was transfused a few days ago due to worsening anemia and since then it has been stable. She receives Aranesp 100 mcg once a week, which will be continued. 3. Hypertension. Blood pressure control has improved significantly since she is in hospital. As an outpatient her blood pressure is always above 200 mmHg when she comes for dialysis. I have discussed with the patient's mother at length and advised compliance with medications. I have explained the rationale for using two antihypertensive medications and the improved blood pressure when she takes her medicines appropriately. 4. C diff colitis. She remains on oral vancomycin 250 mg every 6 hours.
--- NOTE | 2019-07-12 18:42 | DSES ---
DATE OF ADMISSION: 07/06/2019 DATE OF DISCHARGE: 07/12/2019 PRIMARY CARE PHYSICIAN: Dr. Janelle Hoover, although there is an active transfer plan to Dr. Héctor Pan ATTENDING: Dr. Derian Cowart HISTORY: This is a 29-year-old developmentally and physically delayed female who resides at home with her mother as primary caregiver who has a strong history of medical noncompliance in regard to both outpatient followup, management of medications, and compliance with dialysis. She was admitted to the hospital after missing multiple hemodialysis treatments as well as having recurrent diarrhea. She was found to have accelerated hypertension, Clostridium (C) difficile infection, Salmonella gastroenteritis. She received a total of 3 days of ciprofloxacin for treatment of Salmonella. She has remained on vancomycin and will complete a total of 14 days after the ciprofloxacin has been completed. Her blood pressure is under improved control with the addition and routine administration of amlodipine and Coreg. There have been numerous discussions with the patient as well as her mother in regard to hygiene, cleanliness of the home, risk of infection to the patient, as well as compliance with medication, compliance with followup. Transportation has been offered. Adult protective services has been informed of the patient's current hospitalization and has been requested to followup with the patient upon discharge. DISCHARGE DIAGNOSES: 1. End-stage renal disease. 2. Chronic anemia. 3. Clostridium difficile colitis. 4. Salmonella. 5. Colitis. 6. Hypertension. 7. Medical noncompliance. 8. Developmental delay. DISCHARGE MEDICATIONS: - Coreg 12.5 mg by mouth twice a day - amlodipine 5 mg by mouth daily - vancomycin 250 mg every 6 hours for a total of 13 additional days DISCHARGE PLAN: Followup with Dr. Pan on July 21 as previously scheduled. Her diet should be no-added salt.
== END 2019-07-12 13:18 | disposition home or self-care (01) | DRG 248 ==
LOC: PREOBSVTOIN 14:04 → M MSPAV 14:05
PROVIDERS: ADMIT Family Medicine; ATTEND Family Medicine
PROC: 5A1D70Z Performance of Urinary Filtration, Intermittent, Less than 6 Hours Per Day (ICD-10-PCS; principal; 2019-07-06)
PROC: 30233N1 Transfusion of Nonautologous Red Blood Cells into Peripheral Vein, Percutaneous Approach (ICD-10-PCS; 2019-07-09)
DX: A04.72 Enterocolitis due to Clostridium difficile, not specified as recurrent (principal); E11.21 Type 2 diabetes mellitus with diabetic nephropathy; E46 Unspecified protein-calorie malnutrition; N18.6 End stage renal disease; I12.0 Hypertensive chronic kidney disease with stage 5 chronic kidney disease or end stage renal disease; E11.22 Type 2 diabetes mellitus with diabetic chronic kidney disease; E11.319 Type 2 diabetes mellitus with unspecified diabetic retinopathy without macular edema; E87.6 Hypokalemia; D63.1 Anemia in chronic kidney disease; A02.0 Salmonella enteritis; Q96.9 Turner's syndrome, unspecified; H54.8 Legal blindness, as defined in USA; Z99.2 Dependence on renal dialysis; Z91.15 Patient's noncompliance with renal dialysis; Z79.899 Other long term (current) drug therapy; I16.0 Hypertensive urgency; Z91.14 Patient's other noncompliance with medication regimen; Z86.73 Personal history of transient ischemic attack (TIA), and cerebral infarction without residual deficits; D62 Acute posthemorrhagic anemia

== ENCOUNTER 2019-07-25 07:44 | Inpatient (IN) | payer OTHER ==
[~2019-07-25] VITALS: Ht 144.8 cm; Wt 36.8 kg
[2019-07-25] MEDS ORDERED: CARVedilol 12.5 MG TAB PO ONE (08:15)
[2019-07-25] MEDS ORDERED: amLODIPine 5 MG TAB PO ONE (08:15)
[2019-07-25] MEDS ORDERED: LABETALOL HCL 100 MG/20 ML VIAL IV STA (08:25)
[2019-07-25] MEDS ORDERED: CARV12.5 PO (09:03)
[2019-07-25] MEDS ORDERED: FIRV50SO PO (09:03)
[2019-07-25] MEDS ORDERED: AMLO5TAB6 PO (09:03)
[2019-07-25 09:09] LABS: BASO # 0.1 10^3/uL (0.0-0.2); BASO % 0.6 % (0.0-1.0); EOS # 0.5 10^3/uL (0.0-0.5); EOS % 5.2 % (0.0-3.0); HEMATOCRIT 30.2 % (36.0-47.0); HEMOGLOBIN 9.3 g/dl (12.0-15.5); LYMPH # 2.2 10^3/uL (1.5-5.0); LYMPH % 21.6 % (24.0-44.0); MEAN CORPUSCULAR HEMOGLOBIN 29.5 pg (27.0-33.0); MEAN CORPUSCULAR HGB CONC 30.8 g/dl (32.0-36.5); MEAN CORPUSCULAR VOLUME 95.9 fl (80.0-96.0); MONO # 0.9 10^3/uL (0.0-0.8); MONO % 8.6 % (0.0-5.0); NEUTROPHILS # 6.5 10^3/uL (1.5-8.5); NEUTROPHILS % 63.4 % (36.0-66.0); PLATELET COUNT, AUTOMATED 426 10^3/uL (150-450); RED BLOOD COUNT 3.15 10^6/uL (4.00-5.40); WHITE BLOOD COUNT 10.2 10^3/uL (4.0-10.0)
[2019-07-25 09:37] LABS: CALCIUM LEVEL 9.1 MG/DL (8.5-10.1); CK-MB VALUE MASS 3.8 NG/ML (<3.6); CREATININE FOR GFR 5.08 MG/DL (0.55-1.30); GLOMERULAR FILTRATION RATE 10.6 (>60); MB/CK RELATIVE INDEX 5.85 (< OR =4); POTASSIUM SERUM 4.6 MEQ/L (3.5-5.1); TROPONIN I 0.04 NG/ML (< 0.10)
--- NOTE | 2019-07-25 09:40 | REP ---
CT brain: 07/25/2019. Indication: Hypertensive emergency. Headache. Comparison: 08/11/2019. Technique: Unenhanced axial CT images of the brain were obtained from skull base to vertex. Findings: There is no acute intracranial hemorrhage, acute cortical infarction, mass effect or hydrocephalous. Age indeterminate likely chronic left basal ganglia lacunar infarction is present. Chronic-appearing small infarction is noted within the subcortical white matter of the right insula/basal ganglia. Diffuse volume loss is present. There are patchy areas of white matter hypoattenuation which is a nonspecific finding but likely represents sequelae of chronic small vessel disease. Impression: No acute intracranial hemorrhage. Age indeterminate left basal ganglia lacunar infarction. Volume loss and sequelae of chronic microangiopathic ischemic disease. Electronically Signed by Soren Cool DO 07/25/2019 09:31 A
--- NOTE | 2019-07-25 09:47 | REP ---
CHEST PORTABLE: AP portable view of the chest is performed and compared to a prior study of 07/05/2019. There is a large left pleural effusion with mild right pleural fluid. Diffuse interstitial alveolar infiltrates likely represent pulmonary edema. Cardiac silhouette appears prominent. Right central venous catheter is seen with the distal end in the right atrium. Electronically Signed by Timi Ceballos MD 07/26/2019 05:26 P
[2019-07-25] MEDS ORDERED: ONDANSETRON 4MG/2ML VIAL (J2405) IV ONE (10:00)
[2019-07-25] MEDS ORDERED: HEPARIN 1,000 UNITS/ML 10ML VIAL (FOR RADIOLOGY& DIALYSIS ONLY) IV ONE (12:00)
[2019-07-25] MEDS ORDERED: HEPARIN 1,000 UNITS/ML 10ML VIAL (FOR RADIOLOGY& DIALYSIS ONLY) XX ONE (12:00)
--- NOTE | 2019-07-25 14:31 | HPEPDOC ---
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 Patient missed multiple 1 dialysis appointment; and has been complaining of shortness of breath with possible fluid overload and was brought by the mother as admission to hospital for further treatment. The patient was found to be extremely hypertensive with a blood pressure of 250/123, this has happened in the past as well as the patient's mother does not give her the medications as scheduled. ER had already spoken with nephrology regarding this patient and the patient is getting dialysis today. Otherwise patient denies of any chest pain, shortness of breath, headache, or abdominal pain. She is not in any acute distress. Patient states that she makes urine and denied of any diarrhea or dysuria. Patient being admitted for further evaluation treatment for hemodialysis. Patient and mother are both agreeable. Review system: 10 point review systems negative other than those described in HPI. PAST MEDICAL HISTORY: Chronic kidney disease stage IV, hypertension, diabetic retinopathy with complete blindness of the left eye and partial in the right. A nucleated left eye. Mason syndrome. PAST SURGICAL HISTORY: Coarctation of aorta and status post repair. Status post left chest hemodialysis catheter, left wrist vascular surgery for fistula formation ALLERGIES: NO KNOWN DRUG ALLERGIES. FAMILY HISTORY: Negative for diabetes, otherwise noncontributory. SOCIAL HISTORY: The patient denies use of tobacco, alcohol or illicit drugs. ALLERGIES: Please see below. HOME MEDICATIONS: Please see below. PHYSICAL EXAMINATION: VITAL SIGNS: Please see below GENERAL APPEARANCE: Resting comfortably HEENT: Normocephalic, PERRLA, Mucous moist, enucleated eye on the left CARDIOVASCULAR: S1,S2, pulse present, regular, left upper chest hemodialysis catheter LUNGS: Equal air entry b/l, no wheezes or crackle ABDOMEN: Soft, BS present, no tenderness, no guarding GENITOURINARY: No Regalado EXTREMITIES: B/L no edema, capillary refill present , left wrist vascular surgery her fistula but not patent SKIN: Warm, No fever NEUROLOGICAL: Cranial nerves grossly intact PSYCHIATRIC: Normal mood and affect for current situation LABORATORY DATA: See below. IMAGING: [CXR:No acute cardiopulmonary process appreciated. EKG: Heart rate of 107, sinus tachycardia, motion artifact and no ST elevation] MICROBIOLOGY: Please see below. 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 1. Severe hypertension, missed dialysis noncompliance, HTN urgency/emergency -Most likely after receiving the dialysis and getting that hypertensive medication. The patient, but she'll be controlled. Currently it is 160s over 84 - PFS on consult - Nephrology Dr. Vázquez consult - s/p PermCath and L forearm fistula creation 2. CVA history -Aspirin, statin 3. IDDM2 -Sliding scale, fingerstick monitoring, Levemir 4. HTN -Resume Carvedilol, hydralazine when necessary 5.. Anemia of Chronic disease - Monitor, stable 6. Recent history of C. difficile. She continues to be on oral vancomycin. Continue for now. 7. Medical non-compliance - complicating medical care We will get social workers in all 4 social support. DVT prophylaxis -Heparin sc Vital Signs Vital Signs Date Time Temp Pulse Resp B/P (MAP) Pulse Ox O2 Delivery O2 Flow Rate FiO2 07/25/19 11:45 92 186/108 (134) 98 07/25/19 07:45 98.3 18 Room Air Laboratory Data Labs 24H Laboratory Tests 2 07/25/19 08:56: Immature Granulocyte % (Auto) 0.6, Neutrophils (%) (Auto) 63.4, Lymphocytes (%) (Auto) 21.6L, Monocytes (%) (Auto) 8.6H, Eosinophils (%) (Auto) 5.2H, Basophils (%) (Auto) 0.6, Neutrophils # (Auto) 6.5, Lymphocytes # (Auto) 2.2, Monocytes # (Auto) 0.9H, Eosinophils # (Auto) 0.5, Basophils # (Auto) 0.1, Nucleated Red Blood Cells % (auto) 0.0, Anion Gap 9, Glomerular Filtration Rate 10.6L, Calcium Level 9.1, Total Creatine Kinase 65, Creatine Kinase MB 3.8H, Creatine Kinase MB Relative Index 5.85H, Troponin I 0.04 CBC/BMP Laboratory Tests 07/25/19 08:56 Home Medications Scheduled Amlodipine Besylate (Amlodipine Besylate) 5 Mg Tablet, 5 MG PO DAILY Carvedilol (Carvedilol) 12.5 Mg Tablet, 12.5 MG PO BID Vancomycin HCl (Firvanq) 50 Mg/1 Ml Soln.recon, 250 MG PO Q6H FOR 14 DAYS, FILLED 07/12 Allergies Coded Allergies: No Known Allergies (Unverified , 01/19/19) A-FIB/CHADSVASC A-FIB History Current/History of A-Fib/PAF?: No Current PO Anticoag Therapy: No PANTERA BAIG MD Jul 25, 2019 14:31
[2019-07-25] MEDS ORDERED: ACETAMINOPHEN TAB 650MG DOSE (2X325MG) PO PRN (14:45)
[2019-07-25] MEDS ORDERED: MOM 30ML SUSPENSION UDC PO PRN (14:45)
[2019-07-25] MEDS ORDERED: MAALOX 30 ML SUSP *UDC PO PRN (14:45)
[2019-07-25 16:00] VITALS: BP 138/75
[2019-07-25] MEDS ORDERED: SLF 3 ML SYR IV PRN (16:45)
[2019-07-25] MEDS: VANCOMYCIN ORAL SOL 250MG/5ML ORAL SYRINGE PO SCH (17:52)
[2019-07-25 18:00] VITALS: BP 134/84
[2019-07-25] MEDS: DOCUSATE SODIUM 100 MG CAP PO SCH (19:56)
[2019-07-25 20:00] VITALS: BP 152/87
[2019-07-25] MEDS: CARVedilol 12.5 MG TAB PO SCH (20:56)
[2019-07-25] MEDS: HEPARIN SOD (PORCINE) 5000 UNITS/ML VIAL SC SCH (20:58)
[2019-07-25] MEDS: SLF 3 ML SYR IV SCH (20:58)
[2019-07-26] VITALS (7 sets, daily range): BP systolic 150–204; BP diastolic 80–108
[2019-07-26] MEDS: VANCOMYCIN ORAL SOL 250MG/5ML ORAL SYRINGE PO SCH ×3 (00:32→11:32)
[2019-07-26] MEDS: SLF 3 ML SYR IV SCH ×3 (05:24→19:35)
--- NOTE | 2019-07-26 06:03 | CR ---
DATE OF CONSULTATION: 07/25/2019 REQUESTING PHYSICIAN: Dr. Andres in the emergency room. REASON FOR CONSULTATION: Management of end-stage renal disease on hemodialysis. HISTORY OF PRESENT ILLNESS: Ihsan Adamson is well known to me. She is a 29-year-old female with a past medical history of what sounds like Mosaic Mason Syndrome, history of aortic coarctation status post repair, enucleated left eye, Dobbs's palsy, end stage renal disease on hemodialysis, history of diabetes, hypertension, anemia, secondary hyperparathyroidism of renal origin, history of cerebral vascular accident (CVA) and history of noncompliance. The patient's main caregiver is her mother and there has been many questions of negligence in regards to the care for Ihsan. Last week the patient was dialyzed on Thursday, and Thursday. She is usually supposed to be on a Thursday, Thursday, Thursday schedule. The patient's mother also narrates that several doses of antihypertensives were not given. The dialysis staff reports that the patient's mother had stated that she was interested in getting Ihsan admitted to the hospital for inpatient dialysis treatment instead of the usual outpatient treatment. The patient was brought to the emergency room where she was found to be significantly hypertensive. Blood pressure 250/123. She was also noted to be in fluid overload. Nephrology consultation was requested for help with the management of this patient end-stage renal disease, hypertension and volume management. PAST MEDICAL HISTORY: 1. End-stage renal disease on hemodialysis with significant noncompliance with dialysis session; many missed treatments and lack of arteriovenous access. 2. Hypertension with noncompliance with medications. 3. Diabetes. 4. Blindness in the left eye and severe vision loss in right eye. 5. Mason Mosaic Syndrome. 6. Anemia, chronic kidney disease (CKD). 7. Secondary hyperparathyroidism of renal origin. 8. History of CVA. 9. Aortic coarctation status post repair. PAST SURGICAL HISTORY: 1. Coarctation of aorta, status post repair . 2. Right chest hemodialysis catheter and failed arteriovenous access in the left arm. ALLERGIES: NO KNOWN DRUG ALLERGIES. FAMILY HISTORY: She has a family history of end-stage renal disease in the maternal uncle. SOCIAL HISTORY: The patient lives with her mother and brother under very poor hygienic conditions. There is a concern of negligence. There is no reported tobacco, alcohol and illicit drug use. HOME MEDICATIONS: There is noncompliance with home medications. REVIEW OF SYSTEMS: Constitutional: The patient offers some review of systems but her mother mostly attempts to answer the questions for her and speak for her. Briefly Ihsan denies fevers, chills. Eyes: There is significant vision loss and blindness. ENT: There is no reported tinnitus or sore throat. Endocrine: There is secondary hyperparathyroidism and history of diabetes. Pulmonary: There is pleural effusions. She denies cough. Cardiac: She denies chest pain or palpitations. There is edema. Gastrointestinal: She denies nausea, vomiting, diarrhea. Genitourinary: She still makes some urine. She denies urinary tract infection (UTI) symptoms. Hematologic: She reports anemia and iron deficiency. She denies anticoagulant use. Musculoskeletal: She denies acute myalgias or arthralgias. Neurologic: There is some cognitive impairment. There is history of stroke. Psychiatric. She denies depression. The remainder of the review of systems is negative or as per history of present illness (HPI). PHYSICAL EXAMINATION: Vital signs: Temperature 98.3, pulse 107, respiratory rate 18, blood pressure 134/82, saturating 92% on room air. Dialysis today removed 1500 mL. General: The patient is seen in the hemodialysis unit receiving her treatment. She is very poorly kempt, disheveled appearance, a malodor [facility] Appears chronically ill. She does not make eye contact, is legally blind. HEENT: Poor dentition. Neck: Neck is supple. Jugular veins are mildly elevated. There is a tunneled hemodialysis catheter presently in use in the right chest wall. Cardiac: S1, S2, regular rate and rhythm. Lungs: Bibasilar crackles. Abdomen: Soft and nontender. There are bowel sounds. There is a failed arteriovenous access in the left arm. Extremities: The lower extremities are negative for clubbing or cyanosis but do show 1+ edema. Psychiatric: The patient is withdrawn, mother mostly speaks for her. Neurologic: There is some degree of cognitive impairment but she answers simple questions appropriately and is cooperative with physical exam. Skin: Normal temperature and turgor. LABORATORY DATA: White count 10.2, hemoglobin 9.3, sodium of 139, potassium 4.6, bicarbonate 30, BUN 24. IMAGING STUDIES: Chest x-ray July 25 There is diffuse interstitial alveolar infiltrates likely represents pulmonary edema. INPATIENT MEDICATIONS: - Tylenol taken as needed - amlodipine 5 mg by mouth daily - Carvedilol 12.5 mg by mouth twice a day - docusate 100 mg by mouth twice a day - heparin 5000 units subcu every 12 - vancomycin 250 mg by mouth every 6 hourly PROBLEMS: 1. End-stage renal disease on hemodialysis on a maintenance schedule of Thursday, Thursday and Thursday. Unfortunately Ihsan has a track record of very poor compliance with hemodialysis treatments. Her mother is her main floor scrubber and who decides when and where Ihsan will be receiving hemodialysis. Last week she missed Thursday's treatment and came instead on and Thursday and dialysis staff report that the patient's mother expressed interest in having her admitted for inpatient dialysis treatment. She is dialyzed today with 1500 mL of fluid removed and we will plan to dialyze her again tomorrow. The patient is presently being dialyzed via Perma-Catheter. She has a failed fistula in the left upper extremity. The patient and her mother were counseled on the need for compliance with her maintenance hemodialysis schedule in the outpatient setting. 2. Volume overload, pulmonary edema, peripheral edema likely due to noncompliance with fluid restriction and outpatient hemodialysis treatment. Goal of fluid removal today is 1.5 liters and she will be dialyzed again tomorrow for further correction of her volume status. 3. Uncontrolled hypertension due to volume overload, dialysis noncompliance and noncompliance with antihypertensives. The patient has been resumed on her home antihypertensive regimen. She received dialysis today with 1.5 liters of fluid removed with significant improvement in her blood pressures afterwards. 4. Anemia of chronic kidney disease. We will resume erythropoietin stimulating agent (SABAS) and check on an iron panel. I would start SABAS once her blood pressure is controlled. 5. Medical noncompliance severely complicates her care. The patient has some degree of cognitive impairment, her mother is her caregiver. I am not sure if adult protective services was previously called in this case however, they if they were not I do recommend that they should be. Thank you for involving me in the care of Ms. Adamson. I will be happy to follow her along with you.
[2019-07-26 06:11] LABS: HEMATOCRIT 23.9 % (36.0-47.0); HEMOGLOBIN 7.6 g/dl (12.0-15.5); MEAN CORPUSCULAR HEMOGLOBIN 30.3 pg (27.0-33.0); MEAN CORPUSCULAR HGB CONC 31.8 g/dl (32.0-36.5); MEAN CORPUSCULAR VOLUME 95.2 fl (80.0-96.0); PLATELET COUNT, AUTOMATED 330 10^3/uL (150-450); RED BLOOD COUNT 2.51 10^6/uL (4.00-5.40); WHITE BLOOD COUNT 8.2 10^3/uL (4.0-10.0)
[2019-07-26 06:35] LABS: CALCIUM LEVEL 8.2 MG/DL (8.5-10.1); CREATININE FOR GFR 3.56 MG/DL (0.55-1.30); POTASSIUM SERUM 4.3 MEQ/L (3.5-5.1)
[2019-07-26 09:37] LABS: PERCENT SATURATION 25.6 % (13.2-45.0)
--- NOTE | 2019-07-26 09:59 | ECGEPIP ---
[facility] - ED Test Date: 2019-07-25 Pat Name: FLAVIA MERRILL Department: Room: - Gender: Female General Accounting Manager: linnea : 1990 Requested By: Mina Najera Order Number: [id number] Reading MD: Florence Barrientos Measurements Intervals Nahma Rate: 123 P: 47 FL: 121 QRS: 12 QRSD: 76 T: 78 QT: 323 QTc: 462 Interpretive Statements SINUS TACHYCARDIA NONSPECIFIC T-WAVE ABNORMALITY ABNORMAL RHYTHM ECG INCREASED RATE 06/26/19 Electronically Signed on 07-26-2019 9:59:40 EDT by Florence Barrientos
[2019-07-26] MEDS ORDERED: IRON SUCROSE 100MG 5ML VIAL (J1756 PER 1MG) IV SCH (10:00)
[2019-07-26] MEDS ORDERED: DARBEPOETIN 100 MCG/0.5 ML *DIALYSIS* SYRINGE (J0882) IV SCH (10:00)
[2019-07-26] MEDS: DOCUSATE SODIUM 100 MG CAP PO SCH (11:31)
[2019-07-26] MEDS: CARVedilol 12.5 MG TAB PO SCH ×3 (11:31→21:40)
[2019-07-26] MEDS: amLODIPine 5 MG TAB PO SCH ×2 (11:32→12:44)
[2019-07-26] MEDS: HEPARIN SOD (PORCINE) 5000 UNITS/ML VIAL SC SCH ×2 (11:32→19:35)
--- NOTE | 2019-07-26 12:28 | IPNPDOC ---
Subjective Date Seen The patient was seen on 07/26/19. (Dr Supa perez, not JFW) Subjective Chief Complaint/HPI Mother refused her BP meds this morning. She refused the SQ heparin. She refused to let us weigh her and she refused to let us give her a bath. She also refused to let the patient go to dialysis this morning as had been ordered by nephrology. Pulmonary: Reports: Dyspnea (improved per patient) Cardiovascular: Denies: Chest Pain, Palpitations Gastrointestinal: Denies: Nausea, Vomiting, Abdominal Pain, Diarrhea, Constipation Objective Physical Examination General Exam: Positive: No Acute Distress, Other (Laying on couch, lethargic but communicative) Chest Exam: Positive: Diminished; Negative: Rales, Rhonchi, Wheezing Heart Exam: Positive: Rate Normal, Regular Rhythm Abdomen Exam: Positive: Normal bowel sounds, Soft; Negative: Tenderness Extremity Exam: Positive: Edema (trace - 1+ ankle edema BL) Assessment /Plan Problems (1) Fluid overload Status: Acute Problem Text: CXR on admission: There is a large left pleural effusion with mild right pleural fluid. Diffuse interstitial alveolar infiltrates likely represent pulmonary edema. Cardiac silhouette appears prominent. Right central venous catheter is seen with the distal end in the right atrium. Had dialysis yesterday with 1500 cc fluid removed. Was told by the product mgr on admission that meagan would perform dialysis with fluid removal Thu/ and Thu this week Her mother refused dialysis today She will get dialysis tomorrow Consider Thorocentesis of large left pleural effusion if persists despite fluid removal in dialysis (2) ESRD (end stage renal disease) Status: Chronic Problem Text: see above (3) Hypertension Status: Chronic Problem Text: Mother refused BP meds this am She has agreed to BP meds after I explained that she needs them (4) Noncompliance Status: Chronic Problem Text: Adult protective in already involved in this case - PFS again made aware of need to be involved and make sure Adult protective is following the case due to long standing h/o non-compliance and refusal of care by patient and mother 07/16/18 - Left AMA from hospital after admission for DENNIS and hypertensive Urgency, despite warning of multiple potential complications including CVA 08/12/19 - Admitted with CVA 09/25/19 - Admitted after pick-up order for missing multiple dialysis appointments. BP on admission was 200s Admitted 05/11/19 - Had not been to dialysis since 09/2018 admission (5) Anemia in chronic kidney disease Status: Chronic Response to Treatment: Worse Problem Text: Monitor trend and transfuse if needed IV venofer order (6) H/O Clostridium difficile infection Status: Resolved Problem Text: s/p 14 days oral Vanco - No further diarrhea - stop Vanco today Plan/VTE VTE Prophylaxis Ordered?: Yes (SQ heparin ordered - mother refused this am - risk of DVT and PE discussed with mother) VS, I&O, 24H, Fishbone Vital Signs/I&O Vital Signs Date Time Temp Pulse Resp B/P (MAP) Pulse Ox O2 Delivery O2 Flow Rate FiO2 07/26/19 11:31 91 166/88 07/26/19 08:00 97.8 17 98 Room Air 07/25/19 16:00 2.0 I&O- Last 24 Hours up to 6 AM 07/26/19 06:00 Intake Total 530 ml Output Total 1820 ml Balance -1290 ml Laboratory Data 24H LABS Laboratory Tests 2 07/25/19 17:51: Bedside Glucose (Misc Panel) 102 07/25/19 20:54: Bedside Glucose (Misc Panel) 146H 07/25/19 22:37: Urine Color STRAW, Urine Appearance HAZY, Urine pH 9.0, Urine Specific Dora 1.006, Urine Protein 3+H, Urine Glucose (UA) 3+H, Urine Ketones NEGATIVE, Urine Blood NEGATIVE, Urine Nitrite NEGATIVE, Urine Bilirubin NEGATIVE, Urine Urobilin ogen 0.2, Urine Leukocyte Esterase 2+H, Urine WBC (Auto) 147H, Urine RBC (Auto) 15H, Urine Hyaline Casts (Auto) 0, Urine Bacteria (Auto) NEGATIVE, Urine Squamous Epithelial Cells 0, Urine Sperm (Auto) 07/26/19 05:42: Nucleated Red Blood Cells % (auto) 0.0, Anion Gap 5L, Glomerular Filtration Rate 16.0L, Calcium Level 8.2L, Iron Level 33L, Total Iron Binding Capacity 129L, Tr ansferrin % Saturation 25.6 CBC/BMP Laboratory Tests 07/26/19 05:42 Microbiology Microbiology 07/25/19 Urine Culture, Received Pending ATIYA PAN PA-C Jul 26, 2019 12:28 Héctor Pan MD Jul 27, 2019 09:57
--- NOTE | 2019-07-26 13:37 | IPN ---
DATE: 07/26/2019 This is a brief progress note. I was called by the dialysis nurse and also by the nurse on the patient's floor that mother was refusing dialysis for Ihsan today. I initially did not have plans to see Ihsan today, however, when I was on the floor Mrs. Adamson was very insistent that she needed to speak with me. Thereafter she did speak to me for at least 45 minutes regarding a myriad and sundry of questions related to Ihsan's health over the past couple of years. She also had very lengthy conversations with other health care providers that are involved in Ihsan's care without much resolution to her varied concerns. She had so many round about questions and concerns for me that she did not allow me time to speak to Ihsan, neither to examine her. She again refused dialysis today and I am told she refused the a.m. blood pressure medications as well. I recommended to Mrs. Adamson that Ihsan should receive timely three times a week hemodialysis treatments and should receive her regularly scheduled blood pressure medications. I advised her that Ihsan has hypervolemia with peripheral edema on exam and pleural effusion on chest x-ray. I also advised her that her blood pressure is above the target goal. When the patient's mother allows her to receive her next dialysis session we will dialyze her. I am not billing for any care provided for this patient during this admission. Labs and vitals have been reviewed. The patient was not examined today because of the lengthy and difficult interaction with her mother who did not allow for time for patient examination.
[2019-07-27] VITALS: BP 168/91
[2019-07-27] MEDS: SLF 3 ML SYR IV SCH (02:40)
[2019-07-27 04:00] VITALS: BP 172/92
[2019-07-27 05:42] LABS: HEMATOCRIT 28.8 % (36.0-47.0); MEAN CORPUSCULAR HEMOGLOBIN 30.5 pg (27.0-33.0); MEAN CORPUSCULAR HGB CONC 31.3 g/dl (32.0-36.5); MEAN CORPUSCULAR VOLUME 97.6 fl (80.0-96.0); PLATELET COUNT, AUTOMATED 368 10^3/uL (150-450); RED BLOOD COUNT 2.95 10^6/uL (4.00-5.40)
[2019-07-27 06:11] LABS: ALBUMIN 2.8 GM/DL (3.2-5.2); BILIRUBIN,TOTAL 0.3 MG/DL (0.2-1.0); CALCIUM LEVEL 8.8 MG/DL (8.5-10.1); CREATININE FOR GFR 4.97 MG/DL (0.55-1.30); GLOMERULAR FILTRATION RATE 10.9 (>60); POTASSIUM SERUM 5.1 MEQ/L (3.5-5.1); TOTAL PROTEIN 7.4 GM/DL (6.4-8.2)
[2019-07-27 08:41] LABS: MAGNESIUM LEVEL 2.4 MG/DL (1.8-2.4)
[2019-07-27 08:44] VITALS: BP 180/100
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
[2019-07-27 09:00] VITALS: BP 136/70
[2019-07-27] MEDS ORDERED: CARVedilol 12.5 MG TAB PO SCH (09:00)
[2019-07-27] MEDS: HEPARIN SOD (PORCINE) 5000 UNITS/ML VIAL SC SCH (09:00)
[2019-07-27] MEDS: amLODIPine 5 MG TAB PO SCH (09:00)
--- NOTE | 2019-07-27 09:09 | MHCRPDOC ---
[facility] Consultation Consultation Spoke to provider on the potential consult question, it appears that that the team is interested in perhaps a judicial competency ruling on the patient's ability to make medical decisions, it appears that the team has concerns that the patient's mother is not acting in her best interest. However, the patient's mother is the next of kin and in any potential capacity consult the decision would defer to next of kin. However, the patient at this time is consenting to the procedures being done, although the team has concerns about her ability to manage her care and her mother's ability to act in the best interest, I recommended a consultation with the legal team for perhaps a court-appointed david rodriguez at a judicial competency determination, as capacity consultations are only specific to one medical question in time and defer to next of kin and would require a judicial hearing in order to force any treatment on the patient. As per my discussion with Ms. Ramos, the patient is currently consenting to the treatment, and thus would make any capacity consult moot unless the team believes that she should not engage in this treatment. Psychiatry remains available for any further questions Vital Signs Vital Signs Date Time Temp Pulse Resp B/P (MAP) Pulse Ox O2 Delivery O2 Flow Rate FiO2 07/27/19 09:00 105 180/100 07/27/19 08:44 98.6 18 93 Room Air 07/25/19 16:00 2.0 Laboratory Data 24H Labs Laboratory Tests 2 07/27/19 05:12: Nucleated Red Blood Cells % (auto) 0.2H, Anion Gap 6L, Glomerular Filtration Rate 10.9L, Calcium Level 8.8, Magnesium Level 2.4, Total Bilirubin 0.3, Asparta te Amino Transf (AST/SGOT) 26, Alanine Aminotransferase (ALT/SGPT) 19, Alkaline Phosphatase 79, Total Protein 7.4, Albumin 2.8L, Albumin/Globulin Ratio 0.61L Home Medications Current Medications Current Medications Medications (Trade) Dose Ordered Sig/Phi Route PRN Reason Start Time Stop Time Status Last Admin Dose Admin Acetaminophen (Tylenol Tab) 650 mg Q4H PRN PO PAIN OR FEVER 07/25/19 14:45 Al Hydrox/Mg Hydrox/Simethicone (Mylanta) 30 ml DAILY PRN PO DYSPEPSIA 07/25/19 14:45 Amlodipine Besylate (Norvasc) 5 mg DAILY PO 07/26/19 09:00 07/27/19 09:00 Carvedilol (COReg) 12.5 mg BID PO 07/25/19 21:00 07/26/19 21:40 Darbepoetin Lopez (Aranesp (Dialysis Use)) 100 mcg HD IV 07/26/19 10:00 Docusate Sodium (Colace) 100 mg BID PO 07/25/19 21:00 07/26/19 11:54 DC Heparin Sodium (Porcine) (Heparin) 5,000 units Q12H SC 07/25/19 21:00 Home Med (Med Rec Complete!) ASDIRECTED XX 07/25/19 09:15 07/25/19 09:18 DC Iron (Venofer) 100 mg HD IV 07/26/19 10:00 08/04/19 10:01 Labetalol HCl (Normodyne, Trandate) 20 mg STAT STAT IV 07/25/19 08:25 07/25/19 08:26 DC 07/25/19 08:55 Magnesium Hydroxide (Milk Of Magnesia) 30 ml DAILY PRN PO CONSTIPATION 07/25/19 14:45 Sodium Chloride (Saline Lock Flush) 2 ml ASDIRECTED PRN IV SEE LABEL COMMENTS 07/25/19 16:45 Sodium Chloride (Saline Lock Flush) 2 ml SLF IV 07/25/19 22:00 07/27/19 02:40 Vancomycin HCl (First-Vancomycin 50(Firvanq)- 250mg/5ml) 250 mg Q6H PO 07/25/19 18:00 07/26/19 11:54 DC 07/26/19 00:32 Scheduled Amlodipine Besylate (Amlodipine Besylate) 5 Mg Tablet, 5 MG PO DAILY, (Reported) Carvedilol (Carvedilol) 25 Mg Tablet, 1 TAB PO BID Allergies Coded Allergies: No Known Allergies (Unverified , 01/19/19) FRANDY DRAKE DO Jul 27, 2019 09:09
[2019-07-27] MEDS ORDERED: HEPARIN 1,000 UNITS/ML 10ML VIAL (FOR RADIOLOGY& DIALYSIS ONLY) XX ONE (12:00)
[2019-07-27] MEDS ORDERED: HEPARIN 1,000 UNITS/ML 10ML VIAL (FOR RADIOLOGY& DIALYSIS ONLY) IV ONE (12:00)
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
[2019-07-27 12:40] VITALS: BP 136/70
--- NOTE | 2019-07-27 13:32 | IPN ---
DATE OF SERVICE: 07/27/2019 SUBJECTIVE: Ihsan is seen and examined this morning in the hemodialysis unit receiving her maintenance treatment. Her mother is present at the bedside and has many questions for me. Most of those questions have been discussed in great detail on prior lengthy conversations with her mother. Ihsan denies any new complaints. Reports she had a bagel and cereal for breakfast. Dialysis nurse reports mild bleeding from the PermCath site, which was reinforced with a pressure dressing. Goal fluid removal for today's dialysis treatment is 1500 mL, which the patient's mother agrees for after I explained at length regarding her hypervolemia and pitting edema that is prominent on physical examination. PHYSICAL EXAMINATION Vital signs: Temperature 98.6, pulse 99, respiratory rate 18, blood pressure 180/100, saturating 93% on room air. Dialysis today removed 1500 mL. Intake yesterday was 720. General: The patient is seen in the hemodialysis unit. Appears disheveled and unkempt. Frail. Legally blind. Poor dentition. Tongue is moist. Tunneled hemodialysis catheter in the right chest wall is in use. Some fresh blood is noted on dressing. Heart sounds are regular S1, S2. There is 1+ edema noted up to the knees bilaterally. Lungs show diminished breath sounds at the bases, more so on the left. There is no accessory muscle use or tachypnea. The abdomen is soft and nontender. There are bowel sounds. Neurologic: She is cooperative with physical examination. Psychiatric: Unable to assess. The patient's mother does almost all of the talking for her. LABORATORIES: White count 12, hemoglobin 9.0, platelet 368. Sodium 138, potassium 5.1, bicarbonate 28, magnesium 2.4. INPATIENT MEDICATIONS: Reviewed by me and no change from prior. PROBLEMS: 1. End-stage renal disease, on hemodialysis on Thursday, Thursday, Thursday schedule. I had ordered extra hemodialysis treatments on Thursday, so that the patient would get three treatments in a row, given that she is significantly volume overloaded and has uncontrolled blood pressures, but the patient's mother refused dialysis on Thursday. She is dialyzed today with 1500 mL of fluid removed. The patient's mother also does not allow us to raise the fluid removal goal on hemodialysis. I advised the patient's mother and the patient again that she needs extra dialysis session for further control of her volume status, which will help with her blood pressures, as well. We will continue to dialyze Jensigifredo when the patient and mother allow. 2. Hypertension. Uncontrolled. At home, does not comply with antihypertensive medication. Presently, also volume overloaded. Does not allow for adequate hemodialysis with adequate fluid removal. Refused extra hemodialysis treatment. Mother and patient are again counseled on need for regular adequate dialysis and compliance with antihypertensive. 3. Anemia in chronic kidney disease. Continue with Venofer and erythropoietin-stimulating agent. Goal hemoglobin 10-11. 4. Large left-sided pleural effusion. This is, in my opinion, unlikely to get better with dialysis alone, mainly because they are noncompliant with regular and adequate hemodialysis. I suggest thoracentesis. 5. Noncompliance, longstanding and pervasive concern for negligence. As per further management and discussion with Adult Protective Services, deferred to the primary team.
[2019-07-27] MEDS ORDERED: CARV25TA PO (16:21)
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
== END 2019-07-27 19:15 | disposition left against medical advice (07) | DRG 425 ==
LOC: M ED 07:44 → M ED INP 10:44 → M PCU 15:45
PROVIDERS: ADMIT Internal Medicine; ATTEND Family Medicine
PROC: 5A1D70Z Performance of Urinary Filtration, Intermittent, Less than 6 Hours Per Day (ICD-10-PCS; principal; 2019-07-25)
DX: E87.70 Fluid overload, unspecified (principal); J90 Pleural effusion, not elsewhere classified; J81.1 Chronic pulmonary edema; N25.81 Secondary hyperparathyroidism of renal origin; A04.72 Enterocolitis due to Clostridium difficile, not specified as recurrent; N18.6 End stage renal disease; I12.0 Hypertensive chronic kidney disease with stage 5 chronic kidney disease or end stage renal disease; E11.22 Type 2 diabetes mellitus with diabetic chronic kidney disease; E11.319 Type 2 diabetes mellitus with unspecified diabetic retinopathy without macular edema; Q96.9 Turner's syndrome, unspecified; Z91.15 Patient's noncompliance with renal dialysis; F79 Unspecified intellectual disabilities; Z99.2 Dependence on renal dialysis; H54.7 Unspecified visual loss; I16.1 Hypertensive emergency; S05.72XD Avulsion of left eye, subsequent encounter; D63.1 Anemia in chronic kidney disease; Z91.19 Patient's noncompliance with other medical treatment and regimen; Z79.899 Other long term (current) drug therapy; Z86.73 Personal history of transient ischemic attack (TIA), and cerebral infarction without residual deficits; Z91.14 Patient's other noncompliance with medication regimen

== ENCOUNTER 2019-08-03 21:46 | Inpatient (IN) | payer OTHER ==
[~2019-08-03] VITALS: Ht 152.4 cm; Wt 54.5 kg
[~2019-08-03 21:46] MED LIST changes: +CARV25TA PO
[2019-08-03 22:59] LABS: BASO % 0.4 % (0.0-1.0); EOS # 0.2 10^3/uL (0.0-0.5); HEMATOCRIT 28.3 % (36.0-47.0); HEMOGLOBIN 8.7 g/dl (12.0-15.5); LYMPH # 1.1 10^3/uL (1.5-5.0); LYMPH % 11.9 % (24.0-44.0); MEAN CORPUSCULAR HEMOGLOBIN 29.4 pg (27.0-33.0); MEAN CORPUSCULAR HGB CONC 30.7 g/dl (32.0-36.5); MEAN CORPUSCULAR VOLUME 95.6 fl (80.0-96.0); MONO # 1.1 10^3/uL (0.0-0.8); MONO % 11.9 % (0.0-5.0); NEUTROPHILS # 6.4 10^3/uL (1.5-8.5); NEUTROPHILS % 69.3 % (36.0-66.0); PLATELET COUNT, AUTOMATED 334 10^3/uL (150-450); RED BLOOD COUNT 2.96 10^6/uL (4.00-5.40); WHITE BLOOD COUNT 9.2 10^3/uL (4.0-10.0)
[2019-08-03] MEDS ORDERED: LABETALOL HCL 100 MG/20 ML VIAL IV STA (23:36)
[2019-08-03] MEDS ORDERED: CARVedilol 12.5 MG TAB PO ONE (23:45)
[2019-08-03] MEDS ORDERED: amLODIPine 10 MG TAB PO ONE (23:45)
[2019-08-03] MEDS ORDERED: CARV12.5 PO (23:49)
[2019-08-03] MEDS ORDERED: VITACHTA PO (23:49)
[2019-08-03 23:51] LABS: BLOOD UREA NITROGEN 26 MG/DL (7-18); CALCIUM LEVEL 8.3 MG/DL (8.5-10.1); CARBON DIOXIDE LEVEL 30 MEQ/L (21-32); CHLORIDE LEVEL 100 MEQ/L (98-107); CK-MB VALUE MASS 6.2 NG/ML (<3.6); CPK CREATINE PHOSPHOKINASE 69 U/L (26-192); CREATININE FOR GFR 4.78 MG/DL (0.55-1.30); GLOMERULAR FILTRATION RATE 11.4 (>60); GLUCOSE, FASTING 123 MG/DL (70-100); MB/CK RELATIVE INDEX 8.99 (< OR =4); POTASSIUM SERUM 4.3 MEQ/L (3.5-5.1); SODIUM LEVEL 139 MEQ/L (136-145); TROPONIN I 0.04 NG/ML (< 0.10)
[2019-08-03 23:54] LABS: NT-PRO BNP > 175000 PG/ML (<125)
[2019-08-04] VITALS (10 sets, daily range): BP systolic 130–190; BP diastolic 66–105
--- NOTE | 2019-08-04 01:40 | IPNPDOC ---
Date Seen The patient was seen on 08/04/19. Progress Note PER DR. MADISON'S DISCHARGE SUMMARY, AND MOTHER'S INSISTENCE ON NEW PRIMARY CARE PHYSICIAN, PT HAS BEEN ASSIGNED BACK TO HOSPITALIST SERVICE, UNTIL NEW PRIMARY CARE PHYSICIAN HAS BEEN ARRANGED. VS, I&O, 24H, Fishbone Vital Signs/I&O Vital Signs Date Time Temp Pulse Resp B/P (MAP) Pulse Ox O2 Delivery O2 Flow Rate FiO2 08/04/19 01:07 100 24 178/101 (126) 96 Nasal Cannula 2.0 08/03/19 21:59 99.7 Laboratory Data 24H LABS Laboratory Tests 2 08/03/19 22:36: Immature Granulocyte % (Auto) 4.5H, Neutrophils (%) (Auto) 69.3H, Lymphocytes (%) (Auto) 11.9L, Monocytes (%) (Auto) 11.9H, Eosinophils (%) (Auto) 2.0, Basophils (%) (Auto) 0.4, Neutrophils # (Auto) 6.4, Lymphocytes # (Auto) 1.1L, Monocytes # (Auto) 1.1H, Eosinophils # (Auto) 0.2, Basophils # (Auto) 0.0, Nucl eated Red Blood Cells % (auto) 0.2H, Carboxyhemoglobin 1.2, Anion Gap 9, Glomerular Filtration Rate 11.4L, Calcium Level 8.3L, Total Creatine Kinase 69, Creatine Kinase MB 6.2H, Creatine Kinase MB Relative Index 8.99H, Troponin I 0.04, DV-Kgg-M-Type Natriuretic Peptide > 772102I, Thyroid Stimulating Hormone (TSH) 2.300 CBC/BMP Laboratory Tests 08/03/19 22:36 TYRESE SCHULTE MD Aug 04, 2019 01:40
--- NOTE | 2019-08-04 01:44 | REPVR ---
PROCEDURE INFORMATION: Exam: CT Chest Without Contrast Exam date and time: 08/04/2019 12:51 AM Clinical history: 29 years old, female; Chest pain; Type not specified; Additional info: Chest pain SOB h/o pericardial effusion esrd on hd TECHNIQUE: Imaging protocol: Computed tomography of the chest without contrast. 3D rendering: MIP reconstructed images were created and reviewed. Radiation optimization: All CT scans at this facility use at least one of these dose optimization techniques: automated exposure control; mA and/or kV adjustment per patient size (includes targeted exams where dose is matched to clinical indication); or iterative reconstruction. COMPARISON: CT Chest without contrast 05/16/2019 9:51 AM FINDINGS: Tubes, catheters and devices: Right internal jugular dialysis catheter extending into the right atrium. Lungs: Mild scattered infiltrates and fibro-atelectatic change. There is compressive atelectasis of the lower lobes, Pleural space: Mild bilateral pleural effusions. Heart: Unremarkable. No cardiomegaly. No pericardial effusion. Aorta: Unremarkable. No aortic aneurysm. Lymph nodes: Numerous small mediastinal nodes which are borderline overall. Bones/joints: Old left rib fractures posteriorly. Soft tissues: Unremarkable. IMPRESSION: 1. Mild bilateral pleural effusions which are slightly increased since 05/16/2019. 2. Resolution of pericardial effusion since the prior study. 3. Right internal jugular tunnel dialysis catheter in the right atrium which is similar. 4. Mild scattered infiltrates and fibro-atelectatic change with compressive atelectasis of the lower lobes which is increased since the prior study. 5. Borderline mediastinal nodes which are increased since the prior study. Electronically signed by: Yang Gibson On 08/04/2019 01:43:55 AM
[2019-08-04] MEDS ORDERED: GLUCAGON FOR INJ 1 MG VIAL (J1610) SC PRN (01:45)
[2019-08-04] MEDS ORDERED: GLUCOSE 4 GM CHEW TABLET PO PRN (01:45)
[2019-08-04] MEDS ORDERED: DEXTROSE 50% 50 ML SYRINGE IV PRN (01:45)
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
--- NOTE | 2019-08-04 07:55 | REP ---
Clinical: Cough and dyspnea. Comparison: 07/25/2019. Findings: Moderate left lower lobe effusion and underlying atelectasis/infiltrate along with small right pleural effusion and atelectasis similar to prior examination. Double-lumen dialysis catheter with tips in the right atrium. Visualized mediastinum and cardiac silhouette within normal limits and stable. No pneumothorax. Skeletal structures intact. Impression: Pleural effusions and bibasilar opacities (left greater than right). Electronically Signed by Russell Roblero MD 08/04/2019 07:46 A
[2019-08-04] MEDS: amLODIPine 10 MG TAB PO SCH ×2 (09:00→09:18)
[2019-08-04] MEDS: CARVedilol 12.5 MG TAB PO SCH ×3 (09:20→22:11)
[2019-08-04 11:17] LABS: HEMOGLOBIN A1c 4.5 %
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
[2019-08-05 06:00] VITALS: BP 158/60
--- NOTE | 2019-08-05 06:42 | ECHO ---
DATE OF STUDY: 08/04/2019 DATE OF : 1990 AGE: 29 REFERRING PROVIDER: Dr. Pema Oconnor PATIENT LOCATION: Room 3215 REASON FOR STUDY: Hypertensive urgency. 2-D MEASUREMENTS: IVS: 1.6 cm LV: 3.2 cm LVPW: 1.6 cm LA: 2.8 cm Aorta: 2.4 cm IVC: 1.4 cm DOPPLER MEASUREMENTS: Peak velocity across the aortic valve: 1.9 m/s Peak velocity across the LVOT: 0.84 m/s Peak gradient across the aortic valve: 14 mmHg Mean gradient across the aortic valve: 8 mmHg Mitral E: 1.3 Mitral A: 1.2 Ratio: 1.1 Maximum tricuspid valve velocity: 2.8 m/s 2-D COMMENTS: 1. Moderately increased left ventricular thickness with normal left ventricular size and normal global left ventricular systolic function. The estimated left ventricular systolic ejection fraction 60-65%. 2. Normal left atrium. Normal right atrium and right ventricle. 3. The atrial septum appeared to be normal without evidence of defect or shunt. 4. Normal aortic root. 5. Trace to small pericardial effusion noted, no evidence of cardiac tamponade. Pleural effusion also noted. 6. Mildly calcified aortic valve, leaflet excursion may be minimally decreased. Mildly calcified mitral annulus with normal anterior mitral leaflet motion. Normal tricuspid valve and pulmonic valves. The proximal pulmonary artery branches also appear to be normal in size. 7. The inferior vena cava was normal in size, central venous pressure is most likely normal. DOPPLER: Detects trace to mild tricuspid regurgitation. The calculated pulmonary artery systolic pressure varied between 30-40 mmHg. Abnormal relaxation pattern was noted across the mitral valve annulus consistent with features of grade 2 left ventricular diastolic dysfunction, left ventricular end-diastolic pressure might be elevated. IMPRESSION: 1. Normal global left ventricular systolic function with moderate concentric left ventricular hypertrophy. There are some features of left ventricular diastolic dysfunction, grade 2. 2. Aortic valve sclerosis with trivial aortic stenosis, but no aortic radiation. 3. Isolated mitral annulus calcification. No significant mitral regurgitation or mitral stenosis. 4. Trace to mild tricuspid regurgitation with mild pulmonary hypertension. 5. Trace to mild pericardial effusion, no evidence of cardiac tamponade. Pleural effusion also noted. 6. The patient was uncooperative during the test.
[2019-08-05 07:47] LABS: HEMATOCRIT 25.6 % (36.0-47.0); HEMOGLOBIN 7.9 g/dl (12.0-15.5); MEAN CORPUSCULAR HGB CONC 30.9 g/dl (32.0-36.5); MEAN CORPUSCULAR VOLUME 97.3 fl (80.0-96.0); PLATELET COUNT, AUTOMATED 335 10^3/uL (150-450); RED BLOOD COUNT 2.63 10^6/uL (4.00-5.40); WHITE BLOOD COUNT 8.5 10^3/uL (4.0-10.0)
[2019-08-05 08:14] LABS: CALCIUM LEVEL 7.9 MG/DL (8.5-10.1); CREATININE FOR GFR 6.92 MG/DL (0.55-1.30); GLOMERULAR FILTRATION RATE 7.4 (>60); POTASSIUM SERUM 4.5 MEQ/L (3.5-5.1)
[2019-08-05] MEDS ORDERED: ADULKIT XX (09:10)
[2019-08-05] MEDS: CARVedilol 12.5 MG TAB PO SCH (10:42)
[2019-08-05 10:43] VITALS: BP 142/72
[2019-08-05] MEDS: amLODIPine 10 MG TAB PO SCH (10:43)
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
== END 2019-08-05 13:41 | disposition home or self-care (01) | DRG 199 ==
LOC: M ED 21:46 → M ED INP 23:40 → M PCU 08-04 02:47 → M MSPAV 08-04 16:40
PROVIDERS: ADMIT General Practice; ATTEND Internal Medicine
DX: I16.0 Hypertensive urgency (principal); J90 Pleural effusion, not elsewhere classified; N18.6 End stage renal disease; E11.22 Type 2 diabetes mellitus with diabetic chronic kidney disease; I13.11 Hypertensive heart and chronic kidney disease without heart failure, with stage 5 chronic kidney disease, or end stage renal disease; E11.40 Type 2 diabetes mellitus with diabetic neuropathy, unspecified; N25.81 Secondary hyperparathyroidism of renal origin; Q96.9 Turner's syndrome, unspecified; Z91.15 Patient's noncompliance with renal dialysis; I69.392 Facial weakness following cerebral infarction; H54.8 Legal blindness, as defined in USA; D63.1 Anemia in chronic kidney disease; R06.02 Shortness of breath; Z99.2 Dependence on renal dialysis; Z91.14 Patient's other noncompliance with medication regimen

== ENCOUNTER 2019-08-12 16:12 | Emergency (ER) | payer OTHER ==
[~2019-08-12] VITALS: Ht 144.8 cm; Wt 32.7 kg
[~2019-08-12 16:12] MED LIST changes: +ADULKIT XX; +VITACHTA PO
[2019-08-12 16:26] VITALS: BP 168/96
[2019-08-12 18:06] LABS: BASO % 0.2 % (0.0-1.0); EOS % 0.1 % (0.0-3.0); HEMATOCRIT 33.1 % (36.0-47.0); HEMOGLOBIN 10.4 g/dl (12.0-15.5); LYMPH # 1.6 10^3/uL (1.5-5.0); LYMPH % 16.4 % (24.0-44.0); MEAN CORPUSCULAR HEMOGLOBIN 28.9 pg (27.0-33.0); MEAN CORPUSCULAR HGB CONC 31.4 g/dl (32.0-36.5); MEAN CORPUSCULAR VOLUME 91.9 fl (80.0-96.0); MONO # 0.6 10^3/uL (0.0-0.8); MONO % 5.9 % (0.0-5.0); NEUTROPHILS # 7.7 10^3/uL (1.5-8.5); PLATELET COUNT, AUTOMATED 312 10^3/uL (150-450)
[2019-08-12 18:07] LABS: VENOUS BASE EXCESS -8.8 (-2.0-2.0); VENOUS HCO3 16.8 MEQ/L (23.0-27.0); VENOUS PARTIAL PRESSURE CO2 35.2 mmHg (38.0-50.0); VENOUS PARTIAL PRESSURE O2 46.4 mmHg (30.0-50.0); VENOUS PH 7.297 UNITS (7.330-7.430); VENOUS STANDARD HCO3 16.9 MEQ/L; VENOUS TOTAL CO2 17.9 MEQ/L (24.0-28.0)
[2019-08-12 18:49] LABS: BLOOD UREA NITROGEN 108 MG/DL (7-18); CALCIUM LEVEL 8.6 MG/DL (8.5-10.1); CARBON DIOXIDE LEVEL 19 MEQ/L (21-32); CHLORIDE LEVEL 102 MEQ/L (98-107); GLOMERULAR FILTRATION RATE 3.4 (>60); GLUCOSE, FASTING 104 MG/DL (70-100); NT-PRO BNP > 175000 PG/ML (<125); POTASSIUM SERUM 5.7 MEQ/L (3.5-5.1); SODIUM LEVEL 137 MEQ/L (136-145)
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
== END 2019-08-12 18:46 | disposition home or self-care (01) ==
LOC: M ED 16:12
DX: N18.6 End stage renal disease (principal); E87.70 Fluid overload, unspecified; Z99.2 Dependence on renal dialysis; Z91.19 Patient's noncompliance with other medical treatment and regimen; E11.9 Type 2 diabetes mellitus without complications; I11.0 Hypertensive heart disease with heart failure; I50.33 Acute on chronic diastolic (congestive) heart failure; D63.1 Anemia in chronic kidney disease; R33.9 Retention of urine, unspecified; Z79.899 Other long term (current) drug therapy